=== PATIENT | male | born 1960 | race Two or more races ===

== ENCOUNTER 2024-11-15 11:48 | Inpatient (IN) | payer MEDICAID, SELFPAY ==
[2024-11-15] VITALS (69 sets, daily range): BP systolic 81–121; BP diastolic 51–81; PULSE 29–135; RESP 18–89; TEMP 36.7–40.1; O2SAT 90–97; BMI 24.4
--- NOTE | 2024-11-15 12:00 | XR_ITS ---
Examination: AP chest single view Technique one AP portable semiupright chest single view Date and time: November 15, 2024 1229 hours INDICATIONS: Coughing fever beginning 3 days ago. FINDINGS: Mild prominence left ventricle Reduced inspiratory effort Suspicious for mild pneumonia left base obscuring detail left hemidiaphragm IMPRESSION: Suspicious for mild pneumonia left base
--- NOTE | 2024-11-15 12:00 | XR_ITS ---
Examination: CT abdomen with intravenous contrast CT pelvis with intravenous contrast 2-D coronal reconstructions 2-D sagittal reconstructions Date and time of exam:November 15, 2024 1412 hours INDICATIONS: Abdominal pain and fever today. CTDI: vol (mGy) 8.73 DLP: (mGycm) 641 Technique: Multiple axial sections of the abdomen and pelvis have been obtained. 64 slice high-resolution scanner used. 3 mm axial sections have been obtained, post intravenous injection 60 cc [id number] 2-D sagittal, coronal reconstructions obtained. Low dose protocols were performed. One or more of the following dose reduction techniques were used; automated exposure control, adjustment of the mA and/or KV according to patient size, use of iterative reconstruction technique. Findings: Bibasilar pneumonia Mild to moderate right pleural fluid Moderate enlargement cardiac contour with vascular congestion Cirrhosis, liver nodular in contour Liver cysts, the largest 35 mm and 41 mm Splenomegaly Significant ascites Multiple gallstones No pancreatic mass No hydronephrosis No bowel obstruction Mild diffuse wall thickening of the colon and small bowel Contracted urinary bladder with urinary bladder wall thickening Mild prostatomegaly Advanced degenerative disc disease L4-L5 Fluid containing right inguinal hernia IMPRESSION: Bibasilar pneumonia Suspicious for heart failure Cirrhosis Splenomegaly Significant ascites Hepatic colopathy hepatic enteropathy
--- NOTE | 2024-11-15 12:05 | PD.EDABDPN ---
ED Abdominal Pain RME/HPI General Chief Complaint: Seizure Stated complaint: SEIZURE Time seen by provider: 11/15/24 11:59 Arrival date/time: 11/15/24 11:48 Source: patient Limitations: no limitations and other (Patient is ill-appearing but nontoxic appearing) RME / HPI RME / HPI narrative: 57-year-old male who is homeless and brought in by EMS for reported seizure activity. He denies any chronic medical illness. He is febrile and answering questions appropriately. He has abdominal distention. He denies any history of alcohol use. Denies any history of hypertension or liver disease. He denies any current nausea, vomiting, or diarrhea. He denies any drug allergies. He states he takes no medications. Related Data Allergies Allergy/AdvReac Type Severity Reaction Status Date / Time Unable to Assess Allergy Verified 11/15/24 11:56 Review of Systems Review of Systems Systems Reviewed: All systems reviewed, normal except as documented ED Exam General Limitations: Present no limitations and other (Patient is ill-appearing but nontoxic appearing) General appearance: Present alert and other (Patient is unkempt) Head Head exam: Present atraumatic Eye Eye exam: Present normal appearance, PERRL and EOMI ENT ENT exam: Present normal exam, normal oropharynx and mucous membranes moist Neck Neck exam: Present normal inspection, full ROM and trachea midline Chest Chest inspection: Present normal inspection and symmetric chest wall rise Respiratory Respiratory exam: Present normal lung sounds bilaterally Cardiovascular Cardiovascular exam: Present normal rhythm, tachycardia (He is tachycardic at 120 bpm) and normal heart sounds Abdominal Exam Abdominal exam: Present soft, distention and normal bowel sounds; Absent tenderness, guarding or rebound Extremities Exam Extremities exam: Present normal inspection and full ROM Back Exam Back exam: Present normal inspection and full ROM Neurological Exam Neurological exam: Present alert, oriented X3 and CN II-XII intact Psychiatric Psychiatric exam: Present normal affect and normal mood Skin Skin exam: Present warm, dry, intact and normal color Course Quality Measures none Orders Category Date Time Status Patient Condition Routine Admission 11/15/24 14:21 Ordered admission [Admit to Inpatient Status] Routine Admission 11/15/24 18:15 Active Aspiration precautions ONCE Care 11/15/24 18:09 Active Bedside COVID-19 Antigen Test NOW Care 11/15/24 12:00 Active Bedside Influenza A&B Antigen Test NOW Care 11/15/24 12:01 Completed COVID-19 Screening Questionnaire NOW Care 11/15/24 13:[address] Screening NOW Care 11/15/24 12:01 Active Decision to Admit X1 Care 11/15/24 13:24 Completed Head of Bed Elevation NOW Care 11/15/24 18:09 Active NPO NOW Care 11/15/24 14:22 Active Seizure precautions NOW Care 11/15/24 18:09 Active Diet NPO (NOW) Diet 11/15/24 14:22 Active CA echo doppler complete Stat Exams 11/15/24 17:[address] abdomen pelvis w con Stat Exams 11/15/24 12:00 Completed XR chest 1V Stat Exams 11/15/24 12:00 Completed Albumin, Peritoneal Fluid Routine Lab 11/15/24 16:20 Completed Alcohol, Blood Medical Stat Lab 11/15/24 12:16 Completed Ammonia Stat Lab 11/15/24 12:16 Completed Amylase,Peritoneal Fluid Routine Lab 11/15/24 16:20 Completed Blood Culture (Lab) Stat Lab 11/15/24 12:16 Received Body Fld Cult w Lida & Gram St Routine Lab 11/15/24 16:20 Received CBC AM DRAW Lab 11/16/24 05:00 Ordered CBC AM DRAW Lab 11/17/24 05:00 Ordered CBC AM DRAW Lab 11/18/24 05:00 Ordered CBC AM DRAW Lab 11/19/24 05:00 Ordered CBC AM DRAW Lab 11/20/24 05:00 Ordered CBC Stat Lab 11/15/24 12:16 Completed CMP [Comprehensive Metabolic Panel] Stat Lab 11/15/24 12:16 Completed Comprehensive Metabolic Panel AM DRAW Lab 11/16/24 05:00 Ordered Comprehensive Metabolic Panel AM DRAW Lab 11/17/24 05:00 Ordered Comprehensive Metabolic Panel AM DRAW Lab 11/18/24 05:00 Ordered Comprehensive Metabolic Panel AM DRAW Lab 11/19/24 05:00 Ordered Comprehensive Metabolic Panel AM DRAW Lab 11/20/24 05:00 Ordered Comprehensive Metabolic Panel AM DRAW Lab 11/21/24 05:00 Ordered Drug Screen,Urine Stat Lab 11/15/24 12:00 Ordered Glucose,Peritoneal Fluid Routine Lab 11/15/24 16:20 Completed LDH,Peritoneal Fluid Routine Lab 11/15/24 16:20 Completed Lactate (Lactic Acid) Q4H Lab 11/15/24 16:49 Completed Lactate (Lactic Acid) Q4H Lab 11/15/24 22:26 Ordered Lactic Acid [Lactate (Lactic Acid)] Stat Lab 11/15/24 12:16 Completed Peritoneal Cell Cnt/Diff Routine Lab 11/15/24 16:20 Completed Protein Total,Peritoneal Fluid Routine Lab 11/15/24 16:20 Completed UA [Urinalysis] Stat Lab 11/15/24 12:00 Ordered Urinalysis, C/S if Indicated Stat Lab 11/15/24 14:25 Ordered Acetaminophen Tab [Tylenol Tab] Med 11/15/24 14:20 Active 650 mg PO Q4HR PRN Albumin Human 25% Ivpb [Albuminar-25 Ivpb] Med 11/15/24 13:49 Discontinued 12.5 gm in 50 ml IV X1 Albumin Human 25% Ivpb [Albuminar-25 Ivpb] Med 11/15/24 15:24 Discontinued 25 gm in 100 ml IV X1 Enoxaparin [Lovenox] Med 11/16/24 09:00 Active 40 mg SC QDAY Furosemide [Lasix Inj] Med 11/15/24 12:37 Discontinued 40 mg IVP X1 ONE Ibuprofen Tab [Motrin Tab] Med 11/15/24 12:01 Discontinued 600 mg PO X1 ONE LORazepam [Ativan Inj] Med 11/15/24 18:12 Active 4 mg IVP PRN PRN Morphine Inj Med 11/15/24 14:20 Active 2 mg IVP Q4H PRN Norepinephrine/D5W 8mg/250ml [Levophed in D5W 8mg/250ml Med 11/15/24 13:18 Active ] 8 mg in 250 ml IV 0.05 mcg/kg/min Pantoprazole Inj [Protonix Inj] Med 11/15/24 14:30 Active 40 mg IVP QDAY Piper/Tazo 3.375 gm Premix [Zosyn] Med 11/15/24 22:00 Active 3.375 gm in 50 ml IV Q8HR Piper/Tazo 3.375 gm Premix [Zosyn] Med 11/15/24 12:02 Discontinued 3.375 gm in 50 ml IV X1 Piper/Tazo 3.375 gm Premix [Zosyn] Med 11/15/24 18:00 Discontinued 3.375 gm in 50 ml IV X1 Sodium Chloride 0.9% 500 ml [Ns] 500 ml Med 11/15/24 12:10 Discontinued IV 999 mls/hr Vancomycin Inj 1,500 mg Med 11/15/24 17:45 Discontinued Sodium Chloride 0.9% 500 ml [Ns] 500 ml IV X1 Vancomycin Pharmacy to Dose Med 11/15/24 17:45 Active 1 each IV QDAY Code Status Routine Oth 11/15/24 14:20 Ordered Oxygen Delivery PRN RT 11/15/24 14:21 Active Vital Signs Vital signs: Vital Signs Temperature 104.2 F H 11/15/24 11:59 Pulse Rate 121 H 11/15/24 11:59 Respiratory Rate 33 H 11/15/24 11:59 Blood Pressure 121/68 11/15/24 11:59 Pulse Oximetry (%) 91 L 11/15/24 11:59 Abdominal Pain MDM MDM Narrative MDM Narrative:: Patient is a 64-year-old male who was brought in by EMS from an abandoned building. His friend reported the patient was having seizures at that time. Patient was brought to the ER is found to be tachycardic and febrile. He is answering questions appropriately has no abnormal movements. He denies any chest pain or significant abdominal pain. He does have significant georgina distention that he states is actually improving. Patient reports a history of ascites. His daughter arrives at a later time as states the patient is currently housed and lives alone. He is not homeless. He does have a history of alcohol abuse. He does have a known history of ascites and congestive heart failure. He has no seizure history. Patient has been normotensive up until around 1315 p.m. today. Patient has received a 500 mL bolus of fluid. Will start him on a peripheral Levophed. His CT is pending. Case discussed with attending ER physician. Will admit to ICU. Case discussed with our bracelet former, Dr. Hercules who accepts the patient. Patient data External records reviewed:: EMS form Clinical information provided by:: patient, EMS and family Social determinants that could affect healthcare access:: alcohol use Patient has the following chronic illnesses:: Ascites, alcohol abuse, CHF How is presenting disease/condition affected by chronic disease/condition?: exacerbated by Evaluation data The following diagnostics were reviewed and interpreted by me:: EKG tracing(s) (EKG obtained today at 11:54 AM. EKG reveals sinus tachycardia 102 bpm. There are no ST changes or inverted T waves.) Lab and/or radiology exams considered but not ordered:: n/a Interpretation Summary: Patient has no significant leukocytosis. His lactic acid is elevated at 8.9. His glucose is 153. His bicarb is 16 he has hyponatremia at 130. Metabolic panel is essentially unremarkable otherwise. His ammonia is 79. Medications / Prescriptions Medications or Prescriptions considered but not ordered:: n/a Medication administrations:: Medication Administration History Acetaminophen (Acetaminophen 325 Mg Tablet) 650 mg PO Q4HR PRN PRN Reason: Pain(1-6) or temp > 100.3 Stop: 12/15/24 14:19 Enoxaparin Sodium (Enoxaparin Sod Inj 40 Mg/0.4 Ml Syringe) 40 mg SC QDAY SHANNAN Stop: 11/30/24 08:59 Norepinephrine/Dextrose (Levophed In D5w 8mg/250ml) 8 mg in 250 mls @ 7.654 mls/hr IV .Q24H PRN; Protocol PRN Reason: PER PROTOCOL Stop: 12/15/24 13:17 Last Titration: 11/15/24 19:00 Dose: 0.11 mcg/kg/min, 16.84 mls/hr Documented By: Titration: 11/15/24 18:00 Dose: 0.11 mcg/kg/min, 16.84 mls/hr Documented By: Titration: 11/15/24 17:53 Dose: 0.11 mcg/kg/min, 16.84 mls/hr Documented By: Titration: 11/15/24 17:36 Dose: 0.11 mcg/kg/min, 16.84 mls/hr Documented By: Titration: 11/15/24 17:30 Dose: 0.11 mcg/kg/min, 16.84 mls/hr Documented By: Titration: 11/15/24 17:15 Dose: 0.09 mcg/kg/min, 13.778 mls/hr Documented By: Titration: 11/15/24 17:00 Dose: 0.09 mcg/kg/min, 13.778 mls/hr Documented By: Titration: 11/15/24 16:53 Dose: 0.09 mcg/kg/min, 13.778 mls/hr Documented By: Titration: 11/15/24 16:20 Dose: 0.09 mcg/kg/min, 13.778 mls/hr Documented By: Titration: 11/15/24 14:25 Dose: 0.09 mcg/kg/min, 13.778 mls/hr Documented By: Titration: 11/15/24 13:45 Dose: 0.07 mcg/kg/min, 10.716 mls/hr Documented By: Admin: 11/15/24 13:32 Dose: 0.05 mcg/kg/min, 7.654 mls/hr Documented By: Piperacillin/Tazobactam/Dextrose (Zosyn) 3.375 gm in 50 mls @ 12.5 mls/hr IV Q8HR [facility] Stop: 11/22/24 21:59 Thiamine HCl 500 mg/ Sodium (Chloride) 105 mls @ 210 mls/hr IV Q8HR SHANNAN Stop: 11/16/24 21:59 Lorazepam (Lorazepam 2 Mg/Ml Vial) 4 mg IVP PRN PRN PRN Reason: Seizure > 5 min Stop: 11/20/24 18:11 Lorazepam (Lorazepam 0.5 Mg Tablet) 1 mg PO Q4HR PRN PRN Reason: CIWA SCORE 7-11 Stop: 11/20/24 18:18 Lorazepam (Lorazepam 0.5 Mg Tablet) 0.5 mg PO Q4HR PRN PRN Reason: CIWA Score 2-6 Stop: 11/20/24 18:18 Lorazepam (Lorazepam 0.5 Mg Tablet) 2 mg PO Q4HR PRN PRN Reason: CIWA SCORE 12-15 Stop: 11/20/24 18:18 Morphine Sulfate (Morphine Sulf Inj 10 Mg/Ml Vial) 2 mg IVP Q4H PRN PRN Reason: PAIN SCALE 7-10 (Severe Stop: 11/20/24 14:19 Pantoprazole Sodium (Pantoprazole Inj 40 Mg Vial) 40 mg IVP QDAY [facility] Stop: 12/15/24 14:29 Last Admin: 11/15/24 14:51 Dose: 40 mg Documented By: Pharmacy Consult (Vancomycin Pharmacy To Dose 1 Each Each) 1 each IV QDAY [facility] Stop: 12/15/24 17:44 Last Admin: 11/15/24 17:45 Dose: Not Given Documented By: [facility] Non-Admin Reason: Duplicate Medication on eMAR Discontinued Medications Furosemide (Furosemide Inj 10 Mg/Ml Vial 2 Ml) 40 mg IVP X1 ONE Stop: 11/15/24 12:38 Last Admin: 11/15/24 13:37 Dose: Not Given Documented By: Non-Admin Reason: Cancelled by Provider Piperacillin/Tazobactam/Dextrose (Zosyn) 3.375 gm in 50 mls @ 100 mls/hr IV X1 ONE Stop: 11/15/24 12:31 Last Infusion: 11/15/24 13:06 Dose: Infused Documented By: Admin: 11/15/24 12:14 Dose: 100 mls/hr Documented By: Sodium Chloride (Ns) 500 mls @ 999 mls/hr IV .Q31M ONE Stop: 11/15/24 12:40 Last Infusion: 11/15/24 13:06 Dose: Infused Documented By: Admin: 11/15/24 12:18 Dose: 999 mls/hr Documented By: Albumin Human (Albuminar-25 Ivpb) 12.5 gm in 50 mls @ 50 mls/hr IV X1 ONE Stop: 11/15/24 14:48 Last Infusion: 11/15/24 14:47 Dose: Infused Documented By: Admin: 11/15/24 13:30 Dose: 50 mls/hr Documented By: Piperacillin/Tazobactam/Dextrose (Zosyn) 3.375 gm in 50 mls @ 100 mls/hr IV X1 ONE Stop: 11/15/24 18:29 Last Admin: 11/15/24 20:18 Dose: Not Given Documented By: Non-Admin Reason: Verified with wrong time Albumin Human (Albuminar-25 Ivpb) 25 gm in 100 mls @ 100 mls/hr IV X1 ONE Stop: 11/15/24 16:23 Last Infusion: 11/15/24 17:45 Dose: Infused Documented By: [facility] Admin: 11/15/24 16:49 Dose: 100 mls/hr Documented By: [facility] Vancomycin HCl 1,500 mg/ (Sodium Chloride) 500 mls @ 200 mls/hr IV X1 ONE Stop: 11/15/24 20:14 Last Admin: 11/15/24 17:47 Dose: 200 mls/hr Documented By: [facility] Ibuprofen (Ibuprofen Tab 600 Mg Tablet) 600 mg PO X1 ONE Stop: 11/15/24 12:02 Last Admin: 11/15/24 12:13 Dose: 600 mg Documented By: EH See above Consultations Consultation(s) initiated? (list below): No Diagnosis Differential diagnosis abdominal pain: abdominal pain, acute appendicitis and diverticulitis Most likely diagnosis given after review of the tests above:: Sepsis, ascites Admission Indicated Admission indicated?: not indicated Admission Request Was there a request for admission?: Yes Admission Attestation Admission request attestation: Discussed case with [] from Hospitalist service regarding admission. Discussed patients ED course, exam findings, labs, and radiology results. The Hospitalist [agrees,declines] to accept the patient for admission. Disposition Plan Disposition Plan: Admit Critical Care Time Critical Care Time Critical Care Time: Yes Total Critical Care Time (min.): 45 Attestation: The high probability of sudden, clinically significant deterioration in the patient's condition required the highest level of my preparedness to intervene urgently. The services I provided to this patient were to treat and/or prevent clinically significant deterioration. Services included the following: chart data review, reviewing nursing notes and/or old charts, documentation time, peoplesoft hcm consultant collaboration regarding findings and treatment options, medication orders and management, direct patient care, vital sign assessments and ordering, interpreting and reviewing diagnostic studies and lab tests. Aggregate critical care time includes only time during which I was engaged in work directly related to the patient's care, as described above, whether at bedside or elsewhere in the Emergency Department. It did not include time spent performing other reported procedures or the services of residents, students, nurses or physician assistants. Discharge Plan Plan Patient Disposition: Admit Acute Care w/in Hospital Patient condition on transfer: Stable Problem List Clinical Impression: Sepsis, Abdominal ascites, CHF (congestive heart failure), Acidosis, lactic
[2024-11-15] MEDS: IBUPROFEN TAB 600 MG TABLET PO (12:13)
[2024-11-15] MEDS: PIPER/TAZO 3.375 GM PREMIX 3.375 GM/50 ML BAG IV ×2 (12:14→21:49)
[2024-11-15] MEDS: SODIUM CHLORIDE 0.9% 500 ML 500 ML 999 ML IV (12:18)
--- NOTE | 2024-11-15 12:29 | PC.NURSE ---
Patient confused and unable to go over medical history
[2024-11-15 12:35] LABS: Lactate (Lactic Acid) 8.9 mMol/L (0.4-2.0)
[2024-11-15 12:38] LABS: Basophils % (Auto) 0 % (0-2.5); Eosinophils % (Auto) 0 % (0-10); Hematocrit 29.6 % (41.0-53.0); Hemoglobin 10.5 g/dL (13.5-16.0); Immature Granulocytes % (Auto) 1 % (0-0); Immature Granulocytes Auto 0.14 Thou/mm3 (0.00-0.00); Lymphocytes # (Auto) 0.2 Thou/mm3 (1.0-4.8); Lymphocytes % (Auto) 2 % (10-50); Mean Corpuscular HGB Conc 35.5 g/dl (31.0-37.0); Mean Corpuscular Hemoglobin 36.3 pg (25.0-35.0); Mean Corpuscular Volume 102 fL (80-100); Monocytes # (Auto) 0.2 Thou/mm3 (0.0-0.8); Monocytes % (Auto) 2 % (0-12); Neutrophils # (Auto) 10.4 Thou/mm3 (1.8-7.7); Neutrophils % (Auto) 95 % (37-80); Nucleated Red Blood Cell # 0.03 Thou/mm3 (0.00-0.00); Nucleated Red Blood Cell % 0 /100 WBC (0); RDW Standard Deviation 62.4 fL (35.1-43.9); Red Blood Count 2.89 Miln/mm3 (4.50-5.90); White Blood Count 10.9 Thou/mm3 (3.8-10.6)
[2024-11-15 12:50] LABS: Ammonia 79 uMol/L (11-32)
[2024-11-15 12:53] LABS: Alanine Aminotransferase 33 U/L (10-49); Albumin/Globulin Ratio 0.5 (1.2-2.2); Alcohol, Blood Medical < 10.0 mg/dL (0-10.0); Alkaline Phosphatase 126 U/L (46-116); Anion Gap 15 (7-16); Aspartate Amino Transferase 67 U/L (0-34); BUN/Creatinine Ratio 15 Ratio (12-20); Bilirubin,Total 10.7 mg/dL (0.3-1.2); Blood Urea Nitrogen 20 mg/dL (9-23); Calcium (Corrected) 9.6 mg/dL (8.5-10.1); Chloride 99 mMol/L (98-107); Creatinine (Component) 1.3 mg/dL (0.6-1.3); Estimated Creatinine Clearance 69.6 mL/min (>60); Globulin 4.4 gm/dL (2.3-3.5); Glucose 153 mg/dL (74-106); Osmolality,Calculated 266 (275-295); Potassium 4.3 mMol/L (3.4-5.1); Sodium 130 mMol/L (136-145); Total Protein 6.4 gm/dL (5.7-8.2); eGFR > 60 See Note
[2024-11-15 13:05] LABS: Platelet Count 75 Thou/mm3 (140-440)
[2024-11-15] MEDS: ALBUMIN HUMAN 25% IVPB 12.5 GM/50 ML BTL IV (13:30)
[2024-11-15] MEDS: Norepinephrine/D5W 8mg/250ml 8 MG/250 ML BAG 7.654 MG IV (13:32)
[2024-11-15 14:23] LABS: Slide Review Platelets confirmed
[2024-11-15] MEDS: PANTOPRAZOLE INJ 40 MG VIAL IVP (14:51)
[2024-11-15 15:23] LABS: Reflex Lactate? Y
--- NOTE | 2024-11-15 16:00 | PC.NURSE ---
TITRATION DELAYED DUE TO MD IN ROOM INSERTING CENTRAL LINE
--- NOTE | 2024-11-15 16:23 | PC.NURSE ---
PER TRIAGE ASSESSMENT, PT WAS HANGING OUT OF WAREHOUSE WHEN HIS FRIEND STATES HE BEGAN TO HAVE CONVULSIONS FOR ABOUT 30 MINUTES. UPON EMS ARRIVAL PT WAS ALTERED.
[2024-11-15] MEDS: ALBUMIN HUMAN 25% IVPB 25 GM/100 ML BTL IV (16:49)
--- NOTE | 2024-11-15 16:50 | PC.NURSE ---
DR'S DONE WITH PUTTING IN RIGHT FEMORAL TLC. PER MANUFACTURING LEAD PLEASE TAKE PERITONEAL FLUID TO LAB. PER MANUFACTURING LEAD DID PERITONISIS ABOUT 1620
--- NOTE | 2024-11-15 16:54 | ESHP_ITS ---
<Statement entered by Brennan Quinn MD - 11/16/24 08:51> TOTAL CC TIME: 65 MIN I saw and evaluated the patient. I reviewed the resident?s note and agree with findings and plan as documented in the resident?s note. Upon my evaluation, this patient had a high probability of imminent or life- threatening deterioration due to septic shock which required my direct attention, intervention, and personal management. This time is exclusive of time spent on procedures, which are documented separately if performed. Patient was seen and examined in the emergency department. Case was discussed at bedside with his daughter and the patient via metal template maker given the history of a diarrheal illness 2 weeks prior, we are concerned regarding bacterial translocation and bacteremia. Physical exam failed to identify any particular source of infection. Although abdomen was distended, it was not tender and therefore spontaneous bacterial peritonitis was considered less likely. Nonetheless we performed a paracentesis and removed approximately 2 L of ascites which was sent for evaluation. Continue Zosyn and vancomycin obtain echocardiogram in case of endocarditis. Patient was noted to have very high fevers and rigors. Seizures unlikely. Track lactic acid, monitor stroke-volume index with Cheetah NICOM and continue IV fluids if necessary. Documentation for date of: 11/15/24 HPI History of Present Illness Chief complaint: Seizure like activity History of present illness: HPI: Patient is Ukrainian-speaking and history obtained via registered healthcare aerospace physiological technician and daughter at bedside. Patient is a 64-year-old male with past medical history significant for decompensated alcoholic liver cirrhosis with ascites and chronic venous insufficiency presents with a chief complaint of witnessed seizure. Apparently patient was found in a band on building by his friend with seizure- like activity. Subsequently EMS was called and patient was brought into the ED. Upon arrival patient was oriented x 3 and his daughter also arrived to provide additional history. About 2 weeks ago he started to have watery diarrhea which resolved after using loperamide. Also he had associated occasional subjective fevers which were relieved by Tylenol. During this time he also had worsening abdominal distention. Denied eating any street food, sick contacts, recent travel, antibiotic use and illicit drug use. ED course: BP 121/69, pulse 121, RR 33, temp 104.2 F, SpO2 91% on 2L via NC. Labs significant for Hb 10.5, WBC 10.9, PLT 75, bicarb 16, LA 8.9, T. bili 10.7, AST 61, ALP 126, ammonia 79. Abdomen/pelvis CT showed bibasilar pneumonia, moderate cardiac enlargement with vascular congestion. Cirrhosis. Mild diffuse wall thickening of colon and small bowel. Chest x-ray showed possible left base consolidation, vascular congestion. In the ED patient received ibuprofen 600 Mg p.o. x 1, Zosyn 3.375 g IV x 1, normal saline 500 cc bolus, albumin 12.5 g IV x 1, norepinephrine infusion. Patient will be admitted to the ICU for vasopressors in setting of septic shock Past medical history: Decompensated alcoholic liver cirrhosis with ascites Chronic venous insufficiency Medication list: Lasix KCL Rest of meds pending reconciliation Past surgical history: NIL Allergies: NKFDA Social history: Patient has history of heavy alcohol use, last drink June 2024. Unemployed and lives with his daughter Family History: No significant Review of Systems Review of Systems Narrative Review of Systems: GENERAL: Denies fever/chills or diaphoresis. HEENT: Denies headaches or visual changes. Denies discharge. Neuro: Denies unusual weakness or difficulty speaking. CARDIO: Denies chest pain or palpitations. PULM: Denies SOB, coughing or wheezing. GI: As above URO: Denies burning/itching/pain/urinary changes. MSK/EXT/SKIN: Denies joint/skeletal/muscle pain, issues/changes in upper or lower extremities, itchiness, or superficial pain. PSYCH: Cooperative, pleasant mood & affect. The rest of the review of systems is otherwise negative. Exam Vital Signs Temp Pulse Resp BP Pulse Ox O2 Del Method O2 Flow Rate 98.9 F 29 L 23 H 96/62 94 L Nasal Cannula 2 11/15/24 16:00 11/15/24 16:20 11/15/24 16:00 11/15/24 16:20 11/15/24 16:20 11/15/24 16:00 11/15/24 16:00 Narrative Exam Constitutional Alert, oriented x 3 and comfortable. Scleral icterus, MM dry HEENT Vision grossly intact. Patent nares. Trachea midline Respiratory Chest normal on inspection and crackles at bases bilaterally Cardiovascular S1 and S2 audible, RRR. No murmurs carotid bruit. No gross JVD. Abdominal Distended, fluid thrill present. Reduced BS Genitourinary No bladder tenderness, no flank pain. Normal to palpation. Scrotal edema Musculoskeletal Extremities tone within normal limits. 3+ pitting edema up to knees bilaterally. Chronic hyperpigmented changes on anterior shins Neurological CN II - XII grossly intact. Extremity motor and sensation grossly intact. Skin Warm, dry and intact. No apparent lesions. Psychiatric Patient has good affect, is cooperative Results: Labs 11/15/24 12:16 11/15/24 12:16 Labs: Short CBC 11/15/24 Range/Units 12:16 WBC 10.9 H (3.8-10.6) Thou/mm3 Hgb 10.5 L (13.5-16.0) g/dL Hct 29.6 L (41.0-53.0) % Plt Count 75 L (140-440) Thou/mm3 BMP 11/15/24 12:16 Sodium 130 L Potassium 4.3 Chloride 99 Carbon Dioxide 16.0 L BUN 20 Creatinine 1.3 Glucose 153 H Calcium 8.0 L Liver Function 11/15/24 Range/Units 12:16 Total Bilirubin 10.7 H (0.3-1.2) mg/dL AST 67 H (0-34) U/L ALT 33 (10-49) U/L Alkaline Phosphatase 126 H (46-116) U/L Albumin 2.0 L (3.5-5.0) gm/dL Quality Measures Quality Measures none Medications Home Medications and Allergies Allergies Allergy/AdvReac Type Severity Reaction Status Date / Time Unable to Assess Allergy Verified 11/15/24 11:56 Visit Medications Acetaminophen (Acetaminophen 325 Mg Tablet) 650 mg PO Q4HR PRN PRN Reason: Pain(1-6) or temp > 100.3 Stop: 12/15/24 14:19 Enoxaparin Sodium (Enoxaparin Sod Inj 40 Mg/0.4 Ml Syringe) 40 mg SC QDAY SHANNAN Stop: 11/30/24 08:59 Norepinephrine/Dextrose (Levophed In D5w 8mg/250ml) 8 mg in 250 mls @ 7.654 mls/hr IV .Q24H PRN; Protocol PRN Reason: PER PROTOCOL Stop: 12/15/24 13:17 Last Titration: 11/15/24 16:20 Dose: 0.09 mcg/kg/min, 13.778 mls/hr Piperacillin/Tazobactam/Dextrose (Zosyn) 3.375 gm in 50 mls @ 12.5 mls/hr IV Q8HR SHANNAN Stop: 11/22/24 21:59 Piperacillin/Tazobactam/Dextrose (Zosyn) 3.375 gm in 50 mls @ 100 mls/hr IV X1 ONE Stop: 11/15/24 18:29 Morphine Sulfate (Morphine Sulf Inj 10 Mg/Ml Vial) 2 mg IVP Q4H PRN PRN Reason: PAIN SCALE 7-10 (Severe Stop: 11/20/24 14:19 Pantoprazole Sodium (Pantoprazole Inj 40 Mg Vial) 40 mg IVP QDAY SHANNAN Stop: 12/15/24 14:29 Last Admin: 11/15/24 14:51 Dose: 40 mg Discontinued Medications Furosemide (Furosemide Inj 10 Mg/Ml Vial 2 Ml) 40 mg IVP X1 ONE Stop: 11/15/24 12:38 Last Admin: 11/15/24 13:37 Dose: Not Given Piperacillin/Tazobactam/Dextrose (Zosyn) 3.375 gm in 50 mls @ 100 mls/hr IV X1 ONE Stop: 11/15/24 12:31 Last Infusion: 11/15/24 13:06 Dose: Infused Sodium Chloride (Ns) 500 mls @ 999 mls/hr IV .Q31M ONE Stop: 11/15/24 12:40 Last Infusion: 11/15/24 13:06 Dose: Infused Albumin Human (Albuminar-25 Ivpb) 12.5 gm in 50 mls @ 50 mls/hr IV X1 ONE Stop: 11/15/24 14:48 Last Infusion: 11/15/24 14:47 Dose: Infused Albumin Human (Albuminar-25 Ivpb) 25 gm in 100 mls @ 100 mls/hr IV X1 ONE Stop: 11/15/24 16:23 Last Admin: 11/15/24 16:49 Dose: 100 mls/hr Ibuprofen (Ibuprofen Tab 600 Mg Tablet) 600 mg PO X1 ONE Stop: 11/15/24 12:02 Last Admin: 11/15/24 12:13 Dose: 600 mg Assessment & Plan Plan Patient is a 64-year-old male with past medical history significant for decompensated alcoholic liver cirrhosis with ascites and chronic venous insufficiency presents with a chief complaint of witnessed seizure. BP 121/69, pulse 121, RR 33, temp 104.2 F, SpO2 91% on 2L via NC. NEURO First time seizure Epispde DDx: likely febrile seizure , drug induced Rx: Lorazepam 4mg IV PRN for seizure > 5 minutes. Urine toxicology ordered RRX: Follow up on Utox. If no clear source for possible neurology consultation Hyperammonia DDx: Secondary to cirrhosis Dx: AMmonia 79 Rx: Once septic shock improves, to start on lactulose CVS Septic shock DDx: Colitis, IE, UTI, bacteremia Dx: Map< 65 source of infection unclear at this point. IE Rx: Zosyn 3.375 g IV every 6 hourly and vancomycin IV. TTE, urinalysis +/- culture, blood cultures, Nicom RRX: Follow-up on urine and blood cultures. Follow-up on TTE. For fluid boluses based on Nicom PULM Community acquired Pneumonia Dx: Chest x-ray showed left base consolidation patient on Zosyn Rx: On vancomycin and Zosyn for Septic shock GI/Hep Decompensated alcoholic cirrhosis with ascites and thrombocytopenia Hyperbilirubinemia Dx: T. bili 10.7. 2.2 L Fluid Removed via paracentesis today Rx: Fluid analysis, including cell count/Gram stain and cytology. Hepatitis panel RRX: Follow up on fluid analysis Diarrhea?resolving DDx: Viral colitis, diverticulitis Rx: CT A/P RENAL Lactic Acidosis DDx: secondary to septic shock Dx: Lactic acid 8.9 -> 5 Rx: Stop trending Lactate HEME/ONC Normocytic Anemia DDx: Anemia of chronic disease. ?esophaeal varices Dx: Hb 10.5 Rx: Monitor CBC and for signs of active bleeding Thrombocytopenia DDX: Secondary to cirrhosis Rx: Monitor for bleeding and CBC ENDO No Acute problems ID Septic Shock secondary to unknown source See Cardio MSK/DERM Chronic Venous Insufficiency For outpatient follow up ICU Health maintenance: Dispo: Admit to ICU for septic shock Diet: NPO DVT ppx: Contraindicated GI ppx: Protonix 40mg qD IV lines: 2 pIV Central line: Right femoral central line Arterial line: No Mayo: No Code status: FULL CODE Plan of care discussed with Attending Dr. Kai Kim MD PGY 1 Disclaimer: This note was dictated by speech recognition. Minor errors in blueprint duplicator may be present due to voice recognition software.
[2024-11-15 17:00] LABS: Peritoneal Fluid WBC 500 /cmm
--- NOTE | 2024-11-15 17:00 | PC.NURSE ---
RAILS PADDED DUE TO INITIAL C/O POSSIBLE SX LIKE ACTIVITY
[2024-11-15 17:05] LABS: Peritoneal Fluid Appearance Hazy; Peritoneal Fluid Color Yellow; Peritoneal Fluid Mononuclear 40 %; Peritoneal Fluid Polynuclear 60 %; RBC,Peritoneal Fluid 2000 /cmm
[2024-11-15 17:26] LABS: Albumin, Peritoneal Fluid < 1.0 gm/dL; Amylase,Peritoneal Fluid 26 IU/L; Glucose,Peritoneal Fluid 153 mg/dL; LDH,Peritoneal Fluid 54 IU/L; Protein Total,Peritoneal Fluid < 2 g/dL
--- NOTE | 2024-11-15 17:36 | PC.NURSE ---
PHARMACY CALLED FOR ANTIBIOTIC
[2024-11-15] MEDS: Vancomycin Inj 1,500 MG in SODIUM CHLORIDE 0.9% 500 ML 500 ML 200 MG IV (17:47)
--- NOTE | 2024-11-15 17:59 | ESOP_ITS ---
<Statement entered by Brennan Quinn MD - 11/16/24 09:15> I was present for the critical and charles portions of the procedure and was immediately available to provide assistance. Procedures Procedure Date / Time 11/15/241758 Procedure Narrative Procedure Narrative: INDICATION: Failed RIJ catheter, Septic shock requiring high dose Norepinephrine PROCEDURE CHRISTMAS TREE FARMER: Dr. Kim ATTENDING PHYSICIAN:Dr. Quinn Ultrasound Used: Y CONSENT: Surrogate decision maker ; Daughter During the informed consent discussion regarding the procedure, or treatment, I explained the following to the patient/designee: a. Nature of the procedure or treatment and who will perform the procedure or treatment. b. Necessity for procedure and the possible benefits. c. Risks and complications (most common and serious). d. Alternative treatments and the risks, benefits and side effects of each (including no treatment). e. Likelihood of the patient achieving his/her goals without this procedure and surgery treatment. f. Problems that might occur during the recuperation. g. Conflicts of interest, if any PROCEDURE SUMMARY: The [facility] Central Line Insertion Practices form was completed by an independent observer (RN) starting with the first handwash prior to starting sterile technique. A time out was performed. My hands were washed immediately prior to the procedure. I wore a surgical cap, mask with protective eyewear, sterile gown and sterile gloves throughout the procedure. The RIGHT inguinal region was prepped using chlorhexidine scrub and draped in sterile fashion using a full drape and sterile probe cover and sterile gel employed. The femoral pulse was identified. Anesthesia was achieved using 1% lidocaine. Using Ultrasound guidancethroughout the procedure, the introducer needle was inserted medial to the femoral artery, inferior to the inguinal crease and into the femoral vein. Venous blood was withdrawn. The syringe was removed and a guidewire was advanced into the introducer needle. A small incision was made at the skin surface with a scalpel and the introducer needle was exchanged for a dilator over the guidewire. After appropriate dilation was obtained, the dilator was exchanged over the wire for a 16cm central venous catheter. The wire was removed and the catheter was sutured in place. A sterile sorbaview shield was placed over the catheter at the insertion site. The patient tolerate d the procedure without any hemodynamic compromise. At time of procedure completion, all ports aspirated and flushed properly. Estimated blood loss is 5ml. Procedure supervised by Attending physician Dr. Kai Kim PGY1
--- NOTE | 2024-11-15 17:59 | ESOP_ITS ---
<Statement entered by Brennan Quinn MD - 11/16/24 09:14> I was present for the entire duration of the procedure and was immediately available to provide assistance. Real-time ultrasound was used to perform the procedure in the right lower quadrant. No complications. Peritoneal fluid appeared straw-colored clear yellow Procedures Procedure Date / Time 11/15/24 1642 Paracentesis Indication: possible spontaneous bacterial peritonitis Informed consent obtained: obtained from surrogate decision maker (Daughter) Time out done, and the following verified: correct patient, side and site, procedure and patient position Procedure: diagnostic paracentesis Location: RLQ Local anesthetic used: lidocaine 1% Amount of anesthesia used (mL): 10 Bedside ultrasound used: yes, real-time guidance Preparation: sterile prep and drape Amount of fluid obtained (mL): 2,200 Fluid: cloudy Size of needle used: 16 EBL(ml): 5 Post procedure exam: awake, alert Patient tolerated procedure: well Complications: none Procedure comment: Fluid sent for cell count, gram stain/ culture, albumin and cytology. Prcedure supervised by Attending Physician Dr. Quinn. Phan Kim PGY1
--- NOTE | 2024-11-15 18:00 | PD.RESPROC ---
Procedures Procedure Date / Time 11/15/24 3546
--- NOTE | 2024-11-15 18:23 | XR_ITS ---
Examination: AP chest single view TECHNIQUE: AP portable semiupright chest single view Date and time: November 15, 2024 12:29 PM INDICATIONS: Post right internal jugular catheter attempt FINDINGS: Moderate CHF Mild enlargement cardiac contour, prominent vascular congestion with perihilar edema No pneumothorax Impression: Moderate CHF No pneumothorax
--- NOTE | 2024-11-15 18:27 | PC.NURSE ---
PT AWARE PF NEED FPR URINE AND UNABLE TO VOID AT THIS TIME
--- NOTE | 2024-11-15 18:30 | ESOP_ITS ---
<Statement entered by Brennan Quinn MD - 11/16/24 18:17> I was present for the critical and charles portions of the procedure and was immediately available to provide assistance. will check echo if any evid of RA thrombus/vegetations will also check ct w/ iv contrast of neck for evid of LIJ thrombus if ECHO not helpful Procedures Procedure Date / Time 11/15/24 1730 Procedure Narrative Procedure Narrative: Central Line Procedure Note Indication: Septic Shock requiring High dose Norepinephrine Central Line Location: RIJ Procedure Student Advisor: Dr. Kim Attending Physician: Dr. Quinn Consent: Consent was obtained from surrogate decision maker, daughter, prior to the procedure. During the informed consent discussion regarding the procedure, or treatment, I explained the following to the designee: a. Nature of the procedure or treatment and who will perform the procedure or treatment. b. Necessity for procedure and the possible benefits. c. Risks and complications (most common and serious). d. Alternative treatments and the risks, benefits and side effects of each (including no treatment). e. Likelihood of the patient achieving his/her goals without this procedure and surgery treatment. f. Problems that might occur during the recuperation. g. Conflicts of interest, if any PROCEDURE SUMMARY: A time out was performed. My hands were washed immediately prior to the procedure. I wore a surgical cap, mask with protective eyewear, full gown and sterile gloves throughout the procedure. The patient was placed in Trendelenburg position. The right neck was prepped using chlorhexidine scrub and draped in sterile fashion using a three quarter sheet drape and sterile towels. Skin preparation was allowed to dry prior to skin puncture. Anatomic landmarks were identified . Anesthesia was achieved over the vein using 1% lidocaine. Using real-time ultrasound, with sterile probe cover and sterile gel, the introducer needle was inserted into the vein under direct ultrasound visualization. Venous blood was withdrawn. The syringe was removed and a guidewire was advanced into the introducer needle. The guidewire was visualized in the appropriate vein by ultrasound. Guidewire was advanced but met resistance midway and unable to go further, attending shift supervisor melting Dr. Quinn attempted but was unsuccessful. Repeat ultrasound showed possible thrombus/stenosis and further attempts were discontinued. Patient was then consented and prepped for right femoral central line. Post-procedure chest x-ray : showed no signs of Pneumothorax Procedure supervised by Attending Queen Producer Dr. Kai Kim MD PGY1
[2024-11-15 19:14] LABS: Creatine Kinase 230 U/L (34-171)
[2024-11-15 19:56] LABS: Reflex Lactate? Y
[2024-11-15 20:44] LABS: Lactic Acid, 3 HR 4.4 mMol/L (0.4-2.0)
[2024-11-15 21:21] LABS: Collection Type, Urine Clean Catch
[2024-11-15 21:38] LABS: Bacteria,Urine Rare; Bilirubin,Urine 1+ (Negative); Blood,Urine 3+ (Negative); Budding Yeast,Urine Present; Clarity,Urine Turbid (Clear/Hazy); Color,Urine Yellow (Lt Yel-Yel); Culture Indicated,Urine Yes; Glucose, Urine Negative (Negative); Granular Casts,Urine < 1 /hpf (0-1); Hyaline Casts,Urine 1 /hpf (0-1); Ketones,Urine Negative (Negative); Leukocyte Esterase,Urine Positive (Negative); Nitrite,Urine Negative (Negative); PH,Urine 5.5 (5.0-7.0); Protein,Urine 1+ (Neg - Trace); RBC,Urine 110 /hpf (0-3); Specific Gravity,Urine 1.026 (1.001-1.035); Squamous Epithelial Cell,Urine 1 /hpf (0-5); Urobilinogen,Urine Negative mg/dL (0.0-1.0); WBC,Urine 30 /hpf (0-5)
[2024-11-15] MEDS: THIAMINE INJ 500 MG in SODIUM CHLORIDE 0.9% 100 ML 210 MG IV (21:49)
[2024-11-15 21:51] LABS: Amphetamine/Methamp Scrn,U Negative (Negative); Barbiturate Screen,Urine Negative (Negative); Benzodiazepines Screen,Urine Negative (Negative); Benzoylecgonine Screen, Ur Negative (Negative); Fentanyl Screen,Urine Negative (Negative); Opiate Screen,Urine Negative (Negative); THC Screen,Urine Negative (Negative)
[2024-11-16] VITALS (122 sets, daily range): BP systolic 68–151; BP diastolic 41–105; PULSE 65–142; RESP 12–94; TEMP 36.6–39.1; O2SAT 90–97; BMI 27.9
[2024-11-16 00:27] LABS: Lactate (Lactic Acid) 3.4 mMol/L (0.4-2.0)
[2024-11-16 03:25] LABS: Reflex Lactate? Y
[2024-11-16 03:48] LABS: Lactic Acid, 3 HR 2.9 mMol/L (0.4-2.0)
[2024-11-16 03:57] LABS: Basophils # (Auto) 0.1 Thou/mm3 (0.0-0.2); Basophils % (Auto) 0 % (0-2.5); Eosinophils % (Auto) 6 % (0-10); Hematocrit 34.4 % (41.0-53.0); Hemoglobin 12.5 g/dL (13.5-16.0); Immature Granulocytes % (Auto) 2 % (0-0); Immature Granulocytes Auto 0.33 Thou/mm3 (0.00-0.00); Lymphocytes # (Auto) 0.5 Thou/mm3 (1.0-4.8); Lymphocytes % (Auto) 3 % (10-50); Mean Corpuscular HGB Conc 36.3 g/dl (31.0-37.0); Mean Corpuscular Hemoglobin 36.4 pg (25.0-35.0); Mean Corpuscular Volume 100 fL (80-100); Monocytes # (Auto) 0.8 Thou/mm3 (0.0-0.8); Monocytes % (Auto) 4 % (0-12); Neutrophils # (Auto) 14.9 Thou/mm3 (1.8-7.7); Neutrophils % (Auto) 85 % (37-80); Nucleated Red Blood Cell % 0 /100 WBC (0); RDW Standard Deviation 61.7 fL (35.1-43.9); Red Blood Count 3.43 Miln/mm3 (4.50-5.90); White Blood Count 17.5 Thou/mm3 (3.8-10.6)
[2024-11-16 04:07] LABS: Platelet Count 60 Thou/mm3 (140-440)
[2024-11-16 04:12] LABS: Alanine Aminotransferase 26 U/L (10-49); Albumin, Serum 1.9 gm/dL (3.4-4.8); Albumin/Globulin Ratio 0.5 (1.2-2.2); Alkaline Phosphatase 83 U/L (46-116); Anion Gap 8 (7-16); Aspartate Amino Transferase 56 U/L (0-34); BUN/Creatinine Ratio 18 Ratio (12-20); Bilirubin,Total 8.6 mg/dL (0.3-1.2); Blood Urea Nitrogen 20 mg/dL (9-23); Calcium 7.8 mg/dL (8.3-10.6); Calcium (Corrected) 9.5 mg/dL (8.5-10.1); Carbon Dioxide 21.7 mMol/L (20.0-31.0); Chloride 103 mMol/L (98-107); Creatinine (Component) 1.1 mg/dL (0.6-1.3); Estimated Creatinine Clearance 75.4 mL/min (>60); Globulin 3.8 gm/dL (2.3-3.5); Glucose 173 mg/dL (74-106); Osmolality,Calculated 272 (275-295); Potassium 4.4 mMol/L (3.4-5.1); Sodium 133 mMol/L (136-145); Total Protein 5.7 gm/dL (5.7-8.2); eGFR > 60 See Note
[2024-11-16 04:21] LABS: INR 2.8 (0.9-1.3); Partial Thromboplastin Time 50.4 Seconds (22.0-36.0); Prothrombin Time 28.4 Seconds (9.0-12.2)
[2024-11-16 04:22] LABS: Slide Review Platelets confirmed
[2024-11-16 04:25] LABS: Band Neutrophils (Manual) 4 % (0-6); Lymphocytes (Manual) 2 % (20-44); Monocytes (Manual) 3 % (2-9); Neutrophils (Manual) 91 % (50-70); Toxic Vacuolation 3+
[2024-11-16 04:49] LABS: Burr Cells Few; Smudge Cells Few
[2024-11-16 04:55] LABS: Hepatitis A Antibody IgM Non Reactive (Non React); Hepatitis B Core Antibody IgM Non Reactive (Non React); Hepatitis B Surface Antigen Non Reactive (Non React); Hepatitis C Antibody Non Reactive (Non React)
[2024-11-16] MEDS: THIAMINE INJ 500 MG in SODIUM CHLORIDE 0.9% 100 ML 210 MG IV ×2 (05:14→14:35)
[2024-11-16] MEDS: PIPER/TAZO 3.375 GM PREMIX 3.375 GM/50 ML BAG IV ×2 (05:15→14:34)
--- NOTE | 2024-11-16 08:00 | ESPR_ITS ---
<Statement entered by Brennan Quinn MD - 11/16/24 18:02> TOTAL CC TIME: 45 MIN I saw and evaluated the patient. I reviewed the resident?s note and agree with findings and plan as documented in the resident?s note. Upon my evaluation, this patient had a high probability of imminent or life- threatening deterioration due to septic shock, which required my direct attention, intervention, and personal management. This time is exclusive of time spent on procedures, which are documented separately if performed. gram negative stain in blood - await culture results - narrow to zosyn await echo results given pt had rigors today and wbc higher - still w/ poor po intake - i'm concerned we do not have source control - therefore merrem started zosyn stopped SVI without + change - therefore no further fluids given otherwise LA improved keep in ICU - cont pressors as needed f/u all clx final results peritoneal fluid not c/w SBP. Documentation for date of: 11/16/24 Subjective Subjective Interval history: Patient is [place]-speaking and history obtained via registered healthcare speech writer and daughter at bedside. Patient is a 64-year-old male with past medical history significant for decompensated alcoholic liver cirrhosis with ascites and chronic venous insufficiency presents with a chief complaint of witnessed seizure. Apparently patient was found in a band on building by his friend with seizure- like activity. Subsequently EMS was called and patient was brought into the ED. Upon arrival patient was oriented x 3 and his daughter also arrived to provide additional history. About 2 weeks ago he started to have watery diarrhea which resolved after using loperamide. Also he had associated occasional subjective fevers which were relieved by Tylenol. During this time he also had worsening abdominal distention. Denied eating any street food, sick contacts, recent travel, antibiotic use and illicit drug use. ED course: BP 121/69, pulse 121, RR 33, temp 104.2 F, SpO2 91% on 2L via NC. Labs significant for Hb 10.5, WBC 10.9, PLT 75, bicarb 16, LA 8.9, T. bili 10.7, AST 61, ALP 126, ammonia 79. Abdomen/pelvis CT showed bibasilar pneumonia, moderate cardiac enlargement with vascular congestion. Cirrhosis. Mild diffuse wall thickening of colon and small bowel. Chest x-ray showed possible left base consolidation, vascular congestion. In the ED patient received ibuprofen 600 Mg p.o. x 1, Zosyn 3.375 g IV x 1, normal saline 500 cc bolus, albumin 12.5 g IV x 1, norepinephrine infusion. Patient will be admitted to the ICU for vasopressors in setting of septic shock 11/16/2024: Overnight Levophed was discontinued. This morning patient says he feels well and no fevers overnight. WBC increased to 17.5 from 15.5, PLT decreased to 60 from 75, lactic acid down trended to 2.9 from 3.4. Blood culture grew GNR preliminary, pending urine and peritoneal fluid culture. Discontinued vancomycin and Zosyn, started on meropenem. Started on midodrine 10 Mg p.o. 3 times daily. Exam Vital Signs Temp Pulse Resp BP Pulse Ox O2 Del Method O2 Flow Rate 98.3 F 100 23 H 95/65 96 Nasal Cannula 2 11/15/24 18:00 11/16/24 07:01 11/16/24 07:01 11/16/24 06:00 11/16/24 06:00 11/15/24 18:00 11/16/24 07:01 Narrative Exam Constitutional Alert, oriented x 3 and comfortable. Scleral icterus, MM dry HEENT Vision grossly intact. Patent nares. Trachea midline Respiratory Gynecomastia and crackles at bases bilaterally Cardiovascular S1 and S2 audible, RRR. No murmurs carotid bruit. No gross JVD. Abdominal More distended , fluid thrill present. Reduced BS Genitourinary No bladder tenderness, no flank pain. Normal to palpation. Scrotal edema Musculoskeletal Extremities tone within normal limits. 3+ pitting edema up to knees bilaterally. Chronic hyperpigmented changes on anterior shins Neurological CN II - XII grossly intact. Extremity motor and sensation grossly intact. Skin Warm, dry and intact. No apparent lesions. Psychiatric Patient has good affect, is cooperative Objective Labs 11/17/24 05:30 11/17/24 05:30 Labs: Laboratory Results - last 24 hr 11/15/24 11/15/24 11/15/24 12:16 16:20 16:49 WBC 10.9 H RBC 2.89 L Hgb 10.5 L Hct 29.6 L MCV 102 H MCH 36.3 H MCHC 35.5 RDW Std Deviation 62.4 H Plt Count 75 L Neut % (Auto) 95 H Lymph % (Auto) 2 L [place] % (Auto) 2 Eos % (Auto) 0 Baso % (Auto) 0 Neut # (Auto) 10.4 H Lymph # (Auto) 0.2 L [place] # (Auto) 0.2 Eos # (Auto) 0.0 Baso # (Auto) 0.0 Immature Gran # (Auto) 0.14 H Absolute Nucleated RBC 0.03 H Immature Gran % 1 H Neutrophils % (Manual) Monocytes % (Manual) Nucleated RBC % 0 Band Neutrophils Lymphocytes (Manual) Smudge Cells Toxic Vacuolation Mirna Cells PT INR APTT Sodium 130 L Potassium 4.3 Chloride 99 Carbon Dioxide 16.0 L Anion Gap 15 BUN 20 Creatinine 1.3 Estim Creat Clear Calc 69.6 eGFR > 60 BUN/Creatinine Ratio 15 Glucose 153 H Calculated Osmolality 266 L Lactic Acid 8.9 H* 5.0 H* Calcium 8.0 L Corrected Calcium 9.6 Total Bilirubin 10.7 H AST 67 H ALT 33 Alkaline Phosphatase 126 H Ammonia 79 H Total Creatine Kinase 230 H Total Protein 6.4 Albumin 2.0 L Globulin 4.4 H Albumin/Globulin Ratio 0.5 L Ur Collection Type Urine Color Urine Clarity Urine pH Ur Specific [place] Urine Protein Urine Glucose (UA) Urine Ketones Urine Blood Urine Nitrite Urine Bilirubin Urine Urobilinogen (Auto) Ur Leukocyte Esterase Urine RBC Urine WBC Ur Squamous Epith Cells Ur Transition Epith Cell Ur Renal Epithelial Cell Calcium Carbonate Cryst Calcium Phosphate Cryst Calcium Oxalate Crystal Leucine Crystals Cystine Crystals Uric Acid Crystals Triple Phos Crystals Tyrosine Crystals Amorphous Crystals Urine Bacteria Cellular Casts Epithelial Casts Fatty Casts Hyaline Casts Granular Casts Waxy Casts Broad Casts RBC Casts Urine Mucus Urine Trichomonas Ur Yeast w Hyphae Urine Yeast (Budding) Urine Sperm Ur Oval Fat Bodies Ur Culture Indicated? Peritoneal Color Yellow Peritoneal Appearance Hazy Peritoneal WBC 500 Peritoneal RBC 2000 Periton Polynucl WBCs 60 Periton Mononucl WBCs 40 Peritoneal Tot Protein < 2 Peritoneal Albumin < 1.0 Peritoneal LDH 54 Peritoneal Glucose 153 Peritoneal Amylase 26 Urine Opiates Screen Urine Fentanyl Screen Ur Barbiturates Screen U Amphetamin/Meth Scrn U Benzodiazepines Scrn U Cocaine Metab Screen U Marijuana (THC) Screen Ethyl Alcohol < 10.0 Hepatitis A IgM Ab Hep Bs Antigen Hep B Core IgM Ab Hepatitis C Antibody Misc Test Result Platelets confirmed 11/15/24 11/15/24 11/15/24 20:30 20:30 20:30 WBC RBC Hgb Hct MCV MCH MCHC RDW Std Deviation Plt Count Neut % (Auto) Lymph % (Auto) [place] % (Auto) Eos % (Auto) Baso % (Auto) Neut # (Auto) Lymph # (Auto) [place] # (Auto) Eos # (Auto) Baso # (Auto) Immature Gran # (Auto) Absolute Nucleated RBC Immature Gran % Neutrophils % (Manual) Monocytes % (Manual) Nucleated RBC % Band Neutrophils Lymphocytes (Manual) Smudge Cells Toxic Vacuolation [place] Cells PT INR APTT Sodium Potassium Chloride Carbon Dioxide Anion Gap BUN Creatinine Estim Creat Clear Calc eGFR BUN/Creatinine Ratio Glucose Calculated Osmolality Lactic Acid 4.4 H* Calcium Corrected Calcium Total Bilirubin AST ALT Alkaline Phosphatase Ammonia Total Creatine Kinase Total Protein Albumin Globulin Albumin/Globulin Ratio Ur Collection Type Cancelled Clean Catch Urine Color Cancelled Yellow Urine Clarity Cancelled Urine pH Ur Specific [place] Urine Protein Urine Glucose (UA) Urine Ketones Urine Blood Urine Nitrite Urine Bilirubin Urine Urobilinogen (Auto) Ur Leukocyte Esterase Urine RBC Urine WBC Ur Squamous Epith Cells Ur Transition Epith Cell Ur Renal Epithelial Cell Calcium Carbonate Cryst Calcium Phosphate Cryst Calcium Oxalate Crystal Leucine Crystals Cystine Crystals Uric Acid Crystals Triple Phos Crystals Tyrosine Crystals Amorphous Crystals Urine Bacteria Cellular Casts Epithelial Casts Fatty Casts Hyaline Casts Granular Casts Waxy Casts Broad Casts RBC Casts Urine Mucus Urine Trichomonas Ur Yeast w Hyphae Urine Yeast (Budding) Urine Sperm Ur Oval Fat Bodies Ur Culture Indicated? Peritoneal Color Peritoneal Appearance Peritoneal WBC Peritoneal RBC Periton Polynucl WBCs Periton Mononucl WBCs Peritoneal Tot Protein Peritoneal Albumin Peritoneal LDH Peritoneal Glucose Peritoneal Amylase Urine Opiates Screen Urine Fentanyl Screen Ur Barbiturates Screen U Amphetamin/Meth Scrn U Benzodiazepines Scrn U Cocaine Metab Screen U Marijuana (THC) Screen Ethyl Alcohol Hepatitis A IgM Ab Hep Bs Antigen Hep B Core IgM Ab Hepatitis C Antibody [facility] [place] Test Result 11/15/24 11/15/24 11/15/24 20:30 20:30 20:30 WBC RBC Hgb Hct MCV MCH MCHC RDW Std Deviation Plt Count Neut % (Auto) Lymph % (Auto) [place] % (Auto) Eos % (Auto) Baso % (Auto) Neut # (Auto) Lymph # (Auto) [place] # (Auto) Eos # (Auto) Baso # (Auto) Immature Gran # (Auto) Absolute Nucleated RBC Immature Gran % Neutrophils % (Manual) Monocytes % (Manual) Nucleated RBC % Band Neutrophils Lymphocytes (Manual) Smudge Cells Toxic Vacuolation [place] Cells PT INR APTT Sodium Potassium Chloride Carbon Dioxide Anion Gap BUN Creatinine Estim Creat Clear Calc eGFR BUN/Creatinine Ratio Glucose Calculated Osmolality Lactic Acid Calcium Corrected Calcium Total Bilirubin AST ALT Alkaline Phosphatase Ammonia Total Creatine Kinase Total Protein Albumin Globulin Albumin/Globulin Ratio Ur Collection Type Urine Color Urine Clarity Turbid A Urine pH Cancelled 5.5 Ur Specific [place] Cancelled 1.026 Urine Protein Cancelled Urine Glucose (UA) Urine Ketones Urine Blood Urine Nitrite Urine Bilirubin Urine Urobilinogen (Auto) Ur Leukocyte Esterase Urine RBC Urine WBC Ur Squamous Epith Cells Ur Transition Epith Cell Ur Renal Epithelial Cell Calcium Carbonate Cryst Calcium Phosphate Cryst Calcium Oxalate Crystal Leucine Crystals Cystine Crystals Uric Acid Crystals Triple Phos Crystals Tyrosine Crystals Amorphous Crystals Urine Bacteria Cellular Casts Epithelial Casts Fatty Casts Hyaline Casts Granular Casts Waxy Casts Broad Casts RBC Casts Urine Mucus Urine Trichomonas Ur Yeast w Hyphae Urine Yeast (Budding) Urine Sperm Ur Oval Fat Bodies Ur Culture Indicated? Peritoneal Color Peritoneal Appearance Peritoneal WBC Peritoneal RBC Periton Polynucl WBCs Periton Mononucl WBCs Peritoneal Tot Protein Peritoneal Albumin Peritoneal LDH Peritoneal Glucose Peritoneal Amylase Urine Opiates Screen Urine Fentanyl Screen Ur Barbiturates Screen U Amphetamin/Meth Scrn U Benzodiazepines Scrn U Cocaine Metab Screen U Marijuana (THC) Screen Ethyl Alcohol Hepatitis A IgM Ab Hep Bs Antigen Hep B Core IgM Ab Hepatitis C Antibody [facility] [place] Test Result 11/15/24 11/15/24 11/15/24 20:30 20:30 20:30 WBC RBC Hgb Hct MCV MCH MCHC RDW Std Deviation Plt Count Neut % (Auto) Lymph % (Auto) [place] % (Auto) Eos % (Auto) Baso % (Auto) Neut # (Auto) Lymph # (Auto) [place] # (Auto) Eos # (Auto) Baso # (Auto) Immature Gran # (Auto) Absolute Nucleated RBC Immature Gran % Neutrophils % (Manual) Monocytes % (Manual) Nucleated RBC % Band Neutrophils Lymphocytes (Manual) Smudge Cells Toxic Vacuolation [place] Cells PT INR APTT Sodium Potassium Chloride Carbon Dioxide Anion Gap BUN Creatinine Estim Creat Clear Calc eGFR BUN/Creatinine Ratio Glucose Calculated Osmolality Lactic Acid Calcium Corrected Calcium Total Bilirubin AST ALT Alkaline Phosphatase Ammonia Total Creatine Kinase Total Protein Albumin Globulin Albumin/Globulin Ratio Ur Collection Type Urine Color Urine Clarity Urine pH Ur Specific [place] Urine Protein 1+ A Urine Glucose (UA) Cancelled Negative Urine Ketones Cancelled Negative Urine Blood Cancelled Urine Nitrite Urine Bilirubin Urine Urobilinogen (Auto) Ur Leukocyte Esterase Urine RBC Urine WBC Ur Squamous Epith Cells Ur Transition Epith Cell Ur Renal Epithelial Cell Calcium Carbonate Cryst Calcium Phosphate Cryst Calcium Oxalate Crystal Leucine Crystals Cystine Crystals Uric Acid Crystals Triple Phos Crystals Tyrosine Crystals Amorphous Crystals Urine Bacteria Cellular Casts Epithelial Casts Fatty Casts Hyaline Casts Granular Casts Waxy Casts Broad Casts RBC Casts Urine Mucus Urine Trichomonas Ur Yeast w Hyphae Urine Yeast (Budding) Urine Sperm Ur Oval Fat Bodies Ur Culture Indicated? Peritoneal Color Peritoneal Appearance Peritoneal WBC Peritoneal RBC Periton Polynucl WBCs Periton Mononucl WBCs Peritoneal Tot Protein Peritoneal Albumin Peritoneal LDH Peritoneal Glucose Peritoneal Amylase Urine Opiates Screen Urine Fentanyl Screen Ur Barbiturates Screen U Amphetamin/Meth Scrn U Benzodiazepines Scrn U Cocaine Metab Screen U Marijuana (THC) Screen Ethyl Alcohol Hepatitis A IgM Ab Hep Bs Antigen Hep B Core IgM Ab Hepatitis C Antibody Misc Test Result 11/15/24 11/15/24 11/15/24 20:30 20:30 20:30 WBC RBC Hgb Hct MCV MCH MCHC RDW Std Deviation Plt Count Neut % (Auto) Lymph % (Auto) [place] % (Auto) Eos % (Auto) Baso % (Auto) Neut # (Auto) Lymph # (Auto) [place] # (Auto) Eos # (Auto) Baso # (Auto) Immature Gran # (Auto) Absolute Nucleated RBC Immature Gran % Neutrophils % (Manual) Monocytes % (Manual) Nucleated RBC % Band Neutrophils Lymphocytes (Manual) Smudge Cells Toxic Vacuolation [place] Cells PT INR APTT Sodium Potassium Chloride Carbon Dioxide Anion Gap BUN Creatinine Estim Creat Clear Calc eGFR BUN/Creatinine Ratio Glucose Calculated Osmolality Lactic Acid Calcium Corrected Calcium Total Bilirubin AST ALT Alkaline Phosphatase Ammonia Total Creatine Kinase Total Protein Albumin Globulin Albumin/Globulin Ratio Ur Collection Type Urine Color Urine Clarity Urine pH Ur Specific [place] Urine Protein Urine Glucose (UA) Urine Ketones Urine Blood 3+ A Urine Nitrite Cancelled Negative Urine Bilirubin Cancelled 1+ A Urine Urobilinogen (Auto) Cancelled Ur Leukocyte Esterase Urine RBC Urine WBC Ur Squamous Epith Cells Ur Transition Epith Cell Ur Renal Epithelial Cell Calcium Carbonate Cryst Calcium Phosphate Cryst Calcium Oxalate Crystal Leucine Crystals Cystine Crystals Uric Acid Crystals Triple Phos Crystals Tyrosine Crystals Amorphous Crystals Urine Bacteria Cellular Casts Epithelial Casts Fatty Casts Hyaline Casts Granular Casts Waxy Casts Broad Casts RBC Casts Urine Mucus Urine Trichomonas Ur Yeast w Hyphae Urine Yeast (Budding) Urine Sperm Ur Oval Fat Bodies Ur Culture Indicated? Peritoneal Color Peritoneal Appearance Peritoneal WBC Peritoneal RBC Periton Polynucl WBCs Periton Mononucl WBCs Peritoneal Tot Protein Peritoneal Albumin Peritoneal LDH Peritoneal Glucose Peritoneal Amylase Urine Opiates Screen Urine Fentanyl Screen Ur Barbiturates Screen U Amphetamin/Meth Scrn U Benzodiazepines Scrn U Cocaine Metab Screen U Marijuana (THC) Screen Ethyl Alcohol Hepatitis A IgM Ab Hep Bs Antigen Hep B Core IgM Ab Hepatitis C Antibody Misc Test Result 11/15/24 11/15/24 11/15/24 20:30 20:30 20:30 WBC RBC Hgb Hct MCV MCH MCHC RDW Std Deviation Plt Count Neut % (Auto) Lymph % (Auto) [place] % (Auto) Eos % (Auto) Baso % (Auto) Neut # (Auto) Lymph # (Auto) [place] # (Auto) Eos # (Auto) Baso # (Auto) Immature Gran # (Auto) Absolute Nucleated RBC Immature Gran % Neutrophils % (Manual) Monocytes % (Manual) Nucleated RBC % Band Neutrophils Lymphocytes (Manual) Smudge Cells Toxic Vacuolation [place] Cells PT INR APTT Sodium Potassium Chloride Carbon Dioxide Anion Gap BUN Creatinine Estim Creat Clear Calc eGFR BUN/Creatinine Ratio Glucose Calculated Osmolality Lactic Acid Calcium Corrected Calcium Total Bilirubin AST ALT Alkaline Phosphatase Ammonia Total Creatine Kinase Total Protein Albumin Globulin Albumin/Globulin Ratio Ur Collection Type Urine Color Urine Clarity Urine pH Ur Specific [place] Urine Protein Urine Glucose (UA) Urine Ketones Urine Blood Urine Nitrite Urine Bilirubin Urine Urobilinogen (Auto) Negative Ur Leukocyte Esterase Cancelled Positive Urine RBC Cancelled 110 H Urine WBC Cancelled Ur Squamous Epith Cells Ur Transition Epith Cell Ur Renal Epithelial Cell Calcium Carbonate Cryst Calcium Phosphate Cryst Calcium Oxalate Crystal Leucine Crystals Cystine Crystals Uric Acid Crystals Triple Phos Crystals Tyrosine Crystals Amorphous Crystals Urine Bacteria Cellular Casts Epithelial Casts Fatty Casts Hyaline Casts Granular Casts Waxy Casts Broad Casts RBC Casts Urine Mucus Urine Trichomonas Ur Yeast w Hyphae Urine Yeast (Budding) Urine Sperm Ur Oval Fat Bodies Ur Culture Indicated? Peritoneal Color Peritoneal Appearance Peritoneal WBC Peritoneal RBC Periton Polynucl WBCs Periton Mononucl WBCs Peritoneal Tot Protein Peritoneal Albumin Peritoneal LDH Peritoneal Glucose Peritoneal Amylase Urine Opiates Screen Urine Fentanyl Screen Ur Barbiturates Screen U Amphetamin/Meth Scrn U Benzodiazepines Scrn U Cocaine Metab Screen U Marijuana (THC) Screen Ethyl Alcohol Hepatitis A IgM Ab Hep Bs Antigen Hep B Core IgM Ab Hepatitis C Antibody Misc Test Result 11/15/24 11/15/24 11/15/24 20:30 20:30 20:30 WBC RBC Hgb Hct MCV MCH MCHC RDW Std Deviation Plt Count Neut % (Auto) Lymph % (Auto) [place] % (Auto) Eos % (Auto) Baso % (Auto) Neut # (Auto) Lymph # (Auto) [place] # (Auto) Eos # (Auto) Baso # (Auto) Immature Gran # (Auto) Absolute Nucleated RBC Immature Gran % Neutrophils % (Manual) Monocytes % (Manual) Nucleated RBC % Band Neutrophils Lymphocytes (Manual) Smudge Cells Toxic Vacuolation [place] Cells PT INR APTT Sodium Potassium Chloride Carbon Dioxide Anion Gap BUN Creatinine Estim Creat Clear Calc eGFR BUN/Creatinine Ratio Glucose Calculated Osmolality Lactic Acid Calcium Corrected Calcium Total Bilirubin AST ALT Alkaline Phosphatase Ammonia Total Creatine Kinase Total Protein Albumin Globulin Albumin/Globulin Ratio Ur Collection Type Urine Color Urine Clarity Urine pH Ur Specific [place] Urine Protein Urine Glucose (UA) Urine Ketones Urine Blood Urine Nitrite Urine Bilirubin Urine Urobilinogen (Auto) Ur Leukocyte Esterase Urine RBC Urine WBC 30 H Ur Squamous Epith Cells Cancelled 1 Ur Transition Epith Cell Cancelled Ur Renal Epithelial Cell Cancelled Calcium Carbonate Cryst Cancelled Calcium Phosphate Cryst Cancelled Calcium Oxalate Crystal Cancelled Leucine Crystals Cancelled Cystine Crystals Cancelled Uric Acid Crystals Cancelled Triple Phos Crystals Cancelled Tyrosine Crystals Cancelled Amorphous Crystals Cancelled Urine Bacteria Cancelled Rare Cellular Casts Cancelled Epithelial Casts Cancelled Fatty Casts Cancelled Hyaline Casts Cancelled Granular Casts Waxy Casts Broad Casts RBC Casts Urine Mucus Urine Trichomonas Ur Yeast w Hyphae Urine Yeast (Budding) Urine Sperm Ur Oval Fat Bodies Ur Culture Indicated? Peritoneal Color Peritoneal Appearance Peritoneal WBC Peritoneal RBC Periton Polynucl WBCs Periton Mononucl WBCs Peritoneal Tot Protein Peritoneal Albumin Peritoneal LDH Peritoneal Glucose Peritoneal Amylase Urine Opiates Screen Urine Fentanyl Screen Ur Barbiturates Screen U Amphetamin/Meth Scrn U Benzodiazepines Scrn U Cocaine Metab Screen U Marijuana (THC) Screen Ethyl Alcohol Hepatitis A IgM Ab Hep Bs Antigen Hep B Core IgM Ab Hepatitis C Antibody Misc Test Result 11/15/24 11/15/24 11/15/24 20:30 20:30 20:30 WBC RBC Hgb Hct MCV MCH MCHC RDW Std Deviation Plt Count Neut % (Auto) Lymph % (Auto) [place] % (Auto) Eos % (Auto) Baso % (Auto) Neut # (Auto) Lymph # (Auto) [place] # (Auto) Eos # (Auto) Baso # (Auto) Immature Gran # (Auto) Absolute Nucleated RBC Immature Gran % Neutrophils % (Manual) Monocytes % (Manual) Nucleated RBC % Band Neutrophils Lymphocytes (Manual) Smudge Cells Toxic Vacuolation [place] Cells PT INR APTT Sodium Potassium Chloride Carbon Dioxide Anion Gap BUN Creatinine Estim Creat Clear Calc eGFR BUN/Creatinine Ratio Glucose Calculated Osmolality Lactic Acid Calcium Corrected Calcium Total Bilirubin AST ALT Alkaline Phosphatase Ammonia Total Creatine Kinase Total Protein Albumin Globulin Albumin/Globulin Ratio Ur Collection Type Urine Color Urine Clarity Urine pH Ur Specific [place] Urine Protein Urine Glucose (UA) Urine Ketones Urine Blood Urine Nitrite Urine Bilirubin Urine Urobilinogen (Auto) Ur Leukocyte Esterase Urine RBC Urine WBC Ur Squamous Epith Cells Ur Transition Epith Cell Ur Renal Epithelial Cell Calcium Carbonate Cryst Calcium Phosphate Cryst Calcium Oxalate Crystal Leucine Crystals Cystine Crystals Uric Acid Crystals Triple Phos Crystals Tyrosine Crystals Amorphous Crystals Urine Bacteria Cellular Casts Epithelial Casts Fatty Casts Hyaline Casts 1 Granular Casts Cancelled < 1 Waxy Casts Cancelled Broad Casts Cancelled RBC Casts Cancelled Urine Mucus Cancelled Urine Trichomonas Cancelled Ur Yeast w Hyphae Cancelled Urine Yeast (Budding) Cancelled Present A Urine Sperm Cancelled Ur Oval Fat Bodies Cancelled Ur Culture Indicated? Yes Peritoneal Color Peritoneal Appearance Peritoneal WBC Peritoneal RBC Periton Polynucl WBCs Periton Mononucl WBCs Peritoneal Tot Protein Peritoneal Albumin Peritoneal LDH Peritoneal Glucose Peritoneal Amylase Urine Opiates Screen Negative Urine Fentanyl Screen Negative Ur Barbiturates Screen Negative U Amphetamin/Meth Scrn Negative U Benzodiazepines Scrn Negative U Cocaine Metab Screen Negative U Marijuana (THC) Screen Negative Ethyl Alcohol Hepatitis A IgM Ab Hep Bs Antigen Hep B Core IgM Ab Hepatitis C Antibody Misc Test Result 11/16/24 11/16/24 00:08 03:35 WBC 17.5 H D RBC 3.43 L Hgb 12.5 L D Hct 34.4 L MCV 100 MCH 36.4 H MCHC 36.3 RDW Std Deviation 61.7 H Plt Count 60 L Neut % (Auto) 85 H Lymph % (Auto) 3 L [place] % (Auto) 4 Eos % (Auto) 6 Baso % (Auto) 0 Neut # (Auto) 14.9 H Lymph # (Auto) 0.5 L [place] # (Auto) 0.8 Eos # (Auto) 1.0 H Baso # (Auto) 0.1 Immature Gran # (Auto) 0.33 H Absolute Nucleated RBC 0.00 Immature Gran % 2 H Neutrophils % (Manual) 91 H Monocytes % (Manual) 3 Nucleated RBC % 0 Band Neutrophils 4 Lymphocytes (Manual) 2 L Smudge Cells Few Toxic Vacuolation 3+ Mirna Cells Few PT 28.4 H INR 2.8 H APTT 50.4 H Sodium 133 L Potassium 4.4 Chloride 103 Carbon Dioxide 21.7 Anion Gap 8 BUN 20 Creatinine 1.1 Estim Creat Clear Calc 75.4 eGFR > 60 BUN/Creatinine Ratio 18 Glucose 173 H Calculated Osmolality 272 L Lactic Acid 3.4 H 2.9 H Calcium 7.8 L Corrected Calcium 9.5 Total Bilirubin 8.6 H D AST 56 H ALT 26 Alkaline Phosphatase 83 D Ammonia Total Creatine Kinase Total Protein 5.7 Albumin 1.9 L Globulin 3.8 H Albumin/Globulin Ratio 0.5 L Ur Collection Type Urine Color Urine Clarity Urine pH Ur Specific [place] Urine Protein Urine Glucose (UA) Urine Ketones Urine Blood Urine Nitrite Urine Bilirubin Urine Urobilinogen (Auto) Ur Leukocyte Esterase Urine RBC Urine WBC Ur Squamous Epith Cells Ur Transition Epith Cell Ur Renal Epithelial Cell Calcium Carbonate Cryst Calcium Phosphate Cryst Calcium Oxalate Crystal Leucine Crystals Cystine Crystals Uric Acid Crystals Triple Phos Crystals Tyrosine Crystals Amorphous Crystals Urine Bacteria Cellular Casts Epithelial Casts Fatty Casts Hyaline Casts Granular Casts Waxy Casts Broad Casts RBC Casts Urine Mucus Urine Trichomonas Ur Yeast w Hyphae Urine Yeast (Budding) Urine Sperm Ur Oval Fat Bodies Ur Culture Indicated? Peritoneal Color Peritoneal Appearance Peritoneal WBC Peritoneal RBC Periton Polynucl WBCs Periton Mononucl WBCs Peritoneal Tot Protein Peritoneal Albumin Peritoneal LDH Peritoneal Glucose Peritoneal Amylase Urine Opiates Screen Urine Fentanyl Screen Ur Barbiturates Screen U Amphetamin/Meth Scrn U Benzodiazepines Scrn U Cocaine Metab Screen U Marijuana (THC) Screen Ethyl Alcohol Hepatitis A IgM Ab Non Reactive Hep Bs Antigen Non Reactive Hep B Core IgM Ab Non Reactive Hepatitis C Antibody Non Reactive Misc Test Result Platelets confirmed Quality Measures Quality Measures none Assessment & Plan Assessment Current Active Medications: Generic Name Dose Route Start Last Admin Trade Name Freq PRN Reason Stop Dose Admin Acetaminophen 650 mg 11/15/24 14:20 Acetaminophen 325 Mg Tablet PO 12/15/24 14:19 Q4HR PRN Pain(1-6) or temp > 100.3 Enoxaparin Sodium 40 mg 11/16/24 09:00 Enoxaparin Sod Inj 40 Mg/0.4 Ml Syringe SC 11/30/24 08:59 QDAY SHANNAN Norepinephrine/Dextrose 8 mg in 250 mls @ 7.654 mls/hr 11/15/24 13:18 11/16/24 07:29 Levophed In D5w 8mg/250ml IV 12/15/24 13:17 0.05 mcg/kg/min .Q24H PRN 7.654 mls/hr PER PROTOCOL Titration Protocol 0.05 MCG/KG/MIN Piperacillin/Tazobactam/Dextrose 3.375 gm in 50 mls @ 12.5 mls/hr 11/15/24 22:00 11/16/24 05:15 Zosyn IV 11/22/24 21:59 12.5 mls/hr Q8HR SHANNAN Administration Thiamine HCl 500 mg/ Sodium 105 mls @ 210 mls/hr 11/15/24 22:00 11/16/24 05:14 Chloride IV 11/16/24 21:59 210 mls/hr Q8HR SHANNAN Administration Albumin Human 25 gm in 100 mls @ 100 mls/hr 11/16/24 07:23 11/16/24 08:26 Albuminar-25 Ivpb IV 11/19/24 07:22 Not Given QDAY SHANNAN Lorazepam 4 mg 11/15/24 18:12 Lorazepam 2 Mg/Ml Vial IVP 11/20/24 18:11 PRN PRN Seizure > 5 min Lorazepam 1 mg 11/15/24 18:19 Lorazepam 0.5 Mg Tablet PO 11/20/24 18:18 Q4HR PRN CIWA SCORE 7-11 Lorazepam 0.5 mg 11/15/24 18:19 Lorazepam 0.5 Mg Tablet PO 11/20/24 18:18 Q4HR PRN CIWA Score 2-6 Lorazepam 2 mg 11/15/24 18:19 Lorazepam 0.5 Mg Tablet PO 11/20/24 18:18 Q4HR PRN CIWA SCORE 12-15 Morphine Sulfate 2 mg 11/15/24 14:20 Morphine Sulf Inj 10 Mg/Ml Vial IVP 11/20/24 14:19 Q4H PRN PAIN SCALE 7-10 (Severe Pantoprazole Sodium 40 mg 11/15/24 14:30 11/15/24 14:51 Pantoprazole Inj 40 Mg Vial IVP 12/15/24 14:29 40 mg QDAY SHANNAN Administration Plan Patient is a 64-year-old male with past medical history significant for decompensated alcoholic liver cirrhosis with ascites and chronic venous insufficiency presents with a chief complaint of witnessed seizure. BP 121/69, pulse 121, RR 33, temp 104.2 F, SpO2 91% on 2L via NC. ID GNR bacteremia Dx: secondary to bacter translocation after recent colitis Rx: Meropenem 1 g IV q8hrly RRx: Follow up on cultures Septic Shock secondary to unknown source See Cardio NEURO Rigors DDx: secondary to Bacteremia Rx: Acetaminophen 650 mg p.o. Q6 hourly as needed RRX: Not to exceed 2 g of acetaminophen daily due to liver disease. Cooling measures as necessary Hyperammonia DDx: Secondary to cirrhosis Dx: AMmonia 79 Rx: Once septic shock improves, to start on lactulose CVS Septic shock DDx: Colitis, IE, UTI, bacteremia Dx: Map< 65 source of infection unclear at this point. IE Rx: Discontinued Zosyn and vancomycin due to persistent rigors. Started on Meropenen 1G IV Q 8hrly. RRX: Follow-up on urine and blood cultures. Follow-up on TTE. For fluid boluses based on [place] PULM Community acquired Pneumonia Dx: Chest x-ray showed left base consolidation Rx: On Meropenem GI/Hep Decompensated alcoholic cirrhosis with ascites and thrombocytopenia Hyperbilirubinemia Dx: T. bili 10.7. 2.2 L Fluid Removed via paracentesis today Rx: SBP ruled out from fluid analysis, SAAG <1.1. RRX: Follow up on peritoneal culture Diarrhea?resolved DDx: Viral colitis, diverticulitis Rx: CT A/P showed mild thickening of colon RENAL Lactic Acidosis - resolving DDx: secondary to septic shock Dx: Lactic acid 8.9 -> 5 -> 2.9 HEME/ONC Normocytic Anemia DDx: Anemia of chronic disease. ?esophaeal varices Dx: Hb 10.5 ->12.5 Rx: Monitor CBC and for signs of active bleeding Thrombocytopenia DDX: Secondary to cirrhosis Rx: Monitor for bleeding and CBC ENDO No Acute problems MSK/DERM Chronic Venous Insufficiency For outpatient follow up ICU Health maintenance: Dispo: Admit to ICU for septic shock Diet: NPO DVT ppx: Contraindicated GI ppx: Protonix 40mg qD IV lines: 2 pIV Central line: Right femoral central line Arterial line: No Mayo: No Code status: FULL CODE Plan of care discussed with Attending Dr. Kai Kim MD PGY 1
[2024-11-16] MEDS: ALBUMIN HUMAN 25% IVPB 25 GM/100 ML BTL IV (08:18)
[2024-11-16] MEDS: Norepinephrine/D5W 8mg/250ml 8 MG/250 ML BAG 7.654 MG IV (08:52)
[2024-11-16] MEDS: MIDODRINE 5 MG TABLET 10 MG PO ×3 (09:21→21:29)
[2024-11-16] MEDS: PANTOPRAZOLE INJ 40 MG VIAL IVP (09:21)
[2024-11-16] MEDS: LORazepam 0.5 MG TABLET 1 MG PO (12:55)
--- NOTE | 2024-11-16 13:00 | PC.NURSE ---
MD SALCIDO MADE AWARE OF PATIENT CURRENTLY HAVING SEVERE TREMORS. PER MD SALCIDO TREMORS FROM GRAM NEGATIVE CHAN INFECTION. NO TEMP CURRENTLY PT VS STABLE
[2024-11-16] MEDS: ACETAMINOPHEN 325 MG TABLET 650 MG PO (14:34)
--- NOTE | 2024-11-16 14:48 | PC.NURSE ---
MD GONZALEZ MADE AWARE OF CONTINUED SEVERE TREMORS DESPITE ATIVAN ADMINISTRATION. GIVEN ORDERS TO HOLD CIWAL MEDS AND GIVE TYLENOL MONITOR FOR DECREASE IN TEMP. NO OTHER NEW ORDERS
--- NOTE | 2024-11-16 15:43 | PC.SS ---
MIX MAKER conducted bedside contact with the patient conduct initial assessment and to discuss discharge planning.? At bedside with patient was daughter, Scarlet Verdugo .? Patient is Slovenian speaking.? Daughter provided information for assessment and discharge planning.? Patient resides at home alone.? Patient does not utilize DME to assist with ambulation. Patient does not utilize home oxygen.? Patient possesses the ability to complete ADL?s independently.? Patient?s surrogate medical decision maker is daughter, Scarlet Verdugo.? Patient?s PCP is MARY GRACE Marshall.? Patient utilizes [facility] for medication services.? Plan is for the patient to return home at the time of discharge.? Family will provide transportation on behalf of the patient. ?No further discharge needs identified by the patient.? No further intervention required at this time, nephrology social worker will be available to address any further concerns.? Next of Kin: Scarlet Kartik D/C Plan: Home Address: [address] [place] [address]
[2024-11-16] MEDS: MEROPENEM INJ 1,000 MG in SODIUM CHLORIDE 0.9% (Popper) 50 ML 100 MG IV ×2 (16:06→21:28)
[2024-11-16] MEDS: ACETAMINOPHEN IVPB 1,000 MG/100 ML VIAL 250 MG IV (16:31)
--- NOTE | 2024-11-16 17:32 | ECHO_ITS ---
Transthoracic Echo Report Ht (in): 72 Wt (lb): 206 Exam Location: Echo Lab Status: Inpatient Information Technology Program Manager: Helena Ortiz Indications: Procedure Performed: BP: 96 / 55 HR: 100 Technical Quality: Adequate MEASUREMENTS (Male / Female) Normal Values 2D ECHO LV Diastolic Diameter PLAX 5.1 cm 4.2 - 5.9 / 3.9 - 5.3 cm LV Systolic Diameter PLAX 3.0 cm IVS Diastolic Thickness 0.5 cm 0.6 - 1.0 / 0.6 - 0.9 cm LVPW Diastolic Thickness 0.5 cm 0.6 - 1.0 / 0.6 - 0.9 cm LV Relative Wall Thickness 0.2 LVOT Diameter 2.4 cm LA Volume Index 25.4 cm?/m? 16 - 28 cm?/m? Ascending Aorta Diameter 3.4 cm DOPPLER AV Peak Velocity 167.0 cm/s AV Peak Gradient 11.2 mmHg AI Peak Velocity 328.0 cm/s AI Peak Gradient 43.0 mmHg AI Pressure Half Time 391.0 ms LVOT Peak Velocity 116.0 cm/s LVOT Peak Gradient 5.4 mmHg AV Area Cont Eq pk 3.1 cm? MV Area PHT 2.7 cm? Mitral E Point Velocity 82.0 cm/s Mitral A Point Velocity 80.5 cm/s Mitral E to A Ratio 1.0 LV E' Lateral Velocity 11.4 cm/s Mitral E to LV E' Lateral Ratio 7.2 LV E' Septal Velocity 7.3 cm/s Mitral E to LV E' Septal Ratio 11.2 TR Peak Velocity 198.0 cm/s TR Peak Gradient 15.7 mmHg PV Peak Velocity 88.2 cm/s PV Peak Gradient 3.1 mmHg FINDINGS Left Ventricle Normal left ventricular size, wall thickness, systolic function with no obvious regional wall motion abnormalities. Normal left ventricular diastolic filling pattern for age. The ejection fraction is visually estimated at 60 %. Right Ventricle The right ventricle is normal in size and systolic function. The estimated right ventricular systolic pressure, 15 mmHg. RAP 5mmHg. Left Atrium The left atrium is normal by two-dimensional, color flow and Doppler imaging with no structural abnormalities, no thrombus formation present. Right Atrium The right atrium is normal by two-dimensional imaging, color flow and Doppler imaging with no structural abnormalities, no thrombus formation present. Atrial Septum The interatrial septum appears normal with no evidence of a shunt. Aorta The aorta is normal by two-dimensional, color flow and Doppler interrogation. Mitral Valve The mitral valve is normal by two-dimensional, color flow and Doppler interrogation. There is trace mitral regurgitation. Aortic Valve The aortic valve is trileaflet and normal by two-dimensional, color flow and Doppler interrogation. There is trace aortic regurgitation. Tricuspid Valve The tricuspid valve is normal by two-dimensional, color flow and Doppler interrogation. There is trace tricuspid regurgitation. Pulmonic Valve The pulmonic valve is not well visualized. There is no significant pulmonic valve regurgitation. Vessels The pulmonary artery appears normal. The inferior vena cava pulmonary and hepatic veins appear normal. Pericardium The pericardium is normal by two-dimensional imaging. There is no significant pericardial effusion. CONCLUSIONS Indications: Rule out IE. Valvular Defects No clear valvular vegetations or valvular pathology noted. TTE suboptimal and consider ADRY for index of clinical suspicion. Normal LV size and function with an estimated EF of 60 to 65%. Normal diastolic function. Normal RV size and function. RVSP normal. Trace AI, TR, MR. Mild MAC. No Pericardial Effusion. Jerrod Ortiz (Electronically Signed) Final Date: 16 November 2024 18:54
[2024-11-17] VITALS (74 sets, daily range): BP systolic 86–150; BP diastolic 55–99; PULSE 57–120; RESP 15–97; TEMP 36.1–38.1; O2SAT 87–98; BMI 27.7
[2024-11-17] MEDS: MIDODRINE 5 MG TABLET 10 MG PO ×3 (05:25→21:18)
[2024-11-17] MEDS: MEROPENEM INJ 1,000 MG in SODIUM CHLORIDE 0.9% (Popper) 50 ML 100 MG IV (05:26)
[2024-11-17 06:49] LABS: Basophils # (Auto) 0.1 Thou/mm3 (0.0-0.2); Basophils % (Auto) 1 % (0-2.5); Eosinophils % (Auto) 0 % (0-10); Hematocrit 34.6 % (41.0-53.0); Hemoglobin 12.2 g/dL (13.5-16.0); Immature Granulocytes % (Auto) 1 % (0-0); Lymphocytes # (Auto) 0.5 Thou/mm3 (1.0-4.8); Lymphocytes % (Auto) 4 % (10-50); Mean Corpuscular HGB Conc 35.3 g/dl (31.0-37.0); Mean Corpuscular Hemoglobin 36.6 pg (25.0-35.0); Mean Corpuscular Volume 104 fL (80-100); Monocytes # (Auto) 0.8 Thou/mm3 (0.0-0.8); Monocytes % (Auto) 6 % (0-12); Neutrophils # (Auto) 11.2 Thou/mm3 (1.8-7.7); Neutrophils % (Auto) 89 % (37-80); Nucleated Red Blood Cell % 0 /100 WBC (0); RDW Standard Deviation 62.7 fL (35.1-43.9); Red Blood Count 3.33 Miln/mm3 (4.50-5.90); White Blood Count 12.6 Thou/mm3 (3.8-10.6)
[2024-11-17 07:00] LABS: Platelet Count 50 Thou/mm3 (140-440)
[2024-11-17 07:13] LABS: Alanine Aminotransferase 27 U/L (10-49); Albumin, Serum 1.9 gm/dL (3.4-4.8); Albumin/Globulin Ratio 0.5 (1.2-2.2); Alkaline Phosphatase 96 U/L (46-116); Anion Gap 7 (7-16); Aspartate Amino Transferase 54 U/L (0-34); BUN/Creatinine Ratio 21 Ratio (12-20); Bilirubin,Total 6.8 mg/dL (0.3-1.2); Blood Urea Nitrogen 23 mg/dL (9-23); Calcium (Corrected) 9.7 mg/dL (8.5-10.1); Carbon Dioxide 25.3 mMol/L (20.0-31.0); Chloride 102 mMol/L (98-107); Creatinine (Component) 1.1 mg/dL (0.6-1.3); Estimated Creatinine Clearance 75.4 mL/min (>60); Globulin 3.6 gm/dL (2.3-3.5); Glucose 218 mg/dL (74-106); Osmolality,Calculated 278 (275-295); Potassium 4.1 mMol/L (3.4-5.1); Sodium 134 mMol/L (136-145); Total Protein 5.5 gm/dL (5.7-8.2); eGFR > 60 See Note
--- NOTE | 2024-11-17 07:31 | CHAP ---
Patient was visited by a Spiritual Care Volunteer on 11/16/2024 between [id number] and [id number] and received comfort, encouragement, and/or prayer.
[2024-11-17 07:40] LABS: INR 2.7 (0.9-1.3); Partial Thromboplastin Time 52.7 Seconds (22.0-36.0); Prothrombin Time 27.8 Seconds (9.0-12.2)
[2024-11-17] MEDS: ALBUMIN HUMAN 25% IVPB 25 GM/100 ML BTL IV (08:11)
[2024-11-17] MEDS: PANTOPRAZOLE INJ 40 MG VIAL IVP (08:13)
[2024-11-17] MEDS: THIAMINE INJ 250 MG in SODIUM CHLORIDE 0.9% 100 ML 205 MG IV (09:17)
--- NOTE | 2024-11-17 10:10 | ESPR_ITS ---
<Statement entered by Brennan Quinn MD - 11/17/24 20:04> TOTAL CC TIME: 45 min I saw and evaluated the patient. I reviewed the resident?s note and agree with findings and plan as documented in the resident?s note. Upon my evaluation, this patient had a high probability of imminent or life- threatening deterioration due to septic shock, which required my direct attention, intervention, and personal management. This time is exclusive of time spent on procedures, which are documented separately if performed. intermittently on levophed - but improving LA improved now able to tolerate PO intake appears better more stable micro data returned w/ DORANTES S E.coli (i suspect translocation from prior colitis) abx narrowed to ctx 2g/24 keep in ICU anticipate trx to floor tomorrow Documentation for date of: 11/17/24 Subjective Subjective Interval history: Patient is Tuvaluan-speaking and history obtained via registered healthcare seismic interpreter and daughter at bedside. Patient is a 64-year-old male with past medical history significant for decompensated alcoholic liver cirrhosis with ascites and chronic venous insufficiency presents with a chief complaint of witnessed seizure. Apparently patient was found in a band on building by his friend with seizure- like activity. Subsequently EMS was called and patient was brought into the ED. Upon arrival patient was oriented x 3 and his daughter also arrived to provide additional history. About 2 weeks ago he started to have watery diarrhea which resolved after using loperamide. Also he had associated occasional subjective fevers which were relieved by Tylenol. During this time he also had worsening abdominal distention. Denied eating any street food, sick contacts, recent travel, antibiotic use and illicit drug use. ED course: BP 121/69, pulse 121, RR 33, temp 104.2 F, SpO2 91% on 2L via NC. Labs significant for Hb 10.5, WBC 10.9, PLT 75, bicarb 16, LA 8.9, T. bili 10.7, AST 61, ALP 126, ammonia 79. Abdomen/pelvis CT showed bibasilar pneumonia, moderate cardiac enlargement with vascular congestion. Cirrhosis. Mild diffuse wall thickening of colon and small bowel. Chest x-ray showed possible left base consolidation, vascular congestion. In the ED patient received ibuprofen 600 Mg p.o. x 1, Zosyn 3.375 g IV x 1, normal saline 500 cc bolus, albumin 12.5 g IV x 1, norepinephrine infusion. Patient will be admitted to the ICU for vasopressors in setting of septic shock 11/16/2024: Overnight Levophed was discontinued. This morning patient says he feels well and no fevers overnight. WBC increased to 17.5 from 15.5, PLT decreased to 60 from 75, lactic acid down trended to 2.9 from 3.4. Blood culture grew GNR preliminary, pending urine and peritoneal fluid culture. Discontinued vancomycin and Zosyn, started on meropenem. Started on midodrine 10 Mg p.o. 3 times daily. 11/17/2024: Overnight no events. Levophed was discontinued at 7 AM. Patient seen and examined in ICU this a.m. This morning patient denied any abdominal pain, headaches, fevers. Tolerating diet. WBC decreased to 12.6 from 17.5, T. bili decreased to 6.8 from 8.6.Blood culture grew E. coli pansensitive to all tested antibiotics. Will de-escalate antibiotics from meropenem to ceftriaxone 2 g IV daily. Will order US arterial duplex upper extremity right to rule out RIJ thrombus. Exam Vital Signs Temp Pulse Resp BP Pulse Ox O2 Del Method O2 Flow Rate 98.1 F 64 18 87/60 L 96 Room Air 2 11/17/24 08:00 11/17/24 09:00 11/17/24 09:00 11/17/24 09:00 11/17/24 09:00 11/17/24 08:00 11/17/24 06:59 Narrative Exam Constitutional Alert, oriented x 3 and comfortable. Scleral icterus, MM dry HEENT Vision grossly intact. Patent nares. Trachea midline Respiratory Gynecomastia and crackles at bases bilaterally Cardiovascular S1 and S2 audible, RRR. No murmurs carotid bruit. No gross JVD. Abdominal More distended , fluid thrill present. Reduced BS Genitourinary No bladder tenderness, no flank pain. Normal to palpation. Scrotal edema Musculoskeletal Extremities tone within normal limits. 3+ pitting edema up to knees bilaterally. Chronic hyperpigmented changes on anterior shins Neurological CN II - XII grossly intact. Extremity motor and sensation grossly intact. Skin Warm, dry and intact. No apparent lesions. Psychiatric Patient has good affect, is cooperative Objective Labs 11/17/24 05:30 11/17/24 05:30 Labs: Laboratory Results - last 24 hr 11/17/24 05:30 WBC 12.6 H RBC 3.33 L Hgb 12.2 L Hct 34.6 L MCV 104 H MCH 36.6 H MCHC 35.3 RDW Std Deviation 62.7 H Plt Count 50 L Neut % (Auto) 89 H Lymph % (Auto) 4 L Taliaferro % (Auto) 6 Eos % (Auto) 0 Baso % (Auto) 1 Neut # (Auto) 11.2 H Lymph # (Auto) 0.5 L Taliaferro # (Auto) 0.8 Eos # (Auto) 0.0 Baso # (Auto) 0.1 Immature Gran # (Auto) 0.10 H Absolute Nucleated RBC 0.00 Immature Gran % 1 H Nucleated RBC % 0 PT 27.8 H INR 2.7 H APTT 52.7 H Sodium 134 L Potassium 4.1 Chloride 102 Carbon Dioxide 25.3 Anion Gap 7 BUN 23 Creatinine 1.1 Estim Creat Clear Calc 75.4 eGFR > 60 BUN/Creatinine Ratio 21 H Glucose 218 H Calculated Osmolality 278 Calcium 8.0 L Corrected Calcium 9.7 Total Bilirubin 6.8 H D AST 54 H ALT 27 Alkaline Phosphatase 96 Total Protein 5.5 L Albumin 1.9 L Globulin 3.6 H Albumin/Globulin Ratio 0.5 L Quality Measures Quality Measures none Assessment & Plan Assessment Current Active Medications: Generic Name Dose Route Start Last Admin Trade Name Freq PRN Reason Stop Dose Admin Acetaminophen 500 mg 11/17/24 09:41 Acetaminophen 500 Mg Tablet PO 12/15/24 14:19 Q6HR PRN Pain(1-6) or temp > 100.3 Norepinephrine/Dextrose 8 mg in 250 mls @ 7.654 mls/hr 11/15/24 13:18 11/17/24 07:45 Levophed In D5w 8mg/250ml IV 12/15/24 13:17 0 mcg/kg/min .Q24H PRN 0 mls/hr PER PROTOCOL Titration Protocol 0.05 MCG/KG/MIN Albumin Human 25 gm in 100 mls @ 100 mls/hr 11/16/24 07:23 11/17/24 08:11 Albuminar-25 Ivpb IV 11/19/24 07:22 100 mls/hr QDAY SHANNAN Administration Thiamine HCl 250 mg/ Sodium 102.5 mls @ 205 mls/hr 11/17/24 09:00 11/17/24 09:17 Chloride IV 12/17/24 08:59 205 mls/hr QDAY SHANNAN Administration Ceftriaxone Sodium/Dextrose 2 gm in 50 mls @ 100 mls/hr 11/17/24 09:39 Rocephin/D5w 2gm IV 11/24/24 09:38 QDAY SHANNAN Lorazepam 4 mg 11/15/24 18:12 Lorazepam 2 Mg/Ml Vial IVP 11/20/24 18:11 PRN PRN Seizure > 5 min Lorazepam 1 mg 11/15/24 18:19 11/16/24 12:55 Lorazepam 0.5 Mg Tablet PO 11/20/24 18:18 1 mg Q4HR PRN Administration CIWA SCORE 7-11 Lorazepam 0.5 mg 11/15/24 18:19 Lorazepam 0.5 Mg Tablet PO 11/20/24 18:18 Q4HR PRN CIWA Score 2-6 Lorazepam 2 mg 11/15/24 18:19 Lorazepam 0.5 Mg Tablet PO 11/20/24 18:18 Q4HR PRN CIWA SCORE 12-15 Midodrine 10 mg 11/16/24 08:30 11/17/24 05:25 Midodrine 5 Mg Tablet PO 12/16/24 08:29 10 mg TID SHANNAN Administration Pantoprazole Sodium 40 mg 11/15/24 14:30 11/17/24 08:13 Pantoprazole Inj 40 Mg Vial IVP 12/15/24 14:29 40 mg QDAY SHANNAN Administration Plan Patient is a 64-year-old male with past medical history significant for decompensated alcoholic liver cirrhosis with ascites and chronic venous insufficiency presents with a chief complaint of witnessed seizure. BP 121/69, pulse 121, RR 33, temp 104.2 F, SpO2 91% on 2L via NC. ID E.coli bacteremia Dx: secondary to bacterial translocation after recent colitis Rx: De-escalated Meropenem 1 g IV q8hrly to Ceftriaxone 2g IV daily on [11/17- Septic Shock secondary Bacteremia - resolved See Cardio NEURO Rigors - resolved DDx: secondary to Bacteremia Rx: Acetaminophen 500 mg p.o. Q6 hourly as needed RRX: Not to exceed 2 g of acetaminophen daily due to liver disease. Cooling measures as necessary Hyperammonia DDx: Secondary to cirrhosis Dx: Ammonia 79 Rx: Once septic shock improves, to start on lactulose CVS Septic shock secondary to E.Coli Bacteremia - redolved Dx: Map 83 currently and Levophed infusion was stopped at 7am. TTE showed no signs of valvular vegetations, EF 60-65% Rx: Continue Midodrine 10mg po TID RRX: Continue to monitor MAPs. PULM Community acquired Pneumonia Dx: Chest x-ray showed left base consolidation Rx: On Ceftriaxone GI/Hep Decompensated alcoholic cirrhosis with ascites and thrombocytopenia Hyperbilirubinemia Dx: - 2.2 L Fluid Removed via paracentesis 11/15. - SBP ruled out from fluid analysis, SAAG <1.1. - T. bili 10.7 -> 6.8. - MELD-Na; 28 points [27-32% 90 day mortality]. - Child-Daigle ; 13 points Class C [Life expectancy 1-3 years, 82% megha-operative mortality] Rx: -For outpatient evaluation for liver transplantation. Patient counselled extensively on alcohol cessation. - For out patient GI follow-up for EGD +/- prophylactic banding of esophageal varices RENAL Lactic Acidosis - resolved DDx: secondary to septic shock Dx: Lactic acid 8.9 -> 5 -> 2.9 HEME/ONC Normocytic Anemia DDx: Anemia of chronic disease. ?esophaeal varices Dx: Hb 10.5 ->12.5 -> 12.2 Rx: Monitor CBC and for signs of active bleeding Thrombocytopenia DDX: Secondary to cirrhosis, sepsis Dx: Plt 60 ->50 Rx: Monitor for bleeding and CBC ENDO No Acute problems MSK/DERM Chronic Venous Insufficiency For outpatient follow up RIJ Thrombus ruled out Dx: Right IJ appeared noncompressible on bedside ultrasound. Formal ultrasound right upper extremity duplex ruled out thrombus ICU Health maintenance: Dispo: Admit to ICU for septic shock Diet: Cardiac, 1500cc fluid restriction DVT ppx: Contraindicated GI ppx: Protonix 40mg qD IV lines: 2 pIV Central line: Right femoral central line started on [11/15- Arterial line: No Mayo: No Code status: FULL CODE Plan of care discussed with Attending Dr. Kai Kim MD PGY 1
[2024-11-17] MEDS: cefTRIAXone/D5w 2gm 2 GM/50 ML BAG IV (10:13)
[2024-11-17 11:37] LABS: Slide Review Platelets confirmed
--- NOTE | 2024-11-17 12:36 | XR_ITS ---
Examination: Duplex scan of the upper extremity, unilateral right Date and time of exam: November 17, 2024 1311 hours INDICATIONS: Right arm pain this week Technique: Duplex scan of the extremity veins using B-mode/grayscale imaging and Doppler spectral analysis and color flow Attention is directed to internal echogenicity, compression and augmentation involving these veins, color flow assessment, spectral analysis Findings: Major deep venous structures in the extremity demonstrate normal course and caliber. There is no evidence of deep vein thrombosis. Normal color flow and spectral analysis Impression: Negative for DVT..
--- NOTE | 2024-11-17 14:23 | PC.SS ---
Addendum entered and electronically signed by SONIA Sanchez 11/17/24 14:28: Cardiology is not consulting. Original Note: Update: Patient on room air. Pressor support has been discontinued. P.O. feeding. Cardiac diet. Vitals are stable. No moore catheter in place. Cardiology is consulting. Possible d/g from ICU today.
[2024-11-17] MEDS: ACETAMINOPHEN 500 MG TABLET PO (18:15)
[2024-11-17 22:01] LABS: Vancomycin,Trough < 3.0 mcg/mL (5.0-10.0)
[2024-11-18] VITALS (22 sets, daily range): BP systolic 65–118; BP diastolic 34–78; PULSE 64–102; RESP 15–99; TEMP 36.1–37.7; O2SAT 92–100; BMI 28.0
[2024-11-18] MEDS: MIDODRINE 5 MG TABLET 10 MG PO (05:23)
[2024-11-18 05:35] LABS: Basophils # (Auto) 0.1 Thou/mm3 (0.0-0.2); Basophils % (Auto) 1 % (0-2.5); Eosinophils # (Auto) 0.1 Thou/mm3 (0.0-0.5); Eosinophils % (Auto) 1 % (0-10); Hemoglobin 10.8 g/dL (13.5-16.0); Immature Granulocytes % (Auto) 2 % (0-0); Immature Granulocytes Auto 0.14 Thou/mm3 (0.00-0.00); Lymphocytes # (Auto) 0.7 Thou/mm3 (1.0-4.8); Lymphocytes % (Auto) 8 % (10-50); Mean Corpuscular Hemoglobin 36.9 pg (25.0-35.0); Mean Corpuscular Volume 102 fL (80-100); Monocytes # (Auto) 0.8 Thou/mm3 (0.0-0.8); Monocytes % (Auto) 10 % (0-12); Neutrophils # (Auto) 6.5 Thou/mm3 (1.8-7.7); Neutrophils % (Auto) 79 % (37-80); Nucleated Red Blood Cell % 0 /100 WBC (0); RDW Standard Deviation 61.4 fL (35.1-43.9); Red Blood Count 2.93 Miln/mm3 (4.50-5.90); White Blood Count 8.3 Thou/mm3 (3.8-10.6)
[2024-11-18 05:52] LABS: INR 2.4 (0.9-1.3); Partial Thromboplastin Time 54.7 Seconds (22.0-36.0)
[2024-11-18 06:02] LABS: Platelet Count 39 Thou/mm3 (140-440)
[2024-11-18 06:06] LABS: Alanine Aminotransferase 27 U/L (10-49); Albumin, Serum 1.8 gm/dL (3.4-4.8); Albumin/Globulin Ratio 0.6 (1.2-2.2); Alkaline Phosphatase 84 U/L (46-116); Anion Gap 4 (7-16); Aspartate Amino Transferase 67 U/L (0-34); BUN/Creatinine Ratio 25 Ratio (12-20); Bilirubin,Total 5.4 mg/dL (0.3-1.2); Blood Urea Nitrogen 28 mg/dL (9-23); Calcium 7.8 mg/dL (8.3-10.6); Calcium (Corrected) 9.6 mg/dL (8.5-10.1); Chloride 104 mMol/L (98-107); Creatinine (Component) 1.1 mg/dL (0.6-1.3); Estimated Creatinine Clearance 81.9 mL/min (>60); Globulin 3.1 gm/dL (2.3-3.5); Glucose 129 mg/dL (74-106); Osmolality,Calculated 272 (275-295); Sodium 132 mMol/L (136-145); Total Protein 4.9 gm/dL (5.7-8.2); eGFR > 60 See Note
--- NOTE | 2024-11-18 08:01 | ESPR_ITS ---
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 Patient is a 64-year-old male with past medical history significant for decompensated alcoholic liver cirrhosis with ascites and chronic venous insufficiency presents with a chief complaint of witnessed seizure. Apparently patient was found in a band on building by his friend with seizure- like activity. Subsequently EMS was called and patient was brought into the ED. Upon arrival patient was oriented x 3 and his daughter also arrived to provide additional history. About 2 weeks ago he started to have watery diarrhea which resolved after using loperamide. Also he had associated occasional subjective fevers which were relieved by Tylenol. During this time he also had worsening abdominal distention. Denied eating any street food, sick contacts, recent travel, antibiotic use and illicit drug use. ED course: BP 121/69, pulse 121, RR 33, temp 104.2 F, SpO2 91% on 2L via NC. Labs significant for Hb 10.5, WBC 10.9, PLT 75, bicarb 16, LA 8.9, T. bili 10.7, AST 61, ALP 126, ammonia 79. Abdomen/pelvis CT showed bibasilar pneumonia, moderate cardiac enlargement with vascular congestion. Cirrhosis. Mild diffuse wall thickening of colon and small bowel. Chest x-ray showed possible left base consolidation, vascular congestion. In the ED patient received ibuprofen 600 Mg p.o. x 1, Zosyn 3.375 g IV x 1, normal saline 500 cc bolus, albumin 12.5 g IV x 1, norepinephrine infusion. Patient will be admitted to the ICU for vasopressors in setting of septic shock 11/16/2024: Overnight Levophed was discontinued. This morning patient says he feels well and no fevers overnight. WBC increased to 17.5 from 15.5, PLT decreased to 60 from 75, lactic acid down trended to 2.9 from 3.4. Blood culture grew GNR preliminary, pending urine and peritoneal fluid culture. Discontinued vancomycin and Zosyn, started on meropenem. Started on midodrine 10 Mg p.o. 3 times daily. 11/17/2024: Overnight no events. Levophed was discontinued at 7 AM. Patient seen and examined in ICU this a.m. This morning patient denied any abdominal pain, headaches, fevers. Tolerating diet. WBC decreased to 12.6 from 17.5, T. bili decreased to 6.8 from 8.6.Blood culture grew E. coli pansensitive to all tested antibiotics. Will de-escalate antibiotics from meropenem to ceftriaxone 2 g IV daily. Will order US arterial duplex upper extremity right to rule out RIJ thrombus. 11/18/2024: Overnight no events. I's/O's 752/700. This morning patient complained of constipation.WBC decreased to 8.3 from 12.6, Hb decreased to 10.8 from 12.2, PLT decreased to 39 from 50, INR decreased to 2.4 from 2.7, NA decreased to 132 from 135, BUN increased to 28 from 23, CR stable at 1.1, T. bili decreased to 5.4 from 6.8 AST increased to 67 from 54. Started on lactulose 20G p.o. 3 times daily, Lasix 20 Mg p.o. daily and discontinued midodrine. Patient clinically stable and fit for downgrade to the floor. Exam Vital Signs Temp Pulse Resp BP Pulse Ox O2 Del Method O2 Flow Rate 99.9 F 66 25 H 90/53 L 99 Room Air 2 11/18/24 00:00 11/18/24 06:00 11/18/24 06:00 11/18/24 06:00 11/18/24 06:00 11/17/24 16:00 11/17/24 19:55 Narrative Exam Constitutional Alert, oriented x 3 and comfortable. Scleral icterus, MM dry HEENT Vision grossly intact. Patent nares. Trachea midline Respiratory Gynecomastia and crackles at bases bilaterally Cardiovascular S1 and S2 audible, RRR. No murmurs carotid bruit. No gross JVD. Abdominal More distended , fluid thrill present. Reduced BS Genitourinary No bladder tenderness, no flank pain. Normal to palpation. Scrotal edema Musculoskeletal Extremities tone within normal limits. 3+ pitting edema up to knees bilaterally. Chronic hyperpigmented changes on anterior shins Neurological CN II - XII grossly intact. Extremity motor and sensation grossly intact. Skin Warm, dry and intact. No apparent lesions. Psychiatric Patient has good affect, is cooperative Objective Labs 11/20/24 05:55 11/20/24 05:55 Labs: Laboratory Results - last 24 hr 11/17/24 11/17/24 11/18/24 05:30 21:35 04:22 WBC 8.3 RBC 2.93 L Hgb 10.8 L Hct 30.0 L MCV 102 H MCH 36.9 H MCHC 36.0 RDW Std Deviation 61.4 H Plt Count 39 L D Neut % (Auto) 79 Lymph % (Auto) 8 L [place] % (Auto) 10 Eos % (Auto) 1 Baso % (Auto) 1 Neut # (Auto) 6.5 Lymph # (Auto) 0.7 L [place] # (Auto) 0.8 Eos # (Auto) 0.1 Baso # (Auto) 0.1 Immature Gran # (Auto) 0.14 H Absolute Nucleated RBC 0.00 Immature Gran % 2 H Nucleated RBC % 0 PT 25.0 H INR 2.4 H APTT 54.7 H Sodium 132 L Potassium 4.0 Chloride 104 Carbon Dioxide 24.0 Anion Gap 4 L BUN 28 H Creatinine 1.1 Estim Creat Clear Calc 81.9 eGFR > 60 BUN/Creatinine Ratio 25 H Glucose 129 H D Calculated Osmolality 272 L Calcium 7.8 L Corrected Calcium 9.6 Total Bilirubin 5.4 H D AST 67 H ALT 27 Alkaline Phosphatase 84 Total Protein 4.9 L Albumin 1.8 L Globulin 3.1 Albumin/Globulin Ratio 0.6 L Vancomycin Trough < 3.0 L Misc Test Result Platelets confirmed Quality Measures Quality Measures none Assessment & Plan Assessment Current Active Medications: Generic Name Dose Route Start Last Admin Trade Name Freq PRN Reason Stop Dose Admin Acetaminophen 500 mg 11/17/24 09:41 11/17/24 18:15 Acetaminophen 500 Mg Tablet PO 12/15/24 14:19 500 mg Q6HR PRN Administration Pain(1-6) or temp > 100.3 Norepinephrine/Dextrose 8 mg in 250 mls @ 7.654 mls/hr 11/15/24 13:18 11/17/24 07:45 Levophed In D5w 8mg/250ml IV 12/15/24 13:17 0 mcg/kg/min .Q24H PRN 0 mls/hr PER PROTOCOL Titration Protocol 0.05 MCG/KG/MIN Albumin Human 25 gm in 100 mls @ 100 mls/hr 11/16/24 07:23 11/17/24 11:26 Albuminar-25 Ivpb IV 11/19/24 07:22 Infused QDAY SHANNAN Infusion Thiamine HCl 250 mg/ Sodium 102.5 mls @ 205 mls/hr 11/17/24 09:00 11/17/24 11:26 Chloride IV 12/17/24 08:59 Infused QDAY SHANNAN Infusion Ceftriaxone Sodium/Dextrose 2 gm in 50 mls @ 100 mls/hr 11/17/24 09:39 11/17/24 11:26 Rocephin/D5w 2gm IV 11/24/24 09:38 Infused QDAY SHANNAN Infusion Lactulose 20 gm 11/18/24 08:15 Lactulose Syrup 20 Gm/30 Ml Udc PO 12/18/24 08:14 TID SHANNAN Protocol Lorazepam 4 mg 11/15/24 18:12 Lorazepam 2 Mg/Ml Vial IVP 11/20/24 18:11 PRN PRN Seizure > 5 min Lorazepam 1 mg 11/15/24 18:19 11/16/24 12:55 Lorazepam 0.5 Mg Tablet PO 11/20/24 18:18 1 mg Q4HR PRN Administration CIWA SCORE 7-11 Lorazepam 0.5 mg 11/15/24 18:19 Lorazepam 0.5 Mg Tablet PO 11/20/24 18:18 Q4HR PRN CIWA Score 2-6 Lorazepam 2 mg 11/15/24 18:19 Lorazepam 0.5 Mg Tablet PO 11/20/24 18:18 Q4HR PRN CIWA SCORE 12-15 Midodrine 10 mg 11/17/24 19:02 11/18/24 05:23 Midodrine 5 Mg Tablet PO 12/16/24 08:29 10 mg TID SHANNAN Administration Pantoprazole Sodium 40 mg 11/15/24 14:30 11/17/24 08:13 Pantoprazole Inj 40 Mg Vial IVP 12/15/24 14:29 40 mg QDAY SHANNAN Administration Plan Patient is a 64-year-old male with past medical history significant for decompensated alcoholic liver cirrhosis with ascites and chronic venous insufficiency presents with a chief complaint of witnessed seizure. BP 121/69, pulse 121, RR 33, temp 104.2 F, SpO2 91% on 2L via NC. ID E.coli bacteremia Dx: secondary to bacterial translocation after recent colitis Rx: De-escalated Meropenem 1 g IV q8hrly to Ceftriaxone 2g IV daily on [11/17- Septic Shock secondary Bacteremia - resolved See Cardio NEURO Hyperammonia DDx: Secondary to cirrhosis Dx: Ammonia 79 Rx: To start on lactulose 20 G po TID [facility] Septic shock secondary to E.Coli Bacteremia - resolved Dx: Map 83 currently and Levophed infusion was stopped at 7am on 11/17/24. TTE showed no signs of valvular vegetations, EF 60-65% Rx: Discontinued Midodrine 10mg po TID RRX: Continue to monitor MAPs. PULM Community acquired Pneumonia Dx: Chest x-ray showed left base consolidation Rx: On Ceftriaxone GI/Hep Decompensated alcoholic cirrhosis with ascites and thrombocytopenia Hyperbilirubinemia Constipation Dx: - 2.2 L Fluid Removed via paracentesis 11/15. - SBP ruled out from fluid analysis, SAAG <1.1. - T. bili 10.7 -> 6.8. - MELD-Na; 28 points [27-32% 90 day mortality]. - Child-Daigle ; 13 points Class C [Life expectancy 1-3 years, 82% megha-operative mortality] Rx: -For outpatient evaluation for liver transplantation. Patient counselled extensively on alcohol cessation. - For out patient GI follow-up for EGD +/- prophylactic banding of esophageal varices -To start on lactulose 20 G po TID for constipation and hepatic encephalopathy prophylaxis RENAL No acute problems HEME/ONC Normocytic Anemia DDx: Anemia of chronic disease. ?esophaeal varices Dx: Hb 10.5 ->12.5 -> 12.2 ->10.8 Rx: Monitor CBC and for signs of active bleeding Thrombocytopenia DDX: Secondary to cirrhosis, sepsis Dx: Plt 60 ->50 ->39 Rx: Monitor for bleeding and CBC ENDO No Acute problems MSK/DERM Chronic Venous Insufficiency For outpatient follow up RIJ Thrombus ruled out Dx: Right IJ appeared noncompressible on bedside ultrasound. Formal ultrasound right upper extremity duplex ruled out thrombus ICU Health maintenance: Dispo: Downgraded to the floor today Diet: Cardiac, 1500cc fluid restriction DVT ppx: Contraindicated GI ppx: Protonix 40mg qD IV lines: 2 pIV Central line: Right femoral central line removed on [11/15-11/18] Arterial line: No Mayo: No Code status: FULL CODE Plan of care discussed with Attending Dr. Hugo Kim MD PGY 1 Attending Provider Attestation/Addendum Patient seen and examined with the above resident, Abel Kim MD. I agree with the findings, assessment, and plan of care of care as documented except for any differences below. Patient with E. coli bacteremia, though no definite source identified, suspected bacterial translocation in setting of cirrhosis. Also possible bacterial peritonitis. Remains on appropriate antibiotics. Septic shock has now resolved. Adequate volume resuscitation. Will need to complete two weeks of antibiotic therapy. No need to repeat cultures. No additional culture data from other sources. Given hemodynamic stability, remove use of midodrine at this time. Renal function stable. Adequate UOP but to manage ascites, start on lasix and if BP tolerates then we can start on concomitant aldactone. Holding DVT ppx due to thrombocytopenia. Patient stable for transfer to medicine [facility] for ongoing management, better served on telemetry given borderline BP. Total critical care time: I personally spent 35 minutes for review of physiologic parameters, directing plan of care, coordination of care with other specialists, and counseling patient and daughter at the bedside. This is exclusive of time spent teaching housestaff or performing any separate billable procedures. Patient required critical care services for septic shock, E. Coli bacteremia, and decompensated cirrhosis. Patient remained at significant risk of further morbidity and mortality warranting close monitoring and care only available in the ICU.
[2024-11-18 08:35] LABS: Slide Review Platelets confirmed
[2024-11-18] MEDS: PANTOPRAZOLE INJ 40 MG VIAL IVP (08:53)
[2024-11-18] MEDS: ALBUMIN HUMAN 25% IVPB 25 GM/100 ML BTL IV (08:53)
[2024-11-18] MEDS: LACTULOSE SYRUP 20 GM/30 ML UDC PO ×3 (08:53→21:47)
[2024-11-18] MEDS: cefTRIAXone/D5w 2gm 2 GM/50 ML BAG IV (08:54)
[2024-11-18] MEDS: THIAMINE INJ 250 MG in SODIUM CHLORIDE 0.9% 100 ML 205 MG IV (08:55)
[2024-11-18] MEDS: Furosemide 20 MG TABLET PO (10:58)
--- NOTE | 2024-11-18 11:46 | ESPR_ITS ---
<Statement entered by Jeffrey Vance MD - 11/18/24 16:15> I discussed with and supervised the finance intern physician involved in the care of this patient. Patient assessment and plan was discussed with entire medicine team, including my attending. I agree with the assessment and plan as documented by finance intern doctor. Patient care was discussed with my attending physician Dr. Justin Vance, PGY-2 Documentation for date of: 11/18/24 Subjective Subjective Interval history: A 64-year-old male with a history of decompensated alcoholic liver cirrhosis with ascites and chronic venous insufficiency presented after a witnessed seizure. Upon arrival, he was febrile (104.2?F), tachycardic (pulse 121), and had low oxygen saturation (91%) on 2L via nasal cannula. Initial diagnostic workup showed signs of severe sepsis and possible bacteremia, with blood cultures eventually growing E. coli, likely secondary to bacterial translocation following recent colitis. He was diagnosed with septic shock, which was managed with IV fluids, antibiotics, and vasopressors. His septic shock resolved, and Levophed was discontinued after 24 hours. His ammonia level was elevated (79), likely related to his cirrhosis, but this improved after septic shock resolution. He was started on lactulose once stable. He also had community-acquired pneumonia, as indicated by a chest X-ray showing left base consolidation, for which he was treated with Ceftriaxone. His chronic liver disease remained a concern; he had hyperbilirubinemia (T. bili 10.7, down to 6.8), and his MELD-Na score was 28, indicating a 90-day mortality risk of 27- 32%. Paracentesis removed 2.2L of fluid, with spontaneous bacterial peritonitis (SBP) ruled out. His thrombocytopenia (Plt 60) was noted as being related to cirrhosis and sepsis, and his anemia (Hb 10.5) was likely due to chronic disease, with monitoring planned for signs of bleeding. Exam Vital Signs Temp Pulse Resp BP Pulse Ox O2 Del Method O2 Flow Rate 97.0 F 73 23 H 108/65 98 Nasal Cannula 2 11/18/24 08:00 11/18/24 11:00 11/18/24 11:00 11/18/24 11:00 11/18/24 11:00 11/18/24 08:00 11/18/24 08:55 Narrative Exam GENERAL * Normal appearing adult male, on room, NAD HEENT * NCAT.?JACI. Oral mucosa is moist. Patent Nares NECK * Supple, nontender, no thyromegaly, no meningismus, no JVD, no step offs CHEST * RRR, no m/g/r * CTAB, no w/r/r. Symmetrical chest rise. No intercostal subcostal retraction * Atraumatic, nontender, no crepitus, symmetrical expansion. ABDOMEN * Soft, distended, nontender. No guarding/rebound tenderness/masses. * Bowel sounds presents EXTREMITIES * Chronic venous stasis dermititis bilaterally, trace non-pitting edema bilaterally. * Small non-bleeding skin lesion of RLE. SKIN * Warm and dry, no jaundice/rashes. NEUROMUSCULAR * No lumbar or midline, no CVA, no paraspinal muscle spasm or tenderness. * Moves all 4 extremities well, with full ROM and good CSM. * BRIONES x4, CN II-XII grossly intact. * No focal neurologic deficits. PSYCHIATRY * Normal mood and affect, cooperative, no SI or HI or hallucinations. Objective Labs 11/18/24 04:22 11/18/24 04:22 Labs: Laboratory Results - last 24 hr 11/17/24 11/18/24 21:35 04:22 WBC 8.3 RBC 2.93 L Hgb 10.8 L Hct 30.0 L MCV 102 H MCH 36.9 H MCHC 36.0 RDW Std Deviation 61.4 H Plt Count 39 L D Neut % (Auto) 79 Lymph % (Auto) 8 L [place] % (Auto) 10 Eos % (Auto) 1 Baso % (Auto) 1 Neut # (Auto) 6.5 Lymph # (Auto) 0.7 L [place] # (Auto) 0.8 Eos # (Auto) 0.1 Baso # (Auto) 0.1 Immature Gran # (Auto) 0.14 H Absolute Nucleated RBC 0.00 Immature Gran % 2 H Nucleated RBC % 0 PT 25.0 H INR 2.4 H APTT 54.7 H Sodium 132 L Potassium 4.0 Chloride 104 Carbon Dioxide 24.0 Anion Gap 4 L BUN 28 H Creatinine 1.1 Estim Creat Clear Calc 81.9 eGFR > 60 BUN/Creatinine Ratio 25 H Glucose 129 H D Calculated Osmolality 272 L Calcium 7.8 L Corrected Calcium 9.6 Total Bilirubin 5.4 H D AST 67 H ALT 27 Alkaline Phosphatase 84 Total Protein 4.9 L Albumin 1.8 L Globulin 3.1 Albumin/Globulin Ratio 0.6 L Vancomycin Trough < 3.0 L Misc Test Result Platelets confirmed Quality Measures Quality Measures none Assessment & Plan Assessment Current Active Medications: Generic Name Dose Route Start Last Admin Trade Name Freq PRN Reason Stop Dose Admin Acetaminophen 500 mg 11/17/24 09:41 11/17/24 18:15 Acetaminophen 500 Mg Tablet PO 12/15/24 14:19 500 mg Q6HR PRN Administration Pain(1-6) or temp > 100.3 Furosemide 20 mg 11/18/24 10:45 11/18/24 10:58 Furosemide 20 Mg Tablet PO 12/18/24 10:44 20 mg QAM SHANNAN Administration Thiamine HCl 250 mg/ Sodium 102.5 mls @ 205 mls/hr 11/17/24 09:00 11/18/24 08:55 Chloride IV 12/17/24 08:59 205 mls/hr QDAY SHANNAN Administration Ceftriaxone Sodium/Dextrose 2 gm in 50 mls @ 100 mls/hr 11/17/24 09:39 11/18/24 08:54 Rocephin/D5w 2gm IV 11/24/24 09:38 100 mls/hr QDAY SHANNAN Administration Lactulose 20 gm 11/18/24 08:15 11/18/24 08:53 Lactulose Syrup 20 Gm/30 Ml Udc PO 12/18/24 08:14 20 gm TID SHANNAN Administration Protocol Pantoprazole Sodium 40 mg 11/15/24 14:30 11/18/24 08:53 Pantoprazole Inj 40 Mg Vial IVP 12/15/24 14:29 40 mg QDAY SHANNAN Administration Plan 64-year-old male with PMHx of alcoholic end-stage liver disease, history of decompensation with ascites, chronic venous insufficiency, presented on 11/15/24 with new onset witnessed seizure, admitted to ICU for septic shock secondary to bacteremia, requiring pressors support. Continued on broad ANTIBIOTICS, pressors are off, maintaining adequate MAP, downgraded to floors on 11/18/2024. New onset seizure in settings of Septic shock (resolved) E. coli bacteremia UTI Possible pneumonia New onset witnessed seizure, likely in settings of septic shock, requiring pressor support in ICU. Abdominal CT showed bilateral pneumonia, cirrhosis, significant ascites. CXR read as mild left base pneumonia but unclear, he is asymptomatic. UA showed WBC 30, positive LE, 3+ blood, 1+ protein. Blood Cx grew E. coli, source possibly UTI (although urine cx negative thus far), no open wound, SBP r/o (see below). EKG showed no clear valvular vegetation or pathology. Initially was on MEROPENEM (11/16 to 11/17) which was de-escalated to CEFTRIAXONE for E. coli bacteremia. Currently afebrile, no leukocytosis, vitals stable. ? Continue CEFTRIAXONE (11/17 to present) ? Consider ADRY if symptoms persist or worsen ? Pending repeat blood culture Decompensated liver cirrhosis Ascites, thrombocytopenia Hyperammonemia Cirrhosis with significant ascites seen on CT. Labs showed elevated bilirubin of 10.7 which is downtrending. MELD-Na score of 27-32% mortality rate in the next 3 months. Continued on CEFTRIAXONE for SBP prophylaxis. Paracentesis removed 2.2 L fluid, SAAG suggests portal hypertension. SBP r/o, peritoneal PMNs 60, afebrile, no leukocytosis. Ammonia 70 on admission, no signs of hepatic encephalopathy. Hep panel negative. ? Continue LACTULOSE 20 mg TID, goal 3?4 bowel movements daily ? Continue FUROSEMIDE 20 mg daily ? Continue THIAMINE 250 mg daily Thrombocytopenia Anemia Likely cirrhosis versus sepsis. PLT 75 on admission, now 39. Hgb 10.8, likely baseline. No signs of active bleed. ? Daily labs ? Transfuse if Hgb less than 7 Lactic acidosis, type A (resolving) In settings of sepsis, poor perfusion. LA 8.9 > 2.9 with fluids and underlying cause management. ? Treating underlying cause as above BPH ? Continue home TAMSULOSIN 0.4 mg HS Chronic stasis dermititis of gilberto LE Small, non-bleeding, non-ulcerative lesion of RLE LE Venous doppler negative for DVT bilaterall. ? Wound care Health maintenance Diet: Cardiac, fluid restriction 1500 cc GI prophylaxis: PROTONIX DVT prophylaxis: SCD, medical prophylaxis contraindicated due to severe thrombocytopenia Antibiotics: CEFTRIAXONE CODE STATUS: Full code Disposition: Treating bacteremia Case was discussed with attending physician and senior resident. Milind Benedict DO PGYI Attending Provider Attestation/Addendum And pneumonia. I have discussed and was present for the essential components of the history, physical examination, diagnosis, and treatment plan with the resident. I agree with the patient's care as documented by the resident and amended herein by me. Anil Anderson DO. Patient seen and evaluated this AM. Patient was in ICU downgrade today. Significant past medical history for alcoholic liver cirrhosis with ascites, venous insufficiency, recent diarrheal illness 2 weeks prior to admission, and witnessed seizure just prior to admission. Patient is now off pressors since yesterday, was tolerating diet in the ICU, patient presently on nasal cannula, 2 L SpO2 98%. Tmax overnight was 100.6, blood pressure soft but stable. I/O40/a 50, weight 94 kg. Significant labs include a normal WBC of 8.3 which is a downtrend from previous days, hemoglobin 10.8 with an MCV of 102, macrocytosis likely secondary to alcohol, platelet count 39 which is a decrease from previous days, INR 2.4 which is slightly improved from yesterday, sodium 132 which is stable, potassium 4, chloride 104, BUN 28, creatinine 1.1, T. bili 5.4 which is a downtrend from previous days, albumin 1.8. Urine cultures 11/15 negative, blood cultures on 11/15 demonstrating pansensitive E. coli which which may be secondary to translocation of his diarrheal illness prior to admission. Peritoneal fluid cultures from 11/15 pending however cytology was negative for any malignancy, MRSA nares negative. Significant imaging includes a CT abdomen and pelvis on 11/15 demonstrating bibasilar pneumonia, cirrhosis, splenomegaly, significant ascites however a paracentesis was performed since that time removing approximately 2 L and hepatic colopathy, chest x-ray on 616 demonstrating left base pneumonia, echocardiogram was ordered in setting of bacteremia however was negative for any valvular vegetations, normal LV size and function, EF 60 to 65% with normal diastolic function. A duplex ultrasound of the right upper extremity was also ordered out of concern for DVT however was negative. Patient was previously on meropenem however antibiotics were de-escalated to ceftriaxone 2 g daily, he will likely need IV ABX for 7 to 10 days., SBP was considered unlikely considering there was a lack of significant abdominal pain on admission. Patient also on Lasix 20 mg every morning in the ICU and lactulose 20 g p.o. 3 times daily as well as Protonix and Flomax. Considering soft BP, will hold off on increasing Lasix dose or adding spironolactone for now. Will continue to monitor closely and replete electrolytes as necessary Although this document has been carefully reviewed, there may still be some phonetic and other typographical errors. These errors are purely grammatical due to imperfections in the software program and should not be construed in any way to compromise the substance of the patient's medical care during this visit.
--- NOTE | 2024-11-18 18:35 | PC.NURSE ---
Patient transfered to telemetry on bed with monitor and assistance of Harshil Ramirez Charge nurse will give report to night nurse.
[2024-11-18] MEDS: TAMSULOSIN HCL 0.4 MG CAPSULE PO (20:38)
[2024-11-19] VITALS (12 sets, daily range): BP systolic 100–125; BP diastolic 62–80; PULSE 73–94; RESP 19–97; TEMP 36.3–36.5; O2SAT 91–93; BMI 28.4
[2024-11-19] MEDS: LACTULOSE SYRUP 20 GM/30 ML UDC PO ×3 (05:15→21:17)
[2024-11-19 05:41] LABS: Basophils % (Auto) 1 % (0-2.5); Eosinophils # (Auto) 0.2 Thou/mm3 (0.0-0.5); Eosinophils % (Auto) 3 % (0-10); Hematocrit 32.9 % (41.0-53.0); Hemoglobin 11.6 g/dL (13.5-16.0); Immature Granulocytes % (Auto) 1 % (0-0); Immature Granulocytes Auto 0.07 Thou/mm3 (0.00-0.00); Lymphocytes # (Auto) 0.6 Thou/mm3 (1.0-4.8); Lymphocytes % (Auto) 12 % (10-50); Mean Corpuscular HGB Conc 35.3 g/dl (31.0-37.0); Mean Corpuscular Hemoglobin 35.9 pg (25.0-35.0); Mean Corpuscular Volume 102 fL (80-100); Monocytes # (Auto) 0.7 Thou/mm3 (0.0-0.8); Monocytes % (Auto) 14 % (0-12); Neutrophils # (Auto) 3.4 Thou/mm3 (1.8-7.7); Neutrophils % (Auto) 69 % (37-80); Nucleated Red Blood Cell % 0 /100 WBC (0); RDW Standard Deviation 60.5 fL (35.1-43.9); Red Blood Count 3.23 Miln/mm3 (4.50-5.90)
[2024-11-19 05:53] LABS: Platelet Count 34 Thou/mm3 (140-440)
[2024-11-19 06:08] LABS: Alanine Aminotransferase 34 U/L (10-49); Albumin, Serum 2.1 gm/dL (3.4-4.8); Albumin/Globulin Ratio 0.6 (1.2-2.2); Alkaline Phosphatase 99 U/L (46-116); Anion Gap 6 (7-16); Aspartate Amino Transferase 93 U/L (0-34); BUN/Creatinine Ratio 29 Ratio (12-20); Bilirubin,Total 5.8 mg/dL (0.3-1.2); Blood Urea Nitrogen 26 mg/dL (9-23); Calcium (Corrected) 9.5 mg/dL (8.5-10.1); Carbon Dioxide 24.2 mMol/L (20.0-31.0); Chloride 104 mMol/L (98-107); Creatinine (Component) 0.9 mg/dL (0.6-1.3); Estimated Creatinine Clearance 100.1 mL/min (>60); Globulin 3.4 gm/dL (2.3-3.5); Glucose 140 mg/dL (74-106); Magnesium 2.2 mg/dL (1.6-2.6); Osmolality,Calculated 274 (275-295); Phosphorous 2.1 mg/dL (2.4-5.1); Potassium 3.9 mMol/L (3.4-5.1); Sodium 134 mMol/L (136-145); Total Protein 5.5 gm/dL (5.7-8.2); eGFR > 60 See Note
[2024-11-19 06:15] LABS: Slide Review Platelets confirmed
[2024-11-19 06:22] LABS: Path Review Blood Smear Sent to Pathologist
[2024-11-19] MEDS: Furosemide 20 MG TABLET PO (08:40)
[2024-11-19] MEDS: cefTRIAXone/D5w 2gm 2 GM/50 ML BAG IV (08:40)
[2024-11-19] MEDS: NAPH,KPH MBDB 1 PACKET (1.5 GM) PO (08:40)
[2024-11-19] MEDS: PANTOPRAZOLE 40 MG TABLET PO (08:41)
--- NOTE | 2024-11-19 09:04 | ESPR_ITS ---
<Statement entered by Jeffrey Vance MD - 11/19/24 17:46> I discussed with and supervised the internet marketing director physician involved in the care of this patient. Patient assessment and plan was discussed with entire medicine team, including my attending. I agree with the assessment and plan as documented by internet marketing director doctor. Patient care was discussed with my attending physician Dr. Faustino Vance, PGY-2 Documentation for date of: 11/19/24 Subjective Subjective Interval history: No acute overnight events. Reports feeling well today, denies new or worsening symptoms. Denies fever, chills, headaches, chest pain, sob, cough, GI or urinary symptoms. Vitals and labs are generally stable, no leukocytosis, PLT 34, LFTs slightly up with AST 93 and ALT 34. T. bili also slightly up at 5.8. Remains asymptomatic without abdominal pain. Exam Vital Signs Temp Pulse Resp BP Pulse Ox O2 Del Method O2 Flow Rate 97.6 F 94 20 112/67 91 L Room Air 0 11/19/24 08:20 11/19/24 08:40 11/19/24 08:20 11/19/24 08:40 11/19/24 08:20 11/19/24 08:20 11/19/24 07:49 Narrative Exam GENERAL * Normal appearing adult male, on room, NAD HEENT * NCAT.?JACI. Oral mucosa is moist. Patent Nares NECK * Supple, nontender, no thyromegaly, no meningismus, no JVD, no step offs CHEST * RRR, no m/g/r * CTAB, no w/r/r. Symmetrical chest rise. No intercostal subcostal retraction * Atraumatic, nontender, no crepitus, symmetrical expansion. ABDOMEN * Soft, distended, nontender. No guarding/rebound tenderness/masses. * Bowel sounds presents EXTREMITIES * Chronic venous stasis dermititis bilaterally. * Small non-bleeding skin lesion of RLE. SKIN * Warm and dry. * 2+ bilateral lower extremity pitting edema NEUROMUSCULAR * No lumbar or midline, no CVA, no paraspinal muscle spasm or tenderness. * Moves all 4 extremities well, with full ROM and good CSM. * BRIONES x4, CN II-XII grossly intact. * No focal neurologic deficits. PSYCHIATRY * Normal mood and affect, cooperative, no SI or HI or hallucinations. Objective Labs 11/20/24 05:55 11/20/24 05:55 Labs: Laboratory Results - last 24 hr 11/19/24 05:00 WBC 5.0 RBC 3.23 L Hgb 11.6 L Hct 32.9 L MCV 102 H MCH 35.9 H MCHC 35.3 RDW Std Deviation 60.5 H Plt Count 34 L Neut % (Auto) 69 Lymph % (Auto) 12 [place] % (Auto) 14 H Eos % (Auto) 3 Baso % (Auto) 1 Neut # (Auto) 3.4 Lymph # (Auto) 0.6 L [place] # (Auto) 0.7 Eos # (Auto) 0.2 Baso # (Auto) 0.0 Immature Gran # (Auto) 0.07 H Absolute Nucleated RBC 0.00 Immature Gran % 1 H Nucleated RBC % 0 Smear Path Review Sent to Pathologist Sodium 134 L Potassium 3.9 Chloride 104 Carbon Dioxide 24.2 Anion Gap 6 L BUN 26 H Creatinine 0.9 Estim Creat Clear Calc 100.1 eGFR > 60 BUN/Creatinine Ratio 29 H Glucose 140 H Calculated Osmolality 274 L Calcium 8.0 L Corrected Calcium 9.5 Phosphorus 2.1 L Magnesium 2.2 Total Bilirubin 5.8 H AST 93 H ALT 34 Alkaline Phosphatase 99 Total Protein 5.5 L Albumin 2.1 L Globulin 3.4 Albumin/Globulin Ratio 0.6 L Misc Test Result Platelets confirmed Quality Measures Quality Measures none Assessment & Plan Assessment Current Active Medications: Generic Name Dose Route Start Last Admin Trade Name Freq PRN Reason Stop Dose Admin Acetaminophen 500 mg 11/17/24 09:41 11/17/24 18:15 Acetaminophen 500 Mg Tablet PO 12/15/24 14:19 500 mg Q6HR PRN Administration Pain(1-6) or temp > 100.3 Furosemide 20 mg 11/18/24 10:45 11/19/24 08:40 Furosemide 20 Mg Tablet PO 12/18/24 10:44 20 mg QAM SHANNAN Administration Thiamine HCl 250 mg/ Sodium 102.5 mls @ 205 mls/hr 11/17/24 09:00 11/18/24 08:55 Chloride IV 12/17/24 08:59 205 mls/hr QDAY SHANNAN Administration Ceftriaxone Sodium/Dextrose 2 gm in 50 mls @ 100 mls/hr 11/17/24 09:39 11/19/24 08:40 Rocephin/D5w 2gm IV 11/24/24 09:38 100 mls/hr QDAY SHANNAN Administration Lactulose 20 gm 11/18/24 08:15 11/19/24 05:15 Lactulose Syrup 20 Gm/30 Ml Udc PO 12/18/24 08:14 20 gm TID SHANNAN Administration Protocol Pantoprazole Sodium 40 mg 11/19/24 09:00 11/19/24 08:41 Pantoprazole 40 Mg Tablet PO 12/19/24 08:59 40 mg QDAY SHANNAN Administration Simethicone 80 mg 11/18/24 15:18 Simethicone 80 Mg Chew PO 12/18/24 15:17 QID PRN GAS Tamsulosin HCl 0.4 mg 11/18/24 21:00 11/18/24 20:38 Tamsulosin Hcl 0.4 Mg Capsule PO 12/18/24 20:59 0.4 mg HS SHANNAN Administration Plan 64-year-old male with PMHx of alcoholic end-stage liver disease, history of decompensation with ascites, chronic venous insufficiency, presented on 11/15/24 with new onset witnessed seizure, admitted to ICU for septic shock secondary to bacteremia, requiring pressors support. Continued on broad ANTIBIOTICS, pressors are off, maintaining adequate MAP, downgraded to floors on 11/18/2024. Septic shock (resolved) E. coli bacteremia UTI Possible pneumonia Suspected SBP New onset witnessed seizure, likely in settings of septic shock, requiring pressor support in ICU. Abdominal CT showed bilateral pneumonia, cirrhosis, significant ascites. CXR read as mild left base pneumonia but unclear, he is asymptomatic. UA showed WBC 30, positive LE, 3+ blood, 1+ protein. Blood Cx grew E. coli, source suspected SBP (peritoneal PMN>250),possibly UTI (although urine cx negative thus far), no open wound, SBP r/o (see below). EKG showed no clear valvular vegetation or pathology. Initially was on MEROPENEM (11/16 to 11/17) which was de-escalated to CEFTRIAXONE for E. coli bacteremia. Currently afebrile, no leukocytosis, vitals stable. ? Continue CEFTRIAXONE (11/17 to present) ? Consider ADRY if symptoms persist or worsen ? Pending repeat blood culture Decompensated liver cirrhosis Ascites, thrombocytopenia Hyperammonemia Acute transaminitis Cirrhosis with significant ascites seen on CT. Labs showed elevated bilirubin of 10.7 which is downtrending. MELD-Na score of 27-32% mortality rate in the next 3 months. Continued on CEFTRIAXONE for SBP prophylaxis. Paracentesis removed 2.2 L fluid, SAAG suggests portal hypertension. SBP r/o, peritoneal PMNs 60, afebrile, no leukocytosis. Ammonia 79 on admission, no signs of hepatic encephalopathy. Hep panel negative. Appears volume overloaded on exam, initiate LASIX/SPIRONOLACTONE, added MIDODRINE for low blood pressure. ? Continue LACTULOSE 20 mg TID, goal 3?4 bowel movements daily ? Continue FUROSEMIDE 40 mg daily ? Continue SPIRONOLACTONE 100 mg daily ? Continue MIDODRINE 10 mg TID ? Continue THIAMINE 250 mg daily Thrombocytopenia Anemia Likely cirrhosis versus sepsis. PLT 75 on admission, now 39. Hgb 10.8, likely baseline. No signs of active bleed. ? Daily labs ? Transfuse if Hgb less than 7 Lactic acidosis, type A (resolving) In settings of sepsis, poor perfusion. LA 8.9 > 2.9 with fluids and underlying cause management. ? Treating underlying cause as above BPH ? Continue home TAMSULOSIN 0.4 mg HS Chronic stasis dermititis of gilberto LE Small, non-bleeding, non-ulcerative lesion of RLE LE Venous doppler negative for DVT bilaterall. ? Wound care New onset seizure, ruled out Discussion with patient regarding reported seizure prior to admission. He denied having seizure, loss consciousness, bowel incontinence, or other seizure or seizure-like symptoms. He said he was feeling cold and shivering at the time when ambulance was called, which was likely mistaken for seizure. Symptoms are likely related to bacteremia. Health maintenance Diet: Cardiac, fluid restriction 1500 cc GI prophylaxis: PROTONIX DVT prophylaxis: SCD, medical prophylaxis contraindicated due to severe thrombocytopenia Antibiotics: CEFTRIAXONE CODE STATUS: Full code Disposition: Treating bacteremia Case was discussed with attending physician and senior resident. Milind Benedict DO PGYI Attending Provider Attestation/Addendum Beverly Villafana DO, attest that I was physically present for the charles portions of the service and evaluated the patient with the resident and I reviewed and discussed the case with the resident and agree with the resident's findings and plans of care as documented above Patient seen and evaluated this AM. Patient states he is feeling well and states he has been having some loose stools after receiving lactulose. On admission, patient had some suspected seizures reported by friend. However, patient states he was feeling very cold and was shivering, which prompted his friend to call EMS. He denies any loss of consciousness, head trauma, bowel or bladder incontinence. Pt was downgraded from the ICU yesterday after he was admitted from septic shock 2/2 E.Coli Bacteremia. He had been on vancomycin and zosyn, de-escalated to rocephin 2g IV daily. Peritoneal fluid shows 300 PMNs, suspicious for SBP. Per documentation, patient did not have any abdominal tenderness on presentation otherwise. Abdomen on exam today is soft, , tymapnic, mildly distended and nontender to palpation. Patient states he has history of alcohol use, but quit drinking over a year ago. Will continue [facility] current management and f/u with final cultures and sensitivities. He has otherwise been afebrile
[2024-11-19] MEDS: THIAMINE INJ 250 MG in SODIUM CHLORIDE 0.9% 100 ML 205 MG IV (09:18)
--- NOTE | 2024-11-19 09:23 | CHAP ---
Patient expressed gratitude for visit and prayer.
[2024-11-19] MEDS: SPIRONOLACTONE 25 MG TABLET 100 MG PO (12:58)
[2024-11-19] MEDS: MIDODRINE 5 MG TABLET 10 MG PO ×2 (13:04→21:17)
--- NOTE | 2024-11-19 14:29 | PC.SS ---
Rounding: Pending Colonoscopy, pt will return home upon DC
--- NOTE | 2024-11-19 14:31 | PC.SS ---
Rounding: Pt is bacterimic, pending final cultures, will DC home upon DC
[2024-11-19] MEDS: TAMSULOSIN HCL 0.4 MG CAPSULE PO (21:18)
[2024-11-20] VITALS (12 sets, daily range): BP systolic 109–126; BP diastolic 69–87; PULSE 69–97; RESP 16–96; TEMP 36–36.9; O2SAT 94–98; BMI 28.4
[2024-11-20] MEDS: LACTULOSE SYRUP 20 GM/30 ML UDC PO ×2 (05:19→13:52)
[2024-11-20] MEDS: MIDODRINE 5 MG TABLET 10 MG PO ×3 (05:19→21:08)
[2024-11-20 06:24] LABS: Basophils % (Auto) 1 % (0-2.5); Eosinophils # (Auto) 0.2 Thou/mm3 (0.0-0.5); Eosinophils % (Auto) 4 % (0-10); Hematocrit 35.2 % (41.0-53.0); Hemoglobin 12.9 g/dL (13.5-16.0); Immature Granulocytes % (Auto) 2 % (0-0); Lymphocytes # (Auto) 0.8 Thou/mm3 (1.0-4.8); Lymphocytes % (Auto) 15 % (10-50); Mean Corpuscular HGB Conc 36.6 g/dl (31.0-37.0); Mean Corpuscular Hemoglobin 35.9 pg (25.0-35.0); Mean Corpuscular Volume 98 fL (80-100); Monocytes # (Auto) 0.5 Thou/mm3 (0.0-0.8); Monocytes % (Auto) 10 % (0-12); Neutrophils # (Auto) 3.5 Thou/mm3 (1.8-7.7); Neutrophils % (Auto) 68 % (37-80); Nucleated Red Blood Cell % 0 /100 WBC (0); RDW Standard Deviation 58.3 fL (35.1-43.9); Red Blood Count 3.59 Miln/mm3 (4.50-5.90); White Blood Count 5.2 Thou/mm3 (3.8-10.6)
[2024-11-20 06:28] LABS: Platelet Count 35 Thou/mm3 (140-440)
[2024-11-20 06:52] LABS: Alanine Aminotransferase 44 U/L (10-49); Albumin, Serum 2.2 gm/dL (3.4-4.8); Albumin/Globulin Ratio 0.6 (1.2-2.2); Alkaline Phosphatase 111 U/L (46-116); Anion Gap 10 (7-16); Aspartate Amino Transferase 112 U/L (0-34); BUN/Creatinine Ratio 24 Ratio (12-20); Bilirubin,Total 6.3 mg/dL (0.3-1.2); Blood Urea Nitrogen 22 mg/dL (9-23); Calcium 8.2 mg/dL (8.3-10.6); Calcium (Corrected) 9.6 mg/dL (8.5-10.1); Carbon Dioxide 23.4 mMol/L (20.0-31.0); Chloride 102 mMol/L (98-107); Creatinine (Component) 0.9 mg/dL (0.6-1.3); Estimated Creatinine Clearance 100.6 mL/min (>60); Globulin 3.8 gm/dL (2.3-3.5); Glucose 155 mg/dL (74-106); Magnesium 2.1 mg/dL (1.6-2.6); Osmolality,Calculated 276 (275-295); Phosphorous 3.3 mg/dL (2.4-5.1); Potassium 3.9 mMol/L (3.4-5.1); Sodium 135 mMol/L (136-145); eGFR > 60 See Note
[2024-11-20 07:04] LABS: Slide Review Platelets confirmed
[2024-11-20] MEDS: PANTOPRAZOLE 40 MG TABLET PO (08:26)
[2024-11-20] MEDS: ALBUMIN HUMAN 25% IVPB 12.5 GM/50 ML BTL IV ×2 (08:26→18:13)
[2024-11-20] MEDS: SPIRONOLACTONE 25 MG TABLET 100 MG PO (08:27)
[2024-11-20] MEDS: cefTRIAXone/D5w 2gm 2 GM/50 ML BAG IV (08:28)
[2024-11-20] MEDS: THIAMINE INJ 100 MG/ML VIAL 2 ML 250 MG IVP (08:28)
[2024-11-20] MEDS: Furosemide 20 MG TABLET 40 MG PO (08:28)
--- NOTE | 2024-11-20 09:00 | XR_ITS ---
Examination: Abdomen sonogram, complete Date and time of exam: November 20, 2024 0947 hrs. Indications: Abdominal pain beginning 2 days ago. Technique: Multiple real-time grayscale transabdominal sonographic images of the abdomen have been obtained. Findings: Gallstones Gallbladder wall 0.5 cm however the patient has ascites Common bile duct 0.9 cm no stones Pancreatic head 3.3 cm Liver 13.4 cm probable cyst 4 cm liver irregular in contour Normal hepatopedal portal venous flow Patent IVC Right kidney 12.8 cm cortex 1.6 cm Left kidney 14.1 cm cortex 1.7 cm Splenomegaly 18.8 cm Impression: Cirrhosis Splenomegaly Cholelithiasis Gallbladder wall is thickened however the patient has ascites Consider HIDA scan follow-up as clinically warranted
--- NOTE | 2024-11-20 09:02 | ESPR_ITS ---
Documentation for date of: 11/20/24 Subjective Subjective Interval history: No acute overnight events. Reports feeling well this morning. Denies fever, chills, headaches, chest pain, sob, cough, GI or urinary symptoms. Vitals are stable, afebrile, on room air. CBC at baseline, no leukocytosis. T. bili continues rising, currently 6.3, AST also rising, currently 112. Electrolytes relatively normal. Has worsening bilateral extremity edema, extending up to the hip, currently 3+, also appears slightly jaundiced with mild scleral icterus bilaterally. Started IV diuresis, will follow-up with abdominal ultrasound. Exam Vital Signs Temp Pulse Resp BP Pulse Ox O2 Del Method O2 Flow Rate 97.6 F 94 17 111/79 94 L Room Air 0 11/20/24 08:00 11/20/24 08:28 11/20/24 08:00 11/20/24 08:28 11/20/24 08:00 11/20/24 08:00 11/19/24 21:00 Narrative Exam GENERAL * Normal appearing adult male, on room, NAD HEENT * NCAT.?JACI. Oral mucosa is moist. Patent Nares NECK * Supple, nontender, no thyromegaly, no meningismus, no JVD, no step offs CHEST * RRR, no m/g/r * CTAB, no w/r/r. Symmetrical chest rise. No intercostal subcostal retraction * Atraumatic, nontender, no crepitus, symmetrical expansion. ABDOMEN * Soft, distended, mildly tender to palpation. No guarding/rebound tenderness/masses. * Bowel sounds presents EXTREMITIES * Chronic venous stasis dermititis bilaterally. * Small non-bleeding skin lesion of RLE. SKIN * Slightly jaundice, bilateral mild scleral icterus present. * 2+ bilateral lower extremity pitting edema NEUROMUSCULAR * No lumbar or midline, no CVA, no paraspinal muscle spasm or tenderness. * Moves all 4 extremities well, with full ROM and good CSM. * BRIONES x4, CN II-XII grossly intact. * No focal neurologic deficits. PSYCHIATRY * Normal mood and affect, cooperative, no SI or HI or hallucinations. Objective Labs 11/20/24 05:55 11/20/24 05:55 Labs: Laboratory Results - last 24 hr 11/20/24 05:55 WBC 5.2 RBC 3.59 L Hgb 12.9 L Hct 35.2 L MCV 98 MCH 35.9 H MCHC 36.6 RDW Std Deviation 58.3 H Plt Count 35 L Neut % (Auto) 68 Lymph % (Auto) 15 [place] % (Auto) 10 Eos % (Auto) 4 Baso % (Auto) 1 Neut # (Auto) 3.5 Lymph # (Auto) 0.8 L [place] # (Auto) 0.5 Eos # (Auto) 0.2 Baso # (Auto) 0.0 Immature Gran # (Auto) 0.10 H Absolute Nucleated RBC 0.00 Immature Gran % 2 H Nucleated RBC % 0 Sodium 135 L Potassium 3.9 Chloride 102 Carbon Dioxide 23.4 Anion Gap 10 BUN 22 Creatinine 0.9 Estim Creat Clear Calc 100.6 eGFR > 60 BUN/Creatinine Ratio 24 H Glucose 155 H Calculated Osmolality 276 Calcium 8.2 L Corrected Calcium 9.6 Phosphorus 3.3 Magnesium 2.1 Total Bilirubin 6.3 H D AST 112 H ALT 44 Alkaline Phosphatase 111 Total Protein 6.0 Albumin 2.2 L Globulin 3.8 H Albumin/Globulin Ratio 0.6 L Misc Test Result Platelets confirmed Quality Measures Quality Measures none Assessment & Plan Assessment Current Active Medications: Generic Name Dose Route Start Last Admin Trade Name Freq PRN Reason Stop Dose Admin Acetaminophen 500 mg 11/17/24 09:41 11/17/24 18:15 Acetaminophen 500 Mg Tablet PO 12/15/24 14:19 500 mg Q6HR PRN Administration Pain(1-6) or temp > 100.3 Furosemide 40 mg 11/20/24 09:00 11/20/24 08:28 Furosemide 20 Mg Tablet PO 12/20/24 08:59 40 mg QAM SHANNAN Administration Furosemide 40 mg 11/20/24 09:00 Furosemide Inj 10 Mg/Ml 4ml Vial IVP 12/20/24 08:59 BIDD SHANNAN Ceftriaxone Sodium/Dextrose 2 gm in 50 mls @ 100 mls/hr 11/17/24 09:39 11/20/24 08:28 Rocephin/D5w 2gm IV 11/24/24 09:38 100 mls/hr QDAY SHANNAN Administration Lactulose 20 gm 11/18/24 08:15 11/20/24 05:19 Lactulose Syrup 20 Gm/30 Ml Udc PO 12/18/24 08:14 20 gm TID SHANNAN Administration Protocol Midodrine 10 mg 11/19/24 14:00 11/20/24 05:19 Midodrine 5 Mg Tablet PO 12/19/24 13:59 10 mg TID SHANNAN Administration Pantoprazole Sodium 40 mg 11/19/24 09:00 11/20/24 08:26 Pantoprazole 40 Mg Tablet PO 12/19/24 08:59 40 mg QDAY SHANNAN Administration Simethicone 80 mg 11/18/24 15:18 Simethicone 80 Mg Chew PO 12/18/24 15:17 QID PRN GAS Spironolactone 100 mg 11/19/24 11:15 11/20/24 08:27 Spironolactone 25 Mg Tablet PO 12/19/24 11:14 100 mg QDAY SHANNAN Administration Tamsulosin HCl 0.4 mg 11/18/24 21:00 11/19/24 21:18 Tamsulosin Hcl 0.4 Mg Capsule PO 12/18/24 20:59 0.4 mg HS SHANNAN Administration Thiamine HCl 250 mg 11/20/24 09:00 11/20/24 08:28 Thiamine Inj 100 Mg/Ml Vial 2 Ml IVP 12/17/24 08:59 250 mg QDAY SHANNAN Administration Plan 64-year-old male with PMHx of alcoholic end-stage liver disease, history of decompensation with ascites, chronic venous insufficiency, presented on 11/15/24 with new onset witnessed seizure, admitted to ICU for septic shock secondary to bacteremia, requiring pressors support. Continued on broad ANTIBIOTICS, pressors are off, maintaining adequate MAP, downgraded to floors on 11/18/2024. Septic shock (resolved) E. coli bacteremia SBP, likely E. coli UTI, unlikely Possible pneumonia Suspected SBP New onset witnessed seizure, likely in settings of septic shock, requiring pressor support in ICU. Abdominal CT showed bilateral pneumonia, cirrhosis, significant ascites. CXR read as mild left base pneumonia but unclear, he is asymptomatic. UA showed WBC 30, positive LE, 3+ blood, 1+ protein. Blood Cx grew E. coli, source suspected SBP (peritoneal PMN>250),possibly UTI (although urine cx negative thus far), no open wound, SBP r/o (see below). EKG showed no clear valvular vegetation or pathology. Initially was on MEROPENEM (11/16 to 11/17) which was de-escalated to CEFTRIAXONE for E. coli bacteremia. Currently afebrile, no leukocytosis, vitals stable. ? Continue CEFTRIAXONE (11/17 to present) ? Consider ADRY if symptoms persist or worsen ? Pending repeat blood culture Decompensated liver cirrhosis Ascites, thrombocytopenia Hyperammonemia Acute transaminitis Cirrhosis with significant ascites seen on CT. Labs showed elevated bilirubin of 10.7 which is overall downtrending. MELD-Na score of 27-32% mortality rate in the next 3 months. Continued on CEFTRIAXONE for SBP prophylaxis. Paracentesis removed 2.2 L fluid, SAAG suggests portal hypertension. SBP r/o, peritoneal PMNs 60, afebrile, no leukocytosis. Ammonia 79 on admission, no signs of hepatic encephalopathy. Hep panel negative. AST and TB are worsening and he reported mild jaundice and scleral icteric. Ultrasound showed cirrhosis, splenomegaly, cholelithiasis, gallbladder and thickening. However, he has ascites, which likely resulting gallbladder wall thickening. Will switch to IV diuresis given worsening lower extremity edema. ? Continue LACTULOSE 20 mg TID, goal 3?4 bowel movements daily ? Continue FUROSEMIDE 40 mg IV BID ? Continue SPIRONOLACTONE 100 mg daily ? Continue MIDODRINE 10 mg TID ? Continue THIAMINE 250 mg daily ? Will monitor closely, consider HIDA scan if symptom worsen or do not improve. Thrombocytopenia Anemia Likely cirrhosis versus sepsis. PLT 75 on admission, now 39. Hgb 10.8, likely baseline. No signs of active bleed. ? Daily labs ? Transfuse if Hgb less than 7 Lactic acidosis, type A (resolved) In settings of sepsis, poor perfusion. LA 8.9 > 2.9 with fluids and underlying cause management. ? Treating underlying cause as above BPH ? Continue home TAMSULOSIN 0.4 mg HS Chronic stasis dermititis of gilberto LE Small, non-bleeding, non-ulcerative lesion of RLE LE Venous doppler negative for DVT bilaterall. ? Wound care New onset seizure, ruled out Discussion with patient regarding reported seizure prior to admission. He denied having seizure, loss consciousness, bowel incontinence, or other seizure or seizure-like symptoms. He said he was feeling cold and shivering at the time when ambulance was called, which was likely mistaken for seizure. Symptoms are likely related to bacteremia. Health maintenance Diet: Cardiac, fluid restriction 1500 cc GI prophylaxis: PROTONIX DVT prophylaxis: SCD, medical prophylaxis contraindicated due to severe thrombocytopenia Antibiotics: CEFTRIAXONE CODE STATUS: Full code Disposition: Treating bacteremia Case was discussed with attending physician and senior resident. Milind Benedict DO PGYI Attending Provider Attestation/Addendum Beverly Villafana DO, attest that I was physically present for the charles portions of the service and evaluated the patient with the resident and I reviewed and discussed the case with the resident and agree with the resident's findings and plans of care as documented above Patient seen and evaluated this AM. Patient has 3+ pitting edema in b/l LE. Will continue with IV diuresis. Patient denies any worsening of abdominal distension or any pain. Bilirubin uptrending, will obtain US abdomen. Minimal ascites per ICU team for paracentesis. Will have PT work with patient.
[2024-11-20] MEDS: FUROSEMIDE INJ 10 MG/ML 4ML VIAL 40 MG IVP (17:40)
[2024-11-20] MEDS: TAMSULOSIN HCL 0.4 MG CAPSULE PO (21:08)
[2024-11-20] MEDS: LACTULOSE SYRUP 20 GM/30 ML UDC 30 GM PO (21:08)
[2024-11-21] VITALS (17 sets, daily range): BP systolic 96–114; BP diastolic 54–73; PULSE 74–98; RESP 16–95; TEMP 36.1–36.7; O2SAT 92–97
[2024-11-21] MEDS: MIDODRINE 5 MG TABLET 10 MG PO ×3 (05:35→21:08)
[2024-11-21] MEDS: LACTULOSE SYRUP 20 GM/30 ML UDC 30 GM PO ×3 (05:35→21:08)
[2024-11-21] MEDS: FUROSEMIDE INJ 10 MG/ML 4ML VIAL 40 MG IVP ×2 (05:36→17:34)
[2024-11-21 05:55] LABS: Alanine Aminotransferase 50 U/L (10-49); Albumin, Serum 2.1 gm/dL (3.4-4.8); Albumin/Globulin Ratio 0.6 (1.2-2.2); Alkaline Phosphatase 119 U/L (46-116); Anion Gap 7 (7-16); Aspartate Amino Transferase 127 U/L (0-34); BUN/Creatinine Ratio 23 Ratio (12-20); Bilirubin,Total 5.8 mg/dL (0.3-1.2); Blood Urea Nitrogen 21 mg/dL (9-23); Calcium 8.1 mg/dL (8.3-10.6); Calcium (Corrected) 9.6 mg/dL (8.5-10.1); Carbon Dioxide 25.4 mMol/L (20.0-31.0); Chloride 104 mMol/L (98-107); Creatinine (Component) 0.9 mg/dL (0.6-1.3); Estimated Creatinine Clearance 100.6 mL/min (>60); Globulin 3.4 gm/dL (2.3-3.5); Glucose 128 mg/dL (74-106); Magnesium 1.8 mg/dL (1.6-2.6); Osmolality,Calculated 276 (275-295); Potassium 3.8 mMol/L (3.4-5.1); Sodium 136 mMol/L (136-145); Total Protein 5.5 gm/dL (5.7-8.2); eGFR > 60 See Note
[2024-11-21] MEDS: cefTRIAXone/D5w 2gm 2 GM/50 ML BAG IV (08:51)
[2024-11-21] MEDS: THIAMINE INJ 100 MG/ML VIAL 2 ML 250 MG IVP (08:52)
[2024-11-21] MEDS: PANTOPRAZOLE 40 MG TABLET PO (08:52)
[2024-11-21] MEDS: SPIRONOLACTONE 25 MG TABLET 100 MG PO (08:52)
--- NOTE | 2024-11-21 10:35 | CHAP ---
Patient was visited by the Spiritual Care Volunteer from whom they received communion. (Volunteer was in the hospital from 09:13-10:45)
--- NOTE | 2024-11-21 13:30 | ESPR_ITS ---
Documentation for date of: 11/21/24 Subjective Subjective Interval history: Patient had 1.25 L urine output with overall 210 cc fluid balance, patient also had 3 bowl movements. Total bilirubin downtrended from 6.3-5.8 while LFT's uptrended. Lower extremity edema improving, now below the knees. We will continue diuresis, will order physical therapy. Anticipating d/c within 24-48 hours if he continues to be stable. Exam Vital Signs Temp Pulse Resp BP Pulse Ox O2 Del Method O2 Flow Rate 97.7 F 85 18 114/73 95 Room Air 0 11/21/24 12:00 11/21/24 13:12 11/21/24 13:12 11/21/24 12:00 11/21/24 12:00 11/21/24 12:00 11/19/24 21:00 Narrative Exam GENERAL * Normal appearing adult male, on room, NAD HEENT * NCAT.?JACI. Oral mucosa is moist. Patent Nares NECK * Supple, nontender, no thyromegaly, no meningismus, no JVD, no step offs CHEST * RRR, no m/g/r * CTAB, no w/r/r. Symmetrical chest rise. No intercostal subcostal retraction * Atraumatic, nontender, no crepitus, symmetrical expansion. ABDOMEN * Soft, distended, mildly tender to palpation. No guarding/rebound tenderness/masses. * Bowel sounds presents EXTREMITIES * Chronic venous stasis dermititis bilaterally. * Small non-bleeding skin lesion of RLE. SKIN * Slightly jaundice, bilateral mild scleral icterus present. * 2+ bilateral lower extremity pitting edema NEUROMUSCULAR * No lumbar or midline, no CVA, no paraspinal muscle spasm or tenderness. * Moves all 4 extremities well, with full ROM and good CSM. * BRIONES x4, CN II-XII grossly intact. * No focal neurologic deficits. PSYCHIATRY * Normal mood and affect, cooperative, no SI or HI or hallucinations. Objective Labs 11/22/24 07:49 11/22/24 07:49 Labs: Laboratory Results - last 24 hr 11/21/24 05:15 Sodium 136 Potassium 3.8 Chloride 104 Carbon Dioxide 25.4 Anion Gap 7 BUN 21 Creatinine 0.9 Estim Creat Clear Calc 100.6 eGFR > 60 BUN/Creatinine Ratio 23 H Glucose 128 H Calculated Osmolality 276 Calcium 8.1 L Corrected Calcium 9.6 Phosphorus 3.0 Magnesium 1.8 Total Bilirubin 5.8 H D AST 127 H ALT 50 H Alkaline Phosphatase 119 H Total Protein 5.5 L Albumin 2.1 L Globulin 3.4 Albumin/Globulin Ratio 0.6 L Quality Measures Quality Measures none Assessment & Plan Assessment Current Active Medications: Generic Name Dose Route Start Last Admin Trade Name Freq PRN Reason Stop Dose Admin Acetaminophen 500 mg 11/17/24 09:41 11/17/24 18:15 Acetaminophen 500 Mg Tablet PO 12/15/24 14:19 500 mg Q6HR PRN Administration Pain(1-6) or temp > 100.3 Furosemide 40 mg 11/20/24 18:00 11/21/24 05:36 Furosemide Inj 10 Mg/Ml 4ml Vial IVP 12/20/24 17:59 40 mg BIDD SHANNAN Administration Ceftriaxone Sodium/Dextrose 2 gm in 50 mls @ 100 mls/hr 11/17/24 09:39 11/21/24 08:51 Rocephin/D5w 2gm IV 11/24/24 09:38 100 mls/hr QDAY SHANNAN Administration Lactulose 30 gm 11/20/24 22:00 11/21/24 05:35 Lactulose Syrup 20 Gm/30 Ml Udc PO 12/20/24 21:59 30 gm TID SHANNAN Administration Protocol Midodrine 10 mg 11/19/24 14:00 11/21/24 05:35 Midodrine 5 Mg Tablet PO 12/19/24 13:59 10 mg TID SHANNAN Administration Pantoprazole Sodium 40 mg 11/19/24 09:00 11/21/24 08:52 Pantoprazole 40 Mg Tablet PO 12/19/24 08:59 40 mg QDAY SHANNAN Administration Simethicone 80 mg 11/18/24 15:18 Simethicone 80 Mg Chew PO 12/18/24 15:17 QID PRN GAS Spironolactone 100 mg 11/19/24 11:15 11/21/24 08:52 Spironolactone 25 Mg Tablet PO 12/19/24 11:14 100 mg QDAY SHANNAN Administration Tamsulosin HCl 0.4 mg 11/18/24 21:00 11/20/24 21:08 Tamsulosin Hcl 0.4 Mg Capsule PO 07/19/25 20:59 0.4 mg HS SHANNAN Administration Thiamine HCl 250 mg 11/20/24 09:00 11/21/24 08:52 Thiamine Inj 100 Mg/Ml Vial 2 Ml IVP 12/17/24 08:59 250 mg QDAY SHANNAN Administration Plan 64-year-old male with PMHx of alcoholic end-stage liver disease, history of decompensation with ascites, chronic venous insufficiency, presented on 11/15/24 with new onset witnessed seizure, admitted to ICU for septic shock secondary to bacteremia, requiring pressors support. Continued on broad ANTIBIOTICS, pressors are off, maintaining adequate MAP, downgraded to floors on 11/18/2024. Septic shock (resolved) E. coli bacteremia SBP, likely E. coli UTI, unlikely Possible pneumonia Suspected SBP New onset witnessed seizure, likely in settings of septic shock, requiring pressor support in ICU. Abdominal CT showed bilateral pneumonia, cirrhosis, significant ascites. CXR read as mild left base pneumonia but unclear, he is asymptomatic. UA showed WBC 30, positive LE, 3+ blood, 1+ protein. Blood Cx grew E. coli, source suspected SBP (peritoneal PMN>250),possibly UTI (although urine cx negative thus far), no open wound, SBP r/o (see below). EKG showed no clear valvular vegetation or pathology. Initially was on MEROPENEM (11/16 to 11/17) which was de-escalated to CEFTRIAXONE for E. coli bacteremia. Currently afebrile, no leukocytosis, vitals stable. ? Continue CEFTRIAXONE (11/17 to present) Decompensated liver cirrhosis Ascites, thrombocytopenia Hyperammonemia Acute transaminitis Cirrhosis with significant ascites seen on CT. Labs showed elevated bilirubin of 10.7 which is overall downtrending. MELD-Na score of 27-32% mortality rate in the next 3 months. Continued on CEFTRIAXONE for SBP prophylaxis. Paracentesis removed 2.2 L fluid, SAAG suggests portal hypertension. SBP r/o, peritoneal PMNs 60, afebrile, no leukocytosis. Ammonia 79 on admission, no signs of hepatic encephalopathy. Hep panel negative. AST and TB are worsening and he reported mild jaundice and scleral icteric. Ultrasound showed cirrhosis, splenomegaly, cholelithiasis, gallbladder and thickening. However, he has ascites, which likely resulting gallbladder wall thickening. Will switch to IV diuresis given worsening lower extremity edema. ? Continue LACTULOSE 20 mg TID, goal 3?4 bowel movements daily ? Continue FUROSEMIDE 40 mg IV BID ? Continue SPIRONOLACTONE 100 mg daily ? Continue MIDODRINE 10 mg TID ? Continue THIAMINE 250 mg daily ? Will monitor closely, consider HIDA scan if symptom worsen or do not improve Thrombocytopenia Anemia Likely cirrhosis versus sepsis. PLT 75 on admission, now 39. Hgb 10.8, likely baseline. No signs of active bleed. ? Daily labs ? Transfuse if Hgb less than 7 Lactic acidosis, type A (resolved) In settings of sepsis, poor perfusion. LA 8.9 > 2.9 with fluids and underlying cause management. ? Treating underlying cause as above BPH ? Continue home TAMSULOSIN 0.4 mg HS Chronic stasis dermititis of gilberto LE Small, non-bleeding, non-ulcerative lesion of RLE LE Venous doppler negative for DVT bilaterall. ? Wound care New onset seizure, ruled out Discussion with patient regarding reported seizure prior to admission. He denied having seizure, loss consciousness, bowel incontinence, or other seizure or seizure-like symptoms. He said he was feeling cold and shivering at the time when ambulance was called, which was likely mistaken for seizure. Symptoms are likely related to bacteremia. Health maintenance Diet: Cardiac, fluid restriction 1500 cc GI prophylaxis: PROTONIX DVT prophylaxis: SCD, medical prophylaxis contraindicated due to severe thrombocytopenia Antibiotics: CEFTRIAXONE CODE STATUS: Full code Disposition: Treating bacteremia This patient care was discussed with my attending Dr. Faustino Vance MD PGY-2 Disclaimer: Minor errors in melter supervisor open hearth furnace may be present since this note was dictated by speech recognition software. Attending Provider Attestation/Addendum I, Beverly Harmon DO, attest that I was physically present for the charles portions of the service and evaluated the patient with the resident and I reviewed and discussed the case with the resident and agree with the resident's findings and plans of care as documented above Patient seen and evaluated this AM. he continues to ahve 2-3+ pitting edema in b/l UE. He denies any shortness of breath. Will continue wtih diuresis. Pending physical therapy. Continue with current managment.
[2024-11-21] MEDS: TAMSULOSIN HCL 0.4 MG CAPSULE PO (20:03)
[2024-11-22] VITALS (16 sets, daily range): BP systolic 99–120; BP diastolic 64–79; PULSE 75–110; RESP 17–98; TEMP 36.1–37.1; O2SAT 92–98; BMI 13.0
[2024-11-22] MEDS: MIDODRINE 5 MG TABLET 10 MG PO ×2 (05:57→21:28)
[2024-11-22] MEDS: LACTULOSE SYRUP 20 GM/30 ML UDC 30 GM PO ×3 (05:57→21:29)
[2024-11-22] MEDS: FUROSEMIDE INJ 10 MG/ML 4ML VIAL 40 MG IVP (05:58)
[2024-11-22 06:35] LABS: Magnesium 1.7 mg/dL (1.6-2.6); Phosphorous 2.8 mg/dL (2.4-5.1)
--- NOTE | 2024-11-22 07:14 | ESPR_ITS ---
Documentation for date of: 11/22/24 Subjective Subjective Interval history: No overnight events. Reports no new or worsening symptoms. Denies fever, chills, headaches, chest pain, sob, cough, GI or urinary symptoms. Continued on diuresis, urine output 900 cc, still has significant pedal edema bilaterally. Will switch to BUMEX 2 mg BID. Vitals otherwise stable. LFTs slightly increased again. CBC stable. This afternoon he was found tachycardic while sitting upright at rest. HR initially improved to 110, but again sustained at 140s, EKG shows sinus tachycardia with nonspecific T wave abnormalities. He does complain of palpitation but no shortness of breath or chest pain. Will follow-up with CTA chest to rule out PE (no DVT prophylaxis has been initiated given platelets relatively low and elevated INR, although was on SCD, LE US was negative for DVT bilaterally on 11/17) Exam Vital Signs Temp Pulse Resp BP Pulse Ox O2 Del Method O2 Flow Rate 98.7 F 79 20 109/79 92 L Room Air 0 11/22/24 04:00 11/22/24 06:07 11/22/24 04:00 11/22/24 05:58 11/22/24 04:00 11/22/24 04:00 11/19/24 21:00 Narrative Exam GENERAL * Normal appearing adult male, on room, NAD HEENT * NCAT.?JACI. Oral mucosa is moist. Patent Nares NECK * Supple, nontender, no thyromegaly, no meningismus, no JVD, no step offs CHEST * Tachycardic, regular rhythm, mild systolic murmur, no rubs or gallops. * CTAB, no w/r/r. Symmetrical chest rise. No intercostal subcostal retraction ABDOMEN * Soft, distended, mildly tender to palpation. No guarding/rebound tenderness/masses. * Bowel sounds presents EXTREMITIES * Chronic venous stasis dermititis bilaterally. * Small non-bleeding skin lesion of RLE. SKIN * Slightly jaundice, bilateral mild scleral icterus present. * 3+ bilateral lower extremity pitting edema NEUROMUSCULAR * Moves all 4 extremities well, with full ROM and good CSM. * No focal neurologic deficits. PSYCHIATRY * Normal mood and affect, cooperative, no SI or HI or hallucinations. Objective Labs 11/24/24 05:25 11/24/24 05:25 Labs: Laboratory Results - last 24 hr 11/22/24 05:00 Phosphorus 2.8 Magnesium 1.7 Quality Measures Quality Measures none Assessment & Plan Assessment Current Active Medications: Generic Name Dose Route Start Last Admin Trade Name Nadine PRN Reason Stop Dose Admin Acetaminophen 500 mg 11/17/24 09:41 11/17/24 18:15 Acetaminophen 500 Mg Tablet PO 12/15/24 14:19 500 mg Q6HR PRN Administration Pain(1-6) or temp > 100.3 Furosemide 40 mg 11/20/24 18:00 11/22/24 05:58 Furosemide Inj 10 Mg/Ml 4ml Vial IVP 12/20/24 17:59 40 mg BIDD SHANNAN Administration Ceftriaxone Sodium/Dextrose 2 gm in 50 mls @ 100 mls/hr 11/17/24 09:39 11/21/24 08:51 Rocephin/D5w 2gm IV 11/24/24 09:38 100 mls/hr QDAY SHANNAN Administration Lactulose 30 gm 11/20/24 22:00 11/22/24 05:57 Lactulose Syrup 20 Gm/30 Ml Udc PO 12/20/24 21:59 30 gm TID SHANNAN Administration Protocol Midodrine 10 mg 11/19/24 14:00 11/22/24 05:57 Midodrine 5 Mg Tablet PO 12/19/24 13:59 10 mg TID SHANNAN Administration Pantoprazole Sodium 40 mg 11/19/24 09:00 11/21/24 08:52 Pantoprazole 40 Mg Tablet PO 12/19/24 08:59 40 mg QDAY SHANNAN Administration Simethicone 80 mg 11/18/24 15:18 Simethicone 80 Mg Chew PO 12/18/24 15:17 QID PRN GAS Spironolactone 100 mg 11/19/24 11:15 11/21/24 08:52 Spironolactone 25 Mg Tablet PO 12/19/24 11:14 100 mg QDAY SHANNAN Administration Tamsulosin HCl 0.4 mg 11/18/24 21:00 11/21/24 20:03 Tamsulosin Hcl 0.4 Mg Capsule PO 12/18/24 20:59 0.4 mg HS SHANNAN Administration Thiamine HCl 250 mg 11/20/24 09:00 11/21/24 08:52 Thiamine Inj 100 Mg/Ml Vial 2 Ml IVP 12/17/24 08:59 250 mg QDAY SHANNAN Administration Plan 64-year-old male with PMHx of alcoholic end-stage liver disease, history of decompensation with ascites, chronic venous insufficiency, presented on 11/15/24 with new onset witnessed seizure, admitted to ICU for septic shock secondary to bacteremia, requiring pressors support. Continued on broad ANTIBIOTICS, pressors are off, maintaining adequate MAP, downgraded to floors on 11/18/2024. Septic shock (resolved) E. coli bacteremia SBP, likely E. coli UTI, unlikely Possible pneumonia Suspected SBP New onset witnessed seizure, likely in settings of septic shock, requiring pressor support in ICU. Abdominal CT showed bilateral pneumonia, cirrhosis, significant ascites. CXR read as mild left base pneumonia but unclear, he is asymptomatic. UA showed WBC 30, positive LE, 3+ blood, 1+ protein. Blood Cx grew E. coli, source suspected SBP (peritoneal PMN>250),possibly UTI (although urine cx negative thus far), no open wound, SBP r/o (see below). EKG showed no clear valvular vegetation or pathology. Initially was on MEROPENEM (11/16 to 11/17) which was de-escalated to CEFTRIAXONE for E. coli bacteremia. Currently afebrile, no leukocytosis, vitals stable. Repeat 48H blood culture negative. ? Continue CEFTRIAXONE (11/17 to present) Sinus tachycardia Acute episode of tachycardia, HR sustaining around 110 ? 140, EKG showed sinus tachycardia, HR 115, nonspecific T wave abnormalities. Complains of palpitation but no chest pain or shortness of breath. Will follow-up with CTA to rule out PE given that he has not been on DVT prophylaxis 2/2 low platelets and elevated INR. Lower extremity ultrasound was negative for DVT bilaterally on 11/17. ? Follow-up CTA chest ? Will skip p.m. BUMEX dose today Decompensated liver cirrhosis Ascites, thrombocytopenia Hyperammonemia Acute transaminitis Cirrhosis with significant ascites seen on CT. Labs showed elevated bilirubin of 10.7 which is overall downtrending. MELD-Na score of 27-32% mortality rate in the next 3 months. Continued on CEFTRIAXONE for SBP prophylaxis. Paracentesis removed 2.2 L fluid, SAAG suggests portal hypertension. SBP r/o, peritoneal PMNs 60, afebrile, no leukocytosis. Ammonia 79 on admission, no signs of hepatic encephalopathy. Hep panel negative. EGD was performed on 11/30/2020 showing grade 2 esophageal varices at the distal end of the esophagus, which was banded x3. AST and TB are worsening and he reported mild jaundice and scleral icteric. Ultrasound showed cirrhosis, splenomegaly, cholelithiasis, gallbladder and thickening. However, he has ascites, which likely resulting gallbladder wall thickening. Poor response to diuresis despite IV fluids, had substantial 3+ bilateral extremity edema. Will switch to BUMEX 2 mg BID. Unable to start PROPRANOLOL for variceal bleed prophylaxis given soft blood, and need for MIDODRINE. ? Continue LACTULOSE 20 mg TID, goal 3?4 bowel movements daily ? Continue BUMEX 2 mg BID ? Continue SPIRONOLACTONE 100 mg daily ? Continue MIDODRINE 10 mg TID ? Continue THIAMINE 250 mg daily ? Will monitor closely, consider HIDA scan if symptom worsen or do not improve Thrombocytopenia Anemia Likely cirrhosis versus sepsis. PLT 75 on admission, now 39. Hgb 10.8, likely baseline. No signs of active bleed. ? Daily labs ? Transfuse if Hgb less than 7 Lactic acidosis, type A (resolved) In settings of sepsis, poor perfusion. LA 8.9 > 2.9 with fluids and underlying cause management. ? Treating underlying cause as above BPH ? Continue home TAMSULOSIN 0.4 mg HS Chronic stasis dermititis of gilberto LE Small, non-bleeding, non-ulcerative lesion of RLE LE Venous doppler negative for DVT bilaterall. ? Wound care New onset seizure, ruled out Discussion with patient regarding reported seizure prior to admission. He denied having seizure, loss consciousness, bowel incontinence, or other seizure or seizure-like symptoms. He said he was feeling cold and shivering at the time when ambulance was called, which was likely mistaken for seizure. Symptoms are likely related to bacteremia. Health maintenance Diet: Cardiac, fluid restriction 1500 cc GI prophylaxis: PROTONIX DVT prophylaxis: SCD, medical prophylaxis contraindicated due to severe thrombocytopenia Antibiotics: CEFTRIAXONE CODE STATUS: Full code Disposition: Treating bacteremia Case was discussed with attending physician and senior resident. Milind Benedict DO PGYI This document was transcribed using voice recognition technology. Minor inaccuracies may be present. Attending Provider Attestation/Addendum Beverly Villafana DO, attest that I was physically present for the charles portions of the service and evaluated the patient with the resident and I reviewed and discussed the case with the resident and agree with the resident's findings and plans of care as documented above Patient seen and evaluated this AM. CTA was done due to concern for PE and CTA was negative for PE, but showed significant bibasilar pneumonia, cirrhosis, significant ascites, esophageal varices, cholelithiasis and an opacity in the stomach that was concerning for gastric bleeding. Will consult GI due to concern for bleed. This may also be the cause for the elevated bilirubin. Placed patient on clear liquid diet at this time. Continue with IV diuresis as he continues to have bilateral lower extremity edema.
[2024-11-22 07:59] LABS: Basophils % (Auto) 1 % (0-2.5); Eosinophils # (Auto) 0.1 Thou/mm3 (0.0-0.5); Eosinophils % (Auto) 3 % (0-10); Hematocrit 31.7 % (41.0-53.0); Hemoglobin 11.7 g/dL (13.5-16.0); Immature Granulocytes % (Auto) 1 % (0-0); Immature Granulocytes Auto 0.05 Thou/mm3 (0.00-0.00); Lymphocytes # (Auto) 0.7 Thou/mm3 (1.0-4.8); Lymphocytes % (Auto) 12 % (10-50); Mean Corpuscular HGB Conc 36.9 g/dl (31.0-37.0); Mean Corpuscular Hemoglobin 36.6 pg (25.0-35.0); Mean Corpuscular Volume 99 fL (80-100); Monocytes # (Auto) 0.5 Thou/mm3 (0.0-0.8); Monocytes % (Auto) 9 % (0-12); Neutrophils % (Auto) 75 % (37-80); Nucleated Red Blood Cell % 0 /100 WBC (0); RDW Standard Deviation 58.4 fL (35.1-43.9); White Blood Count 5.4 Thou/mm3 (3.8-10.6)
[2024-11-22 08:00] LABS: Platelet Count 44 Thou/mm3 (140-440)
[2024-11-22 08:20] LABS: Alanine Aminotransferase 62 U/L (10-49); Albumin, Serum 2.4 gm/dL (3.4-4.8); Albumin/Globulin Ratio 0.6 (1.2-2.2); Alkaline Phosphatase 146 U/L (46-116); Anion Gap 8 (7-16); Aspartate Amino Transferase 152 U/L (0-34); BUN/Creatinine Ratio 20 Ratio (12-20); Bilirubin,Total 7.5 mg/dL (0.3-1.2); Blood Urea Nitrogen 20 mg/dL (9-23); Calcium 8.5 mg/dL (8.3-10.6); Calcium (Corrected) 9.8 mg/dL (8.5-10.1); Carbon Dioxide 26.5 mMol/L (20.0-31.0); Chloride 103 mMol/L (98-107); Estimated Creatinine Clearance 90.2 mL/min (>60); Globulin 3.9 gm/dL (2.3-3.5); Glucose 132 mg/dL (74-106); Osmolality,Calculated 278 (275-295); Potassium 3.8 mMol/L (3.4-5.1); Sodium 137 mMol/L (136-145); Total Protein 6.3 gm/dL (5.7-8.2); eGFR > 60 See Note
[2024-11-22] MEDS: SPIRONOLACTONE 25 MG TABLET 100 MG PO (08:28)
[2024-11-22] MEDS: THIAMINE INJ 100 MG/ML VIAL 2 ML 250 MG IVP (08:28)
[2024-11-22] MEDS: PANTOPRAZOLE 40 MG TABLET PO (08:29)
[2024-11-22] MEDS: cefTRIAXone/D5w 2gm 2 GM/50 ML BAG IV (08:29)
[2024-11-22 08:40] LABS: Slide Review Platelets confirmed
[2024-11-22] MEDS: ALBUMIN HUMAN 25% IVPB 25 GM/100 ML BTL IV (09:46)
[2024-11-22] MEDS: ONDANSETRON ODT 4 MG TABRAP PO (13:06)
--- NOTE | 2024-11-22 14:58 | PC.NURSE ---
notified Dr Angeles of pts HR in 140's. pts HR is now 110, no complaints of any chest pain, dizziness, headache. will continue to monitor pt. no new orders received at this time.
--- NOTE | 2024-11-22 15:42 | EKG_ITS ---
[facility] Test Date: 2024-11-22 Pat Name: REGIS VALLES Department: Room: [facility] Gender: Male [employer] Wireman: RT STUDENT : 1960 Requested By: Milind Benedict Order Number: [id number] Reading MD: Milind Benedict Measurements Intervals Harts Rate: 115 P: 21 TN: 142 QRS: -13 QRSD: 109 T: 30 QT: 270 QTc: 374 Interpretive Statements SINUS TACHYCARDIA NONSPECIFIC T-WAVE ABNORMALITY ABNORMAL RHYTHM ECG No previous ECG available for comparison /store/S0/[id number]/[id number].pdf
--- NOTE | 2024-11-22 15:45 | PC.NURSE ---
notified Dr. Gusman of pts HR in 140's. EKG was ordered.
--- NOTE | 2024-11-22 15:57 | XR_ITS ---
Examination: CTA chest with intravenous contrast 2-D reconstructions 3-D reconstructions, vascular Date and time of exam: November 22, 2024 1824 hours INDICATIONS: Chest pain and shortness of breath tachycardia beginning 3 days ago CTDI: vol (mGy) 15.9 DLP: (mGycm) 319 Technique: Multiple axial sections of the thorax have been obtained. 3 mm slice thickness, from below the hemidiaphragms to above the apices of the lungs. Mediastinal and lung density settings have been obtained. 2-D sagittal and coronal reconstructions. 3-D angiographic renderings, 3-D volume renderings, 3D post processing, vascular maximum intensity projections obtained. Contrast administered is 100 cc Isovue-370. Low dose protocols were performed. One or more of the following dose reduction techniques were used; automated exposure control, adjustment of the mA and/or KV according to patient size, use of iterative reconstruction technique. Findings: No thoracic aortic aneurysmal dilatation or dissection No pulmonary artery filling defects No mediastinal lymphadenopathy Significant pneumonia at the lung bases Hyperdensity in the stomach, consider mucosal bleeding Cirrhosis, liver cysts, the largest 37 mm and 47 mm Abundant ascites Cholelithiasis Significant splenomegaly Esophageal varices No hydronephrosis IMPRESSION: Negative for pulmonary artery emboli Significant bibasilar pneumonia Cirrhosis Significant ascites Esophageal varices Cholelithiasis Opacity in the stomach, consider gastric bleeding
[2024-11-22] MEDS: TAMSULOSIN HCL 0.4 MG CAPSULE PO (20:22)
[2024-11-22] MEDS: PROPRANOLOL 10 MG TABLET PO (20:23)
[2024-11-23] VITALS (18 sets, daily range): BP systolic 93–108; BP diastolic 60–69; PULSE 62–89; RESP 16–95; TEMP 36.1–36.2; O2SAT 92–95
[2024-11-23] MEDS: MIDODRINE 5 MG TABLET 10 MG PO ×3 (05:07→21:25)
[2024-11-23] MEDS: LACTULOSE SYRUP 20 GM/30 ML UDC 30 GM PO ×3 (05:08→21:26)
[2024-11-23 05:20] LABS: Basophils % (Auto) 1 % (0-2.5); Eosinophils # (Auto) 0.1 Thou/mm3 (0.0-0.5); Eosinophils % (Auto) 2 % (0-10); Hematocrit 30.8 % (41.0-53.0); Hemoglobin 10.8 g/dL (13.5-16.0); Immature Granulocytes % (Auto) 1 % (0-0); Immature Granulocytes Auto 0.05 Thou/mm3 (0.00-0.00); Lymphocytes # (Auto) 0.6 Thou/mm3 (1.0-4.8); Lymphocytes % (Auto) 11 % (10-50); Mean Corpuscular HGB Conc 35.1 g/dl (31.0-37.0); Mean Corpuscular Hemoglobin 36.7 pg (25.0-35.0); Mean Corpuscular Volume 105 fL (80-100); Monocytes # (Auto) 0.5 Thou/mm3 (0.0-0.8); Monocytes % (Auto) 9 % (0-12); Neutrophils # (Auto) 4.4 Thou/mm3 (1.8-7.7); Neutrophils % (Auto) 76 % (37-80); Nucleated Red Blood Cell % 0 /100 WBC (0); RDW Standard Deviation 63.8 fL (35.1-43.9); Red Blood Count 2.94 Miln/mm3 (4.50-5.90); White Blood Count 5.8 Thou/mm3 (3.8-10.6)
[2024-11-23 05:23] LABS: Platelet Count 48 Thou/mm3 (140-440)
[2024-11-23 05:34] LABS: Alanine Aminotransferase 53 U/L (10-49); Albumin, Serum 2.1 gm/dL (3.4-4.8); Albumin/Globulin Ratio 0.6 (1.2-2.2); Alkaline Phosphatase 128 U/L (46-116); Anion Gap 6 (7-16); Aspartate Amino Transferase 117 U/L (0-34); BUN/Creatinine Ratio 20 Ratio (12-20); Bilirubin,Total 7.4 mg/dL (0.3-1.2); Blood Urea Nitrogen 20 mg/dL (9-23); Calcium 8.2 mg/dL (8.3-10.6); Calcium (Corrected) 9.7 mg/dL (8.5-10.1); Carbon Dioxide 27.5 mMol/L (20.0-31.0); Chloride 103 mMol/L (98-107); Estimated Creatinine Clearance 90.2 mL/min (>60); Globulin 3.7 gm/dL (2.3-3.5); Glucose 140 mg/dL (74-106); Magnesium 1.7 mg/dL (1.6-2.6); Osmolality,Calculated 276 (275-295); Phosphorous 2.6 mg/dL (2.4-5.1); Potassium 4.3 mMol/L (3.4-5.1); Sodium 136 mMol/L (136-145); Total Protein 5.8 gm/dL (5.7-8.2); eGFR > 60 See Note
[2024-11-23 05:58] LABS: Slide Review Platelets confirmed
[2024-11-23] MEDS: cefTRIAXone/D5w 2gm 2 GM/50 ML BAG IV (08:31)
[2024-11-23] MEDS: PANTOPRAZOLE 40 MG TABLET PO (08:31)
[2024-11-23] MEDS: ALBUMIN HUMAN 25% IVPB 25 GM/100 ML BTL IV (08:31)
[2024-11-23] MEDS: PROPRANOLOL 10 MG TABLET PO ×2 (08:34→21:26)
[2024-11-23] MEDS: THIAMINE INJ 100 MG/ML VIAL 2 ML 250 MG IVP (08:35)
--- NOTE | 2024-11-23 13:44 | ESPR_ITS ---
<Statement entered by Jeffrey Vance MD - 11/24/24 00:30> I discussed with and supervised the architect intern physician involved in the care of this patient. Patient assessment and plan was discussed with entire medicine team, including my attending. I agree with the assessment and plan as documented by architect intern doctor. Patient care was discussed with my attending physician Dr. Faustino Vance, PGY-2 Documentation for date of: 11/23/24 Subjective Subjective Interval history: No overnight events. Denies new or worsening symptoms. Has mildly worsening abdominal ascites, although does not complain of abdominal discomfort. Denies fever, chills, headaches, chest pain, sob, cough, GI or urinary symptoms. Exam Vital Signs Temp Pulse Resp BP Pulse Ox O2 Del Method O2 Flow Rate 97.0 F 63 18 99/61 93 L Room Air 0 11/23/24 12:00 11/23/24 12:00 11/23/24 12:00 11/23/24 12:00 11/23/24 12:00 11/23/24 12:11/19/24 21:00 Narrative Exam GENERAL * Normal appearing adult male, on room, NAD HEENT * NCAT.?JACI. Oral mucosa is moist. Patent Nares NECK * Supple, nontender, no thyromegaly, no meningismus, no JVD, no step offs CHEST * RRR, mild systolic murmur, no rubs or gallops. * CTAB, no w/r/r. Symmetrical chest rise. No intercostal subcostal retraction ABDOMEN * Soft, distended, mildly tender to palpation. No guarding/rebound tenderness/masses. * Bowel sounds presents EXTREMITIES * Chronic venous stasis dermititis bilaterally. SKIN * Slightly jaundice, bilateral mild scleral icterus present. * 3+ bilateral lower extremity pitting edema NEUROMUSCULAR * Moves all 4 extremities well, with full ROM and good CSM. * No focal neurologic deficits. PSYCHIATRY * Normal mood and affect, cooperative, no SI or HI or hallucinations. Objective Labs 11/24/24 05:25 11/24/24 05:25 Labs: Laboratory Results - last 24 hr 11/23/24 04:49 WBC 5.8 RBC 2.94 L Hgb 10.8 L Hct 30.8 L MCV 105 H MCH 36.7 H MCHC 35.1 RDW Std Deviation 63.8 H Plt Count 48 L Neut % (Auto) 76 Lymph % (Auto) 11 [place] % (Auto) 9 Eos % (Auto) 2 Baso % (Auto) 1 Neut # (Auto) 4.4 Lymph # (Auto) 0.6 L [place] # (Auto) 0.5 Eos # (Auto) 0.1 Baso # (Auto) 0.0 Immature Gran # (Auto) 0.05 H Absolute Nucleated RBC 0.00 Immature Gran % 1 H Nucleated RBC % 0 Sodium 136 Potassium 4.3 D Chloride 103 Carbon Dioxide 27.5 Anion Gap 6 L BUN 20 Creatinine 1.0 Estim Creat Clear Calc 90.2 eGFR > 60 BUN/Creatinine Ratio 20 Glucose 140 H Calculated Osmolality 276 Calcium 8.2 L Corrected Calcium 9.7 Phosphorus 2.6 Magnesium 1.7 Total Bilirubin 7.4 H AST 117 H ALT 53 H Alkaline Phosphatase 128 H Total Protein 5.8 Albumin 2.1 L Globulin 3.7 H Albumin/Globulin Ratio 0.6 L Misc Test Result Platelets confirmed Quality Measures Quality Measures none Assessment & Plan Assessment Current Active Medications: Generic Name Dose Route Start Last Admin Trade Name Freq PRN Reason Stop Dose Admin Acetaminophen 500 mg 11/17/24 09:41 11/17/24 18:15 Acetaminophen 500 Mg Tablet PO 12/15/24 14:19 500 mg Q6HR PRN Administration Pain(1-6) or temp > 100.3 Bumetanide 2 mg 11/23/24 06:00 11/23/24 06:04 Bumetanide Inj 0.25 Mg/Ml Vial 4 Ml IVP 12/23/24 05:59 Not Given BIDD SHANNAN Ceftriaxone Sodium/Dextrose 2 gm in 50 mls @ 100 mls/hr 11/17/24 09:39 11/23/24 08:31 Rocephin/D5w 2gm IV 11/24/24 09:38 100 mls/hr QDAY SHANNAN Administration Albumin Human 25 gm in 100 mls @ 100 mls/hr 11/22/24 09:13 11/23/24 08:31 Albuminar-25 Ivpb IV 11/25/24 09:12 100 mls/hr QDAY SHANNAN Administration Lactulose 30 gm 11/20/24 22:00 11/23/24 05:08 Lactulose Syrup 20 Gm/30 Ml Udc PO 12/20/24 21:59 30 gm TID SHANNAN Administration Protocol Midodrine 10 mg 06/20/25 14:00 11/23/24 05:07 Midodrine 5 Mg Tablet PO 12/19/24 13:59 10 mg TID SHANNAN Administration Ondansetron HCl 4 mg 11/22/24 13:00 11/22/24 13:06 Ondansetron Odt 4 Mg Tabrap PO 12/22/24 12:59 4 mg Q6HR PRN Administration NAUSEA OR VOMITING Protocol Pantoprazole Sodium 40 mg 11/19/24 09:00 11/23/24 08:31 Pantoprazole 40 Mg Tablet PO 12/19/24 08:59 40 mg QDAY SHANNAN Administration Propranolol HCl 10 mg 11/22/24 21:00 11/23/24 08:34 Propranolol 10 Mg Tablet PO 12/22/24 20:59 10 mg BID SHANNAN Administration Simethicone 80 mg 11/18/24 15:18 Simethicone 80 Mg Chew PO 12/18/24 15:17 QID PRN GAS Spironolactone 100 mg 11/19/24 11:15 11/23/24 08:34 Spironolactone 25 Mg Tablet PO 12/19/24 11:14 Not Given QDAY SHANNAN Tamsulosin HCl 0.4 mg 11/18/24 21:00 11/22/24 20:22 Tamsulosin Hcl 0.4 Mg Capsule PO 12/18/24 20:59 0.4 mg HS SHANNAN Administration Thiamine HCl 250 mg 11/20/24 09:00 11/23/24 08:35 Thiamine Inj 100 Mg/Ml Vial 2 Ml IVP 12/17/24 08:59 250 mg QDAY SHANNAN Administration Plan 64-year-old male with PMHx of alcoholic end-stage liver disease, history of decompensation with ascites, chronic venous insufficiency, presented on 11/15/24 with new onset witnessed seizure, admitted to ICU for septic shock secondary to bacteremia, requiring pressors support. Continued on broad ANTIBIOTICS, pressors are off, maintaining adequate MAP, downgraded to floors on 11/18/2024. Appreciate recommendations from GI team Septic shock (resolved) E. coli bacteremia SBP, likely E. coli UTI, unlikely Possible pneumonia Suspected SBP New onset witnessed seizure, likely in settings of septic shock, requiring pressor support in ICU. Abdominal CT showed bilateral pneumonia, cirrhosis, significant ascites. CXR read as mild left base pneumonia but unclear, he is asymptomatic. UA showed WBC 30, positive LE, 3+ blood, 1+ protein. Blood Cx grew E. coli, source suspected SBP (peritoneal PMN>250),possibly UTI (although urine cx negative thus far), no open wound, SBP r/o (see below). EKG showed no clear valvular vegetation or pathology. Initially was on MEROPENEM (11/16 to 11/17) which was de-escalated to CEFTRIAXONE for E. coli bacteremia. Currently afebrile, no leukocytosis, vitals stable. Repeat 48H blood culture negative. ? Continue CEFTRIAXONE (11/17 to present) Concern for intra-abdominal bleed CT showed opacity in stomach concerning for gastric bleed. He was asymptomatic, Hgb at baseline and stable, denies dark stool. Stomach mildly tender on exam as noted previously. ? Pending GI recommendations ? Monitoring hemoglobin Decompensated liver cirrhosis Ascites, thrombocytopenia Hyperammonemia Acute transaminitis Cirrhosis with significant ascites seen on CT. Labs showed elevated bilirubin of 10.7 which is overall downtrending. MELD-Na score of 27-32% mortality rate in the next 3 months. Continued on CEFTRIAXONE for SBP prophylaxis. Paracentesis removed 2.2 L fluid, SAAG suggests portal hypertension. SBP r/o, peritoneal PMNs 60, afebrile, no leukocytosis. Ammonia 79 on admission, no signs of hepatic encephalopathy. Hep panel negative. EGD was performed on 11/30/2020 showing grade 2 esophageal varices at the distal end of the esophagus, which was banded x3. AST and TB are worsening and he reported mild jaundice and scleral icteric. Ultrasound showed cirrhosis, splenomegaly, cholelithiasis, gallbladder and thickening. However, he has ascites, which likely resulting gallbladder wall thickening. Poor response to diuresis despite IV fluids, had substantial 3+ bilateral extremity edema. Will switch to BUMEX 2 mg BID. Unable to start PROPRANOLOL for variceal bleed prophylaxis given soft blood, and need for MIDODRINE. ? Continue LACTULOSE 20 mg TID, goal 3?4 bowel movements daily ? Continue BUMEX 2 mg BID ? Continue SPIRONOLACTONE 100 mg daily ? Continue MIDODRINE 10 mg TID ? Continue THIAMINE 250 mg daily ? Will monitor closely, consider HIDA scan if symptom worsen or do not improve Thrombocytopenia Anemia Likely cirrhosis versus sepsis. PLT 75 on admission, now 39. Hgb 10.8, likely baseline. No signs of active bleed. ? Daily labs ? Transfuse if Hgb less than 7 Lactic acidosis, type A (resolved) In settings of sepsis, poor perfusion. LA 8.9 > 2.9 with fluids and underlying cause management. ? Treating underlying cause as above BPH ? Continue home TAMSULOSIN 0.4 mg HS Chronic stasis dermititis of gilberto LE Small, non-bleeding, non-ulcerative lesion of RLE LE Venous doppler negative for DVT bilaterall. ? Wound care New onset seizure, ruled out Discussion with patient regarding reported seizure prior to admission. He denied having seizure, loss consciousness, bowel incontinence, or other seizure or seizure-like symptoms. He said he was feeling cold and shivering at the time when ambulance was called, which was likely mistaken for seizure. Symptoms are likely related to bacteremia. Sinus tachycardia (resolved) Acute episode of tachycardia, HR sustaining around 110 ? 140, EKG showed sinus tachycardia, HR 115, nonspecific T wave abnormalities. Complains of palpitation but no chest pain or shortness of breath. CTA was negative for PE. Still unable to proceed with medical DVT prophylaxis 2/2 low platelets, elevated INR. Will continue with SCDs for now. Health maintenance Diet: Cardiac, fluid restriction 1500 cc GI prophylaxis: PROTONIX DVT prophylaxis: SCD, medical prophylaxis contraindicated due to severe thrombocytopenia Antibiotics: CEFTRIAXONE CODE STATUS: Full code Disposition: Treating bacteremia Case was discussed with attending physician and senior resident. Milind Benedict DO PGYI This document was transcribed using voice recognition technology. Minor inaccuracies may be present. Attending Provider Attestation/Addendum Beverly Villafana DO, attest that I was physically present for the charles portions of the service and evaluated the patient with the resident and I reviewed and discussed the case with the resident and agree with the resident's findings and plans of care as documented above Patient seen and evaluated this AM. No acute events overnight. Pending GI recommendations. Will continue wtih IV diuresis due to persistent b /l LE edema.
[2024-11-23] MEDS: TAMSULOSIN HCL 0.4 MG CAPSULE PO (21:25)
--- NOTE | 2024-11-23 21:32 | PD.IMCONS ---
HPI Data of Consult Requesting Physician: Beverly Hramon DO Primary Care Provider: Vlad Lubin MD Consult Narrative Reason for consult: possible upper GI bleed History of present illness: 64 years old male I been asked to evaluate for the possible upper GI bleed in a patient with history of cirrhotic liver disease due to alcohol with advanced portal hypertension and ascites and previous history of band ligation of the esophageal varices Hemoglobin hematocrit relatively stable and no signs of any active bleeding Patient was admitted with septic shock E. coli bacteremia possibly SBP thrombocytopenia and anemia CT angio chest showed negative for PE ascites esophageal varices cholelithiasis and opacity in the stomach suggestive of a GI bleed cc:: cc: Beverly Harmon DO Review of Systems Review of Systems Systems Reviewed: All systems reviewed, normal except as documented Past Medical History Surgical History OTHER SURGICAL HX: As in the history of present illness Meds Home Medications and Allergies Home Medications ?Medication ?Instructions ?Recorded ?Confirmed ?Type furosemide 40 mg tablet (Lasix) 40 mg PO QDAY 11/16/24 11/16/24 History potassium chloride 20 mEq 20 meq PO QDAY 11/16/24 11/16/24 History tablet,extended release(part/cryst) (Klor-Con M) spironolactone 50 mg tablet 50 mg PO QDAY 11/16/24 11/16/24 History (Aldactone) Allergies Allergy/AdvReac Type Severity Reaction Status Date / Time No Known Allergies Allergy Verified 11/17/24 07:39 Exam Vital Signs Temp Pulse Resp BP Pulse Ox O2 Del Method O2 Flow Rate 97 F 63 18 102/65 92 L Room Air 0 11/23/24 20:00 11/23/24 21:26 11/23/24 20:32 11/23/24 21:26 11/23/24 20:00 11/23/24 20:00 11/19/24 21:00 Routine Respiratory Exam Comments: Normal to auscultation Routine Abdominal Exam Comments: Positive for ascites Results Labs 11/23/24 04:49 11/23/24 04:49 Labs: Short CBC 11/23/24 Range/Units 04:49 WBC 5.8 (3.8-10.6) Thou/mm3 Hgb 10.8 L (13.5-16.0) g/dL Hct 30.8 L (41.0-53.0) % Plt Count 48 L (140-440) Thou/mm3 BMP 11/23/24 04:49 Sodium 136 Potassium 4.3 D Chloride 103 Carbon Dioxide 27.5 BUN 20 Creatinine 1.0 Glucose 140 H Calcium 8.2 L Liver Function 11/23/24 Range/Units 04:49 Total Bilirubin 7.4 H (0.3-1.2) mg/dL AST 117 H (0-34) U/L ALT 53 H (10-49) U/L Alkaline Phosphatase 128 H (46-116) U/L Albumin 2.1 L (3.4-4.8) gm/dL Assessment and Plan Additional Assessment & Plan Additional Plan: # Possible upper GI bleed in the setting of cirrhotic liver disease due to alcohol portal hypertension ascites and a history of esophageal variceal band ligation in the past Plan N.p.o. 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 coli bacteremia Thrombocytopenia secondary to chronic liver disease Cholelithiasis Thank you very much for the opportunity to participate in the care of this patient
[2024-11-24] VITALS (25 sets, daily range): BP systolic 103–142; BP diastolic 63–92; PULSE 55–67; RESP 12–96; TEMP 36.1–37.2; O2SAT 91–98
[2024-11-24] MEDS: MIDODRINE 5 MG TABLET 10 MG PO (05:54)
[2024-11-24] MEDS: BUMETANIDE INJ 0.25 MG/ML VIAL 4 ML 2 MG IVP ×2 (05:55→18:10)
[2024-11-24 06:03] LABS: Basophils # (Auto) 0.1 Thou/mm3 (0.0-0.2); Basophils % (Auto) 1 % (0-2.5); Eosinophils # (Auto) 0.2 Thou/mm3 (0.0-0.5); Eosinophils % (Auto) 3 % (0-10); Hematocrit 33.8 % (41.0-53.0); Immature Granulocytes % (Auto) 1 % (0-0); Immature Granulocytes Auto 0.09 Thou/mm3 (0.00-0.00); Lymphocytes # (Auto) 0.8 Thou/mm3 (1.0-4.8); Lymphocytes % (Auto) 13 % (10-50); Mean Corpuscular HGB Conc 35.5 g/dl (31.0-37.0); Mean Corpuscular Hemoglobin 36.3 pg (25.0-35.0); Mean Corpuscular Volume 102 fL (80-100); Monocytes # (Auto) 0.6 Thou/mm3 (0.0-0.8); Monocytes % (Auto) 9 % (0-12); Neutrophils # (Auto) 4.8 Thou/mm3 (1.8-7.7); Neutrophils % (Auto) 73 % (37-80); Nucleated Red Blood Cell % 0 /100 WBC (0); RDW Standard Deviation 61.6 fL (35.1-43.9); Red Blood Count 3.31 Miln/mm3 (4.50-5.90); White Blood Count 6.5 Thou/mm3 (3.8-10.6)
[2024-11-24 06:06] LABS: Platelet Count 50 Thou/mm3 (140-440)
[2024-11-24 06:22] LABS: AFP Non-Pregnant < 1.30 ng/mL (<8.10)
[2024-11-24 06:43] LABS: Alanine Aminotransferase 45 U/L (10-49); Albumin, Serum 2.3 gm/dL (3.4-4.8); Albumin/Globulin Ratio 0.6 (1.2-2.2); Alkaline Phosphatase 117 U/L (46-116); Anion Gap 7 (7-16); Aspartate Amino Transferase 95 U/L (0-34); BUN/Creatinine Ratio 21 Ratio (12-20); Bilirubin,Total 8.9 mg/dL (0.3-1.2); Blood Urea Nitrogen 17 mg/dL (9-23); Calcium 8.5 mg/dL (8.3-10.6); Calcium (Corrected) 9.9 mg/dL (8.5-10.1); Chloride 104 mMol/L (98-107); Creatinine (Component) 0.8 mg/dL (0.6-1.3); Estimated Creatinine Clearance 103.7 mL/min (>60); Globulin 3.8 gm/dL (2.3-3.5); Glucose 153 mg/dL (74-106); Magnesium 1.7 mg/dL (1.6-2.6); Osmolality,Calculated 276 (275-295); Phosphorous 2.5 mg/dL (2.4-5.1); Potassium 4.2 mMol/L (3.4-5.1); Sodium 136 mMol/L (136-145); Total Protein 6.1 gm/dL (5.7-8.2); eGFR > 60 See Note
[2024-11-24] MEDS: THIAMINE INJ 100 MG/ML VIAL 2 ML 250 MG IVP (09:06)
[2024-11-24] MEDS: ALBUMIN HUMAN 25% IVPB 25 GM/100 ML BTL IV (09:07)
[2024-11-24] MEDS: SPIRONOLACTONE 25 MG TABLET 100 MG PO (09:07)
[2024-11-24] MEDS: PANTOPRAZOLE 40 MG TABLET PO (09:08)
[2024-11-24 10:09] LABS: Slide Review Platelets confirmed
[2024-11-24] MEDS: cefTRIAXone/D5w 2gm 2 GM/50 ML BAG IV (10:31)
--- NOTE | 2024-11-24 14:22 | ESPR_ITS ---
Documentation for date of: 11/24/24 Subjective Subjective Interval history: No acute overnight events. Denies new or worsening symptoms. Denies fever, chills, headaches, chest pain, sob, cough, GI or urinary symptoms. Continued n.p.o. for EGD later today. Exam Vital Signs Temp Pulse Resp BP Pulse Ox O2 Del Method O2 Flow Rate 97.0 F 63 16 104/63 91 L Nasal Cannula 0 11/24/24 11:50 11/24/24 11:50 11/24/24 11:50 11/24/24 11:50 11/24/24 11:50 11/24/24 11:50 11/19/24 21:00 Narrative Exam GENERAL * Normal appearing adult male, on room, NAD HEENT * NCAT.?JACI. Oral mucosa is moist. Patent Nares NECK * Supple, nontender, no thyromegaly, no meningismus, no JVD, no step offs CHEST * RRR, mild systolic murmur, no rubs or gallops. * CTAB, no w/r/r. Symmetrical chest rise. No intercostal subcostal retraction ABDOMEN * Soft, distended, mildly tender to palpation. No guarding/rebound tenderness/masses. * Bowel sounds presents EXTREMITIES * Chronic venous stasis dermititis bilaterally. SKIN * Slightly jaundice, bilateral mild scleral icterus present. * 3+ bilateral lower extremity pitting edema NEUROMUSCULAR * Moves all 4 extremities well, with full ROM and good CSM. * No focal neurologic deficits. PSYCHIATRY * Normal mood and affect, cooperative, no SI or HI or hallucinations. Objective Labs 11/25/24 05:02 11/25/24 05:02 Labs: Laboratory Results - last 24 hr 11/24/24 05:25 WBC 6.5 RBC 3.31 L Hgb 12.0 L Hct 33.8 L MCV 102 H MCH 36.3 H MCHC 35.5 RDW Std Deviation 61.6 H Plt Count 50 L Neut % (Auto) 73 Lymph % (Auto) 13 [place] % (Auto) 9 Eos % (Auto) 3 Baso % (Auto) 1 Neut # (Auto) 4.8 Lymph # (Auto) 0.[address] [place] # (Auto) 0.6 Eos # (Auto) 0.2 Baso # (Auto) 0.1 Immature Gran # (Auto) 0.09 H Absolute Nucleated RBC 0.00 Immature Gran % 1 H Nucleated RBC % 0 Sodium 136 Potassium 4.2 Chloride 104 Carbon Dioxide 25.0 Anion Gap 7 BUN 17 Creatinine 0.8 Estim Creat Clear Calc 103.7 eGFR > 60 BUN/Creatinine Ratio 21 H Glucose 153 H Calculated Osmolality 276 Calcium 8.5 Corrected Calcium 9.9 Phosphorus 2.5 Magnesium 1.7 Total Bilirubin 8.9 H D AST 95 H ALT 45 Alkaline Phosphatase 117 H Total Protein 6.1 Albumin 2.3 L Globulin 3.8 H Albumin/Globulin Ratio 0.6 L Tumor Marker AFP < 1.30 Misc Test Result Platelets confirmed Quality Measures Quality Measures none Assessment & Plan Assessment Current Active Medications: Generic Name Dose Route Start Last Admin Trade Name Freq PRN Reason Stop Dose Admin Acetaminophen 500 mg 11/17/24 09:41 11/17/24 18:15 Acetaminophen 500 Mg Tablet PO 12/15/24 14:19 500 mg Q6HR PRN Administration Pain(1-6) or temp > 100.3 Bumetanide 2 mg 11/23/24 06:00 11/24/24 05:55 Bumetanide Inj 0.25 Mg/Ml Vial 4 Ml IVP 12/23/24 05:59 2 mg BIDD SHANNAN Administration Albumin Human 25 gm in 100 mls @ 100 mls/hr 11/22/24 09:13 11/24/24 09:07 Albuminar-25 Ivpb IV 11/25/24 09:12 100 mls/hr QDAY SHANNAN Administration Lactulose 30 gm 11/20/24 22:00 11/24/24 05:59 Lactulose Syrup 20 Gm/30 Ml Udc PO 12/20/24 21:59 Not Given TID SHANNAN Protocol Midodrine 10 mg 11/19/24 14:00 11/24/24 05:54 Midodrine 5 Mg Tablet PO 12/19/24 13:59 10 mg TID SHANNAN Administration Ondansetron HCl 4 mg 11/22/24 13:00 11/22/24 13:06 Ondansetron Odt 4 Mg Tabrap PO 12/22/24 12:59 4 mg Q6HR PRN Administration NAUSEA OR VOMITING Protocol Pantoprazole Sodium 40 mg 11/19/24 09:00 11/24/24 09:08 Pantoprazole 40 Mg Tablet PO 12/19/24 08:59 40 mg QDAY SHANNAN Administration Propranolol HCl 10 mg 11/22/24 21:00 11/24/24 09:11 Propranolol 10 Mg Tablet PO 12/22/24 20:59 Not Given BID SHANNAN Simethicone 80 mg 11/18/24 15:18 Simethicone 80 Mg Chew PO 12/18/24 15:17 QID PRN GAS Spironolactone 100 mg 11/19/24 11:15 11/24/24 09:07 Spironolactone 25 Mg Tablet PO 12/19/24 11:14 100 mg QDAY SHANNAN Administration Tamsulosin HCl 0.4 mg 11/18/24 21:00 11/23/24 21:25 Tamsulosin Hcl 0.4 Mg Capsule PO 12/18/24 20:59 0.4 mg HS SHANNAN Administration Thiamine HCl 250 mg 11/20/24 09:00 11/24/24 09:06 Thiamine Inj 100 Mg/Ml Vial 2 Ml IVP 12/17/24 08:59 250 mg QDAY SHANNAN Administration Plan 64-year-old male with PMHx of alcoholic end-stage liver disease, history of decompensation with ascites, chronic venous insufficiency, presented on 11/15/24 with new onset witnessed seizure, admitted to ICU for septic shock secondary to bacteremia, requiring pressors support. Continued on broad ANTIBIOTICS, pressors are off, maintaining adequate MAP, downgraded to floors on 11/18/2024. Appreciate recommendations from GI team Septic shock (resolved) E. coli bacteremia SBP, likely E. coli UTI, unlikely Possible pneumonia Suspected SBP New onset witnessed seizure, likely in settings of septic shock, requiring pressor support in ICU. Abdominal CT showed bilateral pneumonia, cirrhosis, significant ascites. CXR read as mild left base pneumonia but unclear, he is asymptomatic. UA showed WBC 30, positive LE, 3+ blood, 1+ protein. Blood Cx grew E. coli, source suspected SBP (peritoneal PMN>250),possibly UTI (although urine cx negative thus far), no open wound, SBP r/o (see below). EKG showed no clear valvular vegetation or pathology. Initially was on MEROPENEM (11/16 to 11/17) which was de-escalated to CEFTRIAXONE for E. coli bacteremia. Currently afebrile, no leukocytosis, vitals stable. Repeat 48H blood culture negative. ? Completed CEFTRIAXONE treatment for SBP, however will continue with CEFTRIAXONE 1 mg daily for SBP prophylaxis given suspected GI bleed. Concern for intra-abdominal bleed CT showed opacity in stomach concerning for gastric bleed. He was asymptomatic, Hgb at baseline and stable, denies dark stool. Stomach mildly tender on exam as noted previously. ? Pending EGD ? Monitoring hemoglobin Decompensated liver cirrhosis Ascites, thrombocytopenia Hyperammonemia Acute transaminitis Cirrhosis with significant ascites seen on CT. Labs showed elevated bilirubin of 10.7 which is overall downtrending. MELD-Na score of 27-32% mortality rate in the next 3 months. Continued on CEFTRIAXONE for SBP prophylaxis. Paracentesis removed 2.2 L fluid, SAAG suggests portal hypertension. SBP r/o, peritoneal PMNs 60, afebrile, no leukocytosis. Ammonia 79 on admission, no signs of hepatic encephalopathy. Hep panel negative. EGD was performed on 11/30/2020 showing grade 2 esophageal varices at the distal end of the esophagus, which was banded x3. AST and TB are worsening and he reported mild jaundice and scleral icteric. Ultrasound showed cirrhosis, splenomegaly, cholelithiasis, gallbladder and thickening. However, he has ascites, which likely resulting gallbladder wall thickening. Poor response to diuresis despite IV fluids, had substantial 3+ bilateral extremity edema. Will switch to BUMEX 2 mg BID. Unable to start PROPRANOLOL for variceal bleed prophylaxis given soft blood, and need for MIDODRINE. ? Continue LACTULOSE 20 mg TID, goal 3?4 bowel movements daily ? Continue BUMEX 2 mg BID ? Continue SPIRONOLACTONE 100 mg daily ? Continue MIDODRINE 10 mg TID ? Continue THIAMINE 250 mg daily ? Will monitor closely, consider HIDA scan if symptom worsen or do not improve Thrombocytopenia Anemia Likely cirrhosis versus sepsis. PLT 75 on admission, now 39. Hgb 10.8, likely baseline. No signs of active bleed. ? Daily labs ? Transfuse if Hgb less than 7 Lactic acidosis, type A (resolved) In settings of sepsis, poor perfusion. LA 8.9 > 2.9 with fluids and underlying cause management. ? Treating underlying cause as above BPH ? Continue home TAMSULOSIN 0.4 mg HS Chronic stasis dermititis of gilberto LE Small, non-bleeding, non-ulcerative lesion of RLE LE Venous doppler negative for DVT bilaterall. ? Wound care New onset seizure, ruled out Discussion with patient regarding reported seizure prior to admission. He denied having seizure, loss consciousness, bowel incontinence, or other seizure or seizure-like symptoms. He said he was feeling cold and shivering at the time when ambulance was called, which was likely mistaken for seizure. Symptoms are likely related to bacteremia. Sinus tachycardia (resolved) Acute episode of tachycardia, HR sustaining around 110 ? 140, EKG showed sinus tachycardia, HR 115, nonspecific T wave abnormalities. Complains of palpitation but no chest pain or shortness of breath. CTA was negative for PE. Still unable to proceed with medical DVT prophylaxis 2/2 low platelets, elevated INR. Will continue with SCDs for now. Health maintenance Diet: Cardiac, fluid restriction 1500 cc GI prophylaxis: PROTONIX DVT prophylaxis: SCD, medical prophylaxis contraindicated due to severe thrombocytopenia Antibiotics: CEFTRIAXONE CODE STATUS: Full code Disposition: Treating bacteremia Case was discussed with attending physician and senior resident. Milind Benedict DO PGYI This document was transcribed using voice recognition technology. Minor inaccuracies may be present. Attending Provider Attestation/Addendum Beverly Villafana DO, attest that I was physically present for the chalres portions of the service and evaluated the patient with the resident and I reviewed and discussed the case with the resident and agree with the resident's findings and plans of care as documented above Patient seen and evaluated this patient states he is feeling well. No acute events overnight. He is pending endoscopy today due to concern for GI bleed. Bilateral lower extremity appears unchanged. He continues to have some peripheral edema. Will continue with current diuresis patient. Patient completed treatment for SBP and bacteremia. Will continue Rocephin 1 g for SBP prophylaxis. Will follow-up with endoscopy results. Anticipate discharge within the next 24 to 48 hours.
--- NOTE | 2024-11-24 14:51 | PC.SS ---
rounding note: gi consult. Endoscopy today
--- NOTE | 2024-11-24 15:18 | CHAP ---
Patient was visited by a Spiritual Care Volunteer on 11/22/2024 between 0930 and 1200 and received comfort, encouragement and/or prayer.
--- NOTE | 2024-11-24 19:28 | SUR.PHASEI ---
1927 patient arrived to recovery, report received from Zuleyma LEO/Mely LEO
--- NOTE | 2024-11-24 20:00 | SUR.PHASEI ---
1999 patient voided all over himself without requesting a urinal or communicate with this proposal writer that he had to void, patient linen cleaned and pericare provided
--- NOTE | 2024-11-24 20:23 | SUR.PHASEI ---
2019 Report given to Inocencia LEO, patient meets discharge criteria from recovery, awake and responding to questions appropriately, on oxygen 2L via nasal cannula, breathing unlabored, vital signs stable, denies pain and nausea 2022 Patient transported via gurney to room 362 without incident, Inocencia LEO and LAMINATING MACHINE OFFBEARER promptly in patient room, patient ambulated from gurney to bedside commode with stand by assist, Inocencia LEO and LAMINATING MACHINE OFFBEARER remained at bedside with patient when this continuity writer left patients room.
--- NOTE | 2024-11-24 21:01 | PC.NURSE ---
called Dr. Padron regarding patient's medication, propranolol and midodrine. Both medications are timed around the same time but no parameters for either medication. Patient's current BP 128/77 HR 66. Per MD to hold both medications.
[2024-11-24] MEDS: TAMSULOSIN HCL 0.4 MG CAPSULE PO (21:19)
[2024-11-24] MEDS: LACTULOSE SYRUP 20 GM/30 ML UDC 30 GM PO (21:20)
[2024-11-25] VITALS (19 sets, daily range): BP systolic 97–118; BP diastolic 60–79; PULSE 62–78; RESP 16–18; TEMP 35.8–36.6; O2SAT 91–95
[2024-11-25] MEDS: LACTULOSE SYRUP 20 GM/30 ML UDC 30 GM PO ×2 (05:28→16:11)
[2024-11-25] MEDS: MIDODRINE 5 MG TABLET 10 MG PO ×3 (05:28→22:22)
[2024-11-25 06:01] LABS: Basophils # (Auto) 0.1 Thou/mm3 (0.0-0.2); Basophils % (Auto) 1 % (0-2.5); Eosinophils # (Auto) 0.2 Thou/mm3 (0.0-0.5); Eosinophils % (Auto) 2 % (0-10); Hematocrit 31.2 % (41.0-53.0); Hemoglobin 11.3 g/dL (13.5-16.0); Immature Granulocytes % (Auto) 0 % (0-0); Immature Granulocytes Auto 0.03 Thou/mm3 (0.00-0.00); Lymphocytes # (Auto) 0.8 Thou/mm3 (1.0-4.8); Lymphocytes % (Auto) 11 % (10-50); Mean Corpuscular HGB Conc 36.2 g/dl (31.0-37.0); Mean Corpuscular Hemoglobin 36.6 pg (25.0-35.0); Mean Corpuscular Volume 101 fL (80-100); Monocytes # (Auto) 0.7 Thou/mm3 (0.0-0.8); Monocytes % (Auto) 9 % (0-12); Neutrophils # (Auto) 5.7 Thou/mm3 (1.8-7.7); Neutrophils % (Auto) 77 % (37-80); Nucleated Red Blood Cell % 0 /100 WBC (0); RDW Standard Deviation 60.5 fL (35.1-43.9); Red Blood Count 3.09 Miln/mm3 (4.50-5.90); White Blood Count 7.5 Thou/mm3 (3.8-10.6)
[2024-11-25 06:03] LABS: Platelet Count 53 Thou/mm3 (140-440); Slide Review Platelets confirmed
[2024-11-25] MEDS: BUMETANIDE INJ 0.25 MG/ML VIAL 4 ML 2 MG IVP ×2 (06:22→17:31)
--- NOTE | 2024-11-25 06:29 | PC.NURSE ---
notified Dr. Bell regarding patient's BP of 106/69, HR 68. Per MD sanches to give bumex 2mg IVP.
[2024-11-25 06:40] LABS: Alanine Aminotransferase 39 U/L (10-49); Albumin, Serum 2.3 gm/dL (3.4-4.8); Albumin/Globulin Ratio 0.6 (1.2-2.2); Alkaline Phosphatase 104 U/L (46-116); Anion Gap 6 (7-16); Aspartate Amino Transferase 82 U/L (0-34); BUN/Creatinine Ratio 21 Ratio (12-20); Bilirubin,Total 8.3 mg/dL (0.3-1.2); Blood Urea Nitrogen 21 mg/dL (9-23); Calcium 8.6 mg/dL (8.3-10.6); Carbon Dioxide 27.4 mMol/L (20.0-31.0); Chloride 103 mMol/L (98-107); Globulin 3.6 gm/dL (2.3-3.5); Glucose 152 mg/dL (74-106); Magnesium 1.3 mg/dL (1.6-2.6); Osmolality,Calculated 277 (275-295); Phosphorous 3.5 mg/dL (2.4-5.1); Sodium 136 mMol/L (136-145); Total Protein 5.9 gm/dL (5.7-8.2); eGFR > 60 See Note
[2024-11-25] MEDS: ALBUMIN HUMAN 25% IVPB 25 GM/100 ML BTL IV (08:19)
[2024-11-25] MEDS: cefTRIAXone/D5w 1gm IV premix 1 GM/50 ML BAG IV (08:20)
[2024-11-25] MEDS: Magnesium Sulfate 4 GM Ivpb 4 GM/50 ML BAG IV (08:20)
[2024-11-25] MEDS: PANTOPRAZOLE 40 MG TABLET PO (08:21)
[2024-11-25] MEDS: SPIRONOLACTONE 25 MG TABLET 100 MG PO (08:21)
[2024-11-25] MEDS: THIAMINE INJ 100 MG/ML VIAL 2 ML 250 MG IVP (08:22)
--- NOTE | 2024-11-25 13:24 | ESPR_ITS ---
<Statement entered by Jeffrey Vance MD - 11/26/24 07:17> I discussed with and supervised the internet and e business project manager physician involved in the care of this patient. Patient assessment and plan was discussed with entire medicine team, including my attending. I agree with the assessment and plan as documented by internet and e business project manager doctor. Patient care was discussed with my attending physician Dr. Faustino Vance, PGY-2 Documentation for date of: 11/25/24 Subjective Subjective Interval history: No acute overnight events. Reports feeling a tired this morning but Denies fever, chills, headaches, chest pain, sob, cough, GI or urinary symptoms. Daughter at bedside stated she is unable to care for patient because of her work schedule and would like to have him discharged to SNF. community sports coordinator made aware and will arrange for SNF. Exam Vital Signs Temp Pulse Resp BP Pulse Ox O2 Del Method O2 Flow Rate 97.9 F 64 16 109/68 95 Room Air 2 11/25/24 12:05 11/25/24 12:05 11/25/24 12:11/25/24 12:11/25/24 12:05 11/25/24 12:05 11/24/24 20:30 Narrative Exam GENERAL * Normal appearing adult male, on room, NAD HEENT * NCAT.?JACI. Oral mucosa is moist. Patent Nares NECK * Supple, nontender, no thyromegaly, no meningismus, no JVD, no step offs CHEST * RRR, mild systolic murmur, no rubs or gallops. * CTAB, no w/r/r. Symmetrical chest rise. No intercostal subcostal retraction ABDOMEN * Soft, distended, mildly tender to palpation. No guarding/rebound tenderness/masses. * Bowel sounds presents EXTREMITIES * Chronic venous stasis dermititis bilaterally. SKIN * Slightly jaundice, bilateral mild scleral icterus present. * 2+ bilateral lower extremity pitting edema NEUROMUSCULAR * Moves all 4 extremities well, with full ROM and good CSM. * No focal neurologic deficits. PSYCHIATRY * Normal mood and affect, cooperative, no SI or HI or hallucinations. Objective Labs 11/26/24 04:41 11/26/24 04:41 Labs: Laboratory Results - last 24 hr 11/25/24 05:02 WBC 7.5 RBC 3.09 L Hgb 11.3 L Hct 31.2 L MCV 101 H MCH 36.6 H MCHC 36.2 RDW Std Deviation 60.5 H Plt Count 53 L Neut % (Auto) 77 Lymph % (Auto) 11 [place] % (Auto) 9 Eos % (Auto) 2 Baso % (Auto) 1 Neut # (Auto) 5.7 Lymph # (Auto) 0.8 L [place] # (Auto) 0.7 Eos # (Auto) 0.2 Baso # (Auto) 0.1 Immature Gran # (Auto) 0.03 H Absolute Nucleated RBC 0.00 Immature Gran % 0 Nucleated RBC % 0 Sodium 136 Potassium 4.0 Chloride 103 Carbon Dioxide 27.4 Anion Gap 6 L BUN 21 Creatinine 1.0 Estim Creat Clear Calc 83.0 eGFR > 60 BUN/Creatinine Ratio 21 H Glucose 152 H Calculated Osmolality 277 Calcium 8.6 Corrected Calcium 10.0 Phosphorus 3.5 Magnesium 1.3 L Total Bilirubin 8.3 H D AST 82 H ALT 39 Alkaline Phosphatase 104 Total Protein 5.9 Albumin 2.3 L Globulin 3.6 H Albumin/Globulin Ratio 0.6 L Misc Test Result Platelets confirmed Quality Measures Quality Measures none Assessment & Plan Assessment Current Active Medications: Generic Name Dose Route Start Last Admin Trade Name Freq PRN Reason Stop Dose Admin Acetaminophen 500 mg 11/17/24 09:41 11/17/24 18:15 Acetaminophen 500 Mg Tablet PO 12/15/24 14:19 500 mg Q6HR PRN Administration Pain(1-6) or temp > 100.3 Bumetanide 2 mg 11/23/24 06:00 11/25/24 06:22 Bumetanide Inj 0.25 Mg/Ml Vial 4 Ml IVP 12/23/24 05:59 2 mg BIDD SHANNAN Administration Ceftriaxone Sodium/Dextrose 1 gm in 50 mls @ 100 mls/hr 11/25/24 09:00 11/25/24 08:20 Rocephin/D5w 1gm Iv Premix IV 12/02/24 08:59 100 mls/hr QDAY SHANNAN Administration Lactulose 30 gm 11/20/24 22:00 11/25/24 05:28 Lactulose Syrup 20 Gm/30 Ml Udc PO 12/20/24 21:59 30 gm TID SHANNAN Administration Protocol Midodrine 10 mg 11/19/24 14:00 11/25/24 05:28 Midodrine 5 Mg Tablet PO 12/19/24 13:59 10 mg TID SHANNAN Administration Ondansetron HCl 4 mg 11/22/24 13:00 11/22/24 13:06 Ondansetron Odt 4 Mg Tabrap PO 12/22/24 12:59 4 mg Q6HR PRN Administration NAUSEA OR VOMITING Protocol Pantoprazole Sodium 40 mg 11/19/24 09:00 11/25/24 08:21 Pantoprazole 40 Mg Tablet PO 12/19/24 08:59 40 mg QDAY SHANNAN Administration Propranolol HCl 10 mg 11/22/24 21:00 11/25/24 08:22 Propranolol 10 Mg Tablet PO 12/22/24 20:59 Not Given BID SHANNAN Simethicone 80 mg 11/18/24 15:18 Simethicone 80 Mg Chew PO 12/18/24 15:17 QID PRN GAS Spironolactone 100 mg 11/19/24 11:15 11/25/24 08:21 Spironolactone 25 Mg Tablet PO 12/19/24 11:14 100 mg QDAY SHANNAN Administration Tamsulosin HCl 0.4 mg 11/18/24 21:00 11/24/24 21:19 Tamsulosin Hcl 0.4 Mg Capsule PO 12/18/24 20:59 0.4 mg HS SHANNAN Administration Thiamine HCl 250 mg 11/20/24 09:00 11/25/24 08:22 Thiamine Inj 100 Mg/Ml Vial 2 Ml IVP 12/17/24 08:59 250 mg QDAY SHANNAN Administration Plan 64-year-old male with PMHx of alcoholic end-stage liver disease, history of decompensation with ascites, chronic venous insufficiency, presented on 11/15/24 with new onset witnessed seizure, admitted to ICU for septic shock secondary to bacteremia, requiring pressors support. Continued on broad ANTIBIOTICS, pressors are off, maintaining adequate MAP, downgraded to floors on 11/18/2024. Appreciate recommendations from GI team Septic shock (resolved) E. coli bacteremia SBP, likely E. coli UTI, unlikely Possible pneumonia Suspected SBP New onset witnessed seizure, likely in settings of septic shock, requiring pressor support in ICU. Abdominal CT showed bilateral pneumonia, cirrhosis, significant ascites. CXR read as mild left base pneumonia but unclear, he is asymptomatic. UA showed WBC 30, positive LE, 3+ blood, 1+ protein. Blood Cx grew E. coli, source suspected SBP (peritoneal PMN>250),possibly UTI (although urine cx negative thus far), no open wound, SBP r/o (see below). EKG showed no clear valvular vegetation or pathology. Initially was on MEROPENEM (11/16 to 11/17) which was de-escalated to CEFTRIAXONE for E. coli bacteremia. Currently afebrile, no leukocytosis, vitals stable. Repeat 48H blood culture negative. ? Completed CEFTRIAXONE treatment for SBP, however will continue with CEFTRIAXONE 1 mg daily for SBP prophylaxis given suspected GI bleed. Decompensated liver cirrhosis Ascites, thrombocytopenia Hyperammonemia Acute transaminitis Cirrhosis with significant ascites seen on CT. Labs showed elevated bilirubin of 10.7 which is overall downtrending. MELD-Na score of 27-32% mortality rate in the next 3 months. Continued on CEFTRIAXONE for SBP prophylaxis. Paracentesis removed 2.2 L fluid, SAAG suggests portal hypertension. SBP r/o, peritoneal PMNs 60, afebrile, no leukocytosis. Ammonia 79 on admission, no signs of hepatic encephalopathy. Hep panel negative. EGD was performed on 11/30/2020 showing grade 2 esophageal varices at the distal end of the esophagus, which was banded x3. AST and TB are worsening and he reported mild jaundice and scleral icteric. Ultrasound showed cirrhosis, splenomegaly, cholelithiasis, gallbladder and thickening. However, he has ascites, which likely resulting gallbladder wall thickening. Poor response to diuresis despite IV fluids, had substantial 3+ bilateral extremity edema. Will switch to BUMEX 2 mg BID. Unable to start PROPRANOLOL for variceal bleed prophylaxis given soft blood, and need for MIDODRINE. EGD showed grade 1 esophageal varices without active bleed. ? Continue LACTULOSE 20 mg TID, goal 3?4 bowel movements daily ? Continue BUMEX 2 mg BID ? Continue SPIRONOLACTONE 100 mg daily ? Continue MIDODRINE 10 mg TID ? Continue THIAMINE 250 mg daily ? Will monitor closely, consider HIDA scan if symptom worsen or do not improve Concern for intra-abdominal bleed (unlikely) CT showed opacity in stomach concerning for gastric bleed. He was asymptomatic, Hgb at baseline and stable, denies dark stool. Stomach mildly tender on exam as noted previously. EGD showed grade 1 esophageal varices without active bleed. Hgb stable. ? daily labs ? Transfuse if Hgb < 7 Thrombocytopenia Anemia Likely cirrhosis versus sepsis. PLT 75 on admission, now 39. Hgb 10.8, likely baseline. No signs of active bleed. ? Daily labs ? Transfuse if Hgb less than 7 Lactic acidosis, type A (resolved) In settings of sepsis, poor perfusion. LA 8.9 > 2.9 with fluids and underlying cause management. ? Treating underlying cause as above BPH ? Continue home TAMSULOSIN 0.4 mg HS Chronic stasis dermititis of gilberto LE Small, non-bleeding, non-ulcerative lesion of RLE LE Venous doppler negative for DVT bilaterall. ? Wound care New onset seizure, ruled out Discussion with patient regarding reported seizure prior to admission. He denied having seizure, loss consciousness, bowel incontinence, or other seizure or seizure-like symptoms. He said he was feeling cold and shivering at the time when ambulance was called, which was likely mistaken for seizure. Symptoms are likely related to bacteremia. Sinus tachycardia (resolved) Acute episode of tachycardia, HR sustaining around 110 ? 140, EKG showed sinus tachycardia, HR 115, nonspecific T wave abnormalities. Complains of palpitation but no chest pain or shortness of breath. CTA was negative for PE. Still unable to proceed with medical DVT prophylaxis 2/2 low platelets, elevated INR. Will continue with SCDs for now. Health maintenance Diet: Cardiac, fluid restriction 1500 cc GI prophylaxis: PROTONIX DVT prophylaxis: SCD, medical prophylaxis contraindicated due to severe thrombocytopenia Antibiotics: CEFTRIAXONE CODE STATUS: Full code Disposition: Treating bacteremia Case was discussed with attending physician and senior resident. Milind Benedict DO PGYI This document was transcribed using voice recognition technology. Minor inaccuracies may be present. Attending Provider Attestation/Addendum Beverly Villafana DO, attest that I was physically present for the charles portions of the service and evaluated the patient with the resident and I reviewed and discussed the case with the resident and agree with the resident's findings and plans of care as documented above Patient seen and evaluated this Am. Endoscopy was done yesterday showing grade 1 esophageal varices and erythematous stomach mucosa. Patient is stable for discharge at this time. Will need SNF on discharge. Anticipate DC within next 24h once authorization for SNF is obtained. Patient is otherwise afebrile, feeling well and denies chest pain, shortness of breath, abdominal pain, nausea or vomiting.
--- NOTE | 2024-11-25 13:50 | PC.SS ---
Addendum entered by SONIA Roy 11/25/24 15:44: SS update: patient's daughter Scarlet called and informed preferred SNF is [facility]. Contacted Dora at [facility] and she confirms they can accept the patient and initiate working on insurance authorization today. PASRR was sent to facility via boo-box. Addendum entered by SONIA Roy 11/25/24 14:45: SS follow up: contacted patient's daughter, Scarlet to provide SNF choices, she informs she will call back with preferred facility. Addendum entered by SONIA Roy 11/25/24 13:57: SS update: PASRR was completed. Original Note: SS follow up: met at bedside with patient and his daughter Scarlet to discuss the d/c plan. Patient and daughter are requesting short term SNF. Explained to the patient and daughter the process as patient will require insurance authorization for SNF. They are aware and agreeable. No preferred SNF at this time. SNF inquiry was sent via boo-box and is pending responses. Attending Dr. Harmon and bed RN Juli are aware of the d/c plan.
--- NOTE | 2024-11-25 20:13 | PD.IMPROG ---
Documentation for date of: 11/25/24 Subjective Subjective Interval history: Patient evaluated Hemoglobin hematocrit 11.3 and 31.2 Upper endoscopy showed 1+ esophageal varices not large for band ligation Diffuse erythematous gastritis Exam Vital Signs Temp Pulse Resp BP Pulse Ox O2 Del Method O2 Flow Rate 97.4 F 74 18 97/79 94 L Room Air 2 11/25/24 16:02 11/25/24 17:31 11/25/24 16:02 11/25/24 17:31 11/25/24 16:02 11/25/24 16:02 11/24/24 20:30 Objective Labs 11/25/24 05:02 11/25/24 05:02 Labs: Laboratory Results - last 24 hr 11/25/24 05:02 WBC 7.5 RBC 3.09 L Hgb 11.3 L Hct 31.2 L MCV 101 H MCH 36.6 H MCHC 36.2 RDW Std Deviation 60.5 H Plt Count 53 L Neut % (Auto) 77 Lymph % (Auto) 11 [place] % (Auto) 9 Eos % (Auto) 2 Baso % (Auto) 1 Neut # (Auto) 5.7 Lymph # (Auto) 0.8 L [place] # (Auto) 0.7 Eos # (Auto) 0.2 Baso # (Auto) 0.1 Immature Gran # (Auto) 0.03 H Absolute Nucleated RBC 0.00 Immature Gran % 0 Nucleated RBC % 0 Sodium 136 Potassium 4.0 Chloride 103 Carbon Dioxide 27.4 Anion Gap 6 L BUN 21 Creatinine 1.0 Estim Creat Clear Calc 83.0 eGFR > 60 BUN/Creatinine Ratio 21 H Glucose 152 H Calculated Osmolality 277 Calcium 8.6 Corrected Calcium 10.0 Phosphorus 3.5 Magnesium 1.3 L Total Bilirubin 8.3 H D AST 82 H ALT 39 Alkaline Phosphatase 104 Total Protein 5.9 Albumin 2.3 L Globulin 3.6 H Albumin/Globulin Ratio 0.6 L Misc Test Result Platelets confirmed Impressions Impression: 1+ esophageal varices Diffuse gastritis Continue current management Follow CBC Assessment & Plan A&P Narrative # Possible upper GI bleed in the setting of cirrhotic liver disease due to alcohol portal hypertension ascites and a history of esophageal variceal band ligation in the past Plan N.p.o. 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 coli bacteremia Thrombocytopenia secondary to chronic liver disease Cholelithiasis Thank you very much for the opportunity to participate in the care of this patient Time Spent With Patient Time: Total time spent is greater than 50% in coordination of care (as documented) at patient's floor/unit and/or counseling patient:
[2024-11-25] MEDS: TAMSULOSIN HCL 0.4 MG CAPSULE PO (22:21)
[2024-11-26] VITALS (13 sets, daily range): BP systolic 97–116; BP diastolic 53–69; PULSE 66–86; RESP 16–20; TEMP 36.2–36.4; O2SAT 93–97
[2024-11-26 05:25] LABS: Basophils % (Auto) 1 % (0-2.5); Eosinophils # (Auto) 0.1 Thou/mm3 (0.0-0.5); Eosinophils % (Auto) 3 % (0-10); Hemoglobin 10.6 g/dL (13.5-16.0); Immature Granulocytes % (Auto) 1 % (0-0); Immature Granulocytes Auto 0.03 Thou/mm3 (0.00-0.00); Lymphocytes % (Auto) 19 % (10-50); Mean Corpuscular HGB Conc 36.6 g/dl (31.0-37.0); Mean Corpuscular Hemoglobin 36.9 pg (25.0-35.0); Mean Corpuscular Volume 101 fL (80-100); Monocytes # (Auto) 0.6 Thou/mm3 (0.0-0.8); Monocytes % (Auto) 11 % (0-12); Neutrophils # (Auto) 3.4 Thou/mm3 (1.8-7.7); Neutrophils % (Auto) 66 % (37-80); Nucleated Red Blood Cell % 0 /100 WBC (0); RDW Standard Deviation 60.1 fL (35.1-43.9); Red Blood Count 2.87 Miln/mm3 (4.50-5.90); White Blood Count 5.2 Thou/mm3 (3.8-10.6)
[2024-11-26 05:35] LABS: Platelet Count 54 Thou/mm3 (140-440)
[2024-11-26 05:43] LABS: Alanine Aminotransferase 37 U/L (10-49); Albumin, Serum 2.3 gm/dL (3.4-4.8); Albumin/Globulin Ratio 0.7 (1.2-2.2); Alkaline Phosphatase 110 U/L (46-116); Anion Gap 8 (7-16); Aspartate Amino Transferase 79 U/L (0-34); BUN/Creatinine Ratio 20 Ratio (12-20); Bilirubin,Total 6.4 mg/dL (0.3-1.2); Blood Urea Nitrogen 18 mg/dL (9-23); Calcium 8.6 mg/dL (8.3-10.6); Carbon Dioxide 29.3 mMol/L (20.0-31.0); Chloride 98 mMol/L (98-107); Creatinine (Component) 0.9 mg/dL (0.6-1.3); Estimated Creatinine Clearance 92.2 mL/min (>60); Globulin 3.3 gm/dL (2.3-3.5); Glucose 127 mg/dL (74-106); Magnesium 1.4 mg/dL (1.6-2.6); Osmolality,Calculated 274 (275-295); Phosphorous 3.1 mg/dL (2.4-5.1); Potassium 3.4 mMol/L (3.4-5.1); Sodium 135 mMol/L (136-145); Total Protein 5.6 gm/dL (5.7-8.2); eGFR > 60 See Note
[2024-11-26 06:07] LABS: Slide Review Platelets confirmed
[2024-11-26] MEDS: LACTULOSE SYRUP 20 GM/30 ML UDC 30 GM PO ×2 (06:22→13:19)
[2024-11-26] MEDS: MIDODRINE 5 MG TABLET 10 MG PO ×3 (06:24→22:23)
[2024-11-26] MEDS: BUMETANIDE INJ 0.25 MG/ML VIAL 4 ML 2 MG IVP (06:24)
--- NOTE | 2024-11-26 07:56 | ESPR_ITS ---
<Statement entered by Fuad Pulliam MD - 11/29/24 14:33> I Fuad Pulliam MD reviewed the note and agree with the resident's assessment & plan with exceptions as below. I have personally reviewed labs, imaging, home meds/prior records, examined the patient, formulated and discussed management plan with the IM team. 64-year-old male with history of cirrhosis and EtOH use disorder admitted for SBP and bacteremia patient has significant anemia elevated INR, cytopenia however there is no evidence of bleeding. CKD is also significantly elevated in the setting of end-stage liver disease. Will continue on Lasix spironolactone, continue lactulose therapy and SBP prophylaxis on discharge. Echocardiogram had been unremarkable. GI follow-up in outpatient settings for optimization of chronic liver disease management <Statement entered by Jeffrey Vance MD - 11/26/24 18:39> I discussed with and supervised the international trade analyst physician involved in the care of this patient. Patient assessment and plan was discussed with entire medicine team, including my attending. I agree with the assessment and plan as documented by international trade analyst doctor. Patient care was discussed with my attending physician Dr. Heraclio Vance, PGY-2 Documentation for date of: 11/26/24 Subjective Subjective Interval history: No acute overnight events. Reports feeling better this morning. Tolerating oral intake without nausea or vomiting. Denies fever, chills, headaches, chest pain, sob, cough, GI or urinary symptoms. Currently pending authorization for SNF placement Exam Vital Signs Temp Pulse Resp BP Pulse Ox O2 Del Method O2 Flow Rate 97.5 F 72 20 104/59 L 93 L Room Air 2 11/26/24 04:00 11/26/24 06:24 11/26/24 04:00 11/26/24 06:11/26/24 04:00 11/26/24 04:00 11/26/24 00:00 Narrative Exam GENERAL * Normal appearing adult male, on room, NAD HEENT * NCAT.?JACI. Oral mucosa is moist. Patent Nares NECK * Supple, nontender, no thyromegaly, no meningismus, no JVD, no step offs CHEST * RRR, mild systolic murmur, no rubs or gallops. * CTAB, no w/r/r. Symmetrical chest rise. No intercostal subcostal retraction ABDOMEN * Soft, distended, mildly tender to palpation. No guarding/rebound tenderness/masses. * Bowel sounds presents EXTREMITIES * Chronic venous stasis dermititis bilaterally. SKIN * Slightly jaundice, bilateral mild scleral icterus present. * 1+ bilateral lower extremity pitting edema NEUROMUSCULAR * Moves all 4 extremities well, with full ROM and good CSM. * No focal neurologic deficits. PSYCHIATRY * Normal mood and affect, cooperative, no SI or HI or hallucinations. Objective Labs 11/26/24 04:41 11/26/24 04:41 Labs: Laboratory Results - last 24 hr 11/26/24 04:41 WBC 5.2 RBC 2.87 L Hgb 10.6 L Hct 29.0 L MCV 101 H MCH 36.9 H MCHC 36.6 RDW Std Deviation 60.1 H Plt Count 54 L Neut % (Auto) 66 Lymph % (Auto) 19 [place] % (Auto) 11 Eos % (Auto) 3 Baso % (Auto) 1 Neut # (Auto) 3.4 Lymph # (Auto) 1.0 [place] # (Auto) 0.6 Eos # (Auto) 0.1 Baso # (Auto) 0.0 Immature Gran # (Auto) 0.03 H Absolute Nucleated RBC 0.00 Immature Gran % 1 H Nucleated RBC % 0 Sodium 135 L Potassium 3.4 D Chloride 98 Carbon Dioxide 29.3 Anion Gap 8 BUN 18 Creatinine 0.9 Estim Creat Clear Calc 92.2 eGFR > 60 BUN/Creatinine Ratio 20 Glucose 127 H Calculated Osmolality 274 L Calcium 8.6 Corrected Calcium 10.0 Phosphorus 3.1 Magnesium 1.4 L Total Bilirubin 6.4 H D AST 79 H ALT 37 Alkaline Phosphatase 110 Total Protein 5.6 L Albumin 2.3 L Globulin 3.3 Albumin/Globulin Ratio 0.7 L Misc Test Result Platelets confirmed Quality Measures Quality Measures none Assessment & Plan Assessment Current Active Medications: Generic Name Dose Route Start Last Admin Trade Name Freq PRN Reason Stop Dose Admin Acetaminophen 500 mg 11/17/24 09:41 11/17/24 18:15 Acetaminophen 500 Mg Tablet PO 12/15/24 14:19 500 mg Q6HR PRN Administration Pain(1-6) or temp > 100.3 Bumetanide 2 mg 11/23/24 06:00 11/26/24 06:24 Bumetanide Inj 0.25 Mg/Ml Vial 4 Ml IVP 12/23/24 05:59 2 mg BIDD SHANNAN Administration Ceftriaxone Sodium/Dextrose 1 gm in 50 mls @ 100 mls/hr 11/25/24 09:00 11/25/24 08:20 Rocephin/D5w 1gm Iv Premix IV 12/02/24 08:59 100 mls/hr QDAY SHANNAN Administration Lactulose 30 gm 11/20/24 22:00 11/26/24 06:22 Lactulose Syrup 20 Gm/30 Ml Udc PO 12/20/24 21:59 30 gm TID SHANNAN Administration Protocol Midodrine 10 mg 11/19/24 14:00 11/26/24 06:24 Midodrine 5 Mg Tablet PO 12/19/24 13:59 10 mg TID SHANNAN Administration Ondansetron HCl 4 mg 11/22/24 13:00 11/22/24 13:06 Ondansetron Odt 4 Mg Tabrap PO 12/22/24 12:59 4 mg Q6HR PRN Administration NAUSEA OR VOMITING Protocol Pantoprazole Sodium 40 mg 11/19/24 09:00 11/25/24 08:21 Pantoprazole 40 Mg Tablet PO 12/19/24 08:59 40 mg QDAY SHANNAN Administration Propranolol HCl 10 mg 11/22/24 21:00 11/25/24 08:22 Propranolol 10 Mg Tablet PO 12/22/24 20:59 Not Given BID SHANNAN Simethicone 80 mg 11/18/24 15:18 Simethicone 80 Mg Chew PO 12/18/24 15:17 QID PRN GAS Spironolactone 100 mg 11/19/24 11:15 11/25/24 08:21 Spironolactone 25 Mg Tablet PO 12/19/24 11:14 100 mg QDAY SHANNAN Administration Tamsulosin HCl 0.4 mg 11/18/24 21:00 11/25/24 22:21 Tamsulosin Hcl 0.4 Mg Capsule PO 12/18/24 20:59 0.4 mg HS SHANNAN Administration Thiamine HCl 250 mg 11/26/24 09:00 Thiamine 100 Mg Tablet PO 12/26/24 08:59 QDAY SHANNAN Plan 64-year-old male with PMHx of alcoholic end-stage liver disease, history of decompensation with ascites, chronic venous insufficiency, presented on 11/15/24 with new onset witnessed seizure, admitted to ICU for septic shock secondary to bacteremia 2/2 SBP, requiring pressors support. Continued on broad ANTIBIOTICS, pressors are off, maintaining adequate MAP, downgraded to floors on 11/18/2024. Appreciate recommendations from GI team Septic shock (resolved) E. coli bacteremia SBP, likely E. coli UTI, unlikely Possible pneumonia Suspected SBP New onset witnessed seizure, likely in settings of septic shock, requiring pressor support in ICU. Abdominal CT showed bilateral pneumonia, cirrhosis, significant ascites. CXR read as mild left base pneumonia but unclear, he is asymptomatic. UA showed WBC 30, positive LE, 3+ blood, 1+ protein. Blood Cx grew E. coli, source suspected SBP (peritoneal PMN>250), possibly UTI (although urine cx negative thus far), no open wound, SBP r/o (see below). EKG showed no clear valvular vegetation or pathology. Initially was on MEROPENEM (11/16 to 11/17) which was de-escalated to CEFTRIAXONE for E. coli bacteremia. Currently afebrile, no leukocytosis, vitals stable. Repeat blood culture negative after 5 days ? Completed CEFTRIAXONE treatment for SBP, however will continue with CEFTRIAXONE 1 mg daily for SBP prophylaxis given suspected GI bleed. ? Will discharge on daily CIPROFLOXACIN for SBP prophylaxis indefinitely Decompensated liver cirrhosis Ascites, thrombocytopenia Hyperammonemia Acute transaminitis Cirrhosis with significant ascites seen on CT. Labs showed elevated bilirubin of 10.7 which is overall downtrending. MELD-Na score of 27-32% mortality rate in the next 3 months. Continued on CEFTRIAXONE for SBP prophylaxis. Paracentesis removed 2.2 L fluid, SAAG suggests portal hypertension. SBP r/o, peritoneal PMNs 60, afebrile, no leukocytosis. Ammonia 79 on admission, no signs of hepatic encephalopathy. Hep panel negative. EGD was performed on 11/30/2020 showing grade 2 esophageal varices at the distal end of the esophagus, which was banded x3. Ultrasound showed cirrhosis, splenomegaly, cholelithiasis, gallbladder and thickening. However, he has ascites, which likely resulting gallbladder wall thickening. Poor response to diuresis despite IV fluids, had substantial 3+ bilateral extremity edema. Will switch to BUMEX 2 mg BID. Unable to start PROPRANOLOL for variceal bleed prophylaxis given soft blood, and need for MIDODRINE. EGD showed grade 1 esophageal varices without active bleed. ? Continue LACTULOSE 20 mg TID, goal 3?4 bowel movements daily ? Continue LASIX 40 mg BID ? Continue SPIRONOLACTONE 50 mg BID ? Continue MIDODRINE 10 mg TID ? Continue THIAMINE 250 mg daily ? Will monitor closely, consider HIDA scan if symptom worsen or do not improve Concern for intra-abdominal bleed (unlikely) CT showed opacity in stomach concerning for gastric bleed. He was asymptomatic, Hgb at baseline and stable, denies dark stool. Stomach mildly tender on exam as noted previously. EGD showed grade 1 esophageal varices without active bleed. Hgb stable. ? daily labs ? Transfuse if Hgb < 7 Thrombocytopenia Anemia Likely cirrhosis versus sepsis. PLT 75 on admission, now 39. Hgb 10.8, likely baseline. No signs of active bleed. ? Daily labs ? Transfuse if Hgb less than 7 Lactic acidosis, type A (resolved) In settings of sepsis, poor perfusion. LA 8.9 > 2.9 with fluids and underlying cause management. ? Treating underlying cause as above BPH ? Continue home TAMSULOSIN 0.4 mg HS Chronic stasis dermititis of gilbetro LE Small, non-bleeding, non-ulcerative lesion of RLE LE Venous doppler negative for DVT bilaterall. ? Wound care New onset seizure, ruled out Discussion with patient regarding reported seizure prior to admission. He denied having seizure, loss consciousness, bowel incontinence, or other seizure or seizure-like symptoms. He said he was feeling cold and shivering at the time when ambulance was called, which was likely mistaken for seizure. Symptoms are likely related to bacteremia. Sinus tachycardia (resolved) Acute episode of tachycardia, HR sustaining around 110 ? 140, EKG showed sinus tachycardia, HR 115, nonspecific T wave abnormalities. Complains of palpitation but no chest pain or shortness of breath. CTA was negative for PE. Still unable to proceed with medical DVT prophylaxis 2/2 low platelets, elevated INR. Will continue with SCDs for now. Health maintenance Diet: Cardiac, fluid restriction 1500 cc GI prophylaxis: PROTONIX DVT prophylaxis: SCD, medical prophylaxis contraindicated due to severe thrombocytopenia Antibiotics: CEFTRIAXONE CODE STATUS: Full code Disposition: Treating bacteremia Case was discussed with attending physician and senior resident. DO TREMAINE Salinas This document was transcribed using voice recognition technology. Minor inaccuracies may be present.
[2024-11-26] MEDS: SPIRONOLACTONE 25 MG TABLET 100 MG PO (08:15)
[2024-11-26] MEDS: THIAMINE 100 MG TABLET 250 MG PO (08:16)
[2024-11-26] MEDS: PANTOPRAZOLE 40 MG TABLET PO (08:16)
[2024-11-26] MEDS: cefTRIAXone/D5w 1gm IV premix 1 GM/50 ML BAG IV (08:16)
[2024-11-26] MEDS: Magnesium Sulfate 4 GM Ivpb 4 GM/50 ML BAG IV (09:04)
--- NOTE | 2024-11-26 11:23 | PC.SS ---
SS spoke with Estrella @ [employer] who states we are still pending auth. She has spoken to insurance co and waiting for something in writing. Dc today if we have authorization.
--- NOTE | 2024-11-26 16:00 | CHAP ---
Patient was visited by the Spiritual Care Volunteer who prayed for them. (Volunteer was in the hospital from 14:00-17:00).
[2024-11-26] MEDS: Furosemide 40 MG TABLET PO (17:06)
--- NOTE | 2024-11-26 18:40 | PD.IMPROG ---
Documentation for date of: 11/26/24 Subjective Subjective Interval history: Patient evaluated Hemoglobin hematocrit 10.6 and 29.1 Exam Vital Signs Temp Pulse Resp BP Pulse Ox O2 Del Method O2 Flow Rate 97.1 F 68 17 107/61 97 Room Air 2 11/26/24 16:00 11/26/24 17:06 11/26/24 16:00 11/26/24 17:06 11/26/24 16:00 11/26/24 04:00 11/26/24 00:00 Objective Labs 11/26/24 04:41 11/26/24 04:41 Labs: Laboratory Results - last 24 hr 11/26/24 04:41 WBC 5.2 RBC 2.87 L Hgb 10.6 L Hct 29.0 L MCV 101 H MCH 36.9 H MCHC 36.6 RDW Std Deviation 60.1 H Plt Count 54 L Neut % (Auto) 66 Lymph % (Auto) 19 [place] % (Auto) 11 Eos % (Auto) 3 Baso % (Auto) 1 Neut # (Auto) 3.4 Lymph # (Auto) 1.0 [place] # (Auto) 0.6 Eos # (Auto) 0.1 Baso # (Auto) 0.0 Immature Gran # (Auto) 0.03 H Absolute Nucleated RBC 0.00 Immature Gran % 1 H Nucleated RBC % 0 Sodium 135 L Potassium 3.4 D Chloride 98 Carbon Dioxide 29.3 Anion Gap 8 BUN 18 Creatinine 0.9 Estim Creat Clear Calc 92.2 eGFR > 60 BUN/Creatinine Ratio 20 Glucose 127 H Calculated Osmolality 274 L Calcium 8.6 Corrected Calcium 10.0 Phosphorus 3.1 Magnesium 1.4 L Total Bilirubin 6.4 H D AST 79 H ALT 37 Alkaline Phosphatase 110 Total Protein 5.6 L Albumin 2.3 L Globulin 3.3 Albumin/Globulin Ratio 0.7 L Misc Test Result Platelets confirmed Impressions Impression: 1+ esophageal varices Gastritis Downtrending hemoglobin Repeat CBC a.m. Assessment & Plan A&P Narrative # Possible upper GI bleed in the setting of cirrhotic liver disease due to alcohol portal hypertension ascites and a history of esophageal variceal band ligation in the past Plan N.p.o. 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 coli bacteremia Thrombocytopenia secondary to chronic liver disease Cholelithiasis Thank you very much for the opportunity to participate in the care of this patient Time Spent With Patient Time: Total time spent is greater than 50% in coordination of care (as documented) at patient's floor/unit and/or counseling patient:
[2024-11-26] MEDS: TAMSULOSIN HCL 0.4 MG CAPSULE PO (20:31)
[2024-11-26] MEDS: SPIRONOLACTONE 25 MG TABLET 50 MG PO (20:32)
[2024-11-27] VITALS (11 sets, daily range): BP systolic 93–116; BP diastolic 54–82; PULSE 67–86; RESP 16–18; TEMP 36.4–36.6; O2SAT 93–96; BMI 26.2
[2024-11-27] MEDS: MIDODRINE 5 MG TABLET 10 MG PO ×2 (05:54→14:38)
[2024-11-27] MEDS: LACTULOSE SYRUP 20 GM/30 ML UDC 30 GM PO ×2 (05:55→14:38)
[2024-11-27] MEDS: Furosemide 40 MG TABLET PO (05:59)
[2024-11-27 06:39] LABS: Basophils # (Auto) 0.1 Thou/mm3 (0.0-0.2); Basophils % (Auto) 1 % (0-2.5); Eosinophils # (Auto) 0.2 Thou/mm3 (0.0-0.5); Eosinophils % (Auto) 3 % (0-10); Hematocrit 28.8 % (41.0-53.0); Hemoglobin 10.4 g/dL (13.5-16.0); Immature Granulocytes % (Auto) 1 % (0-0); Immature Granulocytes Auto 0.04 Thou/mm3 (0.00-0.00); Lymphocytes # (Auto) 1.1 Thou/mm3 (1.0-4.8); Lymphocytes % (Auto) 19 % (10-50); Mean Corpuscular HGB Conc 36.1 g/dl (31.0-37.0); Mean Corpuscular Hemoglobin 36.4 pg (25.0-35.0); Mean Corpuscular Volume 101 fL (80-100); Monocytes # (Auto) 0.5 Thou/mm3 (0.0-0.8); Monocytes % (Auto) 10 % (0-12); Neutrophils # (Auto) 3.7 Thou/mm3 (1.8-7.7); Neutrophils % (Auto) 67 % (37-80); Nucleated Red Blood Cell % 0 /100 WBC (0); Red Blood Count 2.86 Miln/mm3 (4.50-5.90); White Blood Count 5.5 Thou/mm3 (3.8-10.6)
[2024-11-27 06:46] LABS: Platelet Count 56 Thou/mm3 (140-440)
[2024-11-27 07:09] LABS: Slide Review Platelets confirmed
[2024-11-27 07:10] LABS: Alanine Aminotransferase 45 U/L (10-49); Albumin, Serum 2.2 gm/dL (3.4-4.8); Albumin/Globulin Ratio 0.6 (1.2-2.2); Alkaline Phosphatase 117 U/L (46-116); Anion Gap 8 (7-16); Aspartate Amino Transferase 107 U/L (0-34); BUN/Creatinine Ratio 16 Ratio (12-20); Bilirubin,Total 6.5 mg/dL (0.3-1.2); Blood Urea Nitrogen 14 mg/dL (9-23); Calcium 8.1 mg/dL (8.3-10.6); Calcium (Corrected) 9.5 mg/dL (8.5-10.1); Carbon Dioxide 29.3 mMol/L (20.0-31.0); Chloride 97 mMol/L (98-107); Creatinine (Component) 0.9 mg/dL (0.6-1.3); Estimated Creatinine Clearance 92.2 mL/min (>60); Globulin 3.8 gm/dL (2.3-3.5); Glucose 103 mg/dL (74-106); Magnesium 1.6 mg/dL (1.6-2.6); Osmolality,Calculated 268 (275-295); Phosphorous 2.9 mg/dL (2.4-5.1); Potassium 3.5 mMol/L (3.4-5.1); Sodium 134 mMol/L (136-145); eGFR > 60 See Note
[2024-11-27] MEDS: THIAMINE 100 MG TABLET 250 MG PO (08:29)
[2024-11-27] MEDS: cefTRIAXone/D5w 1gm IV premix 1 GM/50 ML BAG IV (08:30)
[2024-11-27] MEDS: PANTOPRAZOLE 40 MG TABLET PO (08:30)
[2024-11-27] MEDS: SPIRONOLACTONE 25 MG TABLET 50 MG PO (08:30)
--- NOTE | 2024-11-27 12:27 | PC.SS ---
SS spoke with Marcial Antunez, insurance declined authorization for SNF placement
--- NOTE | 2024-11-27 15:43 | ESDS_ITS ---
<Statement entered by Fuad Pulliam MD - 11/29/24 14:34> I Fuad Pulliam MD reviewed the note and agree with the resident's assessment & plan with exceptions as below. I have personally reviewed labs, imaging, home meds/prior records, examined the patient, formulated and discussed management plan with the IM team. 64-year-old male with history of cirrhosis and EtOH use disorder admitted for SBP and bacteremia patient has significant anemia elevated INR, cytopenia however there is no evidence of bleeding. CKD is also significantly elevated in the setting of end-stage liver disease. Will continue on Lasix spironolactone, continue lactulose therapy and SBP prophylaxis on discharge. Echocardiogram had been unremarkable. GI follow-up in outpatient settings for optimization of chronic liver disease management. Planned Discharge Date 11/27/24 DS: Providers Provider Date of admission: 11/15/24 18:15 Primary care physician: Vlad Lubin MD Admitting Provider: Brennan Quinn MD Attending Provider on Admission: Fuad Pulliam MD Consults: 11/18/24 15:15 Referral OP Wound Healing Dept Routine Comment: 11/20/24 08:17 Referral Physical Therapy Routine Comment: Physician Instructions: 11/23/24 10:38 Consult to Gastroenterology Routine Comment: Consulting Provider: Ghassan Leyva Attending Provider on DC: Fuad Pulliam MD Discharging Provider: Fuad Pulliam MD DS: Diagnosis Problem List Completed Was Problem List Reviewed/Reconciled?: Yes Hospital Course Hospital Course Hospital course: A 64-year-old male with a history of decompensated alcoholic liver cirrhosis with ascites and chronic venous insufficiency presented after a witnessed seizure. Upon arrival, he was febrile (104.2?F), tachycardic (pulse 121), and had low oxygen saturation (91%) on 2L via nasal cannula. Initial diagnostic workup showed signs of severe sepsis secondary to E. coli , with the source being SBP likely secondary to bacterial translocation following recent colitis. He was diagnosed with septic shock, which was managed with IV fluids, antibiotics, and vasopressors. His septic shock resolved, and Levophed was discontinued after 24 hours. His ammonia level was elevated (79), likely related to his cirrhosis, but this improved after septic shock resolution. He was started on lactulose once stable. He also had community-acquired pneumonia, as indicated by a chest X-ray showing left base consolidation, for which he was treated with Ceftriaxone. His chronic liver disease remained a concern; he had hyperbilirubinemia (T. bili 10.7, down to 6.8), and his MELD-Na score was 28, indicating a 90-day mortality risk of 27- 32%. Paracentesis removed 2.2L of fluid,) for SBP for which he completed a course of CEFTRIAXONE, and continued on prophylactic dose. His thrombocytopenia (Plt 60) was noted as being related to cirrhosis and sepsis, and his anemia (Hb 10.5) was likely due to chronic disease, with monitoring planned for signs of bleeding. While in the hospital, he persistently retaining water, with significant lower extremity edema. He was continued on aggressive diuresis and daily ALBUMIN with improvement in her lower extremity edema. He also had opacity in the stomach on CT, concerning for gastric bleed. EGD was done showing grade 1 esophageal varices but no active bleeding. Currently he is with [facility], however family is interested in establishing care with the [facility], contact information provided. Will follow-up, and proceed with liver transplant process. IMAGE FINDINGS: * CT abdominal pelvis showed bibasilar pneumonia, suspected heart failure, cirrhosis, splenomegaly, significant ascites, hepatic colopathy with hepatic enteropathy. * CXR suspicious for mild pneumonia on the left base. * Echocardiogram showed EF 60-65%, normal LV size/function, no valvular vegetation or pathology, normal diastolic function, normal RV size and function, trace AI/TR/MR, mild MAC, no pericardial effusion. * Venous Doppler was negative for LE DVT bilaterally. * Abdominal CT showed cirrhosis, splenomegaly, cholelithiasis, gallbladder wall thickening likely from ascites. * Chest CTA negative for PE, but showed significant bilateral pneumonia, esophageal varices, cholelithiasis, opacity in the stomach. PATIENT INSTRUCTIONS: * Follow-up with PCP within 1-2 weeks of discharge. * Continue to follow-up with PCP and hepatology for liver transplant. * Please have labs done 2 days prior to see your PCP. * Limit salt intake to no more than 2 grams per day. * Limit fluid intake to no more than 1.2 liters per day. * Return to Emergency Room if symptoms persist, worsen, or new symptoms develop. * Continues taking MIDODRINE 10 mg 3 times daily. * Continue taking PANTOPRAZOLE 40 mg daily for 30 more days. * Unable to start PROPRANOLOL for variceal bleed prophylaxis since BP has been on the softer side with MIDODRINE. Please discuss starting PROPRANOLOL with PCP when blood pressure can tolerates. * Continue taking CIPROFLOXACIN daily until you see your PCP. * Continue taking LASIX 40 mg twice daily. * Continue taking SPIRONLACTONE 50 mg twice daily. * STOP taking POTASSIUM CHLORIDE until you see your PCP. * Continue taking all other medications as prescribed below. ADMISSION DIAGNOSES: Septic shock (resolved) E. coli bacteremia SBP, likely E. coli UTI, unlikely Possible pneumonia Suspected SBP Decompensated liver cirrhosis Ascites, thrombocytopenia Hyperammonemia Acute transaminitis Concern for intra-abdominal bleed (unlikely) Thrombocytopenia Anemia Lactic acidosis, type A (resolved) BPH Chronic stasis dermititis of gilberto LE Small, non-bleeding, non-ulcerative lesion of RLE New onset seizure, ruled out Sinus tachycardia (resolved) Case was discussed with attending physician and senior resident. Milind Benedict DO PGYI Time Spent with Patient Time attestation: Total time spent providing and/or coordinating discharge services: Time spent: Greater than 30 minutes Exam Vital Signs Temp Pulse Resp BP Pulse Ox O2 Del Method O2 Flow Rate 97.7 F 74 18 93/65 95 Room Air 2 11/27/24 12:00 11/27/24 15:09 11/27/24 12:00 11/27/24 14:38 11/27/24 12:00 11/27/24 12:00 11/26/24 00:00 Narrative Exam GENERAL * Normal appearing adult male, on room, NAD HEENT * NCAT.?JACI. Oral mucosa is moist. Patent Nares NECK * Supple, nontender, no thyromegaly, no meningismus, no JVD, no step offs CHEST * RRR, mild systolic murmur, no rubs or gallops. * CTAB, no w/r/r. Symmetrical chest rise. No intercostal subcostal retraction ABDOMEN * Soft, distended, mildly tender to palpation. No guarding/rebound tenderness/masses. * Bowel sounds presents EXTREMITIES * Chronic venous stasis dermititis bilaterally. SKIN * Slightly jaundice, bilateral mild scleral icterus present. * 1+ bilateral lower extremity pitting edema NEUROMUSCULAR * Moves all 4 extremities well, with full ROM and good CSM. * No focal neurologic deficits. PSYCHIATRY * Normal mood and affect, cooperative, no SI or HI or hallucinations. Discharge Plan Plan Patient Disposition: HOME (Self Care) Disposition Comment: Patient and family denied Home Health. Patient condition on transfer: Stable Care Plan Goals: * Follow-up with PCP within 1-2 weeks of discharge. * Continue to follow-up with PCP and hepatology for liver transplant. * Please have labs done 2 days prior to see your PCP. * Limit salt intake to no more than 2 grams per day. * Limit fluid intake to no more than 1.2 liters per day. * Return to Emergency Room if symptoms persist, worsen, or new symptoms develop. * Continues taking MIDODRINE 10 mg 3 times daily. * Continue taking PANTOPRAZOLE 40 mg daily for 30 more days. * Unable to start PROPRANOLOL for variceal bleed prophylaxis since BP has been on the softer side with MIDODRINE. Please discuss starting PROPRANOLOL with PCP when blood pressure can tolerates. * Continue taking CIPROFLOXACIN daily until you see your PCP. * Continue taking LASIX 40 mg twice daily. * Continue taking SPIRONLACTONE 50 mg twice daily. * STOP taking POTASSIUM CHLORIDE until you see your PCP. * Continue taking all other medications as prescribed below. [facility] [address] [place] [address] Prescriptions/Referrals Prescriptions/Med Rec: New pantoprazole 40 mg Tablet,Delayed Release (Dr/Ec) 40 mg PO QDAY Qty: 30 0RF midodrine 10 mg tablet 10 mg PO TID Qty: 90 0RF Rx Instructions: do not give last dose of day after 6PM or within 4 hrs of bedtime ciprofloxacin HCl 500 mg tablet 500 mg PO QDAY Qty: 30 0RF Rx Instructions: take 1 tablet daily spironolactone 50 mg tablet 50 mg PO BID Qty: 60 0RF furosemide [Lasix] 40 mg tablet 40 mg PO BID Qty: 60 0RF Discontinued spironolactone [Aldactone] 50 mg tablet 50 mg PO QDAY potassium chloride [Klor-Con M20] 20 mEq tablet,ER particles/crystals 20 meq PO QDAY furosemide [Lasix] 40 mg tablet 40 mg PO QDAY Referrals: Vlad Lubin MD [Primary Care Provider] - Outpatient Orders (i.e. Home Health, Labs, Imaging): CBC (Routine) Location: None Selected Ordered By: Milind Benedict Comprehensive Metabolic Panel (Routine) Location: None Selected Ordered By: Milind Benedict Magnesium (Routine) Location: None Selected Ordered By: Milind Benedict Patient/Caregiver Discharge Instructions Discharge Activity: activity as tolerated Education Materials: Understanding Post Sepsis Syndrome, Understanding Cirrhosis, Sepsis, ED Ascites Print Language: Wallisian Stand Alone Forms: Rae Award Info., Patient Portal Info Letter Discharge Order Discharge Orders: Discharge (Routine); Ordered 11/27/24 Ordered By: Milind Benedict Quality Discharge Quality Measures VTE prophylaxis
--- NOTE | 2024-11-27 16:22 | ESPR_ITS ---
Documentation for date of: 11/27/24 Subjective Subjective Interval history: Hemoglobin hematocrit 10.4 and 28.8 Upper endoscopy showed 1+ esophageal varices and hypertensive portal gastropathy Exam Vital Signs Temp Pulse Resp BP Pulse Ox O2 Del Method O2 Flow Rate 97.7 F 74 18 93/65 95 Room Air 2 11/27/24 12:00 11/27/24 15:09 11/27/24 12:00 11/27/24 14:38 11/27/24 12:00 11/27/24 12:00 11/26/24 00:00 Objective Labs 11/27/24 05:45 11/27/24 05:45 Labs: Laboratory Results - last 24 hr 11/27/24 05:45 WBC 5.5 RBC 2.86 L Hgb 10.4 L Hct 28.8 L MCV 101 H MCH 36.4 H MCHC 36.1 RDW Std Deviation 60.0 H Plt Count 56 L Neut % (Auto) 67 Lymph % (Auto) 19 Esmeralda % (Auto) 10 Eos % (Auto) 3 Baso % (Auto) 1 Neut # (Auto) 3.7 Lymph # (Auto) 1.1 Esmeralda # (Auto) 0.5 Eos # (Auto) 0.2 Baso # (Auto) 0.1 Immature Gran # (Auto) 0.04 H Absolute Nucleated RBC 0.00 Immature Gran % 1 H Nucleated RBC % 0 Sodium 134 L Potassium 3.5 Chloride 97 L Carbon Dioxide 29.3 Anion Gap 8 BUN 14 Creatinine 0.9 Estim Creat Clear Calc 92.2 eGFR > 60 BUN/Creatinine Ratio 16 Glucose 103 Calculated Osmolality 268 L Calcium 8.1 L Corrected Calcium 9.5 Phosphorus 2.9 Magnesium 1.6 Total Bilirubin 6.5 H AST 107 H ALT 45 Alkaline Phosphatase 117 H Total Protein 6.0 Albumin 2.2 L Globulin 3.8 H Albumin/Globulin Ratio 0.6 L Misc Test Result Platelets confirmed Impressions Impression: 1+ esophageal varices Hypertensive portal gastropathy Stable hemoglobin hematocrit Continue current management Assessment & Plan A&P Narrative # Possible upper GI bleed in the setting of cirrhotic liver disease due to alcohol portal hypertension ascites and a history of esophageal variceal band ligation in the past Plan N.p.o. 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 coli bacteremia Thrombocytopenia secondary to chronic liver disease Cholelithiasis Thank you very much for the opportunity to participate in the care of this patient Time Spent With Patient Time: Total time spent is greater than 50% in coordination of care (as documented) at patient's floor/unit and/or counseling patient:
--- NOTE | 2024-11-27 16:44 | PC.NURSE ---
call to Dr. Benedict, pt's pharmacy was put in as [facility] and daughter says they won't dispense meds from the hospital, I changed pt's pharmacy to [facility], meds may need to be resent
== END 2024-11-27 16:10 | disposition home or self-care (01) | DRG 720 ==
LOC: SERX 16:18 → SERHOLD 18:24 → S2SX 19:40 → S2NX 11-18 18:10 → S3NX 11-20 23:41
PROVIDERS: Physician Assistant Medical; Specialist; Student in an Organized Health Care Education/Training Program; Admitting Provider Internal Medicine; Emergency Provider Family Medicine; PCP Internal Medicine; Visit Provider Student in an Organized Health Care Education/Training Program
PROC: (CPT 43239; principal; 2024-11-24 16:00)
DX: A41.51 Sepsis due to Escherichia coli [E. coli] (principal); R65.21 Severe sepsis with septic shock; R56.9 Unspecified convulsions; I87.2 Venous insufficiency (chronic) (peripheral); K70.31 Alcoholic cirrhosis of liver with ascites; J18.9 Pneumonia, unspecified organism; R19.7 Diarrhea, unspecified; D64.89 Other specified anemias; D69.59 Other secondary thrombocytopenia; D63.8 Anemia in other chronic diseases classified elsewhere; E87.20 Acidosis, unspecified; K31.89 Other diseases of stomach and duodenum; K72.10 Chronic hepatic failure without coma; K76.6 Portal hypertension; N39.0 Urinary tract infection, site not specified; N40.0 Benign prostatic hyperplasia without lower urinary tract symptoms; Z59.00 Homelessness unspecified; Z79.899 Other long term (current) drug therapy; N18.9 Chronic kidney disease, unspecified; I85.10 Secondary esophageal varices without bleeding; K80.20 Calculus of gallbladder without cholecystitis without obstruction; K65.9 Peritonitis, unspecified; K29.70 Gastritis, unspecified, without bleeding; K59.00 Constipation, unspecified
CPT/HCPCS: 36415; 71045; 71275; 74177; 76700; 80053; 80074; 80202; 80307; 80320; 81001; 82042; 82105; 82140; 82150; 82550; 82945; 83605; 83615; 83735; 84100; 84157; 85025; 85610; 85730; 87040; 87070; 87075; 87077; 87081; 87086; 87186; 87205; 87400; 87811; 89051; 93005; 93225; 93306; 93971; 96365; 96367; 96375; 97162; 99291; A4649; J0131; J0696; J1200; J1938; J2185; J2250; J2470; J2543; J3010; J3370; J3411; J3475; J3490; J7050; J7999; P9047; Q0162; Q9967; A9270; G0480

== ENCOUNTER 2024-12-01 09:14 | Outpatient (AMB) | payer MEDICAID, SELFPAY ==
--- NOTE | 2024-12-01 09:42 | ACNOTE_ITS ---
Vital Signs 12/01/24 09:43 Weight 87.317 kg Weight Measurement Method Standing Scale BP 110/70 Blood Pressure Source Automatic Cuff Blood Pressure Location Right Upper Arm Position Sitting Respiration 17 Pulse 76 Pulse Source Monitor Temp 98.3 F Temp Source Temporal Artery Scan Pulse Oximetry (%) 93 L Oxygen Delivery Method Room Air Allergies/Meds Allergies & Medications Allergies No Known Allergies Allergy (Verified 12/01/24 09:43) MA Intake Visit Data Collection New Patient or Established: Established Patient (seen at [facility] within 3 years) Seen by Clinical Staff ONLY (RN/MA): No Reason for Visit:: FOLLOW UP BLOOD RESULTS Pain Present Currently: No Pain Scale Used: [employer]-[place]itt/Numerical Assistant Professor Of 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 Required: No PCP or OBGYN visit in last 3 months: Yes Date of Last PCP or OBGYN visit: 11/27/24 Hx Now: No Do You Feel Safe at Home: Yes Authorities Contacted: N/A Smoking Status Smoking Status: Never smoker Immunization / Flu Flu Vaccine in the Last 12 Months: No Flu Vaccine Exclusion Criteria: Already Received Past Medical History Past Medical History NEUROLOGIC: Positive Seizures (poss witnessed seizure before admission 11/15/24) CARDIAC: Negative Cardiac Disorders or Congestive Heart Failure RESPIRATORY: Negative Chronic Obstructive Pulmonary Disease (COPD) or Asthma GASTROINTESTINAL: Positive Cirrhosis and Ulcer (esophageal) GENITOURINARY: Negative Renal Disease ENDOCRINE: Negative Diabetes Mellitus Type 1 or Diabetes Mellitus Type 2 HEMATOLOGIC: Negative Sickle Cell Disease OTHER HISTORY: Negative Blood Transfusions, Blood Transfusion Reaction or Anes thesia Reactions Social History SMOKING STATUS: Smoking status: Never smoker ALCOHOL: Alcohol Intake: Former HOUSING: Housing: House LIVES WITH: Lives With: Alone Patient Portal Questionaires PHQ-9 PHQ-2 Over the last 2 weeks, how often have you been bothered by any of the following problems? 1. Little interest or pleasure in doing things: not at all 2. Feeling down, depressed, or hopeless: not at all Total score: 0 PHQ-9 3. Trouble falling or staying asleep, or sleeping too much: Not at all 4. Feeling tired or having little energy: Not at all 5. Poor appetite or overeating: Not at all 6. Feeling bad about yourself - or that you are a failure or have let yourself or your family down: Not at all 7. Trouble concentrating on things, such as reading the newspaper or watching television: Not at all 8. Moving or speaking so slowly that other people could have noticed? - Or the opposite - being so fidgety or restless that you have been moving around a lot more than usual: not at all 9. Thoughts that you would be better off or of hurting yourself in some way: Not at all Total score: 0 If you checked off any problems, how difficult have these problems made it for you to do your work, take care of things at home, or get along with other people?: not difficult at all Source: Developed by Drs. Edgar Griffin, Carmen Rodriguez, Steve Martines and colleagues, with an educational eduardo from [employer]. Depression screen completed yes Social History Living Situation History Lives With: Family Housing: House Tobacco History Smoking Status: Never smoker Alcohol History Alcohol Intake: Former Domestic Abuse History Do You Feel Safe at Home: Yes Review of Systems Report any current symptoms Only answer those that you have currently: Past Medical History Past Medical History Have you ever been diagnosed with any of the following: Neurological Problems Seizures: Yes (poss witnessed seizure before admission 11/15/24) Cardiology Problems Congestive Heart Failure: No Respiratory Problems Chronic Obstructive Pulmonary Disease (COPD): No Asthma: No Stomache/Intestinal Problems Cirrhosis: Yes Ulcer: Yes (esophageal) Genital/Urinary Problems Renal Disease: No Endocrine Problems Diabetes Mellitus Type 1: No Diabetes Mellitus Type 2: No Blood Problems Sickle Cell Disease: No Other Problems Blood Transfusions: No Blood Transfusion Reaction: No Anesthesia Reactions: No History of Present Illness HPI Narrative 64 year-old male with PMHX of alcohol-related, decompensated liver cirrhosis, recently admitted/treated for sepsis secondary to SBP. His last alcohol drink >6 months ago. Currently on CIPROFLOXICIN daily for SBP prophylaxis. Has substantial anasarca which has not improved much despite aggressive diuresis and daily albumen. Currently on LASIX 40 TID, and FUROSEMIDE 50 BID without much improvement in LE edema. He has been started on MIDODRINE 10 mg TID for low blood pressure. EGD while in the hospital showed grade 1 varices without blood. Unable to start PRORANALOL 2/2 low blood pressure. 11/30/2024 Kidney function WNL, no CKD. Heart function WNL, EEF 60-65%. 12/01/2024 Follow-up hospital visit As noted above, he was recently admitted for Sepsis with E. coli bactermeia and SBP, found to have anasarca in setting of decomp liver cirrhosis. His last drink was >6 months ago. He was difficult to diuresis while inpatient despite aggressive diuresis and daily albumen infusions. He has been on LASIX, SPIRONOLACTONE, and MIDODRINE as well as CIPROFLOX for SBP prophylaxis. Reports poor appetite and generallized weakness that is gradually improving with daily exercise. On exam he had 3+ gilberto LE edema. Abdomen did was not overly distended and non-tender. EGD was done 10/2024 showing grade 1 varices without active bleed. Hgb baseline 10-11 and he denies dark stool or upper/lower GI bleed. Renal function WNL. ECHO done 10/2024 showed normal EEF 60-65%. Orders: refer [facility] liver transplant, wound care for chronic LE venous stasis dermitits Medications: Increasd LASIX 40 mg to TID (80 mg AM and 40 mg PM), cont SPIRONOLACTONE 50 mg BID, cont CIPROFLOX 500 mg daily, cont PROTONIX 40 mg daily. Stated MEGSTROL 800 mg susspension daily for appetite stimulantion. Follow-up: 1 month with CMP/CBC, access diuresis response. F/u A1c given elevated glucose (178). Assessment & Plan Diagnosis / Problem List (1) Varices, esophageal: Status: Acute Qualifiers: Esophageal varices type: secondary Esophageal varices bleeding: without bleeding Qualified Code(s): I85.10 - Secondary esophageal varices without bleeding (2) Elevated glucose: Status: Acute (3) Decompensated cirrhosis: Status: Acute (4) Chronic venous stasis: Status: Acute (5) End-stage liver disease: Status: Acute (6) Protein calorie malnutrition: Status: Acute Plan 64-year-old male with history of alcohol-related decompensated liver cirrhosis, last alcohol use >6 months ago, complicated by recent E. coli sepsis and spontaneous bacterial peritonitis (SBP). Currently dealing with refractory anasarca and lower extremity edema despite aggressive diuresis and daily albumin. Also has hypotension, grade 1 esophageal varices, and signs of malnutrition and functional decline. 1. Decompensated Cirrhosis / Ascites / Edema Continue aggressive diuresis with: Furosemide: increased to 80 mg AM / 40 mg PM Spironolactone 50 mg BID Follow-up CMP/CBC in 1 month to assess diuretic response. Consider paracentesis if ascites worsens. Refer to [facility] ? appropriate given decompensated status and abstinence >6 months. 2. SBP Prophylaxis Continue Ciprofloxacin 500 mg daily. Monitor for signs of infection, especially in the setting of low immune reserve. 3. Hypotension Continue Midodrine 10 mg TID to support MAP >65 to permit ongoing diuresis. Unable to start non-selective beta blockers (e.g., propranolol) at this time due to low BP. 4. Esophageal Varices (Grade 1) EGD showed no active bleeding; currently no need for endoscopic or pharmacologic intervention. Avoid propranolol for now ? revisit if BP stabilizes in future. 5. Malnutrition / Poor Appetite Start Megestrol (Megace) 800 mg suspension daily. Encourage daily physical activity, as tolerated. Monitor weight, strength, and functional status monthly. 6. Hyperglycemia / Possible Diabetes Glucose noted to be elevated (178). Order A1c to assess for undiagnosed diabetes or steroid-related hyperglycemia. Consider endocrine consult if A1c elevated. 7. Chronic Venous Stasis Dermatitis Refer to Wound Care clinic for management. Continue compression therapy if not contraindicated. Monitor for secondary infection. 8. Follow-Up & Monitoring 1-month follow-up with: CMP/CBC Weight check Review of edema/diuretic response A1c Case was discussed with attending physician and senior resident. Milind Benedict DO PGY II This document was transcribed using voice recognition technology. Minor inaccuracies may be present. Orders: Orders CBC Today I85.00 - Esophageal varices without bleeding Comprehensive Metabolic Panel Today K72.90 - Hepatic failure, unspecified without coma, K74.60 - Unspecified cirrhosis of liver Ambulatory Hemoglobin A1C Today R73.09 - Other abnormal glucose Referrals Wound Healing I87.8 - Other specified disorders of veins Gastroenterology K72.90 - Hepatic failure, unspecified without coma, K74.60 - Unspecified cirrhosis of liver Office Procedures [facility] Level of Care Nursing/Assessment Patient Status: Established Patient Nursing Assessment/Reassessment: Medication Reconciliation, Update PMH in EMR and Vital Signs Coordination of Care: Complex Care and Chronic Disease 1-5, Consent,records obtained, informed consent, 4+ Authorizations needed and Staff clarify orders Established Patient Charge Established Patient Point Assignment: 95 Established Patient Point Charge: EP Level 3 (80-115) TB Screening LTBI Screening: Has patient traveled, was born, or resided for at least 1 month, or frequent border crossing into a country with an elevated TB rate: No Immunosuppression, current or planned (HIV, organ transplant, treated with biologic agents, steroids, or other immunosuppression medication): No Close contact to someone with infectious TB disease during lifetime: No Homelessness or incarceration, current or past: No TB testing indicated at this time (at least 1 yes above): No
[2024-12-01 09:43] VITALS: BP 110/70; PULSE 76; RESP 17; TEMP 36.8; O2SAT 93
== END 2024-12-01 10:41 | disposition home or self-care (01) ==
LOC: HODAHC 09:14
PROVIDERS: Supervising Provider Internal Medicine
DX: K70.30 Alcoholic cirrhosis of liver without ascites (principal); I85.10 Secondary esophageal varices without bleeding; K72.10 Chronic hepatic failure without coma; I87.8 Other specified disorders of veins; E46 Unspecified protein-calorie malnutrition; R60.1 Generalized edema; R73.9 Hyperglycemia, unspecified
CPT/HCPCS: 99213; G0463

== ENCOUNTER 2024-12-17 09:19 | Emergency (ER) | payer MEDICAID, SELFPAY ==
--- NOTE | 2024-12-17 | XR_ITS ---
MRI abdomen, without contrast. MRCP Date and time of exam: December 17, 2024 1633 hours INDICATIONS: Abdominal pain today, diagnosis cirrhosis November 15, 2024, CT abdomen and pelvis this morning cirrhosis, significant splenomegaly, ascites, cholelithiasis, elevated bilirubin on laboratory examination today Technique: Multiple axial and coronal images of the abdomen have been obtained with the Siemens 1.5T MRI scanner. Images obtained included T1 weighted transverse images, T2-weighted transverse images, T2-weighted transverse images fat-suppressed, T2 weighted haste fat suppressed transverse images, T1 weighted images, in and out of phase images, T2-weighted coronal images, breath hold, T2 weighted haze coronal images as well as T2 weighted coronal thick slab images, MRCP. Findings: Cirrhosis, liver nodular in contour Benign liver cysts, the largest in the right lobe of the liver 3.6 cm No intrahepatic biliary tract dilatation Multiple gallstones The common hepatic common bile duct not enlarged, no common bile duct stones Splenomegaly [id number] ascites No pancreatic mass No hydronephrosis IMPRESSION: Cirrhosis [id number] ascites Cholelithiasis, negative for cholecystitis Negative for common hepatic, common bile duct stones
[2024-12-17 09:43] VITALS: BP 118/73; PULSE 82; RESP 17; TEMP 36.8; O2SAT 100; BMI 25.4
--- NOTE | 2024-12-17 09:58 | XR_ITS ---
Examination: CT abdomen and pelvis without contrast. Coronal 3-D reconstructions. Sagittal 2-D reconstructions. Date and time of exam:December 17, 2024 1036 hours INDICATIONS: Lower abdominal pain today, cirrhosis diagnosis on examination November 15, 2024 CTDI: vol (mGy): 6.74 DLP: (mGycm): 454 Technique: Axial images of the abdomen have been obtained, 3 mm slice thickness Intravenous contrast material has not been administered. Low dose protocols were performed. One or more of the following dose reduction techniques were used; automated exposure control, adjustment of the mA and/or KV according to patient size, use of iterative reconstruction technique. Findings: Mild enlargement cardiac contour Cirrhosis, liver lobular in contour Liver cysts, the largest 4 cm Splenomegaly 17 cm Moderate ascites Cholelithiasis No pancreatic mass No hydronephrosis Aorta normal size No bowel obstruction Normal appendix Urinary bladder wall thickening up to 7 mm Transverse prostate dimension 4 cm Large fluid containing right inguinal hernia Moderate to advanced disc narrowing L4-L5, L5-S1 IMPRESSION: Cirrhosis Significant splenomegaly Moderate ascites Cholelithiasis Urinary bladder wall thickening up to 7 mm, differential would include cystitis Large fluid containing right inguinal hernia
--- NOTE | 2024-12-17 09:58 | PD.EDRME ---
Rapid Medical Screening Exam E Arrival date/time: 12/17/24 09:19 64-year-old male with a history of liver cirrhosis, CHF, presents to the emergency room with a chief complaint of lower bilateral abdominal pain x 1 day. Daughter also states his mentation has not at his baseline. I have greeted and performed a focused initial assessment of this patient. A comprehensive ED assessment and evaluation of the patient, analysis of all test results, and completion of the medical decision making process will be conducted by additional ED providers. Chief Complaint: Altered Mental Status Vital signs: Vital Signs Temperature 98.2 F 12/17/24 09:43 Pulse Rate 82 12/17/24 09:43 Respiratory Rate 17 12/17/24 09:43 Blood Pressure 118/73 12/17/24 09:43 Pulse Oximetry (%) 100 12/17/24 09:43 Oxygen Delivery Method Room Air 12/17/24 09:43 Vital signs reviewed by provider: Yes
[2024-12-17 10:26] LABS: Basophils # (Auto) 0.1 Thou/mm3 (0.0-0.2); Basophils % (Auto) 1 % (0-2.5); Eosinophils # (Auto) 0.1 Thou/mm3 (0.0-0.5); Eosinophils % (Auto) 2 % (0-10); Hematocrit 30.9 % (41.0-53.0); Hemoglobin 11.2 g/dL (13.5-16.0); Immature Granulocytes Auto 0.05 Thou/mm3 (0.00-0.00); Lymphocytes # (Auto) 0.8 Thou/mm3 (1.0-4.8); Lymphocytes % (Auto) 14 % (10-50); Mean Corpuscular HGB Conc 36.2 g/dl (31.0-37.0); Mean Corpuscular Hemoglobin 37.7 pg (25.0-35.0); Mean Corpuscular Volume 104 fL (80-100); Monocytes # (Auto) 0.5 Thou/mm3 (0.0-0.8); Monocytes % (Auto) 9 % (0-12); Neutrophils # (Auto) 4.1 Thou/mm3 (1.8-7.7); Neutrophils % (Auto) 73 % (37-80); Nucleated Red Blood Cell # 0.00 Thou/mm3 (0.00-0.00); Nucleated Red Blood Cell % 0 /100 WBC (0); RDW Standard Deviation 57.2 fL (35.1-43.9); Red Blood Count 2.97 Miln/mm3 (4.50-5.90); White Blood Count 5.5 Thou/mm3 (3.8-10.6)
[2024-12-17 10:42] LABS: Platelet Count 73 Thou/mm3 (140-440)
[2024-12-17 10:43] LABS: INR 1.8 (0.9-1.3); Partial Thromboplastin Time 35.9 Seconds (22.0-36.0); Prothrombin Time 18.8 Seconds (9.0-12.2)
[2024-12-17 10:45] LABS: Ammonia 60 uMol/L (11-32)
[2024-12-17 10:54] LABS: Collection Type, Urine Clean Catch
--- NOTE | 2024-12-17 10:57 | PD.EDADULT ---
ED General RME/HPI General Chief complaint: Altered Mental Status Stated complaint: ALMS X 3 days, cirrhosis, chest pain Time Seen by Provider: 12/17/24 10:13 Arrival date/time: 12/17/24 09:19 RME / HPI RME / HPI narrative: 12/17/24 09:19 64-year-old male with a history of liver cirrhosis, CHF, presents to the emergency room with a chief complaint of lower bilateral abdominal pain x 1 day. Daughter also states his mentation has not at his baseline. I have greeted and performed a focused initial assessment of this patient. A comprehensive ED assessment and evaluation of the patient, analysis of all test results, and completion of the medical decision making process will be conducted by additional ED providers. Related Data Previous Rx's ?Medication ?Instructions ?Recorded ciprofloxacin HCl 500 mg tablet 500 mg PO QDAY #30 tabs 12/01/24 furosemide 40 mg tablet (Lasix) 40 mg PO TID 1 month #90 tabs 12/01/24 megestrol 800 mg/20 mL (20 mL) 800 mg (20 mL) PO QDAY #600 mL 12/01/24 oral suspension midodrine 10 mg tablet 10 mg PO TID #90 tabs 12/01/24 pantoprazole 40 mg tablet,delayed 40 mg PO QDAY #30 tabs 12/01/24 release spironolactone 50 mg tablet 50 mg PO BID #60 tabs 12/01/24 ondansetron 4 mg disintegrating 4 mg PO BID PRN nausea and 12/13/24 tablet vomiting 30 days #60 tabs lactulose 20 gram oral packet 20 g PO TID #30 ea 12/17/24 Allergies Allergy/AdvReac Type Severity Reaction Status Date / Time No Known Allergies Allergy Verified 12/17/24 09:26 Review of Systems Review of Systems Systems Reviewed: All systems reviewed, normal except as documented ED Exam Narrative Physical exam: GENERAL: NAD, AAOx3, lethargic and confused, jaundiced HEENT: Moist mucosa. Eyes open, symmetrical, & icterus CARDIO: Heart RRR, no obvious murmurs PULM: No noted coughing/dyspnea CTA B/L, no R/W/R GI: Abdomen soft, distended, no pain on palpation. BSx4 SKIN/MSK/EXT: Venous stasis dermatitis on bilateral lower extremities more pronounced on the right, No pain on palpation. Pedal pulses present B/L NEURO: AAOx3, no focal neuro deficits, able to move all 4 extremities Course Course Course Narrative: See MDM Quality Measures none Orders Category Date Time Status Insert IV NOW Care 12/17/24 12:18 Active Insert IV NOW Care 12/17/24 12:19 Completed MRI Screening NOW Care 12/17/24 15:[address] abdomen pelvis wo con Stat Exams 12/17/24 09:58 Completed CXRP [XR chest 1V portable] Stat Exams 12/17/24 12:45 Completed MR MRCP Stat Exams 12/17/24 Ordered US gall bladder Stat Exams 12/17/24 12:06 Completed Ammonia Stat Lab 12/17/24 10:14 Completed CBC Stat Lab 12/17/24 10:14 Completed CMP [Comprehensive Metabolic Panel] Stat Lab 12/17/24 10:14 Completed Lipase Stat Lab 12/17/24 10:14 Completed PT [Prothrombin Time with INR] Stat Lab 12/17/24 10:14 Completed PTT [Partial Thromboplastin Time] Stat Lab 12/17/24 10:14 Completed UA [Urinalysis] Stat Lab 12/17/24 10:27 Completed Urine Culture Stat Lab 12/17/24 10:27 Received Furosemide Inj [Lasix Inj] Med 12/17/24 12:15 Discontinued 40 mg IVP X1 ONE Lactulose Syrup [Enulose Syrup] Med 12/17/24 11:33 Discontinued 20 gm PO X1 ONE Pantoprazole Inj [Protonix Inj] Med 12/17/24 15:33 Discontinued 40 mg IVP X1 ONE Vital Signs Vital signs: Vital Signs Temperature 98.2 F 12/17/24 09:43 Pulse Rate 82 12/17/24 09:43 Respiratory Rate 17 12/17/24 09:43 Blood Pressure 118/73 12/17/24 09:43 Pulse Oximetry (%) 100 12/17/24 09:43 Oxygen Delivery Method Room Air 12/17/24 09:43 Discharge Plan Plan Patient Disposition: HOME (Self Care) Prescriptions/Referrals Prescriptions/Med Rec: New lactulose 20 gram packet 20 g PO TID Qty: 30 0RF No Action furosemide [Lasix] 40 mg tablet 40 mg PO TID 30 Days Qty: 90 3RF megestrol 800 mg/20 mL (20 mL) suspension 800 mg PO QDAY Qty: 600 3RF ciprofloxacin HCl 500 mg tablet 500 mg PO QDAY Qty: 30 3RF midodrine 10 mg tablet 10 mg PO TID Qty: 90 3RF Rx Instructions: do not give last dose of day after 6PM or within 4 hrs of bedtime pantoprazole 40 mg tablet,delayed release (DR/EC) 40 mg PO QDAY Qty: 30 3RF spironolactone 50 mg tablet 50 mg PO BID Qty: 60 3RF ondansetron 4 mg tablet,disintegrating 4 mg PO BID PRN (Reason: nausea and vomiting) 30 Days Qty: 60 0RF Referrals: Milind Benedict MD [Primary Care Provider] - In 1 week Problem List Clinical Impression: Decompensated cirrhosis Patient/Caregiver Discharge Instructions Additional Instructions: Follow up with your primary care physician within 1 week of discharge. You have been prescribed lactulose for your elevated ammonia, please take this medication three times a day with a goal of 3 bowel movements per day. Consider starting propanolol for esophageal varices prophylaxis as BP and heart rate has been stable while here in the ER. Should your symptoms recur or worsen patient is instructed to return to the ED. Print Language: Peruvian Stand Alone Forms: [employer] Award Info., Patient Portal Info Letter MDM Narrative MDM hospital course: 64-year-old male with a history of liver cirrhosis on lifelong antibiotics for SBP prophylaxis, HFpEF [60-65%], presents to the ED due to generalized weakness. Patient daughter who is here at bedside provided history states the patient has been getting more confused lately for the past few days. She noticed that the patient has been putting his shoes on the wrong way or forgets to put him entirely and walks confused and speech may is not making much sense. She endorses that the patient is now unable to walk or walk with difficulty which is not his baseline. Patient had an appointment with his primary doctor today however was unable to do so due to confusion. Labs reviewed macrocytic anemia noted, thrombocytopenia, coagulopathic, CMP shows T. bili 15.7, hyperammonemia elevated lipase, UA shows 2+ blood, CT pending at this time 1223: CT abdomen pelvis shows moderate ascites, cirrhosis, splenomegaly, Moderate ascites, Cholelithiasis, Urinary bladder wall thickening up to 7 mm, differential would include cystitis, Large fluid containing right inguinal hernia. Lactulose 20 g x 1 ordered, Lasix 40 mg IV x 1 ordered, gallbladder ultrasound ordered 1519: Gallbladder ultrasound shows an enlarged common bile duct, spoke to his PCP requested MRCP and he can follow up as outpatient. If positive then patient will require ERCP and transfer. Spoke to IM team who agree with current plan. Will sign out to Dr. Caal at 6pm. Clinical Information Provided by patient and family Medical Records Reviewed [facility] Medication Administration(s) Medication Administration History Discontinued Medications Furosemide (Furosemide Inj 10 Mg/Ml 4ml Vial) 40 mg IVP X1 ONE Stop: 12/17/24 12:16 Last Admin: 12/17/24 12:41 Dose: 40 mg Documented By: DB Lactulose (Lactulose Syrup 20 Gm/30 Ml Udc) 20 gm PO X1 ONE; Protocol Stop: 12/17/24 11:34 Last Admin: 12/17/24 11:53 Dose: 20 gm Documented By: SHAYY Pantoprazole Sodium (Pantoprazole Inj 40 Mg Vial) 40 mg IVP X1 ONE Stop: 12/17/24 15:34
[2024-12-17 11:07] LABS: Bilirubin,Urine 1+ (Negative); Blood,Urine 3+ (Negative); Color,Urine Drk-Yellow (Lt Yel-Yel); Glucose, Urine Negative (Negative); Hyaline Casts,Urine 1 /hpf (0-1); Ketones,Urine Negative (Negative); Leukocyte Esterase,Urine Negative (Negative); Nitrite,Urine Negative (Negative); PH,Urine 6.0 (5.0-7.0); Protein,Urine 1+ (Neg - Trace); RBC,Urine 78 /hpf (0-3); Specific Gravity,Urine 1.019 (1.001-1.035); Squamous Epithelial Cell,Urine 1 /hpf (0-5); Urobilinogen,Urine 3.0 mg/dL (0.0-1.0); WBC,Urine 9 /hpf (0-5)
[2024-12-17 11:15] LABS: Alanine Aminotransferase 35 U/L (10-49); Albumin, Serum 2.9 gm/dL (3.4-4.8); Albumin/Globulin Ratio 0.5 (1.2-2.2); Alkaline Phosphatase 133 U/L (46-116); Anion Gap 11 (7-16); Aspartate Amino Transferase 82 U/L (0-34); BUN/Creatinine Ratio 14 Ratio (12-20); Bilirubin,Total 15.7 mg/dL (0.3-1.2); Blood Urea Nitrogen 17 mg/dL (9-23); Calcium 9.4 mg/dL (8.3-10.6); Calcium (Corrected) 10.3 mg/dL (8.5-10.1); Carbon Dioxide 21.7 mMol/L (20.0-31.0); Chloride 100 mMol/L (98-107); Creatinine (Component) 1.2 mg/dL (0.6-1.3); Estimated Creatinine Clearance 63.0 mL/min (>60); Globulin 5.3 gm/dL (2.3-3.5); Glucose 185 mg/dL (74-106); Lipase 69 U/L (12-53); Osmolality,Calculated 272 (275-295); Potassium 4.0 mMol/L (3.4-5.1); Sodium 133 mMol/L (136-145); Total Protein 8.2 gm/dL (5.7-8.2); eGFR > 60 See Note
[2024-12-17 11:17] LABS: Clarity,Urine Hazy (Clear/Hazy)
[2024-12-17 11:34] VITALS: BP 122/79; PULSE 75; RESP 23; TEMP 36.5; O2SAT 98
[2024-12-17 11:47] LABS: Slide Review Platelets confirmed
[2024-12-17] MEDS: LACTULOSE SYRUP 20 GM/30 ML UDC PO (11:53)
--- NOTE | 2024-12-17 12:06 | XR_ITS ---
Examination: Abdomen sonogram, Limited Date and time of exam: December 17, 2024 1423 hours INDICATIONS: Onset epigastric pain beginning today Technique: Real-time anand scale transabdominal sonographic images of the upper abdomen obtained. Findings: Multiple gallstones Gallbladder wall 1.0 cm but the patient has ascites Common bile duct 0.8 cm incompletely visualized Pancreatic head 4.2 cm Liver 14.9 cm benign liver cyst fatty infiltration lobular contour Normal hepatopedal portal venous flow Patent IVC IMPRESSION: Cholelithiasis Cirrhosis Ascites Thickened gallbladder wall but again the patient has ascites Enlarged common bile duct 0.8 cm Consider MRCP follow-up to exclude common bile duct stones as clinically warranted
[2024-12-17 12:41] VITALS: BP 128/74; PULSE 79
[2024-12-17] MEDS: FUROSEMIDE INJ 10 MG/ML 4ML VIAL 40 MG IVP (12:41)
--- NOTE | 2024-12-17 12:45 | XR_ITS ---
Examination: AP chest single view Technique one AP portable upright chest single view Date and time: December 17, 2024 1310 hours INDICATIONS: Difficulty breathing today. FINDINGS: Normal heart size. Lungs are clear. The osseous structures are intact IMPRESSION: No active disease
[2024-12-17 14:06] VITALS: BP 127/86; PULSE 90; RESP 16; TEMP 36.4; O2SAT 96
[2024-12-17 16:06] VITALS: BP 115/72; PULSE 81; RESP 19; TEMP 36.6; O2SAT 94
== END 2024-12-17 18:20 | disposition home or self-care (01) ==
PROVIDERS: Nurse Practitioner Family; Emergency Provider Student in an Organized Health Care Education/Training Program
DX: K74.60 Unspecified cirrhosis of liver (principal); R18.8 Other ascites; K80.20 Calculus of gallbladder without cholecystitis without obstruction; K40.90 Unilateral inguinal hernia, without obstruction or gangrene, not specified as recurrent; R16.1 Splenomegaly, not elsewhere classified
CPT/HCPCS: 36415; 71045; 74176; 76705; 80053; 81001; 82140; 83690; 85025; 85610; 85730; 87086; 96374; 96375; 99284; J1938; J2470; S8037; 74181; A9270

== ENCOUNTER 2024-12-31 13:22 | Outpatient (AMB) | payer MEDICAID, SELFPAY ==
[2024-12-31 13:37] VITALS: BP 114/73; PULSE 81; RESP 16; TEMP 37; O2SAT 98; BMI 24.5
--- NOTE | 2024-12-31 13:37 | ACNOTE_ITS ---
Vital Signs 12/31/24 13:37 Height 1.75 m Height Method Stated Weight 75.41 kg Weight Measurement Method Standing Scale BMI 24.5 BP 114/73 Blood Pressure Source Automatic Cuff Blood Pressure Location Left Upper Arm Position Sitting Respiration 16 Pulse 81 Pulse Source Monitor Temp 98.6 F Temp Source Oral Pulse Oximetry (%) 98 Oxygen Delivery Method Room Air Allergies/Meds Allergies & Medications Allergies No Known Allergies Allergy (Verified 12/31/24 13:39) Medication Reconciliation megestrol 800 mg/20 mL (20 mL) oral suspension 800 mg (20 mL) PO QDAY #600 mL 12/01/24 [Rx Confirmed 12/31/24] ondansetron 4 mg disintegrating tablet 4 mg PO BID PRN nausea and vomiting 30 days #60 tabs 12/13/24 [Rx Confirmed 12/31/24] furosemide 40 mg tablet (Lasix) 40 mg PO TID 1 month #90 tabs 12/21/24 [Rx Confirmed 12/31/24] blood-glucose meter (FreeStyle Lite Meter kit) #1 ea 12/31/24 [Rx] ciprofloxacin HCl 500 mg tablet 500 mg PO QDAY #30 tabs 12/31/24 [Rx] famotidine 20 mg tablet 20 mg PO QDAY #30 tabs 12/31/24 [Rx] lactulose 20 gram oral packet 20 g PO TID #30 ea 12/31/24 [Rx] polyethylene glycol 3350 17 gram/dose oral powder (Miralax) 4 g PO QDAY #476 grams 12/31/24 [Rx] blood sugar diagnostic (Accu-Chek Guide test strips) #100 ea 01/03/25 [Rx] lancets (Accu-Chek Softclix Lancets) #100 ea 01/03/25 [Rx] midodrine 10 mg tablet 10 mg PO TID #90 tabs 01/03/25 [Rx] spironolactone 50 mg tablet 50 mg PO BID #60 tabs 01/03/25 [Rx] MA Intake Visit Data Collection New Patient or Established: Established Patient (seen at [facility] within 3 years) Seen by Clinical Staff ONLY (RN/MA): No Reason for Visit:: FOLLOW UP Pain Present Currently: No Pain scale:: 0 Pain Scale Used: [employer]arrod/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 Required: No PCP or OBGYN visit in last 3 months: Yes Hx Now: No Smoking Status Smoking Status: Never smoker Immunization / Flu Flu Vaccine in the Last 12 Months: Yes Flu Vaccine Exclusion Criteria: No Exclusion Criteria Past Medical History Past Medical History NEUROLOGIC: Positive Seizures (poss witnessed seizure before admission 11/15/24) CARDIAC: Negative Cardiac Disorders or Congestive Heart Failure RESPIRATORY: Negative Chronic Obstructive Pulmonary Disease (COPD) or Asthma GASTROINTESTINAL: Positive Cirrhosis and Ulcer (esophageal) GENITOURINARY: Negative Renal Disease ENDOCRINE: Negative Diabetes Mellitus Type 1 or Diabetes Mellitus Type 2 HEMATOLOGIC: Negative Sickle Cell Disease OTHER HISTORY: Negative Blood Transfusions, Blood Transfusion Reaction or Anesthesia Reactions Social History SMOKING STATUS: Smoking status: Never smoker ALCOHOL: Alcohol Intake: Former HOUSING: Housing: House LIVES WITH: Lives With: Alone Patient Portal Questionaires PHQ-9 PHQ-2 Over the last 2 weeks, how often have you been bothered by any of the following problems? 1. Little interest or pleasure in doing things: not at all 2. Feeling down, depressed, or hopeless: not at all Total score: 0 PHQ-9 3. Trouble falling or staying asleep, or sleeping too much: Not at all 4. Feeling tired or having little energy: Not at all 5. Poor appetite or overeating: Not at all 6. Feeling bad about yourself - or that you are a failure or have let yourself or your family down: Not at all 7. Trouble concentrating on things, such as reading the newspaper or watching television: Not at all 8. Moving or speaking so slowly that other people could have noticed? - Or the opposite - being so fidgety or restless that you have been moving around a lot more than usual: not at all 9. Thoughts that you would be better off or of hurting yourself in some way: Not at all Total score: 0 Source: Developed by Drs. Edgar Griffin, Carmen Rodriguez, Steve Martines and colleagues, with an educational eduardo from [email or web address]. Depression screen completed yes Social History Living Situation History Lives With: Family Housing: House Tobacco History Smoking Status: Never smoker Alcohol History Alcohol Intake: Former Review of Systems Report any current symptoms Only answer those that you have currently: Past Medical History Past Medical History Have you ever been diagnosed with any of the following: Neurological Problems Seizures: Yes (poss witnessed seizure before admission 11/15/24) Cardiology Problems Congestive Heart Failure: No Respiratory Problems Chronic Obstructive Pulmonary Disease (COPD): No Asthma: No Stomache/Intestinal Problems Cirrhosis: Yes Ulcer: Yes (esophageal) Genital/Urinary Problems Renal Disease: No Endocrine Problems Diabetes Mellitus Type 1: No Diabetes Mellitus Type 2: No Blood Problems Sickle Cell Disease: No Other Problems Blood Transfusions: No Blood Transfusion Reaction: No Anesthesia Reactions: No History of Present Illness HPI Narrative 64 year-old male with PMHX of alcohol-related, decompensated liver cirrhosis, recently admitted/treated for sepsis secondary to SBP. His last alcohol drink >6 months ago. Currently on CIPROFLOXICIN daily for SBP prophylaxis. Has substantial anasarca which has not improved much despite aggressive diuresis and daily albumen. Currently on LASIX 40 TID, and FUROSEMIDE 50 BID without much improvement in LE edema. He has been started on MIDODRINE 10 mg TID for low blood pressure. EGD while in the hospital showed grade 1 varices without blood. Unable to start PRORANALOL 2/2 low blood pressure. 11/30/2024 Kidney function WNL, no CKD. Heart function WNL, EEF 60-65%. 12/01/2024 Follow-up hospital visit As noted above, he was recently admitted for Sepsis with E. coli bactermeia and SBP, found to have anasarca in setting of decomp liver cirrhosis. His last drink was >6 months ago. He was difficult to diuresis while inpatient despite aggressive diuresis and daily albumen infusions. He has been on LASIX, SPIRONOLACTONE, and MIDODRINE as well as CIPROFLOX for SBP prophylaxis. Reports poor appetite and generallized weakness that is gradually improving with daily exercise. On exam he had 3+ gilberto LE edema. Abdomen did was not overly distended and non-tender. EGD was done 10/2024 showing grade 1 varices without active bleed. Hgb baseline 10-11 and he denies dark stool or upper/lower GI bleed. Renal function WNL. ECHO done 10/2024 showed normal EEF 60-65%. Orders: refer [facility] liver transplant, wound care for chronic LE venous stasis dermitits Medications: Increasd LASIX 40 mg to TID (80 mg AM and 40 mg PM), cont SPIRONOLACTONE 50 mg BID, cont CIPROFLOXACIN 500 mg daily, cont PROTONIX 40 mg daily. Stated MEGSTROL 800 mg susspension daily for appetite stimulantion. Follow-up: 1 month with CMP/CBC, access diuresis response. F/u A1c given elevated glucose (178). 12/31/2024: Here for follow-up. Denies new or worsening symptoms. Extremity edema managed with DIURETICS. Appetite still poor but improving, daughter is trying different kinds of foods and encouraging high-protein foods. Denies fever, chills, headaches, chest pain, sob, cough, GI or urinary symptoms. Referral to [facility] for transplant was approved. Currently pending appointment. Denies dark stool or GI bleed. Meds: Refill CIPROFLOXACIN, MIDODRINE, FUROSEMIDE, SPIRONOLACTONE, LACTULOSE, MIRALAX, FAMOTIDINE, freestyle meter and supplies. Orders: No new orders. Referrals: Refill CIPROFLOXACIN, MIDODRINE, FUROSEMIDE, SPIRONOLACTONE, LACTULOSE, MIRALAX, FAMOTIDINE, freestyle meter and supplies. Follow-up: 1 month. Objective/Exam Narrative Physical exam: GENERAL * Improved jaundice diffusely, no apparent discharge. HEENT * NCAT.?JACI. Oral mucosa is moist. Patent Nares NECK * Supple, nontender, no JVD. CHEST * RRR, no m/g/r * CTAB, no w/r/r, symmetrical expansion. ABDOMEN * Soft, flat, nontender. No guarding/rebound tenderness/masses. * Bowel sounds presents EXTREMITIES * 1+ bilateral lower extremity edema. SKIN * Warm and dry, no jaundice/rashes. NEUROMUSCULAR * No focal neurologic deficits. PSYCHIATRY * Normal mood and affect, cooperative, no SI or HI or hallucinations. Assessment & Plan Diagnosis / Problem List (1) End-stage liver disease: Status: Acute Assessment & Plan: Overall stable with current regiment. Good response to diuresis, with improved anasarca. Jaundice also appear to have improved compared to previous phases. Appetite improving with MEGACE. Authorization for [facility] was approved. Currently pending appointment. Encouraged patient to reach out to [facility] to expedite the process. ? Repeat labs monthly to check potassium ? Continue current medications (2) Varices, esophageal: Status: Acute Qualifiers: Esophageal varices type: secondary Esophageal varices bleeding: without bleeding Qualified Code(s): I85.10 - Secondary esophageal varices without bleeding Assessment & Plan: No signs or symptoms of GI bleed including dark stool, rectal bleed, hemoptysis or hematemesis. Pressure remains low requiring MIDODRINE. Likely won't tolerate CARVEDILOL at this time. Plan: ? Continue FAMOTIDINE (3) Elevated glucose: Status: Acute Assessment & Plan: Ordered freestyle GLUCOSE meter and GLUCOSE and supplies. Will repeat A1c with next labs. (4) Chronic venous stasis: Status: Acute Assessment & Plan: Lower extremities improving, currently 1+. ? Continue to follow-up with wound care Plan 64-year-old male with history of alcohol-related decompensated liver cirrhosis, last alcohol use >6 months ago, complicated by recent E. coli sepsis and spontaneous bacterial peritonitis (SBP). Currently dealing with refractory anasarca and lower extremity edema despite aggressive diuresis and daily albumin. Also has hypotension, grade 1 esophageal varices, and signs of malnutrition and functional decline. 1. Decompensated Cirrhosis / Ascites / Edema Continue aggressive diuresis with: Furosemide: increased to 80 mg AM / 40 mg PM Spironolactone 50 mg BID Follow-up CMP/CBC in 1 month to assess diuretic response. Consider paracentesis if ascites worsens. Refer to [facility] ? appropriate given decompensated status and abstinence >6 months. 2. SBP Prophylaxis Continue Ciprofloxacin 500 mg daily. Monitor for signs of infection, especially in the setting of low immune reserve. 3. Hypotension Continue Midodrine 10 mg TID to support MAP >65 to permit ongoing diuresis. Unable to start non-selective beta blockers (e.g., propranolol) at this time due to low BP. 4. Esophageal Varices (Grade 1) EGD showed no active bleeding; currently no need for endoscopic or pharmacologic intervention. Avoid propranolol for now ? revisit if BP stabilizes in future. 5. Malnutrition / Poor Appetite Start Megestrol (Megace) 800 mg suspension daily. Encourage daily physical activity, as tolerated. Monitor weight, strength, and functional status monthly. 6. Hyperglycemia / Possible Diabetes Glucose noted to be elevated (178). Order A1c to assess for undiagnosed diabetes or steroid-related hyperglycemia. Consider endocrine consult if A1c elevated. 7. Chronic Venous Stasis Dermatitis Refer to Wound Care clinic for management. Continue compression therapy if not contraindicated. Monitor for secondary infection. 8. Follow-Up & Monitoring 1-month follow-up with: CMP/CBC Weight check Review of edema/diuretic response A1c Case was discussed with attending physician and senior resident. Milind Benedict DO PGY II This document was transcribed using voice recognition technology. Minor in accuracies may be present. Office Procedures [facility] Level of Care Nursing/Assessment Patient Status: Established Patient Nursing Assessment/Reassessment: Medication Reconciliation, Update PMH in EMR and Vital Signs Coordination of Care: Complex Care and Chronic Disease 1-5, Consent,records obtained, informed consent, Education Simp Pt/Fam, Lab and Imaging orders, Results/Orders obtained and Staff clarify orders Established Patient Charge Established Patient Point Assignment: 105 Established Patient Point Charge: EP Level 3 (80-115)
== END 2024-12-31 14:49 | disposition home or self-care (01) ==
LOC: HODAHC 13:22
PROVIDERS: Supervising Provider Internal Medicine
DX: K72.10 Chronic hepatic failure without coma (principal); I85.00 Esophageal varices without bleeding; R73.9 Hyperglycemia, unspecified; I87.8 Other specified disorders of veins; I95.9 Hypotension, unspecified; E46 Unspecified protein-calorie malnutrition; R18.8 Other ascites; K74.60 Unspecified cirrhosis of liver
CPT/HCPCS: 99213; G0463

== ENCOUNTER 2025-01-13 17:35 | Emergency (ER) | payer MEDICAID, SELFPAY ==
[2025-01-13 18:09] VITALS: BP 128/79; PULSE 81; RESP 18; TEMP 36.7; O2SAT 98; BMI 25.5
--- NOTE | 2025-01-13 18:20 | XR_ITS ---
Examination: PA chest single view TECHNIQUE: Upright PA chest single view Date and time: January 13, 2025 1909 hours Comparison December 17, 2024 INDICATIONS: Chest pain shortness of breath coughing beginning 3 days ago FINDINGS: Normal heart size The lungs are clear. The osseous structures are intact. IMPRESSION: No active disease
--- NOTE | 2025-01-13 18:21 | EKG_ITS ---
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
--- NOTE | 2025-01-13 18:22 | PD.EDNV ---
Nausea/Vomit./Diarrhea-RME/HPI General Chief complaint: Nausea/Vomiting/Diarrhea Stated complaint: Vomiting X 4 days, weak, chest pain Time Seen by Provider: 01/13/25 18:15 Arrival date/time: 01/13/25 17:35 RME / HPI RME / HPI Narrative: 64-year-old male patient with significant history of end-stage liver disease, came in for evaluation regarding vomiting. Patient's been having vomiting for the last 4 days, according to the family cannot take anything down, associated with generalized weakness, chest pain, severity moderate. Denies any fever. Denies any other complaints. Patient been taking his lactulose midodrine spironolactone with good compliance. Related Data Previous Rx's ?Medication ?Instructions ?Recorded megestrol 800 mg/20 mL (20 mL) 800 mg (20 mL) PO QDAY #600 mL 12/01/24 oral suspension furosemide 40 mg tablet (Lasix) 40 mg PO TID 1 month #90 tabs 12/21/24 blood-glucose meter (FreeStyle #1 ea 12/31/24 Lite Meter kit) ciprofloxacin HCl 500 mg tablet 500 mg PO QDAY #30 tabs 12/31/24 famotidine 20 mg tablet 20 mg PO QDAY #30 tabs 12/31/24 lactulose 20 gram oral packet 20 g PO TID #30 ea 12/31/24 polyethylene glycol 3350 17 4 g PO QDAY #476 grams 12/31/24 gram/dose oral powder (Miralax) blood sugar diagnostic (Accu-Chek #100 ea 01/03/25 Guide test strips) lancets (Accu-Chek Softclix #100 ea 01/03/25 Lancets) midodrine 10 mg tablet 10 mg PO TID #90 tabs 01/03/25 spironolactone 50 mg tablet 50 mg PO BID #60 tabs 01/03/25 famotidine 20 mg tablet (Pepcid) 20 mg PO BID #20 tabs 01/13/25 metoclopramide HCl 10 mg tablet 10 mg PO Q6H PRN nausea and 01/13/25 (Reglan) vomiting #20 tabs Allergies Allergy/AdvReac Type Severity Reaction Status Date / Time No Known Allergies Allergy Verified 01/13/25 17:41 Review of Systems Review of Systems Narrative Review of Systems: Review of system reviewed and within normal limits except mentioned in HPI ED Exam Narrative Physical exam: VITAL SIGNS: Reviewed. GENERAL APPEARANCE: Alert and interactive, follows commands, no acute distress, HEAD AND FACE: Non-traumatic. ENT: PERRL, icteric sclera, eyelid no trauma, Mucous membrane moist. NECK: Supple, nontender, no nuchal rigidity. CHEST: No tenderness, no crepitus, no paradoxical movement, no retractions. LUNGS: Clear, well ventilated, symmetric, no rales, no wheezing, no ronchi, no stridor, good breath sounds bilaterally. HEART: Regular rate, regular rhythm, no murmur, no gallops. ABDOMEN: Soft, positive bowel sounds, nondistended, no guarding, nontender, no rebound, no masses, RECTAL: Deferred. GENITAL: Deferred. NEUROLOGICAL: Gross motor function intact sensory function intact, Appropriate for age. MUSCULOSKELETAL: low back nontender, full range of motion. EXTREMITIES: Nontender, full range of motion. SKIN: Color jaundiced, dry, no rash, no lacerations, no abrasions, no contusions. LYMPHATICS: Deferred. Course Quality Measures none Orders Category Date Time Status EKG (ED ONLY) *Do not use* NOW Care 01/13/25 18:21 Completed EKG (ED Only) Stat Exams 01/13/25 18:21 Draft XR chest 1V Stat Exams 01/13/25 18:20 Completed Ammonia Stat Lab 01/13/25 18:44 Completed Bilirubin,Direct Stat Lab 01/13/25 18:44 Completed CBC Stat Lab 01/13/25 18:44 Completed Comprehensive Metabolic Panel Stat Lab 01/13/25 18:44 Completed Partial Thromboplastin Time Stat Lab 01/13/25 18:44 Completed Prothrombin Time with INR Stat Lab 01/13/25 18:44 Completed Troponin I Stat Lab 01/13/25 18:44 Completed Urinalysis, C/S if Indicated Stat Lab 01/13/25 19:44 Completed Metoclopramide Inj [Reglan Inj] Med 01/13/25 18:21 Discontinued 10 mg IVP X1 ONE Sodium Chloride 0.9% 1000 ml [Ns] 1,000 ml Med 01/13/25 18:21 Discontinued IV 999 mls/hr Vital Signs Vital signs: Vital Signs Temperature 98.1 F 01/13/25 18:09 Pulse Rate 81 08/14/25 18:09 Respiratory Rate 18 01/13/25 18:09 Blood Pressure 128/79 01/13/25 18:09 Pulse Oximetry (%) 98 01/13/25 18:09 Oxygen Delivery Method Room Air 01/13/25 18:09 Nausea/Vomiting/Diarrhea MDM Narrative MDM Narrative:: 64-year-old male patient with significant history of end-stage liver disease, came in for evaluation regarding vomiting. Patient's been having vomiting for the last 4 days, according to the family cannot take anything down, associated with generalized weakness, chest pain, severity moderate. Denies any fever. Denies any other complaints. Patient been taking his lactulose midodrine spironolactone with good compliance. EKG showed normal sinus rhythm, ventricular rate of 63 bpm, no ST segment elevation depression noted. I personally reviewed and interpreted the x-ray of this patient. There is no acute abnormalities found, no infiltrates no pneumothorax no hemothorax normal chest x-ray. Review of other structures was without significant abnormal findings also. I additionally reviewed the radiologist report and agree with the interpretation. Patient received IV fluids, refused Reglan and no recurrence of vomiting noted in the ED. Patient tolerated p.o. fluids. Patient's laboratory workup is better than last visit. Patient is pending liver transplant. Patient will be sent home on Reglan and Pepcid. Patient data External records reviewed:: None Clinical information provided by:: patient Social determinants that could affect healthcare access:: none Patient has the following chronic illnesses:: End-stage liver disease How is presenting disease/condition affected by chronic disease/condition?: exacerbated by Evaluation data The following diagnostics were reviewed and interpreted by me:: lab results, radiology exam(s) and EKG tracing(s) Lab and/or radiology exams considered but not ordered:: None Interpretation Summary: See results [facility] Medications / Prescriptions Medications / Prescriptions considered but not ordered:: None Medication administrations:: Medication Administration History Discontinued Medications Sodium Chloride (Ns) 1,000 mls @ 999 mls/hr IV .Q1H1M ONE Stop: 01/13/25 19:21 Last Admin: 01/13/25 20:18 Dose: 999 mls/hr Documented By: OA Metoclopramide HCl (Metoclopramide Inj 5 Mg/Ml Vial 2 Ml) 10 mg IVP X1 ONE; Protocol Stop: 01/13/25 18:22 Last Admin: 01/13/25 20:44 Dose: 10 mg Documented By: SF IV fluids and Reglan Consultations Consultation(s) initiated? (list below): No Diagnosis Nausea Differential Diagnosis: traveler's diarrhea, gastroenteritis, drug-induced nausea and vomiting and dehydration Most likely diagnosis given after review of the tests above:: Patient vomiting, end-stage liver disease Admission Indicated Admission indicated?: not indicated Admission Request Was there a request for admission?: No Disposition Plan Disposition Plan: Discharge Discharge Attestation Discharge Attestation: The patient and all family members were given an opportunity to ask questions and understood the discharge instructions. Discharge instructions specifically effects, indications for sooner follow up or return to the emergency department, and the expected course of current diagnosis. Patient condition: Stable Discharge Plan Plan Patient Disposition: HOME (Self Care) Discharge Disposition comment: Stable Prescriptions/Referrals Prescriptions/Med Rec: New metoclopramide HCl [Reglan] 10 mg tablet 10 mg PO Q6H PRN (Reason: nausea and vomiting) Qty: 20 0RF famotidine [Pepcid] 20 mg tablet 20 mg PO BID Qty: 20 0RF No Action megestrol 800 mg/20 mL (20 mL) suspension 800 mg PO QDAY Qty: 600 3RF polyethylene glycol 3350 [Miralax] 17 gram/dose powder 4 g PO QDAY Qty: 476 2RF ciprofloxacin HCl 500 mg tablet 500 mg PO QDAY Qty: 30 3RF lactulose 20 gram packet 20 g PO TID Qty: 30 0RF famotidine 20 mg tablet 20 mg PO QDAY Qty: 30 3RF (DME) blood-glucose meter [FreeStyle Lite Meter] Kit See Rx Instructions .Route Qty: 1 0RF Rx Instructions: As directed spironolactone 50 mg tablet 50 mg PO BID Qty: 60 3RF midodrine 10 mg tablet 10 mg PO TID Qty: 90 3RF Rx Instructions: do not give last dose of day after 6PM or within 4 hrs of bedtime (DME) Accu-Chek Guide test strips Strip See Rx Instructions .Route Qty: 100 2RF Rx Instructions: As directed (DME) lancets [Accu-Chek Softclix Lancets] Misc See Rx Instructions .Route Qty: 100 2RF Rx Instructions: As directed furosemide [Lasix] 40 mg tablet 40 mg PO TID 30 Days Qty: 90 3RF Referrals: No Primary/Family,Physician [Primary Care Provider] - In 1 week Problem List Clinical Impression: Nausea & vomiting, End stage liver disease Patient/Caregiver Discharge Instructions Discharge Activity: activity as tolerated Education Materials: ED Vomiting (Adult) Additional Instructions: Thank you for the opportunity for serving you today. You are stable for discharged . You are advised to: Follow-up with your PCP in 1 to 2 days Return to ED for worsening of symptoms Increase oral fluids Take medication as prescribed Print Language: Lebanese Stand Alone Forms: Rae Award Info., Patient Portal Info Letter PA/WRITING TUTOR Supervising Physician PA/ELSIE Supervising Physician: MD Albert
[2025-01-13 18:54] LABS: Basophils # (Auto) 0.1 Thou/mm3 (0.0-0.2); Basophils % (Auto) 1 % (0-2.5); Eosinophils # (Auto) 0.1 Thou/mm3 (0.0-0.5); Eosinophils % (Auto) 2 % (0-10); Hematocrit 33.2 % (41.0-53.0); Hemoglobin 11.8 g/dL (13.5-16.0); Immature Granulocytes Auto 0.03 Thou/mm3 (0.00-0.00); Lymphocytes # (Auto) 0.8 Thou/mm3 (1.0-4.8); Lymphocytes % (Auto) 18 % (10-50); Mean Corpuscular HGB Conc 35.5 g/dl (31.0-37.0); Mean Corpuscular Hemoglobin 37.2 pg (25.0-35.0); Mean Corpuscular Volume 105 fL (80-100); Monocytes # (Auto) 0.4 Thou/mm3 (0.0-0.8); Monocytes % (Auto) 9 % (0-12); Neutrophils # (Auto) 3.2 Thou/mm3 (1.8-7.7); Neutrophils % (Auto) 69 % (37-80); Nucleated Red Blood Cell # 0.00 Thou/mm3 (0.00-0.00); Nucleated Red Blood Cell % 0 /100 WBC (0); Platelet Count 92 Thou/mm3 (140-440); RDW Standard Deviation 54.2 fL (35.1-43.9); Red Blood Count 3.17 Miln/mm3 (4.50-5.90); White Blood Count 4.6 Thou/mm3 (3.8-10.6)
[2025-01-13 19:09] LABS: INR 1.8 (0.9-1.3); Partial Thromboplastin Time 34.5 Seconds (22.0-36.0); Prothrombin Time 18.8 Seconds (9.0-12.2)
[2025-01-13 19:54] LABS: Ammonia 71 uMol/L (11-32)
[2025-01-13 19:56] LABS: Collection Type, Urine Clean Catch
[2025-01-13 20:12] LABS: Amorphous Crystals,Urine Present (Absent); Bacteria,Urine Rare; Bilirubin,Urine Negative (Negative); Blood,Urine 3+ (Negative); Clarity,Urine Turbid (Clear/Hazy); Color,Urine Drk-Yellow (Lt Yel-Yel); Culture Indicated,Urine Not Indicated; Glucose, Urine Negative (Negative); Hyaline Casts,Urine 4 /hpf (0-1); Ketones,Urine Negative (Negative); Leukocyte Esterase,Urine Negative (Negative); Nitrite,Urine Negative (Negative); PH,Urine 5.5 (5.0-7.0); Protein,Urine Trace (Neg - Trace); RBC,Urine 7 /hpf (0-3); Specific Gravity,Urine 1.019 (1.001-1.035); Squamous Epithelial Cell,Urine 2 /hpf (0-5); Urobilinogen,Urine 3.0 mg/dL (0.0-1.0); WBC,Urine 4 /hpf (0-5)
[2025-01-13] MEDS: SODIUM CHLORIDE 0.9% 1000 ML 1,000 ML 999 ML IV (20:18)
[2025-01-13 20:39] LABS: Alanine Aminotransferase 65 U/L (10-49); Albumin, Serum 2.6 gm/dL (3.4-4.8); Albumin/Globulin Ratio 0.5 (1.2-2.2); Alkaline Phosphatase 134 U/L (46-116); Anion Gap 11 (7-16); Aspartate Amino Transferase 114 U/L (0-34); BUN/Creatinine Ratio 9 Ratio (12-20); Bilirubin,Direct 4.0 mg/dL (0.0-0.3); Bilirubin,Total 10.8 mg/dL (0.3-1.2); Blood Urea Nitrogen 14 mg/dL (9-23); Calcium 9.6 mg/dL (8.3-10.6); Calcium (Corrected) 10.7 mg/dL (8.5-10.1); Carbon Dioxide 22.8 mMol/L (20.0-31.0); Chloride 97 mMol/L (98-107); Creatinine (Component) 1.6 mg/dL (0.6-1.3); Estimated Creatinine Clearance 42.6 mL/min (>60); Globulin 5.5 gm/dL (2.3-3.5); Glucose 131 mg/dL (74-106); Osmolality,Calculated 265 (275-295); Potassium 4.3 mMol/L (3.4-5.1); Sodium 131 mMol/L (136-145); Total Protein 8.1 gm/dL (5.7-8.2); Troponin I < 0.020 ng/mL (0.0-0.045); eGFR 48 See Note
[2025-01-13] MEDS: METOCLOPRAMIDE INJ 5 MG/ML VIAL 2 ML 10 MG IVP (20:44)
== END 2025-01-13 22:26 | disposition home or self-care (01) ==
PROVIDERS: Nurse Practitioner Family; Emergency Provider Emergency Medicine
DX: K72.10 Chronic hepatic failure without coma (principal); R11.2 Nausea with vomiting, unspecified; R07.9 Chest pain, unspecified; R94.31 Abnormal electrocardiogram [ECG] [EKG]
CPT/HCPCS: 36415; 71045; 80053; 81001; 82140; 82248; 84484; 85025; 85610; 85730; 93005; 96374; 99283; J2765; J7030

== ENCOUNTER 2025-01-21 15:17 | Outpatient (AMB) | payer MEDICAID, SELFPAY ==
--- NOTE | 2025-01-21 13:55 | ACNOTE_ITS ---
Allergies/Meds Allergies & Medications Allergies No Known Allergies Allergy (Verified 01/13/25 17:41) MA Intake Visit Data Collection New Patient or Established: Established Patient (seen at [facility] within 3 years) Seen by Clinical Staff ONLY (RN/MA): No Reason for Visit:: PTS DAUGHTER CALLED FOR A TELEMED PT HAS BEEN WEAK PCP or OBGYN visit in last 3 months: Yes Date of Last PCP or OBGYN visit: 01/13/25 Do You Feel Safe at Home: Yes Authorities Contacted: N/A Smoking Status Smoking Status: Never smoker For Televisit only Telemed Video/Phone Visit: Yes Verbal consent obtained for Telemed visit?: Yes Verbal Consent witness name: JOSE ALFREDO SHARIF/KIMBERLY KELLY MARVIN Telemed Video/Phone visit w/Clinical Staff: 11-20 min Immunization / Flu Flu Vaccine in the Last 12 Months: No Flu Vaccine Exclusion Criteria: Already Received Past Medical History Past Medical History NEUROLOGIC: Positive Seizures (poss witnessed seizure before admission 11/15/24) CARDIAC: Negative Cardiac Disorders or Congestive Heart Failure RESPIRATORY: Negative Chronic Obstructive Pulmonary Disease (COPD) or Asthma GASTROINTESTINAL: Positive Cirrhosis and Ulcer (esophageal) GENITOURINARY: Negative Renal Disease ENDOCRINE: Negative Diabetes Mellitus Type 1 or Diabetes Mellitus Type 2 HEMATOLOGIC: Negative Sickle Cell Disease OTHER HISTORY: Negative Blood Transfusions, Blood Transfusion Reaction or Anesthesia Reactions Social History SMOKING STATUS: Smoking status: Never smoker ALCOHOL: Alcohol Intake: Former HOUSING: Housing: House LIVES WITH: Lives With: Alone Patient Portal Questionaires PHQ-9 PHQ-2 Over the last 2 weeks, how often have you been bothered by any of the following problems? 1. Little interest or pleasure in doing things: not at all PHQ-9 8. Moving or speaking so slowly that other people could have noticed? - Or the opposite - being so fidgety or restless that you have been moving around a lot more than usual: not at all Source: Developed by Drs. Edgar Griffin, Carmen Rodriguez, Steve Martines and colleagues, with an educational eduardo from [employer]. Social History Living Situation History Lives With: Family Housing: House Tobacco History Smoking Status: Never smoker Alcohol History Alcohol Intake: Former Domestic Abuse History Do You Feel Safe at Home: Yes Review of Systems Report any current symptoms Only answer those that you have currently: Past Medical History Past Medical History Have you ever been diagnosed with any of the following: Neurological Problems Seizures: Yes (poss witnessed seizure before admission 11/15/24) Cardiology Problems Congestive Heart Failure: No Respiratory Problems Chronic Obstructive Pulmonary Disease (COPD): No Asthma: No Stomache/Intestinal Problems Cirrhosis: Yes Ulcer: Yes (esophageal) Genital/Urinary Problems Renal Disease: No Endocrine Problems Diabetes Mellitus Type 1: No Diabetes Mellitus Type 2: No Blood Problems Sickle Cell Disease: No Other Problems Blood Transfusions: No Blood Transfusion Reaction: No Anesthesia Reactions: No History of Present Illness HPI Narrative 64 year-old male with PMHX of alcohol-related, decompensated liver cirrhosis, recently admitted/treated for sepsis secondary to SBP. His last alcohol drink >6 months ago. Currently on CIPROFLOXICIN daily for SBP prophylaxis. Has substantial anasarca which has not improved much despite aggressive diuresis and daily albumen. Currently on LASIX 40 TID, and FUROSEMIDE 50 BID without much improvement in LE edema. He has been started on MIDODRINE 10 mg TID for low blood pressure. EGD while in the hospital showed grade 1 varices without blood. Unable to start PRORANALOL /2 low blood pressure. 11/30/2024 Kidney function WNL, no CKD. Heart function WNL, EEF 60-65%. 12/01/2024 Follow-up hospital visit As noted above, he was recently admitted for Sepsis with E. coli bactermeia and SBP, found to have anasarca in setting of decomp liver cirrhosis. His last drink was >6 months ago. He was difficult to diuresis while inpatient despite aggressive diuresis and daily albumen infusions. He has been on LASIX, SPIRONOLACTONE, and MIDODRINE as well as CIPROFLOX for SBP prophylaxis. Reports poor appetite and generallized weakness that is gradually improving with daily exercise. On exam he had 3+ gilberto LE edema. Abdomen did was not overly distended and non-tender. EGD was done 10/2024 showing grade 1 varices without active bleed. Hgb baseline 10-11 and he denies dark stool or upper/lower GI bleed. Renal function WNL. ECHO done 10/2024 showed normal EEF 60-65%. Orders: refer [facility] liver [place], wound care for chronic LE venous stasis dermitits Medications: Increasd LASIX 40 mg to TID (80 mg AM and 40 mg PM), cont SPIRONOLACTONE 50 mg BID, cont CIPROFLOXACIN 500 mg daily, cont PROTONIX 40 mg daily. Stated MEGSTROL 800 mg susspension daily for appetite stimulantion. Follow-up: 1 month with CMP/CBC, access diuresis response. F/u A1c given elevated glucose (178). 12/31/2024: Here for follow-up. Denies new or worsening symptoms. Extremity edema managed with DIURETICS. Appetite still poor but improving, daughter is trying different kinds of foods and encouraging high-protein foods. Denies fever, chills, headaches, chest pain, sob, cough, GI or urinary symptoms. Referral to [facility] for transplant was approved. Currently pending appointment. Denies dark stool or GI bleed. Meds: Refill CIPROFLOXACIN, MIDODRINE, FUROSEMIDE, SPIRONOLACTONE, LACTULOSE, MIRALAX, FAMOTIDINE, freestyle meter and supplies. Orders: No new orders. Referrals: Refill CIPROFLOXACIN, MIDODRINE, FUROSEMIDE, SPIRONOLACTONE, LACTULOSE, MIRALAX, FAMOTIDINE, freestyle meter and supplies. Follow-up: 1 month. 01/21/25: Televisit follow-up. He had an episode of vomiting 2 days ago which had since resolved. Blood pressure has been on the lower side, SBP around 96 and he stopped taking SPIRONOLACTONE last week for this reason. Reports slightly increased edema of lower extremities. Additionally, he is having on average 1 bowel movement a day but currently taking MIDODRINE once a day only. She has been in touch with [facility], apparently they're currently waitin for an appointment for evaluation. Recommendations: Increase MIDODRINE to 15 mg TID, advised to take LACTULOSE up to 3 times if needed to maintain 3-4 BM daily. Continue with SPIRONOLACTONE and all other medications as prescribed. Denies confusion, chest pain, shortness of breath, abdominal pain, fever or chills, or GI bleed. Labs from 11/30/24 showed sodium 129 (baseline 130), potassium 4.4, LFTs around baseline with AST 170 and ALT 50. Bilirubin 10.2 and around baseline. A1C 4.5. Hgb improved to 12.2, PLT 74, no leukocytosis. Meds: Refill LACTULOSE, MIDODRINE, FUROSEMIDE, SPIRONOLACTONE, LACTULOSE, MIRALAX, FAMOTIDINE, freestyle meter and supplies. Orders: repeat CMP and ammonia in 3 weeks. Reordered glucose meter (received faulty device) Referrals: no new referals. Follow-up: 1 month. Objective/Exam Narrative Physical exam: GENERAL * Frail appearing male, NAD HEENT * NCAT.?JACI. Oral mucosa is moist. Patent Nares NECK * Supple, nontender, no JVD. CHEST * RRR, no m/g/r * CTAB, no w/r/r, symmetrical expansion. ABDOMEN * Soft, flat, nontender. No guarding/rebound tenderness/masses. * Bowel sounds presents EXTREMITIES * 1+ gilberto LE edema present. SKIN * Warm and dry, jaundice and scleral icterus noted. NEUROMUSCULAR * No lumbar or midline, no CVA, no paraspinal muscle spasm or tenderness. * Moves all 4 extremities well, with full ROM and good CSM. * BRIONES x4, CN II-XII grossly intact. * No focal neurologic deficits. PSYCHIATRY * Normal mood and affect, cooperative, no SI or HI or hallucinations. Assessment & Plan Diagnosis / Problem List (1) Decompensated cirrhosis: Status: Acute (2) End-stage liver disease: Status: Acute Assessment & Plan: Overall stable with current regiment. Good response to diuresis, with improved anasarca. Jaundice also appear to have improved compared to previous phases. Appetite improving with MEGACE. Authorization for [facility] transplant was approved. Currently pending appointment. Encouraged patient to reach out to [facility] to expedite the process. ? Repeat labs monthly to check potassium ? Continue current medications (3) Varices, esophageal: Status: Acute Qualifiers: Esophageal varices type: secondary Esophageal varices bleeding: without bleeding Qualified Code(s): I85.10 - Secondary esophageal varices without bleeding Assessment & Plan: No signs or symptoms of GI bleed including dark stool, rectal bleed, hemoptysis or hematemesis. Pressure remains low requiring MIDODRINE. Likely won't tolerate CARVEDILOL at this time. Plan: ? Continue FAMOTIDINE (4) Elevated glucose: Status: Acute (5) Chronic venous stasis: Status: Acute Assessment & Plan: Lower extremities improving, currently 1+. ? Continue to follow-up with wound care Plan 64-year-old male with history of alcohol-related decompensated liver cirrhosis, last alcohol use >6 months ago, complicated by recent E. coli sepsis and spontaneous bacterial peritonitis (SBP). Currently dealing with refractory anasarca and lower extremity edema despite aggressive diuresis and daily albumin. Also has hypotension, grade 1 esophageal varices, and signs of malnutri tion and functional decline. Labs from 11/30/24 showed sodium 129 (baseline 130), potassium 4.4, LFTs around baseline with AST 170 and ALT 50. Bilirubin 10.2 and around baseline. A1C 4.5. Hgb improved to 12.2, PLT 74, no leukocytosis. 1. Decompensated Cirrhosis / Ascites / Edema / hx SBP /Esophageal varices Continue with diuresis however blood pressure has been running low despite MIDODRINE. On exam he still has bilateral lower extremity edema 1+. Average bowel movement less than goal, however no signs of hepatic encephalopathy. No signs of upper or lower GI bleed, no dark stool. ? Continue diuresis with SPIRONOLACTONE and LASIX as tolerated ? Continue LACTULOSE 10 mg TID, increase as needed to maintain bowel movements 3-4 daily ? Continue MEGACE 800 mg for appetite ? Continue CIPROFLOXACIN daily for SBP prophylaxis ? Continue FAMOTIDINE 20 mg BID 2. Hypotension Increase MIDODRINE to 15 mg TID Unable to start non-selective beta blockers (e.g., propranolol) at this time due to low BP. 3. Malnutrition / Poor Appetite Continue Megestrol (Megace) 800 mg suspension daily. Encourage daily physical activity, as tolerated. Monitor weight, strength, and functional status monthly. 6. Hyperglycemia / Possible Diabetes Glucose noted to be elevated (178). Order A1c to assess for undiagnosed diabetes or steroid-related hyperglycemia. Consider endocrine consult if A1c elevated. 7. Chronic Venous Stasis Dermatitis Refer to Wound Care clinic for management. Continue compression therapy if not contraindicated. Monitor for secondary infection. 8. Follow-Up & Monitoring Repeat labs in 3 weeks Weight check Review of edema/diuretic response Case was discussed with attending physician and senior resident. Milind Benedict DO PGY II This document was transcribed using voice recognition technology. Minor inaccuracies may be present. Orders: Orders Ammonia 3 Weeks K72.90 - Hepatic failure, unspecified without coma, K74.60 - Unspecified cirrhosis of liver Comprehensive Metabolic Panel 3 Weeks K72.90 - Hepatic failure, unspecified without coma, K74.60 - Unspecified cirrhosis of liver Additional Assessment Attending note: I, Jeffrey Cavazos MD, attest that I was physically present for the charles portions of the service and evaluated the patient with the resident and I reviewed and discussed the case with the resident and agree with the resident's findings and plans of care as documented above. Jeffrey Cavazos MD Office Procedures [facility] Level of Care Telehealth Telemed Phone/Video with patient at home & Dr,PA,SERVICE OBSERVER: Yes
== END 2025-01-21 16:00 | disposition home or self-care (01) ==
LOC: HODAHC 15:17
DX: K72.90 Hepatic failure, unspecified without coma (principal); K74.60 Unspecified cirrhosis of liver; I85.10 Secondary esophageal varices without bleeding; R73.9 Hyperglycemia, unspecified; I87.8 Other specified disorders of veins; I95.9 Hypotension, unspecified
CPT/HCPCS: 99212; G0463

== ENCOUNTER 2025-02-01 17:51 | Inpatient (IN) | payer MEDICAID, SELFPAY ==
--- NOTE | 2025-02-01 17:57 | EKG_ITS ---
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
[2025-02-01 18:06] VITALS: BP 122/75; PULSE 75; RESP 20; TEMP 36.6; O2SAT 98
--- NOTE | 2025-02-01 18:32 | XR_ITS ---
Examination: CT brain head without contrast. 2-D sagittal coronal reconstructions Date and time of exam:February 01, 2025 1849 hrs. Indications: Altered mental status generalized weakness beginning 3 days ago CTDI: vol (mGy):49.3 DLP: (mGycm):1030 Technique: Multiple CT axial sections of the brain have been obtained, 5 mm slice thickness. Contrast has not been administered. 2-D sagittal, coronal reconstructions have been obtained Low dose protocols were performed. One or more of the following dose reduction techniques were used; automated exposure control, adjustment of the mA and/or KV according to patient size, use of iterative reconstruction technique. Findings: No significant ventricular enlargement. Intra-axial or extra-axial hemorrhage density is not seen. No mass effect or midline shift Basal cisterns are not remarkable. Fourth ventricle is midline. Cranial vault intact. Impression: Negative for acute hemorrhage, mass effect or midline shift Advise clinical correlation follow-up accordingly
--- NOTE | 2025-02-01 18:32 | XR_ITS ---
Examination: AP chest single view Technique: Portable upright AP chest single view Date and time: February 01, 2025 1857 hrs., Comparison January 14, 2024 Indications: Weakness vomiting beginning 4 days ago. Findings: Mild opacity right base Normal heart size Left lung clear Mild osteopenia Impression: Atelectasis versus early pneumonia right base, clinical correlation advised
--- NOTE | 2025-02-01 18:40 | EDNOTE_ITS ---
ED Chest Pain RME/HPI General Chief Complaint: Nausea/Vomiting/Diarrhea Stated Complaint: N/V, CHEST PAIN, NO APPETITE, ABD BLOATED Time Seen by Provider: 02/01/25 18:31 Arrival date/time: 02/01/25 17:51 64M with history of ESLD and CHF presents to ED with daughter for several days of increased confusion, loss of appetite, ab bloating, as well as some CP and non-bloody emesis. Daughter denies URI symptoms, dyspnea, and fevers/chills. Limitations: no limitations Related Data Previous Rx's ?Medication ?Instructions ?Recorded megestrol 800 mg/20 mL (20 mL) 800 mg (20 mL) PO QDAY #600 mL 12/01/24 oral suspension furosemide 40 mg tablet (Lasix) 40 mg PO TID 1 month # 90 tabs 12/21/24 ciprofloxacin HCl 500 mg tablet 500 mg PO QDAY #30 tab s 12/31/24 blood sugar diagnostic (Accu-Chek #100 ea 01/03/25 Guide test strips) lancets (Accu-Chek Softclix #100 ea 01/03/25 Lancets) spironolactone 50 mg tablet 50 mg PO BID #60 tabs 09/24 blood-glucose meter (FreeStyle #1 ea 01/21/25 Lite Meter kit) famotidine 20 mg tablet (Pepcid) 20 mg PO BID #20 tabs 01/21/25 lactulose 20 gram oral packet 10 g PO TID #30 ea 01/21 metoclopramide HCl 10 mg tablet 10 mg PO Q6H PRN nause a and 01/21/25 (Reglan) vomiting #90 tabs midodrine 10 mg tablet 15 mg (1.5 x 10 mg) PO TID # 90 tabs 01/21/25 Allergies Allergy/AdvReac Type Severity Reaction Status Date / Time No Known Allergies Allergy Verified 02/01/25 17:55 Review of Systems Review of Systems Systems Reviewed: All systems reviewed, normal except as documented Constitutional Constitutional: Reports system reviewed and no additional complaints, except as documented, Denies fever(s), Denies headache(s) and Reports weakness ENT Ears, Nose, Mouth, and Throat: Denies disequilibrium and Denies headache(s) Cardiovascular Cardiovascular: Reports system reviewed and no additional complaints, except as documented, Reports as per HPI, Reports chest pain and Denies dyspnea Respiratory Respiratory: Reports system reviewed and no additional complaints, except as documented, Denies cough and Denies dyspnea Gastrointestinal Gastrointestinal: Reports system reviewed and no additional complaints, except as documented, Reports as per HPI, Denies abdominal pain, Reports nausea and Reports vomiting Neurologic Neurologic: Reports system reviewed and no additional complaints, except as documented, Reports as per HPI, Reports behavioral changes, Denies confusion, Denies disequilibrium, Denies headache(s) and Reports weakness Psychiatric Psychiatric: Reports behavioral changes and Denies confusion Past Medical History Past Medical History NEUROLOGIC: Positive Seizures (poss witnessed seizure before admission 11/15/24) CARDIAC: Negative Cardiac Disorders or Congestive Heart Failure RESPIRATORY: Negative Chronic Obstructive Pulmonary Disease (COPD) or Asthma GASTROINTESTINAL: Positive Cirrhosis and Ulcer (esophageal) GENITOURINARY: Negative Renal Disease ENDOCRINE: Negative Diabetes Mellitus Type 1 or Diabetes Mellitus Type 2 HEMATOLOGIC: Negative Sickle Cell Disease OTHER HISTORY: Negative Blood Transfusions, Blood Transfusion Reaction or Anesthesia Reactions Social History SMOKING STATUS: Never smoker ED Exam General Limitations: Present no limitations General appearance: Present in no apparent distress Head Head exam: Present atraumatic Eye Eye exam: Present normal appearance, PERRL and EOMI ENT ENT exam: Present normal exam, normal oropharynx and mucous membranes moist Neck Neck exam: Present normal inspection, full ROM and trachea midline Chest Chest inspection: Present normal inspection and symmetric chest wall rise Respiratory Respiratory exam: Present normal lung sounds bilaterally Cardiovascular Cardiovascular exam: Present regular rate, normal rhythm and normal heart sounds Abdominal Exam Abdominal exam: Present soft and normal bowel sounds Extremities Exam Extremities exam: Present normal inspection and full ROM Back Exam Back exam: Present normal inspection and full ROM Neurological Exam Neurological exam: Present CN II-XII intact Psychiatric Psychiatric exam: Present normal affect and normal mood Skin Skin exam: Present warm, dry, intact and normal color Course Quality Measures none Orders Category Date Time Status COVID-19 Screening Questionnaire NOW Care 02/01/25 21:04 Active Decision to Admit X1 Care 02/01/25 21:04 Completed EKG (ED ONLY) *Do not use* NOW Care 02/01/25 17:[address] head/brain wo con Stat Exams 02/01/25 18:32 Completed EKG (ED Only) Stat Exams 02/01/25 17:57 Draft XR chest 1V portable Stat Exams 02/01/25 18:32 Completed Ammonia Stat Lab 02/01/25 18:57 Completed B-Type Natriuretic Peptide Stat Lab 02/01/25 18:57 Completed CBC Stat Lab 02/01/25 18:57 Completed Comprehensive Metabolic Panel Stat Lab 02/01/25 18:57 Completed Lipase Stat Lab 02/01/25 18:57 Completed Magnesium Stat Lab 02/01/25 18:57 Completed Partial Thromboplastin Time Stat Lab 02/01/25 18:57 Completed Prothrombin Time with INR Stat Lab 02/01/25 18:57 Completed Troponin I Stat Lab 02/01/25 18:57 Completed Urinalysis, C/S if Indicated Stat Lab 02/01/25 20:36 Completed Vital Signs Vital signs: Vital Signs Temperature 97.9 F 02/01/25 18:06 Pulse Rate 75 02/01/25 18:06 Respiratory Rate 20 02/01/25 18:06 Blood Pressure 122/75 02/01/25 18:06 Pulse Oximetry (%) 98 02/01/25 18:06 Oxygen Delivery Method Room Air 02/01/25 18:06 O2 at 98% on RA and WNLs Chest Pain MDM Narrative MDM Narrative:: 64M with history of ESLD and CHF presents to ED with daughter for several days of increased confusion, loss of appetite, ab bloating, as well as some CP and non-bloody emesis. Daughter denies URI symptoms, dyspnea, and fevers/chills. Physical exam reveals normal pupil response and EOM. CN II-XII grossly intact. Neg pronator drift test. Normal WOB. Minimal ab bloating, but no obvious fluid wave. No tenderness. Patient is afebrile, calm, but slow to respond. EKG is NSR. CXR unremarkable. CT unremarkable. No leukocytosis or gross anemia. CMP remarkable for mildly low Na. Ammonia elevated. Normal trop and BNP. While waiting for test results, daughter states patient had some emesis with a small amount of blood in it. Patient has a history of variceal bleeds. Spoke to IM resident who reports to Dr. Reza, who will admit patient. Patient data External records reviewed:: [facility] previous records Clinical information provided by:: patient Social determinants that could affect healthcare access:: alcohol use Patient has the following chronic illnesses:: ESLD and CHF How is presenting disease/condition affected by chronic disease/condition?: exacerbated by Evaluation data The following diagnostics were reviewed and interpreted by me:: lab results, radiology exam(s) and EKG tracing(s) Lab and/or radiology exams considered but not ordered:: ordered Interpretation Summary: above Medications / Prescriptions Medications or Prescriptions considered but not ordered:: ordered Medication administrations:: Medication Administration History Acetaminophen (Acetaminophen 325 Mg Tablet) 650 mg PO Q6H PRN PRN Reason: Fever >101.5 or pain 1-3 Stop: 03/03/25 22:26 Ciprofloxacin (Ciprofloxacin Hcl 250 Mg Tablet) 500 mg PO BID [facility] Stop: 02/09/25 08:59 Famotidine (Famotidine 20 Mg Tablet) 20 mg PO BID [facility] Stop: 03/03/25 22:29 Last Admin: 02/01/25 23:40 Dose: 20 mg Documented By: DT Furosemide (Furosemide 40 Mg Tablet) 40 mg PO QDAY [facility] Stop: 03/04/25 08:59 Heparin Sodium (Porcine) (Heparin Sod Inj 5000 Unit/Ml Vial) 5,000 unit SC Q12HR [facility] Stop: 02/16/25 08:59 Albumin Human (Albuminar-25 Ivpb) 25 gm in 100 mls @ 100 mls/hr IV X1 ONE Stop: 02/02/25 00:33 Albumin Human (Albuminar-25 Ivpb) 12.5 gm in 50 mls @ 100 mls/hr IV QDAY [facility] Stop: 03/03/25 23:33 Lactulose (Lactulose Syrup 20 Gm/30 Ml Udc) 40 gm PO TID [facility]; Protocol Stop: 03/03/25 22:44 Last Admin: 02/01/25 23:42 Dose: 40 gm Documented By: DT Midodrine (Midodrine 5 Mg Tablet) 10 mg PO TID [facility] Stop: 03/03/25 23:39 Ondansetron HCl (Ondansetron Inj 2 Mg/Ml Inj 2 Ml) 4 mg IVP Q6H PRN; Protocol PRN Reason: NAUSEA OR VOMITING Stop: 03/03/25 22:26 Pantoprazole Sodium (Pantoprazole Inj 40 Mg Vial) 40 mg IVP QDAY [facility] Stop: 03/04/25 08:59 Rifaximin (Rifaximin 550 Mg Tablet) 550 mg PO BID [facility] Stop: 02/08/25 22:44 Spironolactone (Spironolactone 25 Mg Tablet) 25 mg PO QDAY [facility] Stop: 03/04/25 08:59 above Consultations Consultation(s) initiated? (list below): Yes Diagnosis Chest Pain Differential Diagnosis: fracture of rib, pneumothorax, stable angina, unstable angina pectoris, atypical chest pain, st elevation myocardial infarction, costochondritis, chest pain, biliary colic and other (CHF exacerbation, elevated ammonia levels, hepatic encephalopathy) Most likely diagnosis given after review of the tests above:: hepatic encephalopathy Admission Indicated Admission indicated?: indicated Admission Request Was there a request for admission?: Yes Admission Attestation Admission request attestation: Discussed case with [Dr. Reza] from Hospitalist service regarding admission. Discussed patients ED course, exam findings, labs, and radiology results. The Hospitalist [agrees] to accept the patient for admission. Disposition Plan Disposition Plan: Admit Discharge Plan Plan Patient Disposition: Admit Acute Care w/in Hospital Problem List Clinical Impression: Hepatic encephalopathy
[2025-02-01 19:05] LABS: Basophils # (Auto) 0.1 Thou/mm3 (0.0-0.2); Basophils % (Auto) 1 % (0-2.5); Eosinophils # (Auto) 0.1 Thou/mm3 (0.0-0.5); Eosinophils % (Auto) 3 % (0-10); Hematocrit 30.5 % (41.0-53.0); Hemoglobin 10.7 g/dL (13.5-16.0); Immature Granulocytes Auto 0.05 Thou/mm3 (0.00-0.00); Lymphocytes # (Auto) 0.9 Thou/mm3 (1.0-4.8); Lymphocytes % (Auto) 17 % (10-50); Mean Corpuscular HGB Conc 35.1 g/dl (31.0-37.0); Mean Corpuscular Hemoglobin 36.8 pg (25.0-35.0); Mean Corpuscular Volume 105 fL (80-100); Monocytes # (Auto) 0.6 Thou/mm3 (0.0-0.8); Monocytes % (Auto) 12 % (0-12); Neutrophils # (Auto) 3.5 Thou/mm3 (1.8-7.7); Neutrophils % (Auto) 66 % (37-80); Nucleated Red Blood Cell # 0.00 Thou/mm3 (0.00-0.00); Nucleated Red Blood Cell % 0 /100 WBC (0); Platelet Count 80 Thou/mm3 (140-440); RDW Standard Deviation 55.8 fL (35.1-43.9); Red Blood Count 2.91 Miln/mm3 (4.50-5.90); White Blood Count 5.3 Thou/mm3 (3.8-10.6)
[2025-02-01 19:18] LABS: INR 1.8 (0.9-1.3); Partial Thromboplastin Time 36.5 Seconds (22.0-36.0); Prothrombin Time 18.6 Seconds (9.0-12.2)
[2025-02-01 19:21] LABS: Ammonia 93 uMol/L (11-32); B-Type Natriuretic Peptide 34 pg/mL (0-100)
[2025-02-01 19:48] LABS: Alanine Aminotransferase 65 U/L (10-49); Albumin, Serum 2.3 gm/dL (3.4-4.8); Albumin/Globulin Ratio 0.5 (1.2-2.2); Alkaline Phosphatase 144 U/L (46-116); Anion Gap 9 (7-16); Aspartate Amino Transferase 111 U/L (0-34); BUN/Creatinine Ratio 10 Ratio (12-20); Bilirubin,Total 10.1 mg/dL (0.3-1.2); Blood Urea Nitrogen 11 mg/dL (9-23); Calcium 8.7 mg/dL (8.3-10.6); Calcium (Corrected) 10.1 mg/dL (8.5-10.1); Carbon Dioxide 23.3 mMol/L (20.0-31.0); Chloride 97 mMol/L (98-107); Creatinine (Component) 1.1 mg/dL (0.6-1.3); Globulin 4.7 gm/dL (2.3-3.5); Glucose 120 mg/dL (74-106); Lipase 27 U/L (12-53); Magnesium 1.6 mg/dL (1.6-2.6); Osmolality,Calculated 259 (275-295); Potassium 4.4 mMol/L (3.4-5.1); Sodium 129 mMol/L (136-145); Total Protein 7.0 gm/dL (5.7-8.2); Troponin I < 0.020 ng/mL (0.0-0.045); eGFR > 60 See Note
[2025-02-01 20:49] LABS: Collection Type, Urine Clean Catch
[2025-02-01 21:11] LABS: Amorphous Crystals,Urine Present (Absent); Bacteria,Urine Rare; Bilirubin,Urine Negative (Negative); Blood,Urine 2+ (Negative); Clarity,Urine Turbid (Clear/Hazy); Color,Urine Yellow (Lt Yel-Yel); Culture Indicated,Urine Not Indicated; Glucose, Urine Negative (Negative); Ketones,Urine Negative (Negative); Leukocyte Esterase,Urine Negative (Negative); Nitrite,Urine Negative (Negative); PH,Urine 7.0 (5.0-7.0); Protein,Urine Negative (Neg - Trace); RBC,Urine 12 /hpf (0-3); Specific Gravity,Urine 1.009 (1.001-1.035); Squamous Epithelial Cell,Urine 2 /hpf (0-5); Urobilinogen,Urine 4.0 mg/dL (0.0-1.0); WBC,Urine 1 /hpf (0-5)
[2025-02-01] MEDS: FAMOTIDINE 20 MG TABLET PO (23:40)
[2025-02-01] MEDS: LACTULOSE SYRUP 20 GM/30 ML UDC 40 GM PO (23:42)
[2025-02-01 23:43] VITALS: BP 106/74; PULSE 77; RESP 14; O2SAT 97
--- NOTE | 2025-02-01 23:54 | PD.RESHP ---
Documentation for date of: 02/01/25 [facility] History of Present Illness History of present illness: This is a 64-year-old male with PMHx of end-stage liver disease, currently on a transplant list with [facility], and chronic venous insufficiency, presenting to ED with worsening nausea, vomiting, and confusion. He is a Italian speaking gentleman, follows up at [facility] for management of ESLD and was recently excepted for transplant at [facility] but currently daughter is working on changing his insurance coverage for an upcoming appointment with [facility]. He lives in a group housing. Daughter was at bedside, is a sole slitter creaser slotter helper, and she visits with him on a daily basis. She states he has been taking his LACTULOSE 3 times daily, he is maintaining 3-4 bowel movements daily. However since Friday he has been having recurrent vomiting, up to 3 episodes daily, along with increased fatigue and confusion. Additionally, daughter did note streaks of bloody emesis, as well as dark (black, brown) stool. She stated that she is currently unable to care for him given her work schedule, decided to bring him into the ED. He was admitted in October 2024 for septic shock requiring ICU admission. At that time, he was diagnosed with decompensated liver cirrhosis, complicated by grade 3 esophageal varices with GI bleed requiring transfusion, as well as bacteremia secondary to E. coli SBP. His hospital course was very prolonged as he was poorly responsive to diuresis, with retained edema bilateral lower extremity, recurrent ascites, and complicated by low MAP. Hepatitis panel was negative at the time. Home meds include LASIX, SPIRONOLACTONE, MIDODRINE, and daily CIPROFLOXACIN for SBP prophylaxis, FAMOTIDINE, LACTULOSE, and MEGACE for appetite stimulation which she is currently not taking. In the office, blood pressure mostly on the softer side, and we have been unable to start BETA-JOSE JUAN for esophageal varices. Past Medical History: Alcohol-related ESLD, grade 3 esophageal varices, recurrent ascites, Hx SBP on long-term prophylaxis ANTIBIOTICS, chronic venous stasis, hypotension, chronic anemia, chronic thrombocytopenia, chronic elevated total bilirubin, current hepatic encephalopathy, Hx of E. coli bacteremia. Past Surgical History: None Medications: CIPROFLOXACIN 500 mg daily, FAMOTIDINE 20 mg BID, FUROSEMIDE 40 mg TID, SPIRONOLACTONE 50 mg daily, MIDODRINE 15 mg TID, REGLAN 10 mg q.6h., Soren Strahl 800 mg q. day PRN. Allergies: No known allergies Family History: No significant. Social History: Heavy alcohol use, last alcohol use June 2024, currently unemployed. ED Course: Afebrile, BP 122/75, HR 75, RR 20, satting 99% on room air. CBC findings are chronic with Hgb 10.0, PLT 70, WBC 4.5. Coag panel also around baseline with PT 19.8, INR 1.9, PTT slightly elevated at 40.2. CHEM panel remarkable for sodium 129, creatinine 1.1, GLUCOSE 120, TB 10.1 around baseline, ammonia 93, FTs around baseline with AST 111 and ALT 65 and ALP 144. Lipase was normal at 27. UA was negative for UTI. EKG shows sinus rhythm without acute ST changes. Chest x-ray showed atelectasis versus pneumonia right base, denies cough at this time. Head CT was negative for acute pathology. Reason for admission: Refractory nausea and vomiting, decompensated liver cirrhosis with possible ascites and mild hepatic encephalopathy. Will need admission for IV ANTIEMETICS, therapeutic paracentesis, LACTULOSE and RIFAXIMIN for hepatic encephalopathy. Exam Vital Signs Temp Pulse Resp BP Pulse Ox O2 Del Method 97.9 F 77 14 106/74 97 Room Air 02/01/25 18:06 02/01/25 23:43 02/01/25 23:43 02/01/25 23:43 02/01/25 23:43 02/01/25 23:43 Narrative Exam GENERAL Ill-appearing middle-age male, lethargic, no apparent distress. HEENT NCAT.?JACI. Oral mucosa is moist. Patent Nares NECK Supple, nontender, no JVD. CHEST RRR, no m/g/r CTAB, no w/r/r, symmetrical expansion. ABDOMEN Soft, distended, nontender, positive fluid wave. No guarding/rebound tenderness/masses. Bowel sounds presents EXTREMITIES 3+ bilateral lower extremity edema, possible venous stasis, no ulceration. SKIN Warm and dry. Diffuse jaundice, scleral icterus bilaterally. NEUROMUSCULAR No lumbar or midline, no CVA, no paraspinal muscle spasm or tenderness. Moves all 4 extremities well, with full ROM and good CSM. BRIONES x4, CN II-XII grossly intact. No focal neurologic deficits. PSYCHIATRY Normal mood and affect, cooperative, no SI or HI or hallucinations. Results: Labs 02/02/25 05:12 02/02/25 05:12 Labs: Short CBC 02/01/25 Range/Units 18:57 WBC 5.3 (3.8-10.6) Thou/mm3 Hgb 10.7 L (13.5-16.0) g/dL Hct 30.5 L (41.0-53.0) % Plt Count 80 L (140-440) Thou/mm3 BMP 02/01/25 18:57 Sodium 129 L Potassium 4.4 Chloride 97 L Carbon Dioxide 23.3 BUN 11 Creatinine 1.1 Glucose 120 H Calcium 8.7 Cardiac Enzymes 02/01/25 Range/Units 18:57 Troponin I < 0.020 (0.0-0.045) ng/mL Liver Function 02/01/25 Range/Units 18:57 Total Bilirubin 10.1 H (0.3-1.2) mg/dL AST 111 H (0-34) U/L ALT 65 H (10-49) U/L Alkaline Phosphatase 144 H (46-116) U/L Albumin 2.3 L (3.4-4.8) gm/dL Urine 02/01/25 Range/Units 20:36 Urine Color Yellow (Lt Yel-Yel) Urine Clarity Turbid A (Clear/Hazy) Urine pH 7.0 (5.0-7.0) Ur Specific [place] 1.009 (1.001-1.035) Urine Protein Negative (Neg - Trace) Urine Glucose (UA) Negative (Negative) Quality Measures Quality Measures none Medications Home Medications and Allergies Home Medications ?Medication ?Instructions ?Recorded ?Confirmed ?Type famotidine 20 mg tablet (Pepcid) 20 mg PO DAILY 02/02/25 02/02/25 History lactulose 10 gram/15 mL oral 20 g PO QDAY 02/02/25 02/02/25 History solution midodrine 10 mg tablet 10 mg PO TID 02/02/25 02/02/25 History pantoprazole 40 mg tablet,delayed 40 mg PO DAILY 02/02/25 02/02/25 History release Allergies Allergy/AdvReac Type Severity Reaction Status Date / Time No Known Allergies Allergy Verified 02/01/25 17:55 Visit Medications Acetaminophen (Acetaminophen 325 Mg Tablet) 650 mg PO Q6H PRN PRN Reason: Fever >101.5 or pain 1-3 Stop: 03/03/25 22:26 Ciprofloxacin (Ciprofloxacin Hcl 250 Mg Tablet) 500 mg PO BID [facility] Stop: 02/09/25 08:59 Famotidine (Famotidine 20 Mg Tablet) 20 mg PO BID SHANNAN Stop: 03/03/25 22:29 Last Admin: 02/01/25 23:40 Dose: 20 mg Furosemide (Furosemide 40 Mg Tablet) 40 mg PO QDAY SHANNAN Stop: 03/04/25 08:59 Heparin Sodium (Porcine) (Heparin Sod Inj 5000 Unit/Ml Vial) 5,000 unit SC Q12HR SHANNAN Stop: 02/16/25 08:59 Albumin Human (Albuminar-25 Ivpb) 25 gm in 100 mls @ 100 mls/hr IV X1 ONE Stop: 02/02/25 00:33 Albumin Human (Albuminar-25 Ivpb) 12.5 gm in 50 mls @ 100 mls/hr IV QDAY SHANNAN Stop: 03/03/25 23:33 Lactulose (Lactulose Syrup 20 Gm/30 Ml Udc) 40 gm PO TID SHANNAN; Protocol Stop: 03/03/25 22:44 Last Admin: 02/01/25 23:42 Dose: 40 gm Midodrine (Midodrine 5 Mg Tablet) 10 mg PO TID [facility] Stop: 03/03/25 23:39 Ondansetron HCl (Ondansetron Inj 2 Mg/Ml Inj 2 Ml) 4 mg IVP Q6H PRN; Protocol PRN Reason: NAUSEA OR VOMITING Stop: 03/03/25 22:26 Pantoprazole Sodium (Pantoprazole Inj 40 Mg Vial) 40 mg IVP QDAY [facility] Stop: 03/04/25 08:59 Rifaximin (Rifaximin 550 Mg Tablet) 550 mg PO BID [facility] Stop: 02/08/25 22:44 Spironolactone (Spironolactone 25 Mg Tablet) 25 mg PO QDAY [facility] Stop: 03/04/25 08:59 Assessment & Plan Plan This is a 64-year-old male with PMHx of end-stage liver disease, currently on a transplant list with Oneil, and chronic venous insufficiency, presenting to ED with worsening nausea, vomiting, and confusion. Acute hepatic encephalopathy, Grade 1 (mild) Decompensated liver cirrhosis Concern for recurrent ascites Chronic hypotension History of alcohol-related liver cirrhosis, presenting with nausea and vomiting, increased confusion, fatigue and generalized weakness. Vitals are at baseline and he has chronic hypotension requiring MIDODRINE. Labs significant for ammonia of 93, chronic hyperbilirubinemia around 10, chronically elevated LFTs, and hypoalbuminemia. Exam showed slight effusion, bilateral extremity edema 2+, diffuse ascites, jaundice, scleral icterus, no asterixis noted. Child-Daigle Score: 13 points, Child Class C. Life Expectancy : 1-3 years. MELD Score: 19.6%, Estimated 3-Month Mortality. ? Continue MIDODRINE 10 mg TID, may increase to 15 TID as needed ? Given ALBUMIN 25 mg x 1, initiated ALBUMIN infusions ? Pending paracentesi (no more than 5L) ? Holding diuresis in anticipation for paracentesis, may resume diuresis if blood pressure allows ? Continue RIFAXIMIN 550 mg BID ? Continue LACTULOSE 40 mg orally TID for goal 3?5 BMs daily Refractory nausea and vomiting Likely as a result of LACTULOSE, abdominal distention, and electrolyte disturbances. He is on home REGLAN, usually symptoms are controlled however have worsened over the last few days. ? Continue with ONDANSETRON PRN Concern for GI bleed, likely variceal bleed Chronic macrocytic anemia, likely liver dysfunction Chronic thrombocytopenia On last admission, he had anemia requiring transfusion. EGD then showed grade 3 esophageal varices requiring banding. He has been on FAMOTIDINE BID. However reports an episode of blood streaks emesis and new onset dark stool. Hemoglobin otherwise stable around 10.0 which is baseline for him. Folate and B12 within normal limits. Coag panel is also baseline with INR 1.8. PLT 80 around baseline. ? Ordered FOBT ? Transfuse if hemoglobin is less than 7 ? Continue PROTONIX 40 mg daily ? Consider OCTREOTIDE and GI consult for possible EGD if FOBT is positive or hemoglobin declines. ? Consider starting BETA-JOSE JUAN if BP tolerates (historically BP did not tolerate) Hx E. coli SBP with bacteremia On last admission, presented with bacteremia and septic shock in settings of SBP E. coli. Since, has been on CIPROFLOXACIN 500 mg daily SBP prophylaxis. Currently afebrile, no leukocytosis. Abdomen is distended but nontender. Low suspicion for SBP at this point. ? Continue home CIPROFLOXACIN 500 mg daily for SBP prophylaxis Mild metabolic hyponatremia Sodium 129 with serum osmolarity of 259, suggestive of hypovolemia in settings of decompensated cirrhosis and third spacing. ? Anticipate improvement with intravascular fluid optimization as above ? Fluid restriction Case was discussed with attending physician, Dr. Reza. Milind Benedict, DO PGY II This document was transcribed using voice recognition technology. Minor inaccuracies may be present. Attending Provider Attestation/Addendum After examination of the patient and review of the clinical data I feel that this patient needs admission to the hospital for further treatment/evaluation. I Jeramy Reza MD, attest that I was physically present for charles portions of evaluation, and examined patient, labs and imagings and plan of care were discussed with IM residents team, and I agree with the findings and plans documented above.
[2025-02-02] VITALS (14 sets, daily range): BP systolic 94–109; BP diastolic 60–70; PULSE 61–86; RESP 16–99; TEMP 36.1–36.5; O2SAT 95–99; BMI 25.2
[2025-02-02] MEDS: ALBUMIN HUMAN 25% IVPB 25 GM/100 ML BTL IV (00:55)
[2025-02-02] MEDS: ONDANSETRON INJ 2 MG/ML INJ 2 ML 4 MG IVP ×2 (00:56→21:06)
[2025-02-02] MEDS: MIDODRINE 5 MG TABLET 10 MG PO ×4 (01:17→21:06)
[2025-02-02] MEDS: LACTULOSE SYRUP 20 GM/30 ML UDC 40 GM PO ×3 (05:45→21:06)
[2025-02-02 06:18] LABS: Basophils # (Auto) 0.1 Thou/mm3 (0.0-0.2); Basophils % (Auto) 2 % (0-2.5); Eosinophils # (Auto) 0.1 Thou/mm3 (0.0-0.5); Eosinophils % (Auto) 3 % (0-10); Hematocrit 28.7 % (41.0-53.0); Hemoglobin 10.0 g/dL (13.5-16.0); Immature Granulocytes Auto 0.04 Thou/mm3 (0.00-0.00); Lymphocytes # (Auto) 0.8 Thou/mm3 (1.0-4.8); Lymphocytes % (Auto) 17 % (10-50); Mean Corpuscular HGB Conc 34.8 g/dl (31.0-37.0); Mean Corpuscular Hemoglobin 36.6 pg (25.0-35.0); Mean Corpuscular Volume 105 fL (80-100); Monocytes # (Auto) 0.5 Thou/mm3 (0.0-0.8); Monocytes % (Auto) 10 % (0-12); Neutrophils # (Auto) 3.0 Thou/mm3 (1.8-7.7); Neutrophils % (Auto) 67 % (37-80); Nucleated Red Blood Cell # 0.02 Thou/mm3 (0.00-0.00); Nucleated Red Blood Cell % 0 /100 WBC (0); RDW Standard Deviation 56.3 fL (35.1-43.9); Red Blood Count 2.73 Miln/mm3 (4.50-5.90); White Blood Count 4.5 Thou/mm3 (3.8-10.6)
[2025-02-02 06:22] LABS: Platelet Count 70 Thou/mm3 (140-440)
[2025-02-02 06:23] LABS: INR 1.9 (0.9-1.3); Partial Thromboplastin Time 40.2 Seconds (22.0-36.0); Prothrombin Time 19.8 Seconds (9.0-12.2)
[2025-02-02 06:36] LABS: Alanine Aminotransferase 58 U/L (10-49); Albumin, Serum 2.3 gm/dL (3.4-4.8); Albumin/Globulin Ratio 0.6 (1.2-2.2); Alkaline Phosphatase 117 U/L (46-116); Anion Gap 10 (7-16); Aspartate Amino Transferase 108 U/L (0-34); BUN/Creatinine Ratio 12 Ratio (12-20); Bilirubin,Total 12.2 mg/dL (0.3-1.2); Blood Urea Nitrogen 12 mg/dL (9-23); Calcium 9.3 mg/dL (8.3-10.6); Calcium (Corrected) 10.7 mg/dL (8.5-10.1); Carbon Dioxide 24.7 mMol/L (20.0-31.0); Chloride 99 mMol/L (98-107); Creatinine (Component) 1.0 mg/dL (0.6-1.3); Estimated Creatinine Clearance 78.1 mL/min (>60); Globulin 3.9 gm/dL (2.3-3.5); Glucose 117 mg/dL (74-106); Magnesium 1.6 mg/dL (1.6-2.6); Osmolality,Calculated 268 (275-295); Potassium 4.4 mMol/L (3.4-5.1); Sodium 134 mMol/L (136-145); Total Protein 6.2 gm/dL (5.7-8.2); eGFR > 60 See Note
[2025-02-02 06:38] LABS: Folate 10.86 ng/mL (>5.38); Vitamin B12 > 2000 pg/mL (211-911)
--- NOTE | 2025-02-02 08:00 | XR_ITS ---
Examination: Abdomen sonogram, Limited Date and time of exam: February 02, 2025 1132 hours INDICATIONS: Abdominal distention this week, cirrhosis history Technique: Real-time anand scale transabdominal sonographic images of the upper abdomen obtained. Findings: Minimal ascitic fluid IMPRESSION: Minimal ascitic fluid
[2025-02-02] MEDS: Magnesium Sulfate 4 GM Ivpb 4 GM/50 ML BAG IV (08:42)
[2025-02-02] MEDS: CIPROFLOXACIN HCL 250 MG TABLET 500 MG PO (08:42)
[2025-02-02 09:10] LABS: Phosphorous 3.5 mg/dL (2.4-5.1)
--- NOTE | 2025-02-02 09:35 | PC.SS ---
Patient Zen Verdugo is a 64 Year old male admitted for Hepatic Encephalopathy. SS met with patient at bedside to discuss discharge plan and verify demographic information. Patient reports he lives at home with his daughter, Scarlet Verdugo who he reports is his surrogate decision maker, [phone]. Patient is able to complete all ADL's independently prior to admission and did not utilize any source of DME to assist with ambulation. Choice of pharmacy is [facility]. PCP is [facility]. At time of discharge patient will return back home. DaughterScarlet will provide transportation. Discharge Plan Home Next of Kin: [place]
[2025-02-02 09:43] LABS: Slide Review Platelets confirmed
[2025-02-02] MEDS: ALBUMIN HUMAN 25% IVPB 12.5 GM/50 ML BTL IV (10:00)
[2025-02-02] MEDS: cefTRIAXone/D5w 1gm IV premix 1 GM/50 ML BAG IV (13:52)
[2025-02-02] MEDS: OCTREOTIDE ACET INJ 1,000 MCG in SODIUM CHLORIDE 0.9% 100 ML 5.1 MCG IV (13:53)
--- NOTE | 2025-02-02 14:49 | PC.SS ---
SS follow up note; Patient will possibly discharge home today.
--- NOTE | 2025-02-02 15:00 | ESPR_ITS ---
<Statement entered by Althea Reynolds MD - 02/02/25 15:50> Overnight, no acute events reported. Per patient's daughter, patient noted to have blood streaks in his emesis. Will put patient on octreotide drip, Protonix twice daily, IV ceftriaxone for SBP prophylaxis and consult GI. Ultrasound abdomen was ordered for potential paracentesis however there was not much ascitic fluid to tap. Will continue with lactulose and titrate to 3-4 bowel movements daily. Patient has become more altered recently we will continue to monitor patient's mentation. Patient is currently on liver transplant list. Anticipate discharge within 48 to 72 hours. I discussed with and supervised the corporate communications intern physician who took care of this patient. I personally saw and examined the patient and discussed the assessment and plan with the entire medicine team, including my attending Dr. Oglesby, I agree with most of the assessment and plan as documented below Althea Reynolds M.D. PGY-3 Disclaimer: Despite multiple revisions, due to the dictation software being used, the document bellow may not be free of grammatical errors including phonetic/typographic errors. However, this does not deter from our commitment to providing health care in the patient's best interest in mind. Documentation for date of: 02/02/25 Subjective Subjective Interval history: 02/02/25: No acute events overnight. Vital signs stable except for BP on the lower side which is baseline for patient. Patient appeared to be A&Ox2 and the rest of the history was provided by the daughter at bedside. She states that she noticed his father becoming more altered recently. She has noticed melena and blood streaked emesis x2 since a few days ago. IR was consulted for US guided paracenthesis however not sufficient pocket of fluid was observed; thus paracenthesis is not indicated at this time. Exam Vital Signs Temp Pulse Resp BP Pulse Ox O2 Del Method 97.2 F 73 18 96/66 96 Room Air 02/02/25 12:00 02/02/25 13:51 02/02/25 12:14 02/02/25 13:51 02/02/25 12:00 02/02/25 12:00 Narrative Exam GENERAL * Ill-appearing middle-age male, lethargic, no apparent distress. HEENT * NCAT. Oral mucosa is moist. Patent Nares NECK * Supple, nontender, no JVD. CV * RRR, no m/g/r Resp * CTAB, no w/r/r, symmetrical expansion. ABDOMEN * Soft, distended, nontender, positive fluid wave. No guarding/rebound tenderness/masses. EXTREMITIES * 3+ bilateral lower extremity edema, venous stasis changes, no ulceration. SKIN * Warm and dry. Diffuse jaundice, scleral icterus bilaterally. NEUROMUSCULAR * No lumbar or midline, no CVA, no paraspinal muscle spasm or tenderness. Moves all 4 extremities well, with full ROM and good CSM. AO x2, CN II-XII grossly intact. No focal neurologic deficits. PSYCHIATRY * Flat mood and affect, cooperative Objective Labs 02/03/25 05:17 02/03/25 05:17 Labs: Laboratory Results - last 24 hr 02/01/25 02/01/25 02/02/25 18:57 20:36 05:12 WBC 5.3 4.5 RBC 2.91 L 2.73 L Hgb 10.7 L 10.0 L Hct 30.5 L 28.7 L MCV 105 H 105 H MCH 36.8 H 36.6 H MCHC 35.1 34.8 RDW Std Deviation 55.8 H 56.3 H Plt Count 80 L 70 L Neut % (Auto) 66 67 Lymph % (Auto) 17 17 George % (Auto) 12 10 Eos % (Auto) 3 3 Baso % (Auto) 1 2 Neut # (Auto) 3.5 3.0 Lymph # (Auto) 0.9 L 0.8 L George # (Auto) 0.6 0.5 Eos # (Auto) 0.1 0.1 Baso # (Auto) 0.1 0.1 Immature Gran # (Auto) 0.05 H 0.04 H Absolute Nucleated RBC 0.00 0.02 H Immature Gran % 1 H 1 H Nucleated RBC % 0 0 PT 18.6 H 19.8 H INR 1.8 H 1.9 H APTT 36.5 H 40.2 H Sodium 129 L 134 L Potassium 4.4 4.4 Chloride 97 L 99 Carbon Dioxide 23.3 24.7 Anion Gap 9 10 BUN 11 12 Creatinine 1.1 1.0 Estim Creat Clear Calc Not Performed. 78.1 eGFR > 60 > 60 BUN/Creatinine Ratio 10 L 12 Glucose 120 H 117 H Calculated Osmolality 259 L 268 L Calcium 8.7 9.3 Corrected Calcium 10.1 10.7 H Phosphorus 3.5 Magnesium 1.6 1.6 Total Bilirubin 10.1 H 12.2 H D AST 111 H 108 H ALT 65 H 58 H Alkaline Phosphatase 144 H 117 H D Ammonia 93 H* Troponin I < 0.020 B-Natriuretic Peptide 34 Total Protein 7.0 6.2 Albumin 2.3 L 2.3 L Globulin 4.7 H 3.9 H Albumin/Globulin Ratio 0.5 L 0.6 L Lipase 27 Vitamin B12 > 2000 H Folate 10.86 Ur Collection Type Clean Catch Urine Color Yellow Urine Clarity Turbid A Urine pH 7.0 Ur Specific [place] 1.009 Urine Protein Negative Urine Glucose (UA) Negative Urine Ketones Negative Urine Blood 2+ A Urine Nitrite Negative Urine Bilirubin Negative Urine Urobilinogen (Auto) 4.0 Ur Leukocyte Esterase Negative Urine RBC 12 H Urine WBC 1 Ur Squamous Epith Cells 2 Amorphous Crystals Present A Urine Bacteria Rare Ur Culture Indicated? Not Indicated Misc Test Result Platelets confirmed Quality Measures Quality Measures none Assessment & Plan Assessment Current Active Medications: Generic Name Dose Route Start Last Admin Trade Name Freq PRN Reason Stop Dose Admin Acetaminophen 650 mg 02/01/25 22:27 Acetaminophen 325 Mg Tablet PO 03/03/25 22:26 Q6H PRN Fever >101.5 or pain 1-3 Albumin Human 12.5 gm in 50 mls @ 100 mls/hr 02/02/25 09:00 02/02/25 10:00 Albuminar-25 Ivpb IV 02/03/25 09:29 100 mls/hr QDAY SHANNAN Administration Ceftriaxone Sodium/Dextrose 1 gm in 50 mls @ 100 mls/hr 02/02/25 11:05 02/02/25 13:52 Rocephin/D5w 1gm Iv Premix IV 02/09/25 11:04 100 mls/hr QDAY SHANNAN Administration Octreotide Acetate 1,000 mcg/ 102 mls @ 5.1 mls/hr 02/02/25 11:30 02/02/25 13:53 Sodium Chloride IV 02/07/25 11:29 50 mcg/hr .Q20H SHANNAN 5.1 mls/hr Administration Protocol 50 MCG/HR Lactulose 40 gm 02/01/25 22:45 02/02/25 13:50 Lactulose Syrup 20 Gm/30 Ml Udc PO 03/03/25 22:44 40 gm TID SHANNAN Administration Protocol Midodrine 10 mg 02/01/25 23:40 02/02/25 13:51 Midodrine 5 Mg Tablet PO 03/03/25 23:39 10 mg TID SHANNAN Administration Ondansetron HCl 4 mg 02/01/25 22:27 02/02/25 00:56 Ondansetron Inj 2 Mg/Ml Inj 2 Ml IVP 03/03/25 22:26 4 mg Q6H PRN Administration NAUSEA OR VOMITING Protocol Pantoprazole Sodium 40 mg 02/02/25 21:00 Pantoprazole Inj 40 Mg Vial IVP 03/04/25 20:59 BID [facility] Pharmacy Consult 1 each 02/02/25 00:25 Pharmacy To Consult Patient XX 03/04/25 00:24 PRN PRN CONSULT Rifaximin 550 mg 02/01/25 22:45 02/02/25 08:42 Rifaximin 550 Mg Tablet PO 02/08/25 22:44 550 mg BID SHANNAN Administration Plan This is a 64-year-old male with PMHx of end-stage liver disease, currently on a transplant list with Oneil, and chronic venous insufficiency, presenting to ED with worsening nausea, vomiting, confusion, altered mental status, melena and blood streaked emesis since a few days ago. #Acute hepatic encephalopathy 2/2 elevated ammonia #Decompensated liver cirrhosis #Concern for recurrent ascites #Chronic hypotension #Thrombocytopenia #Elevated liver enzymes History of alcohol-related liver cirrhosis, presenting with nausea and vomiting, increased confusion, fatigue and generalized weakness. Vitals are at baseline and he has chronic hypotension requiring Midodrine. On admission, labs significant for ammonia of 93, chronic hyperbilirubinemia around 10, chronically elevated LFTs, and hypoalbuminemia. Exam showed slight effusion, bilateral extremity edema 2+, diffuse ascites, jaundice, scleral icterus, no asterixis noted. Platelets 70. Child-Daigle Score: 13 points, Child Class C. Life Expectancy : 1-3 years. MELD Score: 19.6%, Estimated 3-Month Mortality. Paracenthesis not indicated at this since not enough pocket of fluid was found by IR. Plan: ? Continue Midodrine 10 mg TID, may increase to 15 TID as needed ? Continue Albumin infusions ? Holding diuresis, may resume diuresis if blood pressure allows ? Continue Rifaximin 550 mg BID ? Continue Lactulose 40 mg orally TID for goal 3?5 BMs daily - Start Octerotide per protocol - Fluid restriction to 1500mL/day #Refractory nausea and vomiting Likely as a result of Lactulose, abdominal distention, and electrolyte disturbances. He is on home Reglan, usually symptoms are controlled however have worsened over the last few days. ? Continue with Zofran PRN #GI bleed, likely variceal bleed #Chronic macrocytic anemia, likely liver dysfunction #Chronic thrombocytopenia On last admission, he had anemia requiring transfusion. EGD then showed grade 3 esophageal varices requiring banding. He has been on FAMOTIDINE BID. However reports an episode of blood streaks emesis and new onset dark stool. Folate and B12 within normal limits. Coag panel is also baseline with INR 1.8. PLT 80 around baseline. Hgb 10.7-->10 Plan: ? Pending FOBT ? Transfuse if hemoglobin is less than 7 ? Continue Protonix 40 mg daily ? Consulted GI, appreciate recs ? Consider starting Beta holly if BP tolerates (historically BP did not tolerate) #Hx E. coli SBP with bacteremia On last admission, presented with bacteremia and septic shock in settings of SBP E. coli. Since, has been on CIPROFLOXACIN 500 mg daily SBP prophylaxis. Currently afebrile, no leukocytosis. Abdomen is distended but nontender. Low suspicion for SBP at this point. ? Start Rocephin 1g qday for SBP prophylaxis Mild metabolic hyponatremia (improved) Sodium 129 with serum osmolarity of 259, suggestive of hypovolemia in settings of decompensated cirrhosis and third spacing. Sodium improved to 134. Plan: ? Anticipate improvement with intravascular fluid optimization as above ? Fluid restriction to 1500 as above Hospital management: Lines: peripheral IV Diet: Regular diet DVT prophylaxis: SCDs Disposition: Acute hepatic encephalopathy management CODE STATUS: Full code Case was discussed with attending physician Dr. Oglesby and senior resident Dr. Reynolds. Nestor Bonilla DO PGY-1 Attending Provider Attestation/Addendum I have examined the patient, reviewed labs and imaging findings, discussed the case with the resident(s), and reviewed entered orders. I agree with the plan of care as outlined in this note, with these additional summaries/recommendations: Patient seen at bedside. Patient is currently encephalopathic and no reliable history can be obtained. Encephalopathy secondary to hepatic encephalopathy. Currently grade 1. Continue lactulose and rifaximin. Frequent reorientation and monitor for improvement. Patient also suspected of having GI bleed as he endorsed an episode of emesis with blood. Start octreotide, Protonix, and consult gastroenterology. Start IV Rocephin. Avoid chemical anticoagulation. Patient has decompensated cirrhosis and is currently on transplant list at [facility]. Avoid hepatotoxic agents and hepatically dose medications. Outpatient follow-up at [facility] for liver transplant. Low-salt diet, fluid restriction, and outpatient vaccine series. Patient noted to have ascites and will go for paracentesis evaluation today. Patient originally placed on ciprofloxacin although we will discontinue this and switch to IV Rocephin. Low suspicion for SBP at this time. Please see residents note for additional details and management. Repeat hematology and chemistry panel in AM. Dr. Reny MD
--- NOTE | 2025-02-02 21:35 | PD.IMCONS ---
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 has been accepted for liver transfer evaluation at [place] cc:: cc: Jeramy Reza MD Review of Systems Review of Systems ROS Unobtainable: unobtainable due to medical condition Past Medical History Surgical History OTHER SURGICAL HX: As in the history of present illness Meds Home Medications and Allergies Home Medications ?Medication ?Instructions ?Recorded ?Confirmed ?Type famotidine 20 mg tablet (Pepcid) 20 mg PO DAILY 02/02/25 02/02/25 History lactulose 10 gram/15 mL oral 20 g PO QDAY 02/02/25 02/02/25 History solution midodrine 10 mg tablet 10 mg PO TID 02/02/25 02/02/25 History pantoprazole 40 mg tablet,delayed 40 mg PO DAILY 02/02/25 02/02/25 History release Allergies Allergy/AdvReac Type Severity Reaction Status Date / Time No Known Allergies Allergy Verified 02/01/25 17:55 Exam Vital Signs Temp Pulse Resp BP Pulse Ox O2 Del Method 97 F 77 22 H 97/66 99 Room Air 02/02/25 16:00 02/02/25 21:06 02/02/25 18:24 02/02/25 21:06 02/02/25 16:00 02/02/25 16:00 Constitutional Comments: Chronically ill-appearing Routine Respiratory Exam Comments: Normal to auscultation Routine Abdominal Exam Comments: Positive bowel sounds Results Labs 02/02/25 05:12 02/02/25 05:12 Labs: Short CBC 02/02/25 Range/Units 05:12 WBC 4.5 (3.8-10.6) Thou/mm3 Hgb 10.0 L (13.5-16.0) g/dL Hct 28.7 L (41.0-53.0) % Plt Count 70 L (140-440) Thou/mm3 BMP 02/02/25 05:12 Sodium 134 L Potassium 4.4 Chloride 99 Carbon Dioxide 24.7 BUN 12 Creatinine 1.0 Glucose 117 H Calcium 9.3 Liver Function 02/02/25 Range/Units 05:12 Total Bilirubin 12.2 H D (0.3-1.2) mg/dL AST 108 H (0-34) U/L ALT 58 H (10-49) U/L Alkaline Phosphatase 117 H D (46-116) U/L Albumin 2.3 L (3.4-4.8) gm/dL Assessment and Plan Additional Assessment & Plan Additional Plan: # Hematemesis/melena in the setting of cirrhotic liver disease Differential diagnosis include esophageal varices bleeding versus hypertensive portal gastropathy and mucosal oozing of blood Also in the differential diagnosis Gaby-Toussaint tear as patient had nausea vomiting Plan Fiberoptic esophagogastroduodenoscopy with possible therapeutic intervention under intravenous moderate sedation Octreotide infusion IV Protonix Serial CBC Will follow the patient Thank you very much for the opportunity to participate in care of this patient
[2025-02-03] VITALS (17 sets, daily range): BP systolic 98–147; BP diastolic 64–98; PULSE 70–87; RESP 12–96; TEMP 36.1–36.6; O2SAT 94–100
--- NOTE | 2025-02-03 04:59 | PC.NURSE ---
[facility] downtime occured on 02/03/25 from [id number]
[2025-02-03] MEDS: MIDODRINE 5 MG TABLET 10 MG PO ×2 (05:06→21:38)
[2025-02-03] MEDS: LACTULOSE SYRUP 20 GM/30 ML UDC 40 GM PO (05:06)
[2025-02-03 05:40] LABS: Basophils # (Auto) 0.1 Thou/mm3 (0.0-0.2); Basophils % (Auto) 1 % (0-2.5); Eosinophils # (Auto) 0.1 Thou/mm3 (0.0-0.5); Eosinophils % (Auto) 4 % (0-10); Hematocrit 28.3 % (41.0-53.0); Hemoglobin 9.9 g/dL (13.5-16.0); Immature Granulocytes Auto 0.03 Thou/mm3 (0.00-0.00); Lymphocytes # (Auto) 0.8 Thou/mm3 (1.0-4.8); Lymphocytes % (Auto) 21 % (10-50); Mean Corpuscular HGB Conc 35.0 g/dl (31.0-37.0); Mean Corpuscular Hemoglobin 37.1 pg (25.0-35.0); Mean Corpuscular Volume 106 fL (80-100); Monocytes # (Auto) 0.5 Thou/mm3 (0.0-0.8); Monocytes % (Auto) 15 % (0-12); Neutrophils # (Auto) 2.1 Thou/mm3 (1.8-7.7); Neutrophils % (Auto) 58 % (37-80); Nucleated Red Blood Cell # 0.00 Thou/mm3 (0.00-0.00); Nucleated Red Blood Cell % 0 /100 WBC (0); RDW Standard Deviation 54.7 fL (35.1-43.9); Red Blood Count 2.67 Miln/mm3 (4.50-5.90); White Blood Count 3.6 Thou/mm3 (3.8-10.6)
[2025-02-03 05:41] LABS: Platelet Count 71 Thou/mm3 (140-440)
[2025-02-03 05:49] LABS: Ammonia 45 uMol/L (11-32)
[2025-02-03 06:13] LABS: Slide Review Platelets confirmed
[2025-02-03 06:22] LABS: Alanine Aminotransferase 53 U/L (10-49); Albumin, Serum 2.2 gm/dL (3.4-4.8); Albumin/Globulin Ratio 0.6 (1.2-2.2); Alkaline Phosphatase 106 U/L (46-116); Anion Gap 11 (7-16); Aspartate Amino Transferase 91 U/L (0-34); BUN/Creatinine Ratio 10 Ratio (12-20); Bilirubin,Total 11.7 mg/dL (0.3-1.2); Blood Urea Nitrogen 8 mg/dL (9-23); Calcium 8.8 mg/dL (8.3-10.6); Calcium (Corrected) 10.2 mg/dL (8.5-10.1); Carbon Dioxide 23.3 mMol/L (20.0-31.0); Chloride 101 mMol/L (98-107); Creatinine (Component) 0.8 mg/dL (0.6-1.3); Estimated Creatinine Clearance 97.6 mL/min (>60); Globulin 3.7 gm/dL (2.3-3.5); Glucose 138 mg/dL (74-106); Magnesium 1.5 mg/dL (1.6-2.6); Osmolality,Calculated 270 (275-295); Phosphorous 3.0 mg/dL (2.4-5.1); Potassium 4.4 mMol/L (3.4-5.1); Sodium 135 mMol/L (136-145); Total Protein 5.9 gm/dL (5.7-8.2); eGFR > 60 See Note
[2025-02-03] MEDS: Magnesium Sulfate 4 GM Ivpb 4 GM/50 ML BAG IV (08:29)
[2025-02-03] MEDS: ALBUMIN HUMAN 25% IVPB 12.5 GM/50 ML BTL IV (08:29)
[2025-02-03] MEDS: OCTREOTIDE ACET INJ 1,000 MCG in SODIUM CHLORIDE 0.9% 100 ML 5.1 MCG IV (08:29)
[2025-02-03] MEDS: cefTRIAXone/D5w 1gm IV premix 1 GM/50 ML BAG IV (08:33)
--- NOTE | 2025-02-03 10:34 | ESPR_ITS ---
<Statement entered by Althea Reynolds MD - 02/04/25 07:33> I discussed with and supervised the credit intern physician who took care of this patient. I personally saw and examined the patient and discussed the assessment and plan with the entire medicine team, including my attending Dr. Oglesby, I agree with most of the assessment and plan as documented below Althea Reynolds M.D. PGY-3 Disclaimer: Despite multiple revisions, due to the dictation software being used, the document bellow may not be free of grammatical errors including phonetic/typographic errors. However, this does not deter from our commitment to providing health care in the patient's best interest in mind. <Statement entered by Josie Mcleod MD - 02/03/25 16:28> Note reviewed, I agree with most of its contents and agree with the patient's care as documented by Dr. Bonilla. Patient examined at bedside. No events overnight. Increasing lacutolose to 60 TID in setting of encephalopathy 2/[address] Leyva planning for EGD today. Hemoglobin remaining around 10, platelets down trended 71. Electrolytes repleted as needed. Continue Protonix, octreotide infusion, rifaximin in setting of cirrhosis and GI bleed. The patient's management plan was discussed with my attending physician Dr. Oglesby. Josie Mcleod, PGY-2 Documentation for date of: 02/03/25 Subjective Subjective Interval history: 02/03/25: No acute events overnight. Vital signs stable. Patient's mentation improved from yesterday however still slightly altered (might be his baseline). Patient denies any abdominal pain, shortness of breath or chest pain. Patient has had 2 bowel movements yesterday but none today yet. We will increase the dose of lactulose to 60 TID with the goal of 4-5 bowel movements a day. Exam Vital Signs Temp Pulse Resp BP Pulse Ox O2 Del Method 97.0 F 70 16 106/70 100 Room Air 02/03/25 08:00 02/03/25 08:00 02/03/25 08:00 02/03/25 08:00 02/03/25 08:00 02/03/25 08:00 Narrative Exam GENERAL * Ill-appearing middle-age male, lethargic, no apparent distress. HEENT * NCAT. Oral mucosa is moist. Patent Nares NECK * Supple, nontender, no JVD. CV * RRR, no m/g/r Resp * CTAB, no w/r/r, symmetrical expansion. ABDOMEN * Soft, distended, nontender, positive fluid wave. No guarding/rebound tenderness/masses. EXTREMITIES * 2+ bilateral lower extremity edema, venous stasis changes, no ulceration. SKIN * Warm and dry. Diffuse jaundice, scleral icterus bilaterally. NEUROMUSCULAR * No lumbar or midline, no CVA, no paraspinal muscle spasm or tenderness. Moves all 4 extremities well, with full ROM and good CSM. AO x2, CN II-XII grossly intact. No focal neurologic deficits. PSYCHIATRY * Flat mood and affect, cooperative Objective Labs 02/04/25 06:16 02/04/25 06:16 Labs: Laboratory Results - last 24 hr 02/03/25 05:17 WBC 3.6 L RBC 2.67 L Hgb 9.9 L Hct 28.3 L MCV 106 H MCH 37.1 H MCHC 35.0 RDW Std Deviation 54.7 H Plt Count 71 L Neut % (Auto) 58 Lymph % (Auto) 21 [place] % (Auto) 15 H Eos % (Auto) 4 Baso % (Auto) 1 Neut # (Auto) 2.1 Lymph # (Auto) 0.8 L [place] # (Auto) 0.5 Eos # (Auto) 0.1 Baso # (Auto) 0.1 Immature Gran # (Auto) 0.03 H Absolute Nucleated RBC 0.00 Immature Gran % 1 H Nucleated RBC % 0 Sodium 135 L Potassium 4.4 Chloride 101 Carbon Dioxide 23.3 Anion Gap 11 BUN 8 L Creatinine 0.8 Estim Creat Clear Calc 97.6 eGFR > 60 BUN/Creatinine Ratio 10 L Glucose 138 H Calculated Osmolality 270 L Calcium 8.8 Corrected Calcium 10.2 H Phosphorus 3.0 Magnesium 1.5 L Total Bilirubin 11.7 H D AST 91 H ALT 53 H Alkaline Phosphatase 106 Ammonia 45 H Total Protein 5.9 Albumin 2.2 L Globulin 3.7 H Albumin/Globulin Ratio 0.6 L Misc Test Result Platelets confirmed Quality Measures Quality Measures none Assessment & Plan Assessment Current Active Medications: Generic Name Dose Route Start Last Admin Trade Name Freq PRN Reason Stop Dose Admin Acetaminophen 650 mg 02/01/25 22:27 Acetaminophen 325 Mg Tablet PO 03/03/25 22:26 Q6H PRN Fever >101.5 or pain 1-3 Ceftriaxone Sodium/Dextrose 1 gm in 50 mls @ 100 mls/hr 02/02/25 11:05 02/03/25 08:33 Rocephin/D5w 1gm Iv Premix IV 02/09/25 11:04 100 mls/hr QDAY SHANNAN Administration Octreotide Acetate 1,000 mcg/ 102 mls @ 5.1 mls/hr 02/02/25 11:30 02/03/25 08:29 Sodium Chloride IV 02/07/25 11:29 50 mcg/hr .Q20H SHANNAN 5.1 mls/hr Protocol Administration 50 MCG/HR Magnesium Sulfate 4 gm in 50 mls @ 12.5 mls/hr 02/03/25 07:49 02/03/25 08:29 Magnesium Sulfate Ivpb IV 02/03/25 11:48 12.5 mls/hr X1 ONE Administration Lactulose 40 gm 02/02/25 22:00 02/03/25 05:06 Lactulose Syrup 20 Gm/30 Ml Udc PO 03/03/25 21:59 40 gm TID SHANNAN Administration Protocol Midodrine 10 mg 02/01/25 23:40 02/03/25 05:06 Midodrine 5 Mg Tablet PO 03/03/25 23:39 10 mg TID SHANNAN Administration Ondansetron HCl 4 mg 02/01/25 22:27 02/02/25 21:06 Ondansetron Inj 2 Mg/Ml Inj 2 Ml IVP 03/03/25 22:26 4 mg Q6H PRN Administration NAUSEA OR VOMITING Protocol Pantoprazole Sodium 40 mg 02/02/25 21:00 02/03/25 08:29 Pantoprazole Inj 40 Mg Vial IVP 03/04/25 20:59 40 mg BID SHANNAN Administration Rifaximin 550 mg 02/01/25 22:45 02/03/25 08:30 Rifaximin 550 Mg Tablet PO 02/08/25 22:44 Not Given BID SHANNAN Plan This is a 64-year-old male with PMHx of end-stage liver disease, currently on a transplant list with [facility], and chronic venous insufficiency, presenting to ED with worsening nausea, vomiting, confusion, altered mental status, melena and blood streaked emesis since a few days ago. #Acute hepatic encephalopathy 2/2 elevated ammonia #Decompensated liver cirrhosis #Concern for recurrent ascites #Chronic hypotension #Thrombocytopenia #Elevated liver enzymes History of alcohol-related liver cirrhosis, presenting with nausea and vomiting, increased confusion, fatigue and generalized weakness. Vitals are at baseline and he has chronic hypotension requiring Midodrine. On admission, labs significant for ammonia of 93, chronic hyperbilirubinemia around 10, chronically elevated LFTs, and hypoalbuminemia. Exam showed slight effusion, bilateral extremity edema 2+, diffuse ascites, jaundice, scleral icterus, no asterixis noted. Platelets 71. Child-Daigle Score: 13 points, Child Class C. Life Expectancy : 1-3 years. MELD Score: 19.6%, Estimated 3-Month Mortality. Paracenthesis not indicated at this since not enough pocket of fluid was found by IR. Ammonia level improved to 45. Mentation improved from yesterday. Bowel movement not at goal. Plan: ? Continue Midodrine 10 mg TID, may increase to 15 TID as needed ? Continue Albumin infusions ? Holding diuresis, may resume diuresis if blood pressure allows ? Continue Rifaximin 550 mg BID ? Increase Lactulose to 60 mg orally TID for goal 3?5 BMs daily - Continue Octerotide infusion - Fluid restriction to 1500mL/day #Refractory nausea and vomiting Likely as a result of Lactulose, abdominal distention, and electrolyte disturbances. He is on home Reglan, usually symptoms are controlled however have worsened over the last few days. ? Continue with Zofran PRN #GI bleed, likely variceal bleed #Chronic macrocytic anemia, likely liver dysfunction #Chronic thrombocytopenia On last admission, he had anemia requiring transfusion. EGD then showed grade 3 esophageal varices requiring banding. He has been on FAMOTIDINE BID. However reports an episode of blood streaks emesis and new onset dark stool. Folate and B12 within normal limits. Coag panel is also baseline with INR 1.8. PLT 80 around baseline. Hgb 10.7-->10-->9.9 GI was consulted, plan for EGD later today to further investigate for any potential upper GI bleed. Plan: - EGD today with GI, Dr. Leyva ? Pending FOBT ? Transfuse if hemoglobin is less than 7 ? Continue Protonix 40 mg daily ? Consider starting Beta holly if BP tolerates (historically BP did not tolerate) #Hx E. coli SBP with bacteremia On last admission, presented with bacteremia and septic shock in settings of SBP E. coli. Since, has been on CIPROFLOXACIN 500 mg daily SBP prophylaxis. Currently afebrile, no leukocytosis. Abdomen is distended but nontender. Low suspicion for SBP at this point. ? Start Rocephin 1g qday for SBP prophylaxis Mild metabolic hyponatremia (improved) Sodium 129 with serum osmolarity of 259, suggestive of hypovolemia in settings of decompensated cirrhosis and third spacing. Sodium improved to 134. Plan: ? Anticipate improvement with intravascular fluid optimization as above ? Fluid restriction to 1500 as above Hospital management: Lines: peripheral IV Diet: NPO DVT prophylaxis: SCDs Disposition: Acute hepatic encephalopathy management CODE STATUS: Full code Case was discussed with attending physician Dr. Oglesby and senior residents Drs. Reynolds and Harsha. Nestor Bonilla, DO PGY-1 Attending Provider Attestation/Addendum I have examined the patient, reviewed labs and imaging findings, discussed the case with the resident(s), and reviewed entered orders. I agree with the plan of care as outlined in this note, with these additional summaries/recommendations: Patient seen at bedside. No acute overnight events. Patient's mental status has moderately improved from yesterday although encephalopathy has not resolved. Encephalopathy secondary to hepatic encephalopathy. Currently grade 1. Continue lactulose and rifaximin. Titrate lactulose to 2-3 bowel movements a day. Frequent reorientation and monitor for improvement. Patient also suspected of having GI bleed as he endorsed an episode of emesis with blood. Continue octreotide, Protonix, and consult gastroenterology. Continue IV Rocephin. Avoid chemical anticoagulation. Patient has decompensated cirrhosis and is currently on transplant list at [facility]. Avoid hepatotoxic agents and hepatically dose medications. Outpatient follow-up at [facility] for liver transplant. Low-salt diet, fluid restriction, and outpatient vaccine series. Patient noted to have ascites and although ultrasound did not reveal enough drainable peritoneal fluid. Low suspicion for SBP at this time. Please see residents note for additional details and management. Repeat hematology and chemistry panel in AM. Dr. Reny MD
--- NOTE | 2025-02-03 14:56 | PC.SS ---
SS follow up note; EGD pending, patient will discharge home within Possible 2 days.
--- NOTE | 2025-02-03 15:56 | SUR.PHASEI ---
1551 To PACU able to lift head off of pillow, following simple commands continue to monitor pt vitals signs and status.
--- NOTE | 2025-02-03 16:38 | SUR.PHASEI ---
1630 Awake, alert, transfer to room 364 in stable condition, no complaints, no s/s of distress noted vitals stable.
[2025-02-03] MEDS: LACTULOSE SYRUP 20 GM/30 ML UDC 60 GM PO (21:37)
[2025-02-04] VITALS (10 sets, daily range): BP systolic 97–127; BP diastolic 70–90; PULSE 78–107; RESP 13–96; TEMP 36.1–36.7; O2SAT 95–99
[2025-02-04] MEDS: OCTREOTIDE ACET INJ 1,000 MCG in SODIUM CHLORIDE 0.9% 100 ML 5.1 MCG IV (05:01)
[2025-02-04] MEDS: LACTULOSE SYRUP 20 GM/30 ML UDC 60 GM PO ×3 (05:01→22:11)
[2025-02-04] MEDS: MIDODRINE 5 MG TABLET 10 MG PO ×2 (05:01→22:09)
[2025-02-04 06:39] LABS: Basophils # (Auto) 0.1 Thou/mm3 (0.0-0.2); Basophils % (Auto) 1 % (0-2.5); Eosinophils # (Auto) 0.1 Thou/mm3 (0.0-0.5); Eosinophils % (Auto) 2 % (0-10); Hematocrit 32.2 % (41.0-53.0); Hemoglobin 10.9 g/dL (13.5-16.0); Immature Granulocytes Auto 0.05 Thou/mm3 (0.00-0.00); Lymphocytes # (Auto) 0.4 Thou/mm3 (1.0-4.8); Lymphocytes % (Auto) 9 % (10-50); Mean Corpuscular HGB Conc 33.9 g/dl (31.0-37.0); Mean Corpuscular Hemoglobin 36.6 pg (25.0-35.0); Mean Corpuscular Volume 108 fL (80-100); Monocytes # (Auto) 0.4 Thou/mm3 (0.0-0.8); Monocytes % (Auto) 10 % (0-12); Neutrophils # (Auto) 3.3 Thou/mm3 (1.8-7.7); Neutrophils % (Auto) 76 % (37-80); Nucleated Red Blood Cell # 0.00 Thou/mm3 (0.00-0.00); Nucleated Red Blood Cell % 0 /100 WBC (0); RDW Standard Deviation 57.2 fL (35.1-43.9); Red Blood Count 2.98 Miln/mm3 (4.50-5.90); White Blood Count 4.3 Thou/mm3 (3.8-10.6)
[2025-02-04 06:46] LABS: Platelet Count 65 Thou/mm3 (140-440)
[2025-02-04 06:55] LABS: Ammonia 37 uMol/L (11-32)
[2025-02-04 07:19] LABS: Alanine Aminotransferase 55 U/L (10-49); Albumin, Serum 2.5 gm/dL (3.4-4.8); Albumin/Globulin Ratio 0.6 (1.2-2.2); Alkaline Phosphatase 108 U/L (46-116); Anion Gap 12 (7-16); Aspartate Amino Transferase 86 U/L (0-34); BUN/Creatinine Ratio 11 Ratio (12-20); Bilirubin,Total 16.6 mg/dL (0.3-1.2); Blood Urea Nitrogen 8 mg/dL (9-23); Calcium 9.4 mg/dL (8.3-10.6); Calcium (Corrected) 10.6 mg/dL (8.5-10.1); Carbon Dioxide 20.5 mMol/L (20.0-31.0); Chloride 100 mMol/L (98-107); Creatinine (Component) 0.7 mg/dL (0.6-1.3); Estimated Creatinine Clearance 111.5 mL/min (>60); Globulin 4.3 gm/dL (2.3-3.5); Glucose 162 mg/dL (74-106); Magnesium 1.5 mg/dL (1.6-2.6); Osmolality,Calculated 266 (275-295); Phosphorous 3.1 mg/dL (2.4-5.1); Potassium 4.7 mMol/L (3.4-5.1); Sodium 132 mMol/L (136-145); Total Protein 6.8 gm/dL (5.7-8.2); eGFR > 60 See Note
[2025-02-04 08:01] LABS: Slide Review Platelets confirmed
[2025-02-04] MEDS: cefTRIAXone/D5w 1gm IV premix 1 GM/50 ML BAG IV (08:32)
[2025-02-04] MEDS: Magnesium Sulfate 4 GM Ivpb 4 GM/50 ML BAG IV (08:32)
--- NOTE | 2025-02-04 08:40 | ESPR_ITS ---
<Statement entered by Josie Mcleod MD - 02/04/25 15:19> Note reviewed, I agree with most of its contents and agree with the patient's care as documented by Dr. Bonilla. Patient examined at bedside. No events overnight. Has no major complaints EGD completed yesterday showed grade 2 esophageal varices which were banded. Recommendations to continue octreotide drip for total of 5 days. Per GI, patient should be evaluated for TIPS surgery to prevent recurrent rebleeds. The patient's management plan was discussed with my attending physician Dr. Oglesby. Josie Mcleod, PGY-2 <Statement entered by Althea Reynolds MD - 02/04/25 13:45> Patient seen and examined at bedside. No acute overnight events reported. Patient had EGD yesterday with Dr. Leyva, and was found to have grade 2 esophageal varices which were eradicated and banded. Patient will have to be on octreotide for total of 5 days, currently on daily to of treatment. I discussed with and supervised the actuarial intern physician who took care of this patient. I personally saw and examined the patient and discussed the assessment and plan with the entire medicine team, including my attending Dr. Oglesby, I agree with most of the assessment and plan as documented below Althea Reynolds M.D. PGY-3 Disclaimer: Despite multiple revisions, due to the dictation software being used, the document bellow may not be free of grammatical errors including phonetic/typographic errors. However, this does not deter from our commitment to providing health care in the patient's best interest in mind. Documentation for date of: 02/04/25 Subjective Subjective Interval history: 02/04/25: No overnight events. Vital signs remain stable. Patient was examined and evaluated at bedside. Patient's mentation continues to improve. Patient denies any abdominal pain. Patient does not have any complaints at this time. Patient underwent EGD with GI yesterday, grade II esophageal varices were found which were eradicated and banded. Also, gastritis with evidence of recent bleeding was noted. Exam Vital Signs Temp Pulse Resp BP Pulse Ox O2 Del Method O2 Flow Rate 97.5 F 78 20 120/70 97 Room Air 3 02/04/25 04:00 02/04/25 06:54 02/04/25 06:54 02/04/25 05:01 02/04/25 04:00 02/04/25 04:00 02/03/25 15:45 Narrative Exam GENERAL * Ill-appearing middle-age male, lethargic, no apparent distress. HEENT * NCAT. Oral mucosa is moist. Patent Nares NECK * Supple, nontender, no JVD. CV * RRR, no m/g/r Resp * CTAB, no w/r/r, symmetrical expansion. ABDOMEN * Soft, distended, nontender, positive fluid wave. No guarding/rebound tenderness/masses. EXTREMITIES * 2+ bilateral lower extremity edema, venous stasis changes, no ulceration. SKIN * Warm and dry. Diffuse jaundice, scleral icterus bilaterally. NEUROMUSCULAR * No lumbar or midline, no CVA, no paraspinal muscle spasm or tenderness. Moves all 4 extremities well, with full ROM and good CSM. AO x2, CN II-XII grossly intact. No focal neurologic deficits. PSYCHIATRY * Flat mood and affect, cooperative Objective Labs 02/05/25 05:23 02/05/25 05:23 Labs: Laboratory Results - last 24 hr 02/04/25 06:16 WBC 4.3 RBC 2.98 L Hgb 10.9 L Hct 32.2 L MCV 108 H MCH 36.6 H MCHC 33.9 RDW Std Deviation 57.2 H Plt Count 65 L Neut % (Auto) 76 Lymph % (Auto) 9 L [place] % (Auto) 10 Eos % (Auto) 2 Baso % (Auto) 1 Neut # (Auto) 3.3 Lymph # (Auto) 0.4 L [place] # (Auto) 0.4 Eos # (Auto) 0.1 Baso # (Auto) 0.1 Immature Gran # (Auto) 0.05 H Absolute Nucleated RBC 0.00 Immature Gran % 1 H Nucleated RBC % 0 Sodium 132 L Potassium 4.7 Chloride 100 Carbon Dioxide 20.5 Anion Gap 12 BUN 8 L Creatinine 0.7 Estim Creat Clear Calc 111.5 eGFR > 60 BUN/Creatinine Ratio 11 L Glucose 162 H Calculated Osmolality 266 L Calcium 9.4 Corrected Calcium 10.6 H Phosphorus 3.1 Magnesium 1.5 L Total Bilirubin 16.6 H D AST 86 H ALT 55 H Alkaline Phosphatase 108 Ammonia 37 H Total Protein 6.8 Albumin 2.5 L Globulin 4.3 H Albumin/Globulin Ratio 0.6 L Misc Test Result Platelets confirmed Quality Measures Quality Measures none Assessment & Plan Assessment Current Active Medications: Generic Name Dose Route Start Last Admin Trade Name Freq PRN Reason Stop Dose Admin Acetaminophen 650 mg 02/01/25 22:27 Acetaminophen 325 Mg Tablet PO 03/03/25 22:26 Q6H PRN Fever >101.5 or pain 1-3 Ceftriaxone Sodium/Dextrose 1 gm in 50 mls @ 100 mls/hr 02/02/25 11:05 02/04/25 08:32 Rocephin/D5w 1gm Iv Premix IV 02/09/25 11:04 100 mls/hr QDAY SHANNAN Administration Octreotide Acetate 1,000 mcg/ 102 mls @ 5.1 mls/hr 02/02/25 11:30 02/04/25 05:01 Sodium Chloride IV 02/07/25 11:29 50 mcg/hr .Q20H SHANNAN 5.1 mls/hr Protocol Administration 50 MCG/HR Magnesium Sulfate 4 gm in 50 mls @ 12.5 mls/hr 02/04/25 07:34 02/04/25 08:32 Magnesium Sulfate Ivpb IV 02/04/25 11:33 12.5 mls/hr X1 ONE Administration Lactulose 60 gm 02/03/25 14:00 02/04/25 05:01 Lactulose Syrup 20 Gm/30 Ml Udc PO 03/05/25 13:59 60 gm TID SHANNAN Administration Protocol Midodrine 10 mg 02/01/25 23:40 02/04/25 05:01 Midodrine 5 Mg Tablet PO 03/03/25 23:39 10 mg TID SHANNAN Administration Ondansetron HCl 4 mg 02/01/25 22:27 02/02/25 21:06 Ondansetron Inj 2 Mg/Ml Inj 2 Ml IVP 03/03/25 22:26 4 mg Q6H PRN Administration NAUSEA OR VOMITING Protocol Pantoprazole Sodium 40 mg 02/02/25 21:00 02/04/25 08:32 Pantoprazole Inj 40 Mg Vial IVP 03/04/25 20:59 40 mg BID SHANNAN Administration Rifaximin 550 mg 02/01/25 22:45 02/04/25 08:33 Rifaximin 550 Mg Tablet PO 02/08/25 22:44 550 mg BID SHANNAN Administration Plan This is a 64-year-old male with PMHx of end-stage liver disease, currently on a transplant list with [facility], and chronic venous insufficiency, presenting to ED with worsening nausea, vomiting, confusion, altered mental status, melena and blood streaked emesis since a few days ago. #Acute hepatic encephalopathy 2/2 elevated ammonia #Decompensated liver cirrhosis #Concern for recurrent ascites #Chronic hypotension #Thrombocytopenia #Elevated liver enzymes History of alcohol-related liver cirrhosis, presenting with nausea and vomiting, increased confusion, fatigue and generalized weakness. Vitals are at baseline and he has chronic hypotension requiring Midodrine. On admission, labs significant for ammonia of 93, chronic hyperbilirubinemia around 10, chronically elevated LFTs, and hypoalbuminemia. Exam showed slight effusion, bilateral extremity edema 2+, diffuse ascites, jaundice, scleral icterus, no asterixis noted. Platelets 65. Child-Daigle Score: 13 points, Child Class C. Life Expectancy : 1-3 years. MELD Score: 19.6%, Estimated 3-Month Mortality. Paracenthesis not indicated at this since not enough pocket of fluid was found by IR. Ammonia level continues to improve to 37. Mentation improved from yesterday. Currently with 2 bowel movements a day. Plan: ? Continue Midodrine 10 mg TID, may increase to 15 TID as needed ? Continue Albumin infusions ? Holding diuresis, may resume diuresis if blood pressure allows ? Continue Rifaximin 550 mg BID ? Continue Lactulose to 60 mg orally TID for goal 3?5 BMs daily - Continue Octerotide infusion for 5 days (started on 02/02/25) - Fluid restriction to 1500mL/day #Refractory nausea and vomiting Likely as a result of Lactulose, abdominal distention, and electrolyte disturbances. He is on home Reglan, usually symptoms are controlled however have worsened over the last few days. ? Continue with Zofran PRN #GI bleed #Grade II esophageal varices- eradicated and banded #Gastritis #Chronic macrocytic anemia, likely liver dysfunction #Chronic thrombocytopenia On last admission, he had anemia requiring transfusion. EGD then showed grade 3 esophageal varices requiring banding. He has been on FAMOTIDINE BID. However reports an episode of blood streaks emesis and new onset dark stool. Folate and B12 within normal limits. Coag panel is also baseline with INR 1.8. PLT 80 around baseline. Hgb 10.7-->10-->9.9-->10.9 GI was consulted, EGD was performed (02/03/25) which revealed grade II esophageal varices which were eradicated and banded. Also gastritis was noted with evidence of recent bleeding. Plan: - Clear liquid diet - Octreotide as above ? Transfuse if hemoglobin is less than 7 ? Continue Protonix 40 mg daily ? Consider starting Beta holly if BP tolerates (historically BP did not tolerate) #Hx E. coli SBP with bacteremia On last admission, presented with bacteremia and septic shock in settings of SBP E. coli. Since, has been on CIPROFLOXACIN 500 mg daily SBP prophylaxis. Currently afebrile, no leukocytosis. Abdomen is distended but nontender. Low suspicion for SBP at this point. ? Continue Rocephin 1g qday for SBP prophylaxis Mild metabolic hyponatremia (improved) Sodium 129 with serum osmolarity of 259, suggestive of hypovolemia in settings of decompensated cirrhosis and third spacing. Sodium improved to 134. Plan: ? Anticipate improvement with intravascular fluid optimization as above ? Fluid restriction to 1500 as above Hospital management: Lines: peripheral IV Diet: CLD DVT prophylaxis: SCDs Disposition: Acute hepatic encephalopathy management CODE STATUS: Full code Case was discussed with attending physician Dr. Oglesby and senior residents Drs. Reynolds and Harsha. Nestor Bonilla, PGY-1 Attending Provider Attestation/Addendum I have examined the patient, reviewed labs and imaging findings, discussed the case with the resident(s), and reviewed entered orders. I agree with the plan of care as outlined in this note, with these additional summaries/recommendations: Patient seen at bedside. No acute overnight events. Patient's mental status continues to improve. Encephalopathy secondary to hepatic encephalopathy. Currently grade 1. Continue lactulose and rifaximin. Titrate lactulose to 2-3 bowel movements a day. Frequent reorientation and monitor for improvement. Patient diagnosed with decompensated cirrhosis and GI bleed as he endorsed an episode of emesis with blood. Patient is status post EGD which revealed grade 2 esophageal varices which were completely eradicated. Per gastroenterology will continue octreotide for 5 days, clear liquid diet, and if patient bleeds again he will likely need transfer to a tertiary center for TIPS. Continue IV Rocephin. Avoid chemical anticoagulation. Patient has decompensated cirrhosis and is currently on transplant list at [facility]. Avoid hepatotoxic agents and hepatically dose medications. Outpatient follow-up at [facility] for liver transplant. Low-salt diet, fluid restriction, and outpatient vaccine series. Patient noted to have ascites and ultrasound did not reveal enough drainable peritoneal fluid. Low suspicion for SBP at this time. Please see residents note for additional details and management. Repeat hematology and chemistry panel in AM. Dr. Reny MD
--- NOTE | 2025-02-04 10:04 | PC.SS ---
Rounding: On Octreotide until 02/07. DC plan home
--- NOTE | 2025-02-04 21:30 | ESPR_ITS ---
Documentation for date of: 02/04/25 Subjective Subjective Interval history: Hemoglobin [place] are 10.9 and 33.2 status post dilatation of the esophageal varices Exam Vital Signs Temp Pulse Resp BP Pulse Ox O2 Del Method O2 Flow Rate 97.1 F 100 19 117/80 95 Room Air 3 02/04/25 20:00 02/04/25 20:00 02/04/25 20:00 02/04/25 20:00 02/04/25 20:00 02/04/25 20:00 02/03/25 15:45 Objective Labs 02/04/25 06:16 02/04/25 06:16 Labs: Laboratory Results - last 24 hr 02/04/25 06:16 WBC 4.3 RBC 2.98 L Hgb 10.9 L Hct 32.2 L MCV 108 H MCH 36.6 H MCHC 33.9 RDW Std Deviation 57.2 H Plt Count 65 L Neut % (Auto) 76 Lymph % (Auto) 9 L [place] % (Auto) 10 Eos % (Auto) 2 Baso % (Auto) 1 Neut # (Auto) 3.3 Lymph # (Auto) 0.4 L [place] # (Auto) 0.4 Eos # (Auto) 0.1 Baso # (Auto) 0.1 Immature Gran # (Auto) 0.05 H Absolute Nucleated RBC 0.00 Immature Gran % 1 H Nucleated RBC % 0 Sodium 132 L Potassium 4.7 Chloride 100 Carbon Dioxide 20.5 Anion Gap 12 BUN 8 L Creatinine 0.7 Estim Creat Clear Calc 111.5 eGFR > 60 BUN/Creatinine Ratio 11 L Glucose 162 H Calculated Osmolality 266 L Calcium 9.4 Corrected Calcium 10.6 H Phosphorus 3.1 Magnesium 1.5 L Total Bilirubin 16.6 H D AST 86 H ALT 55 H Alkaline Phosphatase 108 Ammonia 37 H Total Protein 6.8 Albumin 2.5 L Globulin 4.3 H Albumin/Globulin Ratio 0.6 L Misc Test Result Platelets confirmed Impressions Impression: Esophageal varices status post band ligation Gastric mucosal bleeding Continue octreotide infusion Assessment & Plan A&P Narrative # Hematemesis/melena in the setting of cirrhotic liver disease Differential diagnosis include esophageal varices bleeding versus hypertensive portal gastropathy and mucosal oozing of blood Also in the differential diagnosis Gaby-Toussaint tear as patient had nausea vomiting Plan Fiberoptic esophagogastroduodenoscopy with possible therapeutic intervention under intravenous moderate sedation Octreotide infusion IV Protonix Serial CBC Will follow the patient Thank you very much for the opportunity to participate in care of this patient Time Spent With Patient Time: Total time spent is greater than 50% in coordination of care (as documented) at patient's floor/unit and/or counseling patient:
[2025-02-05] VITALS (11 sets, daily range): BP systolic 94–113; BP diastolic 63–77; PULSE 74–109; RESP 14–95; TEMP 36.4–38.3; O2SAT 92–100
[2025-02-05] MEDS: OCTREOTIDE ACET INJ 1,000 MCG in SODIUM CHLORIDE 0.9% 100 ML 5.1 MCG IV ×2 (00:10→20:00)
[2025-02-05] MEDS: LACTULOSE SYRUP 20 GM/30 ML UDC 60 GM PO (05:39)
[2025-02-05] MEDS: MIDODRINE 5 MG TABLET 10 MG PO ×3 (05:39→21:14)
[2025-02-05 05:45] LABS: Basophils # (Auto) 0.0 Thou/mm3 (0.0-0.2); Basophils % (Auto) 1 % (0-2.5); Eosinophils # (Auto) 0.0 Thou/mm3 (0.0-0.5); Eosinophils % (Auto) 1 % (0-10); Hematocrit 25.5 % (41.0-53.0); Hemoglobin 8.8 g/dL (13.5-16.0); Immature Granulocytes Auto 0.03 Thou/mm3 (0.00-0.00); Lymphocytes # (Auto) 0.3 Thou/mm3 (1.0-4.8); Lymphocytes % (Auto) 9 % (10-50); Mean Corpuscular HGB Conc 34.5 g/dl (31.0-37.0); Mean Corpuscular Hemoglobin 36.5 pg (25.0-35.0); Mean Corpuscular Volume 106 fL (80-100); Monocytes # (Auto) 0.6 Thou/mm3 (0.0-0.8); Monocytes % (Auto) 17 % (0-12); Neutrophils # (Auto) 2.4 Thou/mm3 (1.8-7.7); Neutrophils % (Auto) 71 % (37-80); Nucleated Red Blood Cell # 0.00 Thou/mm3 (0.00-0.00); Nucleated Red Blood Cell % 0 /100 WBC (0); RDW Standard Deviation 54.9 fL (35.1-43.9); Red Blood Count 2.41 Miln/mm3 (4.50-5.90); White Blood Count 3.4 Thou/mm3 (3.8-10.6)
[2025-02-05 05:47] LABS: Platelet Count 54 Thou/mm3 (140-440)
[2025-02-05 06:08] LABS: Alanine Aminotransferase 46 U/L (10-49); Albumin, Serum 2.2 gm/dL (3.4-4.8); Albumin/Globulin Ratio 0.6 (1.2-2.2); Alkaline Phosphatase 90 U/L (46-116); Anion Gap 11 (7-16); Aspartate Amino Transferase 80 U/L (0-34); BUN/Creatinine Ratio 10 Ratio (12-20); Bilirubin,Total 10.7 mg/dL (0.3-1.2); Blood Urea Nitrogen 10 mg/dL (9-23); Calcium 8.9 mg/dL (8.3-10.6); Calcium (Corrected) 10.3 mg/dL (8.5-10.1); Carbon Dioxide 22.5 mMol/L (20.0-31.0); Chloride 97 mMol/L (98-107); Creatinine (Component) 1.0 mg/dL (0.6-1.3); Estimated Creatinine Clearance 78.1 mL/min (>60); Globulin 3.8 gm/dL (2.3-3.5); Glucose 156 mg/dL (74-106); Magnesium 1.7 mg/dL (1.6-2.6); Osmolality,Calculated 262 (275-295); Phosphorous 2.5 mg/dL (2.4-5.1); Potassium 4.8 mMol/L (3.4-5.1); Sodium 130 mMol/L (136-145); Total Protein 6.0 gm/dL (5.7-8.2); eGFR > 60 See Note
[2025-02-05 06:22] LABS: Slide Review Platelets confirmed
[2025-02-05] MEDS: cefTRIAXone/D5w 1gm IV premix 1 GM/50 ML BAG IV (08:29)
[2025-02-05] MEDS: Magnesium Sulfate 2 GM Ivpb 2 GM/50 ML BAG IV (09:24)
[2025-02-05] MEDS: LACTULOSE SYRUP 20 GM/30 ML UDC PO ×2 (14:11→21:14)
--- NOTE | 2025-02-05 14:34 | PC.SS ---
Rounding: On Octreotide until 02/07
--- NOTE | 2025-02-05 15:12 | PD.RESPRO ---
Documentation for date of: 02/05/25 Subjective Subjective Interval history: Patient examined at bedside. No events overnight. He was exhibiting involuntary shaking movements but denied any withdrawal type symptoms stating that last drink was few years ago. Mentation has improved, vitals are stable. Labs significant for downtrending hemoglobin 8.8 status post banding of grade 2 esophageal varices. Possible causes of anemia including microcytic anemia due to alcohol use history, iron deficiency anemia, GI recommends outpatient we transfer to tertiary care center for TIPS procedure in likelihood of rebleeding. Plan to continue octreotide drip for 2 more days and Protonix. Decrease lactulose from 60 3 times daily to 20 3 times daily with titrated to bowel movements. Exam Vital Signs Temp Pulse Resp BP Pulse Ox O2 Del Method O2 Flow Rate 98.6 F 109 H 18 106/69 92 L Room Air 3 02/05/25 12:00 02/05/25 14:11 02/05/25 12:00 02/05/25 14:11 02/05/25 12:00 02/05/25 12:00 02/03/25 15:45 Narrative Exam General: Ill appearing, No acute distress but noticeably involuntary shaking, cooperative , lethargic HEENT: NCAT, No JVD noted. Mucosa moist. Pupils are equal and reactive to light bilaterally. Scleral icterus Cardiovascular: Normal S1 and S2. Regular rate and rhythm. Respiratory: Lungs are clear to auscultation bilaterally. No wheezing or crackles heard. Abdomen: Soft, nontender, slight distension Skin: Warm to touch, dry, no rashes noted Musculoskeletal: 2+ bilateral lower extremity edema, venous stasis changes, no ulceration. Neuro: Alert and oriented x3. No focal neuro deficits. Psych: Normal affect and mood Objective Labs 02/06/25 04:58 02/06/25 04:58 Labs: Laboratory Results - last 24 hr 02/05/25 05:23 WBC 3.4 L RBC 2.41 L Hgb 8.8 L D Hct 25.5 L MCV 106 H MCH 36.5 H MCHC 34.5 RDW Std Deviation 54.9 H Plt Count 54 L Neut % (Auto) 71 Lymph % (Auto) 9 L [place] % (Auto) 17 H Eos % (Auto) 1 Baso % (Auto) 1 Neut # (Auto) 2.4 Lymph # (Auto) 0.3 L [place] # (Auto) 0.6 Eos # (Auto) 0.0 Baso # (Auto) 0.0 Immature Gran # (Auto) 0.03 H Absolute Nucleated RBC 0.00 Immature Gran % 1 H Nucleated RBC % 0 Sodium 130 L Potassium 4.8 Chloride 97 L Carbon Dioxide 22.5 Anion Gap 11 BUN 10 Creatinine 1.0 Estim Creat Clear Calc 78.1 eGFR > 60 BUN/Creatinine Ratio 10 L Glucose 156 H Calculated Osmolality 262 L Calcium 8.9 Corrected Calcium 10.3 H Phosphorus 2.5 Magnesium 1.7 Total Bilirubin 10.7 H D AST 80 H ALT 46 Alkaline Phosphatase 90 Total Protein 6.0 Albumin 2.2 L Globulin 3.8 H Albumin/Globulin Ratio 0.6 L Misc Test Result Platelets confirmed Quality Measures Quality Measures none Assessment & Plan Assessment Current Active Medications: Generic Name Dose Route Start Last Admin Trade Name Freq PRN Reason Stop Dose Admin Acetaminophen 650 mg 02/01/25 22:27 Acetaminophen 325 Mg Tablet PO 03/03/25 22:26 Q6H PRN Fever >101.5 or pain 1-3 Ceftriaxone Sodium/Dextrose 1 gm in 50 mls @ 100 mls/hr 02/02/25 11:05 02/05/25 08:29 Rocephin/D5w 1gm Iv Premix IV 02/09/25 11:04 100 mls/hr QDAY SHANNAN Administration Octreotide Acetate 1,000 mcg/ 102 mls @ 5.1 mls/hr 02/02/25 11:30 02/05/25 00:10 Sodium Chloride IV 02/07/25 11:29 50 mcg/hr .Q20H SHANNAN 5.1 mls/hr Protocol Administration 50 MCG/HR Lactulose 20 gm 02/05/25 14:00 02/05/25 14:11 Lactulose Syrup 20 Gm/30 Ml Udc PO 03/07/25 13:59 20 gm TID SHANNAN Administration Protocol Midodrine 10 mg 02/01/25 23:40 02/05/25 14:11 Midodrine 5 Mg Tablet PO 03/03/25 23:39 10 mg TID SHANNAN Administration Ondansetron HCl 4 mg 02/01/25 22:27 02/02/25 21:06 Ondansetron Inj 2 Mg/Ml Inj 2 Ml IVP 03/03/25 22:26 4 mg Q6H PRN Administration NAUSEA OR VOMITING Protocol Pantoprazole Sodium 40 mg 02/02/25 21:00 02/05/25 08:29 Pantoprazole Inj 40 Mg Vial IVP 03/04/25 20:59 40 mg BID SHANNAN Administration Rifaximin 550 mg 02/01/25 22:45 02/05/25 08:29 Rifaximin 550 Mg Tablet PO 02/08/25 22:44 550 mg BID SHANNAN Administration Plan This is a 64-year-old male with PMHx of end-stage liver disease, currently on a transplant list with Oneil, and chronic venous insufficiency, presenting to ED with worsening nausea, vomiting, confusion, altered mental status, melena and blood streaked emesis since a few days ago. #Acute hepatic encephalopathy (resolving) 2/2 elevated ammonia #Decompensated liver cirrhosis #Concern for recurrent ascites #Chronic hypotension #Thrombocytopenia #Transamninitis History of alcohol-related liver cirrhosis, presenting with nausea and vomiting, increased confusion, fatigue and generalized weakness. Vitals are at baseline and he has chronic hypotension requiring Midodrine. On admission, labs significant for ammonia of 93, chronic hyperbilirubinemia around 10, chronically elevated LFTs, and hypoalbuminemia. Exam showed slight effusion, bilateral extremity edema 2+, diffuse ascites, jaundice, scleral icterus, no asterixis noted. Platelets 65. Child-Daigle Score: 13 points, Child Class C. Life Expectancy : 1-3 years. MELD Score: 19.6%, Estimated 3-Month Mortality. Paracenthesis not indicated at this since not enough pocket of fluid was found by IR. Ammonia level continues to improve to 37. Mentation improved from yesterday. Currently with 2 bowel movements a day. Plan: ? Continue Midodrine 10 mg TID, may increase to 15 TID as needed ? Continue Albumin infusions ? Holding diuresis, may resume diuresis if blood pressure allows ? Continue Rifaximin 550 mg BID ? Continue Lactulose to 60 mg orally TID for goal 3?5 BMs daily - Continue Octerotide infusion for 5 days (started on 02/02/25) - Fluid restriction to 1500mL/day ? Continue Rocephin 1g qday for SBP prophylaxis #GI bleed #Grade II esophageal varices- eradicated and banded #Gastritis #Macrocytic anemia On last admission, he had anemia requiring transfusion. EGD then showed grade 3 esophageal varices requiring banding. He has been on FAMOTIDINE BID. However reports an episode of blood streaks emesis and new onset dark stool. Folate and B12 within normal limits. Coag panel is also baseline with INR 1.8. PLT 80 around baseline. Hgb 10.7-->10-->9.9-->10.9 GI was consulted, EGD was performed (02/03/25) which revealed grade II esophageal varices which were eradicated and banded. Also gastritis was noted with evidence of recent bleeding. Plan: - Clear liquid diet - Octreotide as above ? Transfuse if hemoglobin is less than 7 ? Continue Protonix 40 mg daily ? Consider starting Beta holly if BP tolerates (historically BP did not tolerate) Mild metabolic hyponatremia (improved) Sodium 129 with serum osmolarity of 259, suggestive of hypovolemia in settings of decompensated cirrhosis and third spacing. Sodium improved to 134. ? Anticipate improvement with intravascular fluid optimization as above Hospital management: Diet: renal DVT prophylaxis: SCDs Disposition: Acute hepatic encephalopathy management CODE STATUS: Full code Case was discussed with attending physician Dr. Oglesby. Josie Mcleod, PGY2 Attending Provider Attestation/Addendum I have examined the patient, reviewed labs and imaging findings, discussed the case with the resident(s), and reviewed entered orders. I agree with the plan of care as outlined in this note, with these additional summaries/recommendations: Patient seen at bedside. No acute overnight events. Patient's mental status continues to improve although patient continues to have a significant tremor. Encephalopathy secondary to hepatic encephalopathy. Currently grade 1. Continue lactulose and rifaximin. Decrease lactulose as patient had 5 bowel movements in last 24 hours. Titrate lactulose to 2-3 bowel movements a day. Frequent reorientation and monitor for improvement. Patient diagnosed with decompensated cirrhosis and GI bleed as he endorsed an episode of emesis with blood. Patient is status post EGD which revealed grade 2 esophageal varices which were completely eradicated. Per gastroenterology will continue octreotide for 5 days and if patient bleeds again he will likely need transfer to a tertiary center for TIPS. Continue IV Rocephin. Hemoglobin did decrease today although no evidence of rebleeding at this time, we will continue to monitor closely. Avoid chemical anticoagulation. Patient has decompensated cirrhosis and is currently on transplant list at [facility]. Avoid hepatotoxic agents and hepatically dose medications. Outpatient follow-up at [facility] for liver transplant. Low-salt diet, fluid restriction, and outpatient vaccine series. Patient noted to have ascites and ultrasound did not reveal enough drainable peritoneal fluid. Low suspicion for SBP at this time. Please see residents note for additional details and management. Repeat hematology and chemistry panel in AM. Dr. Reny MD
--- NOTE | 2025-02-05 18:30 | PD.IMPROG ---
Documentation for date of: 02/05/25 Subjective Subjective Interval history: Patient evaluated at downward trending hemoglobin hematocrit to 8.8 and 25.5 It was 10.9 and 32.2 yesterday patient underwent upper endoscopy yesterday requiring band ligation of the esophageal varices in total 2 bands were put in There were retana red spots on the varices suggestive of recent GI bleed Exam Vital Signs Temp Pulse Resp BP Pulse Ox O2 Del Method O2 Flow Rate 98.6 F 109 H 18 106/69 92 L Room Air 3 02/05/25 12:00 02/05/25 14:11 02/05/25 12:00 02/05/25 14:11 02/05/25 12:00 02/05/25 12:00 02/03/25 15:45 Objective Labs 02/05/25 05:23 02/05/25 05:23 Labs: Laboratory Results - last 24 hr 02/05/25 05:23 WBC 3.4 L RBC 2.41 L Hgb 8.8 L D Hct 25.5 L MCV 106 H MCH 36.5 H MCHC 34.5 RDW Std Deviation 54.9 H Plt Count 54 L Neut % (Auto) 71 Lymph % (Auto) 9 L [place] % (Auto) 17 H Eos % (Auto) 1 Baso % (Auto) 1 Neut # (Auto) 2.4 Lymph # (Auto) 0.3 L [place] # (Auto) 0.6 Eos # (Auto) 0.0 Baso # (Auto) 0.0 Immature Gran # (Auto) 0.03 H Absolute Nucleated RBC 0.00 Immature Gran % 1 H Nucleated RBC % 0 Sodium 130 L Potassium 4.8 Chloride 97 L Carbon Dioxide 22.5 Anion Gap 11 BUN 10 Creatinine 1.0 Estim Creat Clear Calc 78.1 eGFR > 60 BUN/Creatinine Ratio 10 L Glucose 156 H Calculated Osmolality 262 L Calcium 8.9 Corrected Calcium 10.3 H Phosphorus 2.5 Magnesium 1.7 Total Bilirubin 10.7 H D AST 80 H ALT 46 Alkaline Phosphatase 90 Total Protein 6.0 Albumin 2.2 L Globulin 3.8 H Albumin/Globulin Ratio 0.6 L Misc Test Result Platelets confirmed Impressions Impression: # Esophageal varices status post band ligation # Gastritis with hypertensive portal gastropathy Continue octreotide infusion and advance diet as tolerated Assessment & Plan A&P Narrative # Hematemesis/melena in the setting of cirrhotic liver disease Differential diagnosis include esophageal varices bleeding versus hypertensive portal gastropathy and mucosal oozing of blood Also in the differential diagnosis Gaby-Toussaint tear as patient had nausea vomiting Plan Fiberoptic esophagogastroduodenoscopy with possible therapeutic intervention under intravenous moderate sedation Octreotide infusion IV Protonix Serial CBC Will follow the patient Thank you very much for the opportunity to participate in care of this patient Time Spent With Patient Time: Total time spent is greater than 50% in coordination of care (as documented) at patient's floor/unit and/or counseling patient:
[2025-02-06] VITALS (19 sets, daily range): BP systolic 73–107; BP diastolic 43–66; PULSE 46–84; RESP 15–20; TEMP 36.1–37; O2SAT 92–100
[2025-02-06] MEDS: MIDODRINE 5 MG TABLET 10 MG PO ×2 (05:20→07:44)
[2025-02-06] MEDS: LACTULOSE SYRUP 20 GM/30 ML UDC PO ×2 (05:20→13:31)
[2025-02-06] MEDS: MIDODRINE 5 MG TABLET PO (05:42)
[2025-02-06] MEDS: ALBUMIN HUMAN 25% IVPB 12.5 GM/50 ML BTL IV (05:43)
[2025-02-06 06:22] LABS: Basophils # (Auto) 0.0 Thou/mm3 (0.0-0.2); Basophils % (Auto) 0 % (0-2.5); Eosinophils # (Auto) 0.0 Thou/mm3 (0.0-0.5); Eosinophils % (Auto) 0 % (0-10); Hematocrit 21.5 % (41.0-53.0); Immature Granulocytes Auto 0.03 Thou/mm3 (0.00-0.00); Lymphocytes # (Auto) 0.8 Thou/mm3 (1.0-4.8); Lymphocytes % (Auto) 17 % (10-50); Mean Corpuscular HGB Conc 34.4 g/dl (31.0-37.0); Mean Corpuscular Hemoglobin 36.8 pg (25.0-35.0); Mean Corpuscular Volume 107 fL (80-100); Monocytes # (Auto) 0.5 Thou/mm3 (0.0-0.8); Monocytes % (Auto) 12 % (0-12); Neutrophils # (Auto) 3.1 Thou/mm3 (1.8-7.7); Neutrophils % (Auto) 70 % (37-80); Nucleated Red Blood Cell # 0.00 Thou/mm3 (0.00-0.00); Nucleated Red Blood Cell % 0 /100 WBC (0); RDW Standard Deviation 56.0 fL (35.1-43.9); Red Blood Count 2.01 Miln/mm3 (4.50-5.90); White Blood Count 4.4 Thou/mm3 (3.8-10.6)
[2025-02-06 06:34] LABS: Hemoglobin 7.4 g/dL (13.5-16.0); Platelet Count 55 Thou/mm3 (140-440)
[2025-02-06 07:07] LABS: Slide Review Platelets confirmed
[2025-02-06 07:12] LABS: Alanine Aminotransferase 38 U/L (10-49); Albumin, Serum 1.8 gm/dL (3.4-4.8); Albumin/Globulin Ratio 0.5 (1.2-2.2); Alkaline Phosphatase 83 U/L (46-116); Anion Gap 9 (7-16); Aspartate Amino Transferase 92 U/L (0-34); BUN/Creatinine Ratio 12 Ratio (12-20); Bilirubin,Total 5.5 mg/dL (0.3-1.2); Blood Urea Nitrogen 13 mg/dL (9-23); Calcium 8.3 mg/dL (8.3-10.6); Calcium (Corrected) 10.1 mg/dL (8.5-10.1); Carbon Dioxide 23.1 mMol/L (20.0-31.0); Chloride 96 mMol/L (98-107); Creatinine (Component) 1.1 mg/dL (0.6-1.3); Estimated Creatinine Clearance 71.0 mL/min (>60); Globulin 3.5 gm/dL (2.3-3.5); Glucose 141 mg/dL (74-106); Magnesium 1.8 mg/dL (1.6-2.6); Osmolality,Calculated 259 (275-295); Phosphorous 2.6 mg/dL (2.4-5.1); Potassium 4.9 mMol/L (3.4-5.1); Sodium 128 mMol/L (136-145); Total Protein 5.3 gm/dL (5.7-8.2); eGFR > 60 See Note
[2025-02-06] MEDS: ALBUMIN HUMAN 25% IVPB 25 GM/100 ML BTL IV (07:44)
[2025-02-06] MEDS: RINGERS LACTATED 1000 ML 1,000 ML 999 ML IV (07:45)
[2025-02-06 07:49] LABS: Lactate (Lactic Acid) 2.8 mMol/L (0.4-2.0)
--- NOTE | 2025-02-06 08:07 | PC.NURSE ---
called a rapid response for low bp. patient transfered to tele.
--- NOTE | 2025-02-06 08:12 | PD.RESEVENT ---
Documentation for date of: 02/06/25 Event Note Event Note: Rapid response was called at 7:27 AM for acute change in blood pressure. MAP at that time was below 65, however patient was alert and oriented x 3 denied any pain or showed any distress. Patient's labs were significant for decrease in hemoglobin from 10.7 to now 7.4 this morning. Gave patient an additional midodrine 10 mg this morning along with another push of albumin 25 g and half a liter LR bolus. Will also transfuse 1 unit of RBCs and check hemoglobin prior to transfusing another unit of blood. Lactic acid was ordered and was 2.8. Patient was also on med/tele and will upgrade patient to telemetry. Patient's plan and care discussed with my attending, Dr. Reny Reynolds MD PGY-3
--- NOTE | 2025-02-06 09:50 | PD.RESPRO ---
Documentation for date of: 02/06/25 Subjective Subjective Interval history: No acute overnight events reported. Pt seen and examined at bedside status post rapid response around 830 this morning. Pt denies any shaking, feeling cold or having any pain in his abdomen. Patient's lower extremity swelling continues to be present but does not appear to be worsened status post his half liter LR bolus infusion, albumin 25% infusion, and blood transfusion. Patient already received 1 unit of RBC, and pending repeat H&H prior to starting next transfusion. Ordered a total of 2 RBC, and currently 1 is transfused and pending transfusion of the second unit status post repeat H&H. Will have night team follow-up with all the results. Reached out to Dr. Leyva GI and recommended patient have a repeat EGD status post octreotide infusion. Recommended that if patient needed a TIPS procedure, he would have to do a repeat EGD to see how the current gastric mucosa appears. Per nurse and patient, patient denies having any hematemesis or dark tarry stools. Exam Vital Signs Temp Pulse Resp BP Pulse Ox O2 Del Method O2 Flow Rate 98.6 F 62 17 84/54 L 94 L Nasal Cannula 2 02/06/25 08:00 02/06/25 08:00 02/06/25 08:00 02/06/25 08:00 02/06/25 08:00 02/06/25 08:00 02/06/25 08:00 Narrative Exam General: Ill appearing, No acute distress, cooperative, more alert today HEENT: NCAT, No JVD noted. Mucosa moist. Pupils are equal and reactive to light bilaterally. Scleral icterus Cardiovascular: Normal S1 and S2. Regular rate and rhythm. Respiratory: Lungs are clear to auscultation bilaterally. No wheezing or crackles heard. Abdomen: Soft, nontender, slight distension Skin: Warm to touch, dry, no rashes noted Musculoskeletal: 2+ bilateral lower extremity edema, venous stasis changes, no ulceration. Neuro: Alert and oriented x3. No focal neuro deficits. Psych: Normal affect and mood Objective Labs 02/07/25 05:05 02/07/25 05:05 Labs: Laboratory Results - last 24 hr 02/06/25 02/06/25 04:58 07:33 WBC 4.4 RBC 2.01 L Hgb 7.4 L Hct 21.5 L* MCV 107 H MCH 36.8 H MCHC 34.4 RDW Std Deviation 56.0 H Plt Count 55 L Neut % (Auto) 70 Lymph % (Auto) 17 [place] % (Auto) 12 Eos % (Auto) 0 Baso % (Auto) 0 Neut # (Auto) 3.1 Lymph # (Auto) 0.8 L [place] # (Auto) 0.5 Eos # (Auto) 0.0 Baso # (Auto) 0.0 Immature Gran # (Auto) 0.03 H Absolute Nucleated RBC 0.00 Immature Gran % 1 H Nucleated RBC % 0 Sodium 128 L Potassium 4.9 Chloride 96 L Carbon Dioxide 23.1 Anion Gap 9 BUN 13 Creatinine 1.1 Estim Creat Clear Calc 71.0 eGFR > 60 BUN/Creatinine Ratio 12 Glucose 141 H Calculated Osmolality 259 L Lactic Acid 2.8 H Calcium 8.3 Corrected Calcium 10.1 Phosphorus 2.6 Magnesium 1.8 Total Bilirubin 5.5 H D AST 92 H ALT 38 Alkaline Phosphatase 83 Total Protein 5.3 L Albumin 1.8 L Globulin 3.5 Albumin/Globulin Ratio 0.5 L Misc Test Result Platelets confirmed Blood Type O Positive Antibody Screen NEGATIVE Crossmatch See Detail Blood Bank Wristband ID Yes Quality Measures Quality Measures none Assessment & Plan Assessment Current Active Medications: Generic Name Dose Route Start Last Admin Trade Name Freq PRN Reason Stop Dose Admin Acetaminophen 650 mg 02/01/25 22:27 Acetaminophen 325 Mg Tablet PO 03/03/25 22:26 Q6H PRN Fever >101.5 or pain 1-3 Ceftriaxone Sodium/Dextrose 1 gm in 50 mls @ 100 mls/hr 02/02/25 11:05 02/05/25 08:29 Rocephin/D5w 1gm Iv Premix IV 02/09/25 11:04 100 mls/hr QDAY SHANNAN Administration Octreotide Acetate 1,000 mcg/ 102 mls @ 5.1 mls/hr 02/02/25 11:30 02/05/25 20:00 Sodium Chloride IV 02/07/25 11:29 50 mcg/hr .Q20H SHANNAN 5.1 mls/hr Protocol Administration 50 MCG/HR Lactulose 20 gm 02/05/25 14:00 02/06/25 05:20 Lactulose Syrup 20 Gm/30 Ml Udc PO 03/07/25 13:59 20 gm TID SHANNAN Administration Protocol Midodrine 10 mg 02/01/25 23:40 02/06/25 05:20 Midodrine 5 Mg Tablet PO 03/03/25 23:39 10 mg TID SHANNAN Administration Ondansetron HCl 4 mg 02/01/25 22:27 02/02/25 21:06 Ondansetron Inj 2 Mg/Ml Inj 2 Ml IVP 03/03/25 22:26 4 mg Q6H PRN Administration NAUSEA OR VOMITING Protocol Pantoprazole Sodium 40 mg 02/02/25 21:00 02/05/25 20:06 Pantoprazole Inj 40 Mg Vial IVP 03/04/25 20:59 40 mg BID SHANNAN Administration Rifaximin 550 mg 02/01/25 22:45 02/05/25 20:00 Rifaximin 550 Mg Tablet PO 02/08/25 22:44 550 mg BID SHANNAN Administration Plan This is a 64-year-old male with PMHx of end-stage liver disease, currently on a transplant list with [facility], and chronic venous insufficiency, presenting to ED with worsening nausea, vomiting, confusion, altered mental status, melena and blood streaked emesis since a few days ago. #Acute blood loss anemia #GI bleed #Grade II esophageal varices- eradicated and banded #Macrocytic anemia On last admission, he had anemia requiring transfusion. EGD then showed grade 3 esophageal varices requiring banding. He has been on FAMOTIDINE BID. However reports an episode of blood streaks emesis and new onset dark stool. Folate and B12 within normal limits. Coag panel is also baseline with INR 1.8. PLT 80 around baseline. Hgb 10.7-->10-->9.9-->10.9 GI was consulted, EGD was performed (02/03/25) which revealed grade II esophageal varices which were eradicated and banded. Also gastritis was noted with evidence of recent bleeding. Hemoglobin 02/06/2025 was 7.4 which is a 3 point drop from 2 days ago which was 10.9. ? Clear liquid diet ? Octreotide drip will finish 02/07/2025 ? Will transfuse if hemoglobin is less than 7 ? Continue Protonix 40 mg twice daily ? Consider starting Beta holly if BP tolerates (historically BP did not tolerate) ? GI, Leyva following, and may do another EGD in the next 24 hours to assess for possibility of TIPS procedure and transfer ? Continue to monitor for any signs of jr blood including hematemesis and jr blood in stool ? Pending repeat H&H from 1 unit transfusion from this morning, and if less than 7, 1 unit is ready to go for next transfusion ? Will run transfusion at a slower rate due to patient's decompensated liver cirrhosis to avoid any increase in patient's portal pressure #Acute hepatic encephalopathy (resolving) 2/2 elevated ammonia #Decompensated liver cirrhosis #Concern for recurrent ascites #Chronic hypotension #Thrombocytopenia #Transamninitis History of alcohol-related liver cirrhosis, presenting with nausea and vomiting, increased confusion, fatigue and generalized weakness. Vitals are at baseline and he has chronic hypotension requiring Midodrine. On admission, labs significant for ammonia of 93, chronic hyperbilirubinemia around 10, chronically elevated LFTs, and hypoalbuminemia. Exam showed slight effusion, bilateral extremity edema 2+, diffuse ascites, jaundice, scleral icterus, no asterixis noted. Platelets 65. Child-Daigle Score: 13 points, Child Class C. Life Expectancy : 1-3 years. MELD Score: 19.6%, Estimated 3-Month Mortality. Paracenthesis not indicated at this since not enough pocket of fluid was found by IR. Ammonia level continues to improve to 37. Mentation improved from yesterday. Currently with 2 bowel movements a day. ? Increased to midodrine 15 TID as needed ? Continue Albumin 25% infusions daily ? Holding diuresis, may resume diuresis if blood pressure allows ? Continue Rifaximin 550 mg BID ? Continue Lactulose decrease to 20 mg orally TID, however has not had a bowel movement today we will have to reassess and increase dose ? Continue Octerotide infusion for 5 days (started on 02/02/25) ? Fluid restriction to 1500mL/day ? Continue Rocephin 1g qday for SBP prophylaxis Mild metabolic hyponatremia-worsening Sodium 128 today with serum osmolarity of 259, suggestive of hypovolemia in settings of decompensated cirrhosis and third spacing. ? Anticipate improvement with intravascular fluid optimization as above Health Maintenance: DVT prophylaxis: SCDs Diet: Renal Mayo: No Lines: PIV Supplemental O2: None CODE STATUS: Full code Disposition: Pending octreotide infusion completion, possible EGD in the next 24 hours to assess whether TIPS procedure is needed immediately at a tertiary center. Patient's plan and care discussed with my attending, Dr. Reny Reynolds MD PGY-3 Attending Provider Attestation/Addendum I have examined the patient, reviewed labs and imaging findings, discussed the case with the resident(s), and reviewed entered orders. I agree with the plan of care as outlined in this note, with these additional summaries/recommendations: Patient seen at bedside. No acute overnight events. Patient had rapid response this morning for hypotension. MAP was noted in high 50s/low 60s. Patient did remain relatively asymptomatic. Patient does have underlying hypotension at baseline and on home midodrine. Etiology for hypotension today possibly related to chronic hypotension versus return of GI bleed versus intravascular volume depletion. Patient was given a small fluid bolus with improvement in blood pressure. Continue midodrine. Hemoglobin has decreased to 7.4 from 10.92 days prior. 1 unit PRBCs ordered. We will discuss case with gastroenterology. Patient's acute encephalopathy secondary to hepatic encephalopathy has mostly resolved. Currently grade 1. Continue lactulose and rifaximin. Titrate lactulose to 2-3 bowel movements a day. Patient diagnosed with decompensated cirrhosis and GI bleed as he endorsed an episode of emesis with blood. Patient is status post EGD which revealed grade 2 esophageal varices which were completely eradicated. Per gastroenterology will continue octreotide for 5 days and if patient bleeds again he will likely need transfer to a tertiary center for TIPS. Continue IV Rocephin. Hemoglobin did decrease today although no evidence of rebleeding at this time, we will continue to monitor closely. Avoid chemical anticoagulation. Patient has decompensated cirrhosis and is currently on transplant list at [facility]. Avoid hepatotoxic agents and hepatically dose medications. Outpatient follow-up at [facility] for liver transplant. Low-salt diet, fluid restriction, and outpatient vaccine series. Patient noted to have ascites and ultrasound did not reveal enough drainable peritoneal fluid. Low suspicion for SBP at this time. Please see residents note for additional details and management. Repeat hematology and chemistry panel in AM. Dr. Reny MD
[2025-02-06] MEDS: cefTRIAXone/D5w 1gm IV premix 1 GM/50 ML BAG IV (10:08)
[2025-02-06 10:45] LABS: Reflex Lactate? Y
[2025-02-06 12:26] LABS: Lactic Acid, 3 HR 2.8 mMol/L (0.4-2.0)
[2025-02-06] MEDS: MIDODRINE 5 MG TABLET 15 MG PO ×2 (13:31→21:58)
--- NOTE | 2025-02-06 16:59 | ESPR_ITS ---
Documentation for date of: 02/06/25 Subjective Subjective Interval history: Patient evaluated Downward trending hemoglobin hematocrit Repeat endoscopy in a.m. To see if one of the bands came off or patient having mucosal oozing of blood Continue octreotide infusion Exam Vital Signs Temp Pulse Resp BP Pulse Ox O2 Del Method O2 Flow Rate 97.2 F 58 L 18 107/66 97 Nasal Cannula 2 02/06/25 15:40 02/06/25 15:40 02/06/25 15:40 02/06/25 15:40 02/06/25 15:40 02/06/25 12:00 02/06/25 12:00 Objective Labs 02/06/25 04:58 02/06/25 04:58 Labs: Laboratory Results - last 24 hr 02/06/25 02/06/25 02/06/25 04:58 07:33 12:10 WBC 4.4 RBC 2.01 L Hgb 7.4 L Hct 21.5 L* MCV 107 H MCH 36.8 H MCHC 34.4 RDW Std Deviation 56.0 H Plt Count 55 L Neut % (Auto) 70 Lymph % (Auto) 17 [place] % (Auto) 12 Eos % (Auto) 0 Baso % (Auto) 0 Neut # (Auto) 3.1 Lymph # (Auto) 0.8 L [place] # (Auto) 0.5 Eos # (Auto) 0.0 Baso # (Auto) 0.0 Immature Gran # (Auto) 0.03 H Absolute Nucleated RBC 0.00 Immature Gran % 1 H Nucleated RBC % 0 Sodium 128 L Potassium 4.9 Chloride 96 L Carbon Dioxide 23.1 Anion Gap 9 BUN 13 Creatinine 1.1 Estim Creat Clear Calc 71.0 eGFR > 60 BUN/Creatinine Ratio 12 Glucose 141 H Calculated Osmolality 259 L Lactic Acid 2.8 H 2.8 H Calcium 8.3 Corrected Calcium 10.1 Phosphorus 2.6 Magnesium 1.8 Total Bilirubin 5.5 H D AST 92 H ALT 38 Alkaline Phosphatase 83 Total Protein 5.3 L Albumin 1.8 L Globulin 3.5 Albumin/Globulin Ratio 0.5 L Misc Test Result Platelets confirmed Blood Type O Positive Antibody Screen NEGATIVE Crossmatch See Detail Blood Bank Wristband ID Yes Impressions Impression: Downward trending hemoglobin hematocrit Plan N.p.o. Repeat endoscopy tomorrow Assessment & Plan A&P Narrative # Hematemesis/melena in the setting of cirrhotic liver disease Differential diagnosis include esophageal varices bleeding versus hypertensive portal gastropathy and mucosal oozing of blood Also in the differential diagnosis Gaby-Toussaint tear as patient had nausea vomiting Plan Fiberoptic esophagogastroduodenoscopy with possible therapeutic intervention under intravenous moderate sedation Octreotide infusion IV Protonix Serial CBC Will follow the patient Thank you very much for the opportunity to participate in care of this patient Time Spent With Patient Time: Total time spent is greater than 50% in coordination of care (as documented) at patient's floor/unit and/or counseling patient:
[2025-02-06 17:10] LABS: Hematocrit 25.8 % (41.0-53.0)
[2025-02-06 17:13] LABS: Hemoglobin 8.8 g/dL (13.5-16.0)
[2025-02-06] MEDS: OCTREOTIDE ACET INJ 1,000 MCG in SODIUM CHLORIDE 0.9% 100 ML 5.1 MCG IV (17:14)
[2025-02-06] MEDS: LACTULOSE SYRUP 20 GM/30 ML UDC 40 GM PO ×2 (18:10→22:01)
[2025-02-07] VITALS (24 sets, daily range): BP systolic 88–110; BP diastolic 59–74; PULSE 55–97; RESP 12–19; TEMP 36–36.6; O2SAT 95–100
[2025-02-07 05:32] LABS: Basophils # (Auto) 0.0 Thou/mm3 (0.0-0.2); Basophils % (Auto) 1 % (0-2.5); Eosinophils # (Auto) 0.1 Thou/mm3 (0.0-0.5); Eosinophils % (Auto) 4 % (0-10); Hematocrit 29.0 % (41.0-53.0); Hemoglobin 10.0 g/dL (13.5-16.0); Immature Granulocytes Auto 0.02 Thou/mm3 (0.00-0.00); Lymphocytes # (Auto) 0.7 Thou/mm3 (1.0-4.8); Lymphocytes % (Auto) 17 % (10-50); Mean Corpuscular HGB Conc 34.5 g/dl (31.0-37.0); Mean Corpuscular Hemoglobin 35.3 pg (25.0-35.0); Mean Corpuscular Volume 103 fL (80-100); Monocytes # (Auto) 0.5 Thou/mm3 (0.0-0.8); Monocytes % (Auto) 13 % (0-12); Neutrophils # (Auto) 2.5 Thou/mm3 (1.8-7.7); Neutrophils % (Auto) 65 % (37-80); Nucleated Red Blood Cell # 0.00 Thou/mm3 (0.00-0.00); Nucleated Red Blood Cell % 0 /100 WBC (0); RDW Standard Deviation 61.6 fL (35.1-43.9); Red Blood Count 2.83 Miln/mm3 (4.50-5.90); White Blood Count 3.9 Thou/mm3 (3.8-10.6)
[2025-02-07 06:01] LABS: Alanine Aminotransferase 50 U/L (10-49); Albumin, Serum 2.1 gm/dL (3.4-4.8); Albumin/Globulin Ratio 0.7 (1.2-2.2); Alkaline Phosphatase 82 U/L (46-116); Anion Gap 9 (7-16); Aspartate Amino Transferase 114 U/L (0-34); BUN/Creatinine Ratio 11 Ratio (12-20); Bilirubin,Total 5.0 mg/dL (0.3-1.2); Blood Urea Nitrogen 11 mg/dL (9-23); Calcium 8.6 mg/dL (8.3-10.6); Calcium (Corrected) 10.1 mg/dL (8.5-10.1); Carbon Dioxide 22.1 mMol/L (20.0-31.0); Chloride 98 mMol/L (98-107); Creatinine (Component) 1.0 mg/dL (0.6-1.3); Estimated Creatinine Clearance 78.1 mL/min (>60); Globulin 3.2 gm/dL (2.3-3.5); Glucose 105 mg/dL (74-106); Magnesium 1.7 mg/dL (1.6-2.6); Osmolality,Calculated 258 (275-295); Phosphorous 2.7 mg/dL (2.4-5.1); Potassium 5.1 mMol/L (3.4-5.1); Sodium 129 mMol/L (136-145); Total Protein 5.3 gm/dL (5.7-8.2); eGFR > 60 See Note
[2025-02-07] MEDS: MIDODRINE 5 MG TABLET 15 MG PO ×3 (06:12→22:03)
[2025-02-07] MEDS: LACTULOSE SYRUP 20 GM/30 ML UDC 40 GM PO (06:13)
[2025-02-07 07:35] LABS: Platelet Count 43 Thou/mm3 (140-440); Slide Review Platelets confirmed
[2025-02-07] MEDS: cefTRIAXone/D5w 1gm IV premix 1 GM/50 ML BAG IV (08:52)
[2025-02-07] MEDS: ALBUMIN HUMAN 25% IVPB 25 GM/100 ML BTL IV (10:08)
[2025-02-07] MEDS: Magnesium Sulfate 2 GM Ivpb 2 GM/50 ML BAG IV (11:20)
--- NOTE | 2025-02-07 14:39 | PD.RESPRO ---
Documentation for date of: 02/07/25 Subjective Subjective Interval history: Patient examined at bedside. No events overnight. Patient has no major complaints stated that he had bowel movement this morning with no noticeable blood in the stool. Vitals are stable hemoglobin 10 this morning after receiving 1 unit PRBC transfusion yesterday. Sodium 129, potassium 5.1. Hyponatremia possibly in setting of decompensated liver cirrhosis. Continue to monitor. Currently n.p.o. for EGD today to reevaluate for any rebleeding of esophageal varices. Monitor hemoglobin and plan for transfusion if less than 7. Today is last day of octreotide drip. Pending EGD results patient may need transfer of care for treatment of TIPS. He is currently on the liver transplant list at [place]. Continue midodrine and decrease lactulose to 20 TID. Exam Vital Signs Temp Pulse Resp BP Pulse Ox O2 Del Method O2 Flow Rate 96.9 F 67 15 91/59 L 96 Room Air 2 02/07/25 08:00 02/07/25 14:04 02/07/25 08:00 02/07/25 14:04 02/07/25 08:00 02/07/25 08:00 02/06/25 12:00 Narrative Exam General: Ill appearing, No acute distress, cooperative, more alert today HEENT: NCAT, No JVD noted. Mucosa moist. Pupils are equal and reactive to light bilaterally. Scleral icterus Cardiovascular: Normal S1 and S2. Regular rate and rhythm. Respiratory: Lungs are clear to auscultation bilaterally. No wheezing or crackles heard. Abdomen: Soft, nontender, slight distension Skin: Warm to touch, dry, no rashes noted Musculoskeletal: 2+ bilateral lower extremity edema, venous stasis changes, no ulceration. Neuro: Alert and oriented x3. No focal neuro deficits. Psych: Normal affect and mood Objective Labs 02/07/25 05:05 02/07/25 05:05 Labs: Laboratory Results - last 24 hr 02/06/25 02/06/25 02/07/25 07:33 16:49 05:05 WBC 3.9 RBC 2.83 L Hgb 8.8 L 10.0 L Hct 25.8 L 29.0 L MCV 103 H MCH 35.3 H MCHC 34.5 RDW Std Deviation 61.6 H Plt Count 43 L D Neut % (Auto) 65 Lymph % (Auto) 17 [place] % (Auto) 13 H Eos % (Auto) 4 Baso % (Auto) 1 Neut # (Auto) 2.5 Lymph # (Auto) 0.7 L [place] # (Auto) 0.5 Eos # (Auto) 0.1 Baso # (Auto) 0.0 Immature Gran # (Auto) 0.02 H Absolute Nucleated RBC 0.00 Immature Gran % 1 H Nucleated RBC % 0 Sodium 129 L Potassium 5.1 Chloride 98 Carbon Dioxide 22.1 Anion Gap 9 BUN 11 Creatinine 1.0 Estim Creat Clear Calc 78.1 eGFR > 60 BUN/Creatinine Ratio 11 L Glucose 105 Calculated Osmolality 258 L Calcium 8.6 Corrected Calcium 10.1 Phosphorus 2.7 Magnesium 1.7 Total Bilirubin 5.0 H D AST 114 H ALT 50 H Alkaline Phosphatase 82 Total Protein 5.3 L Albumin 2.1 L Globulin 3.2 Albumin/Globulin Ratio 0.7 L Misc Test Result Platelets confirmed Crossmatch See Detail Quality Measures Quality Measures none Assessment & Plan Assessment Current Active Medications: Generic Name Dose Route Start Last Admin Trade Name Freq PRN Reason Stop Dose Admin Acetaminophen 650 mg 02/01/25 22:27 Acetaminophen 325 Mg Tablet PO 03/03/25 22:26 Q6H PRN Fever >101.5 or pain 1-3 Ceftriaxone Sodium/Dextrose 1 gm in 50 mls @ 100 mls/hr 02/02/25 11:05 02/07/25 08:52 Rocephin/D5w 1gm Iv Premix IV 02/09/25 11:04 100 mls/hr QDAY SHANNAN Administration Albumin Human 25 gm in 100 mls @ 100 mls/hr 02/07/25 09:00 02/07/25 10:08 Albuminar-25 Ivpb IV 02/10/25 08:59 100 mls/hr QDAY SHANNAN Administration Lactulose 20 gm 02/07/25 10:14 02/07/25 14:06 Lactulose Syrup 20 Gm/30 Ml Udc PO 03/08/25 17:44 Not Given TID SHANNAN Protocol Midodrine 15 mg 02/06/25 14:00 02/07/25 14:04 Midodrine 5 Mg Tablet PO 03/08/25 13:59 15 mg TID SHANNAN Administration Ondansetron HCl 4 mg 02/01/25 22:27 02/02/25 21:06 Ondansetron Inj 2 Mg/Ml Inj 2 Ml IVP 03/03/25 22:26 4 mg Q6H PRN Administration NAUSEA OR VOMITING Protocol Pantoprazole Sodium 40 mg 02/02/25 21:00 02/07/25 08:53 Pantoprazole Inj 40 Mg Vial IVP 03/04/25 20:59 40 mg BID SHANNAN Administration Rifaximin 550 mg 02/01/25 22:45 02/07/25 08:53 Rifaximin 550 Mg Tablet PO 02/08/25 22:44 550 mg BID SHANNAN Administration Plan This is a 64-year-old male with PMHx of end-stage liver disease, currently on a transplant list with [facility], and chronic venous insufficiency, presenting to ED with worsening nausea, vomiting, confusion, altered mental status, melena and blood streaked emesis since a few days ago. #Acute blood loss anemia #GI bleed #Grade II esophageal varices- eradicated and banded #Macrocytic anemia On last admission, he had anemia requiring transfusion. EGD then showed grade 3 esophageal varices requiring banding. He has been on FAMOTIDINE BID. However reports an episode of blood streaks emesis and new onset dark stool. Folate and B12 within normal limits. Coag panel is also baseline with INR 1.8. PLT 80 around baseline. Hgb 10.7-->10-->9.9-->10.9 GI was consulted, EGD was performed (02/03/25) which revealed grade II esophageal varices which were eradicated and banded. Also gastritis was noted with evidence of recent bleeding. Hemoglobin 02/06/2025 was 7.4 which is a 3 point drop from 2 days ago which was 10.9. ? Octreotide drip will finish 02/07/2025 ? Will transfuse if hemoglobin is less than 7--1 unit is ready to go for next transfusion if needed ? Continue Protonix 40 mg twice daily ? Consider starting Beta holly if BP tolerates (historically BP did not tolerate) ? GI, Leyva following, --repeating EGD today to see if any bands misplaced or new mucosal bleeding. Will assess for possibility of TIPS procedure and transfer ? Continue to monitor for any signs of jr blood including hematemesis and jr blood in stool ? Will run transfusion at a slower rate due to patient's decompensated liver cirrhosis to avoid any increase in patient's portal pressure #Acute hepatic encephalopathy (resolved) 2/2 elevated ammonia #Decompensated liver cirrhosis #Concern for recurrent ascites #Chronic hypotension #Thrombocytopenia #Transamninitis History of alcohol-related liver cirrhosis, presenting with nausea and vomiting, increased confusion, fatigue and generalized weakness. Vitals are at baseline and he has chronic hypotension requiring Midodrine. On admission, labs significant for ammonia of 93, chronic hyperbilirubinemia around 10, chronically elevated LFTs, and hypoalbuminemia. Exam showed slight effusion, bilateral extremity edema 2+, diffuse ascites, jaundice, scleral icterus, no asterixis noted. Platelets 65. Child-Daigle Score: 13 points, Child Class C. Life Expectancy : 1-3 years. MELD Score: 19.6%, Estimated 3-Month Mortality. Paracenthesis not indicated at this since not enough pocket of fluid was found by IR. Ammonia level continues to improve to 37. Mentation improved from yesterday. Currently with 2 bowel movements a day. ? midodrine 15 TID as needed ? Continue Albumin 25% infusions daily ? Holding diuresis, may resume diuresis if blood pressure allows ? Continue Rifaximin 550 mg BID ?Lactulose decrease to 20 mg orally TID ? Octerotide infusion for 5 days (started on 02/02/25-02/07) ? Fluid restriction to 1500mL/day ? Continue Rocephin 1g qday for SBP prophylaxis #Mild metabolic hyponatremia Likely in setting of decompensated cirrhosis and third spacing. -daily CBC ? Anticipate improvement with intravascular fluid optimization as above Health Maintenance: DVT prophylaxis: SCDs Diet: Renal Mayo: No Lines: PIV CODE STATUS: Full code Disposition: EGD in the next 24 hours to assess whether TIPS procedure is needed immediately at a tertiary center. Patient's plan and care discussed with my attending, Dr. Reny Mcleod PGY2 Attending Provider Attestation/Addendum I have examined the patient, reviewed labs and imaging findings, discussed the case with the resident(s), and reviewed entered orders. I agree with the plan of care as outlined in this note, with these additional summaries/recommendations: Patient seen at bedside. No acute overnight events. Mean arterial pressure stable on midodrine. He currently denies lightheadedness or dizziness. His mental status is back to baseline. Patient does have underlying chronic hypotension, continue midodrine. Patient did receive a unit of PRBCs yesterday and hemoglobin now 10.0. Etiology for hypotension yesterday possibly related to chronic hypotension versus return of GI bleed. Patient will go for repeat EGD today to evaluate if esophageal varices are bleeding again. If evidence of bleeding patient may require transfer to tertiary center for TIPS procedure. Patient's acute encephalopathy secondary to hepatic encephalopathy has resolved. Continue lactulose and rifaximin. Titrate lactulose to 2-3 bowel movements a day. Patient diagnosed with decompensated cirrhosis. Patient is status post EGD which revealed grade 2 esophageal varices which were banded. Continue octreotide infusion. Continue IV Rocephin. Avoid chemical anticoagulation. Patient has decompensated cirrhosis and is currently on transplant list at [place]. Avoid hepatotoxic agents and hepatically dose medications. Outpatient follow-up at [facility] for liver transplant. Low-salt diet, fluid restriction, and outpatient vaccine series. Patient noted to have ascites and ultrasound did not reveal enough drainable peritoneal fluid. Low suspicion for SBP at this time. Please see residents note for additional details and management. Repeat hematology and chemistry panel in AM. Dr. Reny MD
--- NOTE | 2025-02-07 16:42 | SUR.PHASEI ---
pt received from OR in recovery bay 5. pt asleep but responds to voice, breathing unlabored on nc 5l. v/s stable. report received from Mely Felipe.
--- NOTE | 2025-02-07 18:20 | SUR.PHASEI ---
pt asleep but responds to voice, breathing unlabored on nc 2l. v/s stable. report called to Franc LEO. pt will be transferred to room at this time.
[2025-02-07] MEDS: LACTULOSE SYRUP 20 GM/30 ML UDC PO (22:03)
[2025-02-08] VITALS (10 sets, daily range): BP systolic 96–109; BP diastolic 62–77; PULSE 60–86; RESP 16–30; TEMP 36–36.4; O2SAT 96–98
[2025-02-08] MEDS: MIDODRINE 5 MG TABLET 15 MG PO ×3 (05:27→21:31)
[2025-02-08] MEDS: LACTULOSE SYRUP 20 GM/30 ML UDC PO ×2 (05:28→13:13)
[2025-02-08 06:11] LABS: Basophils # (Auto) 0.0 Thou/mm3 (0.0-0.2); Basophils % (Auto) 1 % (0-2.5); Eosinophils # (Auto) 0.1 Thou/mm3 (0.0-0.5); Eosinophils % (Auto) 4 % (0-10); Hematocrit 29.5 % (41.0-53.0); Hemoglobin 10.5 g/dL (13.5-16.0); Immature Granulocytes Auto 0.02 Thou/mm3 (0.00-0.00); Lymphocytes # (Auto) 0.7 Thou/mm3 (1.0-4.8); Lymphocytes % (Auto) 18 % (10-50); Mean Corpuscular HGB Conc 35.6 g/dl (31.0-37.0); Mean Corpuscular Hemoglobin 36.1 pg (25.0-35.0); Mean Corpuscular Volume 101 fL (80-100); Monocytes # (Auto) 0.5 Thou/mm3 (0.0-0.8); Monocytes % (Auto) 13 % (0-12); Neutrophils # (Auto) 2.3 Thou/mm3 (1.8-7.7); Neutrophils % (Auto) 64 % (37-80); Nucleated Red Blood Cell # 0.00 Thou/mm3 (0.00-0.00); Nucleated Red Blood Cell % 0 /100 WBC (0); RDW Standard Deviation 59.3 fL (35.1-43.9); Red Blood Count 2.91 Miln/mm3 (4.50-5.90); White Blood Count 3.6 Thou/mm3 (3.8-10.6)
[2025-02-08 06:16] LABS: Platelet Count 49 Thou/mm3 (140-440)
[2025-02-08 06:20] LABS: Alanine Aminotransferase 47 U/L (10-49); Albumin, Serum 2.2 gm/dL (3.4-4.8); Albumin/Globulin Ratio 0.7 (1.2-2.2); Alkaline Phosphatase 83 U/L (46-116); Anion Gap 8 (7-16); Aspartate Amino Transferase 92 U/L (0-34); BUN/Creatinine Ratio 17 Ratio (12-20); Bilirubin,Total 6.4 mg/dL (0.3-1.2); Blood Urea Nitrogen 12 mg/dL (9-23); Calcium 8.5 mg/dL (8.3-10.6); Calcium (Corrected) 9.9 mg/dL (8.5-10.1); Carbon Dioxide 24.2 mMol/L (20.0-31.0); Chloride 100 mMol/L (98-107); Creatinine (Component) 0.7 mg/dL (0.6-1.3); Estimated Creatinine Clearance 111.5 mL/min (>60); Globulin 3.2 gm/dL (2.3-3.5); Glucose 88 mg/dL (74-106); Osmolality,Calculated 263 (275-295); Potassium 4.5 mMol/L (3.4-5.1); Sodium 132 mMol/L (136-145); Total Protein 5.4 gm/dL (5.7-8.2); eGFR > 60 See Note
[2025-02-08] MEDS: PANTOPRAZOLE 40 MG TABLET PO ×2 (08:56→21:31)
[2025-02-08] MEDS: cefTRIAXone/D5w 1gm IV premix 1 GM/50 ML BAG IV (08:56)
[2025-02-08] MEDS: ALBUMIN HUMAN 25% IVPB 25 GM/100 ML BTL IV (08:56)
--- NOTE | 2025-02-08 10:32 | XR_ITS ---
Examination: Abdomen sonogram, Limited Date and time of exam: May 10, 2025, 1207 hours INDICATIONS: Cirrhosis, abdominal distention this week Technique: Real-time anand scale transabdominal sonographic images of the upper abdomen obtained. Findings: Minimal ascitic fluid IMPRESSION: Minimal ascitic fluid
[2025-02-08 11:06] LABS: Slide Review Platelets confirmed
--- NOTE | 2025-02-08 15:57 | PC.SS ---
SS follow up note; Patient will discharge possibly home tomorrow.
[2025-02-08] MEDS: LACTULOSE SYRUP 20 GM/30 ML UDC 30 GM PO ×2 (17:38→21:35)
--- NOTE | 2025-02-08 17:43 | ESPR_ITS ---
Documentation for date of: 02/08/25 Subjective Subjective Interval history: Patient examined at bedside. EGD done last night and demonstrated a Gaby- Tanika tear that was not currently bleeding. A mass was also present but was not biopsied due to risk of bleeding. Recommended repeat EGD in 8 to 12 weeks and clear liquid diet with advancement tomorrow morning. Patient has no concerns today, appears to be tolerating the lower dose of lactulose, he is not encephalopathic. Vital signs stable. Hgb stable at 10.5 today after 1 unit PRBC on 02/07. Sodium continues to be low at but stable at 132. Repeat Abdominal US for assessment of ascites fluid results still pending. Patient appears to be tolerating the lower dose of lactulose He is currently on the liver transplant list at [place]. Continue midodrine. Exam Vital Signs Temp Pulse Resp BP Pulse Ox O2 Del Method O2 Flow Rate 97.5 F 62 21 H 109/77 98 Room Air 1 02/08/25 16:00 02/08/25 16:02/08/25 16:02/08/25 16:02/08/25 16:02/08/25 16:02/07/25 23:59 Narrative Exam General: Ill appearing, No acute distress, cooperative, alert today HEENT: NCAT, No JVD noted. Mucosa moist. Pupils are equal and reactive to light bilaterally. Scleral icterus Cardiovascular: Normal S1 and S2. Regular rate and rhythm. Respiratory: Lungs are clear to auscultation bilaterally. No wheezing or crackles heard. Abdomen: Soft, nontender, slight distension Skin: Warm to touch, dry, no rashes noted Musculoskeletal: 2+ bilateral lower extremity edema, venous stasis changes, no ulceration. Neuro: Alert No focal neuro deficits. Psych: Normal affect and mood Objective Labs 02/09/25 04:44 02/09/25 04:44 Labs: Laboratory Results - last 24 hr 02/08/25 04:39 WBC 3.6 L RBC 2.91 L Hgb 10.5 L Hct 29.5 L MCV 101 H MCH 36.1 H MCHC 35.6 RDW Std Deviation 59.3 H Plt Count 49 L Neut % (Auto) 64 Lymph % (Auto) 18 [place] % (Auto) 13 H Eos % (Auto) 4 Baso % (Auto) 1 Neut # (Auto) 2.3 Lymph # (Auto) 0.7 L [place] # (Auto) 0.5 Eos # (Auto) 0.1 Baso # (Auto) 0.0 Immature Gran # (Auto) 0.02 H Absolute Nucleated RBC 0.00 Immature Gran % 1 H Nucleated RBC % 0 Sodium 132 L Potassium 4.5 D Chloride 100 Carbon Dioxide 24.2 Anion Gap 8 BUN 12 Creatinine 0.7 Estim Creat Clear Calc 111.5 eGFR > 60 BUN/Creatinine Ratio 17 Glucose 88 Calculated Osmolality 263 L Calcium 8.5 Corrected Calcium 9.9 Total Bilirubin 6.4 H D AST 92 H ALT 47 Alkaline Phosphatase 83 Total Protein 5.4 L Albumin 2.2 L Globulin 3.2 Albumin/Globulin Ratio 0.7 L Misc Test Result Platelets confirmed Quality Measures Quality Measures none Assessment & Plan Assessment Current Active Medications: Generic Name Dose Route Start Last Admin Trade Name Freq PRN Reason Stop Dose Admin Acetaminophen 650 mg 02/01/25 22:27 Acetaminophen 325 Mg Tablet PO 03/03/25 22:26 Q6H PRN Fever >101.5 or pain 1-3 Ceftriaxone Sodium/Dextrose 1 gm in 50 mls @ 100 mls/hr 02/02/25 11:05 02/08/25 08:56 Rocephin/D5w 1gm Iv Premix IV 02/09/25 11:04 100 mls/hr QDAY SHANNAN Administration Albumin Human 25 gm in 100 mls @ 100 mls/hr 02/07/25 09:00 02/08/25 08:56 Albuminar-25 Ivpb IV 02/10/25 08:59 100 mls/hr QDAY SHANNAN Administration Lactulose 30 gm 02/08/25 17:15 02/08/25 17:38 Lactulose Syrup 20 Gm/30 Ml Udc PO 03/10/25 17:14 30 gm TID SHANNAN Administration Protocol Midodrine 15 mg 02/06/25 14:00 02/08/25 13:13 Midodrine 5 Mg Tablet PO 03/08/25 13:59 15 mg TID SHANNAN Administration Ondansetron HCl 4 mg 02/01/25 22:27 02/02/25 21:06 Ondansetron Inj 2 Mg/Ml Inj 2 Ml IVP 03/03/25 22:26 4 mg Q6H PRN Administration NAUSEA OR VOMITING Protocol Pantoprazole Sodium 40 mg 02/08/25 09:00 02/08/25 08:56 Pantoprazole 40 Mg Tablet PO 03/10/25 08:59 40 mg BID SHANNAN Administration Rifaximin 550 mg 02/01/25 22:45 02/08/25 08:56 Rifaximin 550 Mg Tablet PO 02/08/25 22:44 550 mg BID SHANNAN Administration Plan This is a 64-year-old male with PMHx of end-stage liver disease, currently on a transplant list with [facility], and chronic venous insufficiency, presenting to ED with worsening nausea, vomiting, confusion, altered mental status, melena and blood streaked emesis since a few days ago. #Gaby-Cruz Tear #Acute blood loss anemia #GI bleed #Grade II esophageal varices- eradicated and banded #Macrocytic anemia On last admission, he had anemia requiring transfusion. EGD then showed grade 3 esophageal varices requiring banding. He has been on FAMOTIDINE BID. However reports an episode of blood streaks emesis and new onset dark stool. Folate and B12 within normal limits. Coag panel is also baseline with INR 1.8. PLT 80 around baseline. Hgb 10.7-->10-->9.9-->10.9. GI was consulted, EGD was performed (02/03/25) which revealed grade II esophageal varices which were eradicated and banded. Also gastritis was noted with evidence of recent bleeding. Hemoglobin 02/06/2025 was 7.4 which is a 3 point drop from 2 days ago which was 10.9. Patient given 1 unit PRBCs, hgb improved and has remained stable around 10. EGD results demonstrated a non-bleeding gaby-cruz tear and a mass that was not biopsied due to risk of bleeding. - GI recommends follow up EGD in 8 to 12 weeks. - CLD today per GI recommendations, reassess for toleration of diet. ? Octreotide drip completed on 02/07/2025 ? Hgb stable at 10.5, continue to monitor. ? Continue Protonix 40 mg twice daily ? Consider starting Beta holly if BP tolerates (historically BP did not tolerate) ? Continue to monitor for any signs of jr blood including hematemesis and jr blood in stool ? Will run transfusion at a slower rate due to patient's decompensated liver cirrhosis to avoid any increase in patient's portal pressure #Acute hepatic encephalopathy (resolved) 2/2 elevated ammonia #Decompensated liver cirrhosis #Concern for recurrent ascites #Chronic hypotension #Thrombocytopenia #Transamninitis History of alcohol-related liver cirrhosis, presenting with nausea and vomiting, increased confusion, fatigue and generalized weakness. Vitals are at baseline and he has chronic hypotension requiring Midodrine. On admission, labs significant for ammonia of 93, chronic hyperbilirubinemia around 10, chronically elevated LFTs, and hypoalbuminemia. Exam showed slight effusion, bilateral extremity edema 2+, diffuse ascites, jaundice, scleral icterus, no asterixis noted. Platelets 65. Child-Daigle Score: 13 points, Child Class C. Life Expectancy : 1-3 years. MELD Score: 19.6%, Estimated 3-Month Mortality. Paracenthesis not indicated initially since not enough pocket of fluid was found by IR. Repeating Abdominal US today to reassess for ascites fluid for possible paracentesis. Ammonia level continues to improve to 37. Mentation improved from yesterday. Currently with 2 bowel movements a day. ? midodrine 15 TID ? Continue Albumin 25% infusions daily ? Holding diuresis, may resume diuresis if blood pressure allows ? Continue Rifaximin 550 mg BID ?Lactulose decrease to 20 mg orally TID ? Octerotide infusion for 5 days (started on 02/02/25-02/07) ? Fluid restriction to 1500mL/day ? Continue Rocephin 1g qday for SBP prophylaxis - Pending Abdominal US results. #Mild metabolic hyponatremia Likely in setting of decompensated cirrhosis and third spacing. -daily CMP ? Anticipate improvement with intravascular fluid optimization as above Health Maintenance: DVT prophylaxis: SCDs Diet: CLD Mayo: No Lines: PIV CODE STATUS: Full code Disposition: Pending toleration of diet advancement. Patient's plan and care discussed with my attending, Dr. Anderson. Aj Newell DO PGY1, ([facility] Resident) Attending Provider Attestation/Addendum I have discussed and was present for the essential components of the history, physical examination, diagnosis, and treatment plan with the resident. I agree with the patient's care as documented by the resident and amended herein by me. Anil Anderson DO. Although this document has been carefully reviewed, there may still be some phonetic and other typographical errors. These errors are purely grammatical due to imperfections in the software program and should not be construed in any way to compromise the substance of the patient's medical care during this visit.
--- NOTE | 2025-02-08 22:11 | ESPR_ITS ---
Documentation for date of: 02/08/25 Subjective Subjective Interval history: Hemoglobin hematocrit 10.5 and 29.5 endoscopy last night showed GE junction Gaby-Toussaint tear most likely a source of bleeding Exam Vital Signs Temp Pulse Resp BP Pulse Ox O2 Del Method O2 Flow Rate 97.5 F 74 19 98/64 96 Room Air 1 02/08/25 19:52 02/08/25 21:31 02/08/25 19:52 02/08/25 21:31 02/08/25 19:52 02/08/25 19:52 02/07/25 23:59 Objective Labs 02/08/25 04:39 02/08/25 04:39 Labs: Laboratory Results - last 24 hr 02/08/25 04:39 WBC 3.6 L RBC 2.91 L Hgb 10.5 L Hct 29.5 L MCV 101 H MCH 36.1 H MCHC 35.6 RDW Std Deviation 59.3 H Plt Count 49 L Neut % (Auto) 64 Lymph % (Auto) 18 [place] % (Auto) 13 H Eos % (Auto) 4 Baso % (Auto) 1 Neut # (Auto) 2.3 Lymph # (Auto) 0.7 L [place] # (Auto) 0.5 Eos # (Auto) 0.1 Baso # (Auto) 0.0 Immature Gran # (Auto) 0.02 H Absolute Nucleated RBC 0.00 Immature Gran % 1 H Nucleated RBC % 0 Sodium 132 L Potassium 4.5 D Chloride 100 Carbon Dioxide 24.2 Anion Gap 8 BUN 12 Creatinine 0.7 Estim Creat Clear Calc 111.5 eGFR > 60 BUN/Creatinine Ratio 17 Glucose 88 Calculated Osmolality 263 L Calcium 8.5 Corrected Calcium 9.9 Total Bilirubin 6.4 H D AST 92 H ALT 47 Alkaline Phosphatase 83 Total Protein 5.4 L Albumin 2.2 L Globulin 3.2 Albumin/Globulin Ratio 0.7 L Misc Test Result Platelets confirmed Impressions Impression: Gaby-Toussaint tear distal esophagus GE junction with the possibility of a mass in the same region No biopsies were attempted because of fear of bleeding Advance diet as tolerated Outpatient endoscopy in 12 weeks Assessment & Plan A&P Narrative # Hematemesis/melena in the setting of cirrhotic liver disease Differential diagnosis include esophageal varices bleeding versus hypertensive portal gastropathy and mucosal oozing of blood Also in the differential diagnosis Gaby-Toussaint tear as patient had nausea vomiting Plan Fiberoptic esophagogastroduodenoscopy with possible therapeutic intervention under intravenous moderate sedation Octreotide infusion IV Protonix Serial CBC Will follow the patient Thank you very much for the opportunity to participate in care of this patient Time Spent With Patient Time: Total time spent is greater than 50% in coordination of care (as documented) at patient's floor/unit and/or counseling patient:
[2025-02-09] VITALS (10 sets, daily range): BP systolic 97–114; BP diastolic 68–74; PULSE 66–95; RESP 16–21; TEMP 36.3–36.6; O2SAT 94–97
[2025-02-09 06:04] LABS: Basophils # (Auto) 0.0 Thou/mm3 (0.0-0.2); Basophils % (Auto) 1 % (0-2.5); Eosinophils # (Auto) 0.1 Thou/mm3 (0.0-0.5); Eosinophils % (Auto) 5 % (0-10); Hematocrit 27.6 % (41.0-53.0); Hemoglobin 9.9 g/dL (13.5-16.0); Immature Granulocytes Auto 0.02 Thou/mm3 (0.00-0.00); Lymphocytes # (Auto) 0.6 Thou/mm3 (1.0-4.8); Lymphocytes % (Auto) 21 % (10-50); Mean Corpuscular HGB Conc 35.9 g/dl (31.0-37.0); Mean Corpuscular Hemoglobin 36.1 pg (25.0-35.0); Mean Corpuscular Volume 101 fL (80-100); Monocytes # (Auto) 0.4 Thou/mm3 (0.0-0.8); Monocytes % (Auto) 12 % (0-12); Neutrophils # (Auto) 1.9 Thou/mm3 (1.8-7.7); Neutrophils % (Auto) 62 % (37-80); Nucleated Red Blood Cell # 0.00 Thou/mm3 (0.00-0.00); Nucleated Red Blood Cell % 0 /100 WBC (0); RDW Standard Deviation 57.7 fL (35.1-43.9); Red Blood Count 2.74 Miln/mm3 (4.50-5.90); White Blood Count 3.1 Thou/mm3 (3.8-10.6)
[2025-02-09 06:05] LABS: Platelet Count 48 Thou/mm3 (140-440)
[2025-02-09] MEDS: LACTULOSE SYRUP 20 GM/30 ML UDC 30 GM PO ×3 (06:24→21:30)
[2025-02-09] MEDS: MIDODRINE 5 MG TABLET 15 MG PO ×3 (06:25→21:31)
[2025-02-09 06:30] LABS: Alanine Aminotransferase 42 U/L (10-49); Albumin, Serum 2.2 gm/dL (3.4-4.8); Albumin/Globulin Ratio 0.7 (1.2-2.2); Alkaline Phosphatase 76 U/L (46-116); Anion Gap 9 (7-16); Aspartate Amino Transferase 90 U/L (0-34); BUN/Creatinine Ratio 10 Ratio (12-20); Bilirubin,Total 7.0 mg/dL (0.3-1.2); Blood Urea Nitrogen 6 mg/dL (9-23); Calcium 8.5 mg/dL (8.3-10.6); Calcium (Corrected) 9.9 mg/dL (8.5-10.1); Carbon Dioxide 22.6 mMol/L (20.0-31.0); Chloride 100 mMol/L (98-107); Creatinine (Component) 0.6 mg/dL (0.6-1.3); Estimated Creatinine Clearance 130.1 mL/min (>60); Globulin 3.0 gm/dL (2.3-3.5); Glucose 105 mg/dL (74-106); Osmolality,Calculated 262 (275-295); Potassium 4.5 mMol/L (3.4-5.1); Sodium 132 mMol/L (136-145); Total Protein 5.2 gm/dL (5.7-8.2); eGFR > 60 See Note
[2025-02-09] MEDS: ALBUMIN HUMAN 25% IVPB 25 GM/100 ML BTL IV (09:58)
[2025-02-09] MEDS: cefTRIAXone/D5w 1gm IV premix 1 GM/50 ML BAG IV (09:58)
[2025-02-09] MEDS: PANTOPRAZOLE 40 MG TABLET PO ×2 (09:59→21:30)
[2025-02-09 12:40] LABS: Slide Review Platelets confirmed
--- NOTE | 2025-02-09 14:36 | PC.SS ---
SS follow up note; Ultrasound results pending. Patient will discharge home when medically cleared.
--- NOTE | 2025-02-09 21:41 | PD.RESPRO ---
Documentation for date of: 02/09/25 Subjective Subjective Interval history: Patient examined at bedside. NAOE. Feeling good today. No concerns. Continues to have bowel movements, two yesterday. Spoke with daughter today and clarified that he will be getting in contact with PCP. Has been seeing Dr. Benedict but will be switching. Not yet connected with [facility] team due to insurance conflicts. She will be switching insurances after discharge. Abd US showed minmal ascites fluid. Exam Vital Signs Temp Pulse Resp BP Pulse Ox O2 Del Method O2 Flow Rate 97.8 F 79 16 104/68 96 Room Air 1 02/09/25 20:00 02/09/25 21:31 02/09/25 20:00 02/09/25 21:31 02/09/25 20:00 02/09/25 20:00 02/07/25 23:59 Narrative Exam General: Chronically Ill appearing, No acute distress, cooperative, alert today HEENT: NCAT, No JVD noted. Mucosa moist. Pupils are equal and reactive to light bilaterally. Scleral icterus Cardiovascular: Normal S1 and S2. Regular rate and rhythm. Respiratory: Lungs are clear to auscultation bilaterally. No wheezing or crackles heard. Abdomen: Soft, nontender, slight distension Skin: Warm to touch, dry, no rashes noted Musculoskeletal: 2+ bilateral lower extremity edema, venous stasis changes, no ulceration. Neuro: Alert No focal neuro deficits. Psych: Normal affect and mood Objective Labs 02/10/25 04:27 02/10/25 04:27 Labs: Laboratory Results - last 24 hr 02/06/25 02/09/25 07:33 04:44 WBC 3.1 L RBC 2.74 L Hgb 9.9 L Hct 27.6 L MCV 101 H MCH 36.1 H MCHC 35.9 RDW Std Deviation 57.7 H Plt Count 48 L Neut % (Auto) 62 Lymph % (Auto) 21 [place] % (Auto) 12 Eos % (Auto) 5 Baso % (Auto) 1 Neut # (Auto) 1.9 Lymph # (Auto) 0.6 L [place] # (Auto) 0.4 Eos # (Auto) 0.1 Baso # (Auto) 0.0 Immature Gran # (Auto) 0.02 H Absolute Nucleated RBC 0.00 Immature Gran % 1 H Nucleated RBC % 0 Sodium 132 L Potassium 4.5 Chloride 100 Carbon Dioxide 22.6 Anion Gap 9 BUN 6 L Creatinine 0.6 Estim Creat Clear Calc 130.1 eGFR > 60 BUN/Creatinine Ratio 10 L Glucose 105 Calculated Osmolality 262 L Calcium 8.5 Corrected Calcium 9.9 Total Bilirubin 7.0 H D AST 90 H ALT 42 Alkaline Phosphatase 76 Total Protein 5.2 L Albumin 2.2 L Globulin 3.0 Albumin/Globulin Ratio 0.7 L Misc Test Result Platelets confirmed Crossmatch See Detail Quality Measures Quality Measures none Assessment & Plan Assessment Current Active Medications: Generic Name Dose Route Start Last Admin Trade Name Freq PRN Reason Stop Dose Admin Acetaminophen 650 mg 02/01/25 22:27 Acetaminophen 325 Mg Tablet PO 03/03/25 22:26 Q6H PRN Fever >101.5 or pain 1-3 Albumin Human 25 gm in 100 mls @ 100 mls/hr 02/07/25 09:00 02/09/25 09:58 Albuminar-25 Ivpb IV 02/10/25 08:59 100 mls/hr QDAY SHANNAN Administration Lactulose 30 gm 02/08/25 17:15 02/09/25 21:30 Lactulose Syrup 20 Gm/30 Ml Udc PO 03/10/25 17:14 30 gm TID SHANNAN Administration Protocol Midodrine 15 mg 02/06/25 14:00 02/09/25 21:31 Midodrine 5 Mg Tablet PO 03/08/25 13:59 15 mg TID SHANNAN Administration Ondansetron HCl 4 mg 02/01/25 22:27 02/02/25 21:06 Ondansetron Inj 2 Mg/Ml Inj 2 Ml IVP 03/03/25 22:26 4 mg Q6H PRN Administration NAUSEA OR VOMITING Protocol Pantoprazole Sodium 40 mg 02/08/25 09:00 02/09/25 21:30 Pantoprazole 40 Mg Tablet PO 03/10/25 08:59 40 mg BID SHANNAN Administration Plan This is a 64-year-old male with PMHx of end-stage liver disease, currently on a transplant list with [place], and chronic venous insufficiency, presenting to ED with worsening nausea, vomiting, confusion, altered mental status, melena and blood streaked emesis since a few days ago. #Gaby-Cruz Tear #Acute blood loss anemia #GI bleed #Grade II esophageal varices- eradicated and banded #Macrocytic anemia On last admission, he had anemia requiring transfusion. EGD then showed grade 3 esophageal varices requiring banding. He has been on FAMOTIDINE BID. However reports an episode of blood streaks emesis and new onset dark stool. Folate and B12 within normal limits. Coag panel is also baseline with INR 1.8. PLT 80 around baseline. Hgb 10.7-->10-->9.9-->10.9. GI was consulted, EGD was performed (02/03/25) which revealed grade II esophageal varices which were eradicated and banded. Also gastritis was noted with evidence of recent bleeding. Hemoglobin 02/06/2025 was 7.4 which is a 3 point drop from 2 days ago which was 10.9. Patient given 1 unit PRBCs, hgb improved and has remained stable around 10. EGD results demonstrated a non-bleeding gaby-cruz tear and a mass that was not biopsied due to risk of bleeding. - GI recommends follow up EGD in 8 to 12 weeks. - CLD today per GI recommendations, reassess for toleration of diet. ? Octreotide drip completed on 02/07/2025 ? Hgb stable at 10.5, continue to monitor. ? Continue Protonix 40 mg twice daily ? Consider starting Beta holly if BP tolerates (historically BP did not tolerate) ? Continue to monitor for any signs of jr blood including hematemesis and jr blood in stool ? Will run transfusion at a slower rate due to patient's decompensated liver cirrhosis to avoid any increase in patient's portal pressure #Acute hepatic encephalopathy (resolved) 2/2 elevated ammonia #Decompensated liver cirrhosis #Concern for recurrent ascites #Chronic hypotension #Thrombocytopenia #Transamninitis History of alcohol-related liver cirrhosis, presenting with nausea and vomiting, increased confusion, fatigue and generalized weakness. Vitals are at baseline and he has chronic hypotension requiring Midodrine. On admission, labs significant for ammonia of 93, chronic hyperbilirubinemia around 10, chronically elevated LFTs, and hypoalbuminemia. Exam showed slight effusion, bilateral extremity edema 2+, diffuse ascites, jaundice, scleral icterus, no asterixis noted. Platelets 65. Child-Daigle Score: 13 points, Child Class C. Life Expectancy : 1-3 years. MELD Score: 19.6%, Estimated 3-Month Mortality. Paracenthesis not indicated initially since not enough pocket of fluid was found by IR. Repeating Abdominal US today to reassess for ascites fluid for possible paracentesis. Ammonia level continues to improve to 37. Mentation improved from yesterday. Currently with 2 bowel movements a day. Repeat Abdominal US showed minimal ascites fluid. ? midodrine 15 TID ? Continue Albumin 25% infusions daily ? Holding diuresis, may resume diuresis if blood pressure allows ? Continue Rifaximin 550 mg BID ?Lactulose decrease to 20 mg orally TID ? Octerotide infusion for 5 days (started on 02/02/25-02/07) ? Fluid restriction to 1500mL/day ? Continue Rocephin 1g qday for SBP prophylaxis #Mild metabolic hyponatremia Likely in setting of decompensated cirrhosis and third spacing. Overall, poor prognostic indicator regarding chronic decompensated cirrhosis. -daily CMP ? Anticipate improvement with intravascular fluid optimization as above Health Maintenance: DVT prophylaxis: SCDs Diet: CLD Mayo: No Lines: PIV CODE STATUS: Full code Disposition:Likely DC tomorrow. Patient's plan and care discussed with my attending, Dr. Anderson. Attending Provider Attestation/Addendum I have discussed and was present for the essential components of the history, physical examination, diagnosis, and treatment plan with the resident. I agree with the patient's care as documented by the resident and amended herein by me. Anil Anderson DO. Although this document has been carefully reviewed, there may still be some phonetic and other typographical errors. These errors are purely grammatical due to imperfections in the software program and should not be construed in any way to compromise the substance of the patient's medical care during this visit.
--- NOTE | 2025-02-09 21:46 | ESPR_ITS ---
Documentation for date of: 02/09/25 Subjective Subjective Interval history: Hemoglobin hematocrit 9.9 and 27.6 Exam Vital Signs Temp Pulse Resp BP Pulse Ox O2 Del Method O2 Flow Rate 97.8 F 79 16 104/68 96 Room Air 1 02/09/25 20:00 02/09/25 21:31 02/09/25 20:00 02/09/25 21:31 02/09/25 20:00 02/09/25 20:00 02/07/25 23:59 Objective Labs 02/09/25 04:44 02/09/25 04:44 Labs: Laboratory Results - last 24 hr 02/06/25 02/09/25 07:33 04:44 WBC 3.1 L RBC 2.74 L Hgb 9.9 L Hct 27.6 L MCV 101 H MCH 36.1 H MCHC 35.9 RDW Std Deviation 57.7 H Plt Count 48 L Neut % (Auto) 62 Lymph % (Auto) 21 [place] % (Auto) 12 Eos % (Auto) 5 Baso % (Auto) 1 Neut # (Auto) 1.9 Lymph # (Auto) 0.6 L [place] # (Auto) 0.4 Eos # (Auto) 0.1 Baso # (Auto) 0.0 Immature Gran # (Auto) 0.02 H Absolute Nucleated RBC 0.00 Immature Gran % 1 H Nucleated RBC % 0 Sodium 132 L Potassium 4.5 Chloride 100 Carbon Dioxide 22.6 Anion Gap 9 BUN 6 L Creatinine 0.6 Estim Creat Clear Calc 130.1 eGFR > 60 BUN/Creatinine Ratio 10 L Glucose 105 Calculated Osmolality 262 L Calcium 8.5 Corrected Calcium 9.9 Total Bilirubin 7.0 H D AST 90 H ALT 42 Alkaline Phosphatase 76 Total Protein 5.2 L Albumin 2.2 L Globulin 3.0 Albumin/Globulin Ratio 0.7 L Misc Test Result Platelets confirmed Crossmatch See Detail Impressions Impression: Gaby-Toussaint tear status post endoscopic intervention for control of hemorrhage distal esophageal ulcers continue current management Assessment & Plan A&P Narrative # Hematemesis/melena in the setting of cirrhotic liver disease Differential diagnosis include esophageal varices bleeding versus hypertensive portal gastropathy and mucosal oozing of blood Also in the differential diagnosis Gaby-Toussaint tear as patient had nausea vomiting Plan Fiberoptic esophagogastroduodenoscopy with possible therapeutic intervention under intravenous moderate sedation Octreotide infusion IV Protonix Serial CBC Will follow the patient Thank you very much for the opportunity to participate in care of this patient Time Spent With Patient Time: Total time spent is greater than 50% in coordination of care (as documented) at patient's floor/unit and/or counseling patient:
[2025-02-10] VITALS (10 sets, daily range): BP systolic 91–118; BP diastolic 60–78; PULSE 69–81; RESP 15–19; TEMP 36.3–36.9; O2SAT 94–99; BMI 25.2; BMI 15.0
[2025-02-10 05:36] LABS: Basophils # (Auto) 0.0 Thou/mm3 (0.0-0.2); Basophils % (Auto) 1 % (0-2.5); Eosinophils # (Auto) 0.1 Thou/mm3 (0.0-0.5); Eosinophils % (Auto) 3 % (0-10); Hematocrit 27.0 % (41.0-53.0); Hemoglobin 9.5 g/dL (13.5-16.0); Immature Granulocytes Auto 0.02 Thou/mm3 (0.00-0.00); Lymphocytes # (Auto) 0.8 Thou/mm3 (1.0-4.8); Lymphocytes % (Auto) 23 % (10-50); Mean Corpuscular HGB Conc 35.2 g/dl (31.0-37.0); Mean Corpuscular Hemoglobin 36.0 pg (25.0-35.0); Mean Corpuscular Volume 102 fL (80-100); Monocytes # (Auto) 0.5 Thou/mm3 (0.0-0.8); Monocytes % (Auto) 14 % (0-12); Neutrophils # (Auto) 2.1 Thou/mm3 (1.8-7.7); Neutrophils % (Auto) 58 % (37-80); Nucleated Red Blood Cell # 0.00 Thou/mm3 (0.00-0.00); Nucleated Red Blood Cell % 0 /100 WBC (0); Platelet Count 45 Thou/mm3 (140-440); RDW Standard Deviation 59.7 fL (35.1-43.9); Red Blood Count 2.64 Miln/mm3 (4.50-5.90); White Blood Count 3.5 Thou/mm3 (3.8-10.6)
[2025-02-10] MEDS: LACTULOSE SYRUP 20 GM/30 ML UDC 30 GM PO ×3 (05:43→21:06)
[2025-02-10] MEDS: MIDODRINE 5 MG TABLET 15 MG PO ×3 (05:43→21:06)
[2025-02-10 05:58] LABS: Alanine Aminotransferase 48 U/L (10-49); Albumin, Serum 2.3 gm/dL (3.4-4.8); Albumin/Globulin Ratio 0.8 (1.2-2.2); Alkaline Phosphatase 78 U/L (46-116); Anion Gap 9 (7-16); Aspartate Amino Transferase 117 U/L (0-34); BUN/Creatinine Ratio 8 Ratio (12-20); Bilirubin,Total 6.9 mg/dL (0.3-1.2); Blood Urea Nitrogen < 5 mg/dL (9-23); Calcium 8.5 mg/dL (8.3-10.6); Calcium (Corrected) 9.9 mg/dL (8.5-10.1); Carbon Dioxide 22.9 mMol/L (20.0-31.0); Chloride 102 mMol/L (98-107); Creatinine (Component) 0.6 mg/dL (0.6-1.3); Estimated Creatinine Clearance 130.1 mL/min (>60); Globulin 2.8 gm/dL (2.3-3.5); Glucose 105 mg/dL (74-106); Osmolality,Calculated 265 (275-295); Potassium 4.5 mMol/L (3.4-5.1); Sodium 134 mMol/L (136-145); Total Protein 5.1 gm/dL (5.7-8.2); eGFR > 60 See Note
[2025-02-10 07:10] LABS: Slide Review Platelets confirmed
[2025-02-10] MEDS: PANTOPRAZOLE 40 MG TABLET PO ×2 (09:40→21:06)
--- NOTE | 2025-02-10 19:25 | ESPR_ITS ---
<Statement entered by Josie Mcleod MD - 02/11/25 11:55> Patient examined at bedside. He is AOx3, no major complaints. Per nursing he is having about 2 BM per day. PT eval ordered after noticeable unsteady gait. He will need close follow up after discharge with restricted fluid intake, low sodium diet due to his cirrhosis. Continue midodrine, lactulose, and Rifaxmin. Labs and vitals are stable with improving hyponatremia. The patient's management plan was discussed with my attending physician Dr. Josie Mcleod, PGY-2 Documentation for date of: 02/10/25 Subjective Subjective Interval history: Patient examined at bedside. NAOE. Feeling good today. No concerns. Continues to have bowel movements, two yesterday. PT eval ordered because of nursing report that patient had unsteady gait. Attempted to reach out to daughter to see her preferences of SNF vs home with home health pending RT evaluation. Exam Vital Signs Temp Pulse Resp BP Pulse Ox O2 Del Method O2 Flow Rate 97.5 F 77 18 104/69 98 Room Air 1 02/10/25 16:00 02/10/25 16:02/10/25 16:02/10/25 16:02/10/25 16:02/10/25 16:00 02/07/25 23:59 Narrative Exam General: Elderly patient, appears chronically ill, no acute distress. HEENT: No JVD noted. oral Mucosa moist. Pupils are equal, some scleral icterus Cardiovascular: Normal S1 and S2. Regular rate and rhythm. No murmur appreciated Respiratory: Clear to auscultation bilaterally without wheezes or crackles. Abdomen: Soft, nontender, mild distension. Skin: Dry, no rashes, brawny appearance to the LE bilaterally. Musculoskeletal: No gross injuries. Able to move all 4 extremities. LE edematous with evidence of chronic venous stasis. Neuro: No focal neuro deficits. Objective Labs 02/10/25 04:27 02/10/25 04:27 Labs: Laboratory Results - last 24 hr 02/10/25 04:27 WBC 3.5 L RBC 2.64 L Hgb 9.5 L Hct 27.0 L MCV 102 H MCH 36.0 H MCHC 35.2 RDW Std Deviation 59.7 H Plt Count 45 L Neut % (Auto) 58 Lymph % (Auto) 23 [place] % (Auto) 14 H Eos % (Auto) 3 Baso % (Auto) 1 Neut # (Auto) 2.1 Lymph # (Auto) 0.8 L [place] # (Auto) 0.5 Eos # (Auto) 0.1 Baso # (Auto) 0.0 Immature Gran # (Auto) 0.02 H Absolute Nucleated RBC 0.00 Immature Gran % 1 H Nucleated RBC % 0 Sodium 134 L Potassium 4.5 Chloride 102 Carbon Dioxide 22.9 Anion Gap 9 BUN < 5 L Creatinine 0.6 Estim Creat Clear Calc 130.1 eGFR > 60 BUN/Creatinine Ratio 8 L Glucose 105 Calculated Osmolality 265 L Calcium 8.5 Corrected Calcium 9.9 Total Bilirubin 6.9 H AST 117 H ALT 48 Alkaline Phosphatase 78 Total Protein 5.1 L Albumin 2.3 L Globulin 2.8 Albumin/Globulin Ratio 0.8 L Misc Test Result Platelets confirmed Quality Measures Quality Measures none Assessment & Plan Assessment Current Active Medications: Generic Name Dose Route Start Last Admin Trade Name Freq PRN Reason Stop Dose Admin Acetaminophen 650 mg 02/01/25 22:27 Acetaminophen 325 Mg Tablet PO 03/03/25 22:26 Q6H PRN Fever >101.5 or pain 1-3 Lactulose 30 gm 02/08/25 17:15 02/10/25 13:20 Lactulose Syrup 20 Gm/30 Ml Udc PO 03/10/25 17:14 30 gm TID SHANNAN Administration Protocol Midodrine 15 mg 02/06/25 14:00 02/10/25 13:20 Midodrine 5 Mg Tablet PO 03/08/25 13:59 15 mg TID SHANNAN Administration Ondansetron HCl 4 mg 02/01/25 22:27 02/02/25 21:06 Ondansetron Inj 2 Mg/Ml Inj 2 Ml IVP 03/03/25 22:26 4 mg Q6H PRN Administration NAUSEA OR VOMITING Protocol Pantoprazole Sodium 40 mg 02/08/25 09:00 02/10/25 09:40 Pantoprazole 40 Mg Tablet PO 03/10/25 08:59 40 mg BID SHANNAN Administration Plan Plan This is a 64-year-old male with PMHx of end-stage liver disease, currently on a transplant list with [place], and chronic venous insufficiency, presenting to ED with worsening nausea, vomiting, confusion, altered mental status, melena and blood streaked emesis since a few days ago. #Gaby-Cruz Tear #Acute blood loss anemia #GI bleed #Grade II esophageal varices- eradicated and banded #Macrocytic anemia On last admission, he had anemia requiring transfusion. EGD then showed grade 3 esophageal varices requiring banding. He has been on FAMOTIDINE BID. However reports an episode of blood streaks emesis and new onset dark stool. Folate and B12 within normal limits. Coag panel is also baseline with INR 1.8. PLT 80 around baseline. Hgb 10.7-->10-->9.9-->10.9. GI was consulted, EGD was performed (02/03/25) which revealed grade II esophageal varices which were eradicated and banded. Also gastritis was noted with evidence of recent bleeding. Hemoglobin 02/06/2025 was 7.4 which is a 3 point drop from 2 days ago which was 10.9. Patient given 1 unit PRBCs, hgb improved and has remained stable around 10. EGD results demonstrated a non-bleeding gaby-cruz tear and a mass that was not biopsied due to risk of bleeding. Bleeding Resolved - GI recommends follow up EGD in 8 to 12 weeks. ? Octreotide drip completed on 02/07/2025 ? Hgb stable at 9.5, continue to monitor. ? Continue Protonix 40 mg twice daily ? Consider starting Beta holly if BP tolerates (historically BP did not tolerate) ? Continue to monitor for any signs of jr blood including hematemesis and jr blood in stool #Acute hepatic encephalopathy (resolved) 2/2 elevated ammonia #Decompensated liver cirrhosis #Concern for recurrent ascites #Chronic hypotension #Thrombocytopenia #Transamninitis History of alcohol-related liver cirrhosis, presenting with nausea and vomiting, increased confusion, fatigue and generalized weakness. Vitals are at baseline and he has chronic hypotension requiring Midodrine. On admission, labs significant for ammonia of 93, chronic hyperbilirubinemia around 10, chronically elevated LFTs, and hypoalbuminemia. Exam showed slight effusion, bilateral extremity edema 2+, diffuse ascites, jaundice, scleral icterus, no asterixis noted. Platelets 65. Child-Daigle Score: 13 points, Child Class C. Life Expectancy : 1-3 years. MELD Score: 19.6%, Estimated 3-Month Mortality. Paracenthesis not indicated initially since not enough pocket of fluid was found by IR. Repeating Abdominal US today to reassess for ascites fluid for possible paracentesis. Ammonia level continues to improve to 37. Mentation improved from yesterday. Currently with 2 bowel movements a day. Repeat Abdominal US showed minimal ascites fluid. Overall, stable. ? midodrine 15 TID ? Continue Albumin 25% infusions daily ? Holding diuresis, may resume diuresis if blood pressure allows ? Continue Rifaximin 550 mg BID ?Lactulose decrease to 20 mg orally TID ? Octerotide infusion for 5 days (started on 02/02/25-02/07) Completed. ? Fluid restriction to 1500mL/day ? Continue Rocephin 1g qday for SBP prophylaxis will likely discharge with ciprofloxacin for SBP prohylaxis. #Mild metabolic hyponatremia Likely in setting of decompensated cirrhosis and third spacing. Overall, poor prognostic indicator regarding chronic decompensated cirrhosis. Improved to 134 today. -daily CMP Health Maintenance: DVT prophylaxis: SCDs Diet: CLD Mayo: No Lines: PIV CODE STATUS: Full code Disposition:Likely DC tomorrow. Patient's plan and care discussed with my attending, Dr. Anderson. Aj Newell DO PGY-1 ([facility] Resident) Attending Provider Attestation/Addendum I have discussed and was present for the essential components of the history, physical examination, diagnosis, and treatment plan with the resident. I agree with the patient's care as documented by the resident and amended herein by me. Anil Anderson DO. Although this document has been carefully reviewed, there may still be some phonetic and other typographical errors. These errors are purely grammatical due to imperfections in the software program and should not be construed in any way to compromise the substance of the patient's medical care during this visit.
--- NOTE | 2025-02-10 20:46 | ESPR_ITS ---
Documentation for date of: 02/10/25 Subjective Subjective Interval history: Patient evaluated hemoglobin hematocrit 9.5 and 27.0 Status post band ligation of the esophageal varices Exam Vital Signs Temp Pulse Resp BP Pulse Ox O2 Del Method O2 Flow Rate 97.6 F 74 18 118/74 99 Room Air 1 02/10/25 20:00 02/10/25 20:00 02/10/25 20:00 02/10/25 20:00 02/10/25 20:00 02/10/25 20:00 02/07/25 23:59 Objective Labs 02/10/25 04:27 02/10/25 04:27 Labs: Laboratory Results - last 24 hr 02/10/25 04:27 WBC 3.5 L RBC 2.64 L Hgb 9.5 L Hct 27.0 L MCV 102 H MCH 36.0 H MCHC 35.2 RDW Std Deviation 59.7 H Plt Count 45 L Neut % (Auto) 58 Lymph % (Auto) 23 [place] % (Auto) 14 H Eos % (Auto) 3 Baso % (Auto) 1 Neut # (Auto) 2.1 Lymph # (Auto) 0.8 L [place] # (Auto) 0.5 Eos # (Auto) 0.1 Baso # (Auto) 0.0 Immature Gran # (Auto) 0.02 H Absolute Nucleated RBC 0.00 Immature Gran % 1 H Nucleated RBC % 0 Sodium 134 L Potassium 4.5 Chloride 102 Carbon Dioxide 22.9 Anion Gap 9 BUN < 5 L Creatinine 0.6 Estim Creat Clear Calc 130.1 eGFR > 60 BUN/Creatinine Ratio 8 L Glucose 105 Calculated Osmolality 265 L Calcium 8.5 Corrected Calcium 9.9 Total Bilirubin 6.9 H AST 117 H ALT 48 Alkaline Phosphatase 78 Total Protein 5.1 L Albumin 2.3 L Globulin 2.8 Albumin/Globulin Ratio 0.8 L Misc Test Result Platelets confirmed Impressions Impression: Status post band ligation of the esophageal varices Hypertensive portal gastropathy Continue current management Assessment & Plan A&P Narrative # Hematemesis/melena in the setting of cirrhotic liver disease Differential diagnosis include esophageal varices bleeding versus hypertensive portal gastropathy and mucosal oozing of blood Also in the differential diagnosis Gaby-Toussaint tear as patient had nausea vomiting Plan Fiberoptic esophagogastroduodenoscopy with possible therapeutic intervention under intravenous moderate sedation Octreotide infusion IV Protonix Serial CBC Will follow the patient Thank you very much for the opportunity to participate in care of this patient Time Spent With Patient Time: Total time spent is greater than 50% in coordination of care (as documented) at patient's floor/unit and/or counseling patient:
[2025-02-11] VITALS: BP 106/67; PULSE 72; RESP 17; TEMP 37.2; O2SAT 99
[2025-02-11 04:00] VITALS: BP 97/67; PULSE 80; RESP 25; TEMP 37.1; O2SAT 97
[2025-02-11 05:19] VITALS: BP 106/67; PULSE 72
[2025-02-11] MEDS: MIDODRINE 5 MG TABLET 15 MG PO (05:19)
[2025-02-11] MEDS: LACTULOSE SYRUP 20 GM/30 ML UDC 30 GM PO (05:19)
[2025-02-11 08:00] VITALS: BP 103/68; PULSE 75; PULSE 78; RESP 18; TEMP 36.4; O2SAT 96
[2025-02-11] MEDS: PANTOPRAZOLE 40 MG TABLET PO (08:07)
--- NOTE | 2025-02-11 11:44 | ESDS_ITS ---
Planned Discharge Date 02/11/25 DS: Providers Provider Date of admission: 02/01/25 22:27 Primary care physician: Physician No Primary/Family Admitting Provider: Jeramy Reza MD Attending Provider on Admission: Messi Anderson DO Consults: 02/02/25 00:37 Referral Registered Dietitian Routine Comment: Health Equity Referral - Knowledge Deficit Routine Comment: Positive screening for knowledge deficit needs. 02/02/25 11:06 Consult to Gastroenterology Routine Comment: c/f GI bleed in the setting of decomp liver dz Consulting Provider: Ghassan Leyva 02/10/25 09:07 Referral Physical Therapy Routine Comment: Physician Instructions: Attending Provider on DC: Messi Anderson DO Discharging Provider: Aj Newell MD DS: Diagnosis Problem List Completed Was Problem List Reviewed/Reconciled?: Yes Hospital Course Hospital Course Hospital course: This is a 64-year-old male with PMHx of end-stage liver disease secondary to alcohol use, SBP, grade 3 esophageal varices, recurrent ascites, currently working on getting on the transplant list with [facility] but insurance is not compatible, and chronic venous insufficiency, presenting to ED on 02/01/25 with worsening nausea, blood streaked vomiting, melanotic stool, and confusion. Admitted for refractory nausea and vomiting, possible upper GI bleed, decompensated liver cirrhosis with possible ascites and mild hepatic encephalopathy. His lactulose, midodrine, ciprofloxacin, and rifaximin were continued. Albumin infusion was initiated and furosemide was held pending paracentesis. 02/02: IR consulted for US guided paracentesis but there was an insufficient amount of ascites fluid present to justify paracentesis. Ciprofloxacin was switched to daily ceftriaxone for SBP prophylaxis. BP was low at this time, 96/66, so furosemide continued to be held. GI consulted and octreatide infusion started. 02/03: EGD conducted and demonstrated grade II esophageal varices which were banded and resulted in complete eradication without bleeding. Diffuse gastritis with recent stigmata of bleeding was also found. Recommendation was for TIPS procedure if bleeding recurred. 02/04: Patient mentation continued to improve. 02/06: Rapid response was called at 7:27 AM for acute change in blood pressure. MAP at that time was below 65, however patient was alert and oriented x 3 denied any pain or showed any distress. Patient's labs were significant for decrease in hemoglobin from 10.7 to now 7.4 this morning. Gave patient an additional midodrine 10 mg this morning along with another push of albumin 25 g and half a liter LR bolus. Patient also give 2 Units of PRBCs. 02/07: Patient completed course of octreotide daily infusion. Repeat EGD showed Gaby Toussaint at the GE junction w/o active bleeding, an overlying mass which was not biopsied due to high risk of bleeding. Gastritis was also noted w/o evidence of continued bleeding. Recommendation was repeat EGD in 8 to 12 weeks. 02/08: Patient's hgb remained stable at 10.5. Repeat US of the abdomen conducted demonstrated minmal ascites fluid, not feasible for paracentesis. Patient's blood pressure remained stable but low on midodrine. 02/10: Patient back at baseline mentation, improved nausea and vomiting. BP continued to be low normal on midodrine. 02/11: Patient was discharged home with home health in stable condition. Home medications were restarted with the exception of furosemide due to low BP. Propranolol considered for GI bleed prophylaxis but was not started for the same reason. Recommendations were close f/u outpatient, establishing with [facility] tx[facility] list, and GI f/u for EGD in 8-12 weeks. Discharge Diagnoses: #Gaby-Toussaint Tear #Grade II esophageal varices- eradicated and banded #GI bleed (resolved) #Acute hepatic encephalopathy (resolved) 2/2 elevated ammonia #Decompensated liver cirrhosis #Chronic hypotension #Thrombocytopenia #Transamninitis #Macrocytic anemia Time Spent with Patient Time attestation: Total time spent providing and/or coordinating discharge services: Time spent: Greater than 30 minutes Home Health Home Health Referral Orders: 02/10/25 14:28 Home Health Referral Routine Reason For Exam: debility Home-Bound The patient must either because of illness or injury, need the aid of supportive devices such as crutches, canes, wheelchairs, and walkers; the use of special transportation; or the assistance of another person in order to leave their place of residence; OR have a condition such that leaving his or her home is medically contraindicated. In addition, the patient also meets the following criteria: patient is normally unable to leave the home and leaving home requires considerable taxing effort. Addendum to Home Health Certification Practitioner's Certification: I certify that the patient has been under my care in the hospital and the care of attending physician (see below). We had a [id number] encounter on (see date below). My clinical findings indicate that the patient is home bound per the above criteria and the Home Health Services noted in these orders are medically necessary. The primary reason for the [id number] encounter is related to the fact that the patient requires home health services. Date Certifying [id number] Physician Encounter: 02/10/25 Physician's Name who will Assume Oversight for HH Services: Physician No Primary/Family BLADE GROOVER - Community Resources: No PT to Evaluate: Yes PT to evaluate and provide a treatmnet plan to increase patient's mobility and strength. Wound Care: No IV Therapy: No Discontinue PICC Line Once Treatment Complete: No RN Safety Evaluation: Yes RN to evaluate and create a plan of care that will produce positive outcomes. Palliative Treatment: No Palliative treatment and evaluate the need for hospice. Home Health Aide - Personal Care: No Home Health Aide to assist with any ADL's. Exam Vital Signs Temp Pulse Resp BP Pulse Ox O2 Del Method O2 Flow Rate 97.5 F 78 18 103/68 96 Aerosol Mask 1 02/11/25 08:00 02/11/25 08:00 02/11/25 08:00 02/11/25 08:00 02/11/25 08:00 02/11/25 08:00 02/07/25 23:59 Narrative Exam General: Elderly patient, appears chronically ill, no acute distress. HEENT: No JVD noted. oral Mucosa moist. Pupils are equal, some scleral icterus. Cardiovascular: Normal S1 and S2. Regular rate and rhythm. No murmur appreciated Respiratory: Clear to auscultation bilaterally without wheezes or crackles. Abdomen: Soft, nontender, mild distension. Skin: Dry, no rashes, brawny appearance to the LE bilaterally. Musculoskeletal: No gross injuries. Able to move all 4 extremities. B/L LE pitting edema with evidence of chronic venous stasis. Neuro: A&O x3, No focal neuro deficits. Discharge Plan Plan Patient Disposition: HOME (Self Care) Patient condition on transfer: Stable Prescriptions/Referrals Prescriptions/Med Rec: New Xifaxan 550 mg tablet 550 mg PO BID 90 Days Qty: 180 0RF Continued metoclopramide HCl [Reglan] 10 mg tablet 10 mg PO Q6H PRN (Reason: nausea and vomiting) Qty: 90 2RF Patient Comments: Pt takes BID everyday due to lot of vomiting. famotidine [Pepcid] 20 mg tablet 20 mg PO DAILY Patient Comments: new prescriiption. midodrine 10 mg tablet 10 mg PO TID Patient Comments: 08:30,13:30,17:30 Rx Instructions: do not give last dose of day after 6PM or within 4 hrs of bedtime pantoprazole 40 mg tablet,delayed release (DR/EC) 40 mg PO DAILY Patient Comments: TAKE 1 TABLET BY MOUTH EVERY DAY Changed lactulose 20 gram packet 10 g PO TID PRN (Reason: encephalopathy) Qty: 30 2RF Rx Instructions: titrate to 2-3 bowel movements per day. Held spironolactone 50 mg tablet 50 mg PO BID Qty: 60 3RF Hold Instructions: Resume on 03/01/25. Until follow up with PCP due to low blood pressure. furosemide [Lasix] 40 mg tablet 40 mg PO TID 30 Days Qty: 90 3RF Hold Instructions: Resume on 03/01/25. Until follow up with PCP due to low blood pressure. Discontinued megestrol 800 mg/20 mL (20 mL) suspension 800 mg PO QDAY Qty: 600 3RF ciprofloxacin HCl 500 mg tablet 500 mg PO QDAY Qty: 30 3RF Patient Comments: SEPT[facility] LAST TIME ADMITTED ABOUT 2 MONS. AGO lactulose 10 gram/15 mL solution 20 g PO QDAY Referrals: Ghassan Leyva MD [Physician, Gastroenterology] No Primary/Family,Physician [Primary Care Provider] Patient/Caregiver Discharge Instructions Other Discharge Activity Instructions:: Resume previous medications. Continue to Rifaximin as prescribed as management of cirrhosis. Closely follow up with GI doctor. Restrict fluid intake to 1500cc/day. Continue low sodium diet <2g/day. Education Materials: Paracentesis Dc, Hepatic Encephalopathy, Treating Cirrhosis Print Language: Slovenian Stand Alone Forms: Rae Award Info., Patient Portal Info Letter Discharge Order Discharge Orders: Discharge (Routine); Ordered 02/11/25 Ordered By: Josie Mcleod Quality Discharge Quality Measures VTE prophylaxis Attestestation Attestation I have discussed and was present for the essential components of the discharge history, physical examination, diagnosis, and discharge treatment plan with the resident. I agree with the patient's discharge care as documented by the resident and amended herein by me. Anil Anderson DO. The patient understood all discharge instructions, all questions were answered satisfactorily. The patient was instructed to return to the Emergency Department is symptoms worsened or persisted. Patient was stable, afebrile and tolerating p.o. intake at time of discharge home. Patient will be discharged with lactulose, rifaximin and midodrine. Will need close follow-up with primary care physician and for referral to hepatobiliary specialist for possible liver transplant. The patient's family, namely his daughter understood all instructions, all questions answered satisfactorily. See resident note above for additional details in regards to admission Although this document has been carefully reviewed, there may still be some phonetic and other typographical errors. These errors are purely grammatical due to imperfections in the software program and should not be construed in any way to compromise the substance of the patient's medical care during this visit.
[2025-02-11 12:00] VITALS: PULSE 75
--- NOTE | 2025-02-12 09:33 | PC.CM ---
Home Health referrals sent out via [employer], pending responses at this time.
--- NOTE | 2025-02-14 11:40 | PC.CC ---
Addendum entered by Tiana Chung RN 02/14/25 11:43: Daughters phone number is the same listed as patients, unable to make contact will close case Original Note: 12 home health agencies has declined patient. Attempted to call patient to make him aware and phone line rings busy times two. No other number in chart to contact.
== END 2025-02-11 14:15 | disposition home or self-care (01) | DRG 279 ==
LOC: SERX 18:29 → SERHOLD 22:55 → S3NX 02-02 00:07 → S2NX 02-06 07:53
PROVIDERS: Physician Assistant; Specialist; Student in an Organized Health Care Education/Training Program; Admitting Provider Student in an Organized Health Care Education/Training Program; Emergency Provider Emergency Medicine; Visit Provider Student in an Organized Health Care Education/Training Program
PROC: (CPT 43239; principal; 2025-02-03 18:15)
PROC: 0DJ08ZZ Inspection of Upper Intestinal Tract, Via Natural or Artificial Opening Endoscopic (ICD-10-PCS; CPT 43239; principal; 2025-02-07 20:30)
DX: K72.10 Chronic hepatic failure without coma (principal); I87.2 Venous insufficiency (chronic) (peripheral); D62 Acute posthemorrhagic anemia; D69.6 Thrombocytopenia, unspecified; E87.1 Hypo-osmolality and hyponatremia; E88.09 Other disorders of plasma-protein metabolism, not elsewhere classified; I50.9 Heart failure, unspecified; I95.89 Other hypotension; K70.31 Alcoholic cirrhosis of liver with ascites; K76.6 Portal hypertension; K76.82 Hepatic encephalopathy; Z56.0 Unemployment, unspecified; Z76.82 Awaiting organ transplant status; Z79.899 Other long term (current) drug therapy; I85.10 Secondary esophageal varices without bleeding; K22.6 Gastro-esophageal laceration-hemorrhage syndrome
CPT/HCPCS: 36415; 70450; 71045; 76705; 80053; 81001; 82140; 82607; 82746; 83605; 83690; 83735; 83880; 84100; 84484; 85014; 85018; 85025; 85610; 85730; 86850; 86900; 86901; 86923; 87811; 93005; 93225; 96374; 96375; 97162; 99284; A4649; J0696; J1200; J2250; J2354; J2405; J2470; J3010; J3475; J7050; J7120; P9016; P9047; A9270

== ENCOUNTER 2025-03-12 10:02 | Inpatient (IN) | payer MEDICAID, SELFPAY ==
[2025-03-12] VITALS (34 sets, daily range): BP systolic 83–172; BP diastolic 55–81; PULSE 74–120; RESP 4–23; TEMP 31.9–37.1; O2SAT 90–100; BMI 25.0
--- NOTE | 2025-03-12 10:46 | PD.EDFALL ---
ED Fall Injury RME/HPI General Chief Complaint: Fall Stated Complaint: Fell this am, weak, ALMS Time Seen by Provider: 03/12/25 10:38 Arrival date/time: 03/12/25 10:02 Limitations: no limitations RME / HPI RME / HPI Narrative: DR. VICKERS MAIN ED EVALUATION: 64-year-old male with a past medical history of end-stage liver disease (currently on the [place] transplant list), chronic ascites, and chronic venous insufficiency presenting after an unwitnessed fall this morning. He was found on the floor by family members and appeared lethargic at that time. Patient denies any pain, chest discomfort, shortness of breath, or other complaints. No reported head trauma or deformities. No new medications or recent alcohol use. Related Data Home Medications ?Medication ?Instructions ?Recorded ?Confirmed famotidine 20 mg tablet (Pepcid) 20 mg PO DAILY 02/02/25 02/02/25 midodrine 10 mg tablet 10 mg PO TID 02/02/25 02/02/25 pantoprazole 40 mg tablet,delayed 40 mg PO DAILY 02/02/25 02/02/25 release Previous Rx's ?Medication ?Instructions ?Recorded furosemide 40 mg tablet (Lasix) 40 mg PO TID 1 month #90 tabs 12/21/24 Held on 02/09/25. Instructions: Resume on 03/01/25. Until follow up with PCP due to low blood pressure. spironolactone 50 mg tablet 50 mg PO BID #60 tabs 01/03/25 Held on 02/09/25. Instructions: Resume on 03/01/25. Until follow up with PCP due to low blood pressure. metoclopramide HCl 10 mg tablet 10 mg PO Q6H PRN nausea and 01/21/25 (Reglan) vomiting #90 tabs lactulose 20 gram oral packet 10 g PO TID PRN encephalopathy #30 02/09/25 ea rifaximin 550 mg tablet (Xifaxan) 550 mg PO BID 3 months #180 tabs 02/09/25 Allergies Allergy/AdvReac Type Severity Reaction Status Date / Time No Known Allergies Allergy Verified 03/12/25 10:06 Review of Systems Review of Systems Systems Reviewed: All systems reviewed, normal except as documented Past Medical History Past Medical History CARDIAC: Positive Edema (legs) GASTROINTESTINAL: Positive Gastrointestinal Disorders (esphageal varices banding couple of yrs ago. ESLD.), Cirrhosis (x3yrs. Paracentesis x1 2 mons ago.), Esophageal Varices and Ulcer (esophageal) ENDOCRINE: Positive Diabetes Mellitus Type 2 OTHER HISTORY: Positive Falls (2 days ago due to weakness, scrape bilateral knees.) Social History SMOKING STATUS: Never smoker SECOND HAND EXPOSURE: No SUBSTANCE USE: does not use ALCOHOL: Never ED Exam General Limitations: Present no limitations General appearance: Present alert and other (Emaciated, jaundiced, lethargic but arousable, appears chronically ill.) Head Head exam: Present atraumatic, normocephalic and normal inspection Eye Eye exam: Present normal appearance, PERRL and EOMI ENT ENT exam: Present normal exam, normal oropharynx and mucous membranes moist Neck Neck exam: Present normal inspection, full ROM and trachea midline Chest Chest inspection: Present normal inspection and symmetric chest wall rise Respiratory Respiratory exam: Present normal lung sounds bilaterally Cardiovascular Cardiovascular exam: Present regular rate, normal rhythm and normal heart sounds Abdominal Exam Abdominal exam: Present distention (Distended with ascites); Absent tenderness, guarding or rebound Extremities Exam Extremities exam: Present normal inspection and full ROM Back Exam Back exam: Present normal inspection and full ROM Neurological Exam Neurological exam: Present alert, oriented X3 and CN II-XII intact Psychiatric Psychiatric exam: Present normal affect and normal mood Skin Skin exam: Present warm, dry, intact and other (Jaundiced) Course Quality Measures Current suspected stage: sepsis Possible source: unknown Blood cultures ordered: yes Antibiotic ordered: No Pertinent labs: 03/12/25 03/12/25 11:06 15:14 Lactic Acid 8.3 H* mMol/L 4.5 H* mMol/L (0.4-2.0) (0.4-2.0) Procalcitonin 0.21 ng/ml (0.0-0.49) 1145: Sepsis alert initiated. Orders made at this time are congruent with ED Adult Sepsis Order List. Re-evaluation is to be completed. 1444: Sepsis reassessment performed consisting of lab review, vitals, physical exam including auscultation of heart, lungs, and visual evaluation of capillary refills, mucosal membranes and extremities. sepsis Orders Category Date Time Status CT Screening NOW Care 03/12/25 10:50 Active EKG (ED ONLY) *Do not use* NOW Care 03/12/25 10:50 Completed Mayo [Urinary Catheter] NOW Care 03/12/25 11:48 Active Initiate Warming Therapy X1 Care 03/12/25 11:46 Active Insert IV NOW Care 03/12/25 10:58 Active Insert NG / OG tube NOW Care 03/12/25 15:26 Active Referral Speech Therapy Stat Cons 03/12/25 15:10 Active Referral Wound Care Stat Cons 03/12/25 15:[address] abdomen pelvis w con Stat Exams 03/12/25 10:50 Completed CXRP [XR chest 1V portable] Stat Exams 03/12/25 10:50 Completed EKG (ED Only) Stat Exams 03/12/25 10:50 Draft ABG [Arterial Blood Gas] Stat Lab 03/12/25 11:49 Completed Ammonia Stat Lab 03/12/25 13:08 Completed BNP [B-Type Natriuretic Peptide] Stat Lab 03/12/25 11:06 Completed Blood Culture (Lab) Stat Lab 03/12/25 12:25 Received CBC [CBC] Stat Lab 03/12/25 11:06 Completed CK [Creatine Kinase] Stat Lab 03/12/25 11:06 Completed CMP [Comprehensive Metabolic Panel] Stat Lab 03/12/25 11:06 Completed D-Dimer Stat Lab 03/12/25 11:06 Completed Lactic Acid [Lactate (Lactic Acid)] Stat Lab 03/12/25 11:06 Completed Lactic Acid, 3 HR Stat Lab 03/12/25 15:14 Completed Lipase Stat Lab 03/12/25 11:06 Completed Procalcitonin Stat Lab 03/12/25 11:06 Completed Troponin I Stat Lab 03/12/25 11:06 Completed UA, C/S IF [Urinalysis, C/S if Indicated] Stat Lab 03/12/25 11:50 Completed Albumin Human-Kjda 25% Ivpb [Albuminex 25% Ivpb] Med 03/12/25 15:30 Ordered 25 gm IV QDAY Lactulose Syrup [Enulose Syrup] Med 03/12/25 15:26 Once 30 gm PO X1 ONE Morphine* Inj Med 03/12/25 10:50 Discontinued 4 mg IVP X1 ONE Ondansetron Inj [Zofran Inj] Med 03/12/25 10:50 Discontinued 4 mg IVP X1 ONE Sodium Chloride 0.9% [Ns] 50 ml Med 03/12/25 15:32 Ordered IV X1 cefTRIAXone [Rocephin] 2 gm Med 03/12/25 15:26 Active SODIUM CHLORIDE 0.9% (Popper) [Ns 0.9% (P)] 50 ml IV X1 Vital Signs Vital signs: Vital Signs Temperature 98.8 F 03/12/25 10:07 Pulse Rate 89 03/12/25 10:07 Respiratory Rate 18 03/12/25 10:07 Blood Pressure 172/70 H 03/12/25 10:07 Pulse Oximetry (%) 100 03/12/25 10:07 Oxygen Delivery Method Room Air 03/12/25 10:07 Fall MDM Narrative MDM Narrative:: I, Leona Robles am scribing for and in the presence of Dr. Vickers. 64-year-old male with advanced liver disease and significant chronic ascites presenting after an unwitnessed fall. Exam notable for emaciation, jaundice, tachypnea, and ascites without tenderness. Vitals stable. Given his cirrhosis and lethargy, hepatic encephalopathy is high on the differential, along with possible mechanical fall versus secondary fall from metabolic or infectious cause. Plan to order abdomen/pelvis CT, abdomen US, basic labs, as well as CXR and EKG. Supportive care and fall precautions initiated. Patient cannot swallow. Will admit for encephalopathy, liver cirrhosis, and ascites but no infection. Patient data External records reviewed:: [facility] previous records Clinical information provided by:: patient Social determinants that could affect healthcare access:: none Patient has the following chronic illnesses:: end-stage liver disease (currently on the [place] transplant list), chronic ascites, and chronic venous insufficiency How is presenting disease/condition affected by chronic disease/condition?: exacerbated by Evaluation data The following diagnostics were reviewed and interpreted by me:: lab results, radiology exam(s) and EKG tracing(s) (EKG#1: EKG at 1104 hours. Interpreted by me: sinus rhythm, rate 76, no axis deviation, no ischemia, normal intervals ) Lab and/or radiology exams considered but not ordered:: none Interpretation Summary: See MDM narrative above. RADIOLOGY Procedure(s): XR chest 1V portable Accession Number(s): [id number] cc: Flaco Nicolas MD; Willian Verdugo MD; Pillo Good MD~ EXAMINATION: AP chest single view TECHNIQUE: AP portable semiupright chest single view Date and time: March 12, 2025, 11:54 a.m., comparison 02/01/2025 INDICATIONS: Onset chest pain today. FINDINGS: There is mild enlargement of the cardiac contour. Moderate vascular congestion. No lobar pneumonia. The osseous structures are intact. IMPRESSION: Moderate vascular congestion. Dictated By: Pillo Good MD Procedure(s): CT abdomen pelvis w con Accession Number(s): [id number] cc: Flaco Nicolas MD; Willian Verdugo MD; Pillo Good MD~ Examination: CT abdomen with intravenous contrast CT pelvis with intravenous contrast 2-D coronal reconstructions 2-D sagittal reconstructions Date and time of exam: March 12, 2025, 1321 hours, comparison December 17, 2024 INDICATIONS: Epigastric pain abdominal pain today, diagnosis cirrhosis. CTDI: vol (mGy) 16.4 DLP: (mGycm) 998 Technique: Multiple axial sections of the abdomen and pelvis have been obtained. 64 slice high-resolution scanner used. 3 mm axial sections have been obtained, post intravenous injection 60 cc Isovue-300 2-D sagittal, coronal reconstructions obtained. Low dose protocols were performed. One or more of the following dose reduction techniques were used; automated exposure control, adjustment of the mA and/or KV according to patient size, use of iterative reconstruction technique. Findings: Mild enlargement cardiac contour. Cirrhosis, 12 mm lesion upper right lobe of the liver 34 mm 12 mm 16 mm low-density liver lesions Prominent ascites. Mild splenomegaly. Multiple gallstones Distended gallbladder No pancreatic mass No hydronephrosis. No bowel obstruction Normal appendix Anasarca Urinary bladder contracted around a Mayo catheter Fluid-containing right inguinal hernia. Prominent osteopenia with advanced degenerative disc disease L4-L5 IMPRESSION: Cirrhosis Benign liver cyst. Prominent ascites. Cholelithiasis. No pancreatic mass. Normal appendix. No bowel obstruction Dictated By: Pillo Good MD Medications / Prescriptions Medications or Prescriptions considered but not ordered:: none Medication administrations:: Medication Administration History Albumin Human (Albumin Human-Kjda 25% Ivpb 25 Gm/100 Ml Btl) 25 gm IV QDAY SHANNAN Stop: 04/11/25 15:29 Ceftriaxone Sodium 2 gm/ (Sodium Chloride) 50 mls @ 100 mls/hr IV X1 ONE Stop: 03/12/25 15:55 Sodium Chloride (Ns) 50 mls @ 200 mls/hr IV X1 ONE Stop: 03/12/25 15:46 Discontinued Medications Lactulose (Lactulose Syrup 20 Gm/30 Ml Udc) 30 gm PO X1 ONE; Protocol Stop: 03/12/25 15:27 Morphine Sulfate (Morphine Sulf Inj 4 Mg/Ml Vial) 4 mg IVP X1 ONE Stop: 03/12/25 10:51 Last Admin: 03/12/25 11:15 Dose: 4 mg Documented By: SHAYY Ondansetron HCl (Ondansetron Inj 2 Mg/Ml Inj 2 Ml) 4 mg IVP X1 ONE; Protocol Stop: 03/12/25 10:51 Last Admin: 03/12/25 11:15 Dose: 4 mg Documented By: SHAYY see above if any Consultations Consultation(s) initiated? (list below): Yes Consultation #1 (Physician, Specialty, Details): Discussed test HPI, PMHx, lab, radiology results and/or management with resident working with the hospitalist. Will admit for further evaluation and management. Accepts patient for admission. Time: 15:30 Diagnosis Fall Differential Diagnosis: other (Mechanical fall, hepatic encephalopathy, intracranial hemorrhage, metabolic derangement, large abdominal or thoracic injury.) Most likely diagnosis given after review of the tests above:: Encephalopathy, liver cirrhosis, and ascites but no infection. Admission Indicated Admission indicated?: indicated Admission Request Was there a request for admission?: Yes Admission Attestation Admission request attestation: Discussed case with [] from Hospitalist service regarding admission. Discussed patients ED course, exam findings, labs, and radiology results. The Hospitalist [agrees,declines] to accept the patient for admission. Disposition Plan Disposition Plan: Admit Critical Care Time Critical Care Time Critical Care Time: Yes Total Critical Care Time (min.): 45 Attestation: The high probability of sudden, clinically significant deterioration in the patient?s condition required the highest level of my preparedness to intervene urgently. The services I provided to this patient were to treat and/or prevent clinically significant deterioration. Services included the following: chart data review, reviewing nursing notes and/or old charts, documentation time, multi site leasing consultant collaboration regarding findings and treatment options, medication orders and management, direct patient care, vital sign assessments and ordering, interpreting and reviewing diagnostic studies and lab tests. Aggregate critical care time includes only time during which I was engaged in work directly related to the patient?s care, as described above, whether at bedside or elsewhere in the Emergency Department. It did not include time spent performing other reported procedures or the services of residents, students, nurses or physician assistants. Discharge Plan Prescriptions/Referrals Prescriptions/Med Rec: No Action spironolactone 50 mg tablet 50 mg PO BID Qty: 60 3RF metoclopramide HCl [Reglan] 10 mg tablet 10 mg PO Q6H PRN (Reason: nausea and vomiting) Qty: 90 2RF Patient Comments: Pt takes BID everyday due to lot of vomiting. furosemide [Lasix] 40 mg tablet 40 mg PO TID 30 Days Qty: 90 3RF famotidine [Pepcid] 20 mg tablet 20 mg PO DAILY Patient Comments: new prescriiption. midodrine 10 mg tablet 10 mg PO TID Patient Comments: 08:30,13:30,17:30 Rx Instructions: do not give last dose of day after 6PM or within 4 hrs of bedtime pantoprazole 40 mg tablet,delayed release (DR/EC) 40 mg PO DAILY Patient Comments: TAKE 1 TABLET BY MOUTH EVERY DAY lactulose 20 gram packet 10 g PO TID PRN (Reason: encephalopathy) Qty: 30 2RF Rx Instructions: titrate to 2-3 bowel movements per day. Xifaxan 550 mg tablet 550 mg PO BID 90 Days Qty: 180 0RF Referrals: Willian Verdugo MD [Primary Care Provider, Family Practice] - In 1 week Patient/Caregiver Discharge Instructions Print Language: Faroese
--- NOTE | 2025-03-12 10:50 | XR_ITS ---
EXAMINATION: AP chest single view TECHNIQUE: AP portable semiupright chest single view Date and time: March 12, 2025, 11:54 a.m., comparison 02/01/2025 INDICATIONS: Onset chest pain today. FINDINGS: There is mild enlargement of the cardiac contour. Moderate vascular congestion. No lobar pneumonia. The osseous structures are intact. IMPRESSION: Moderate vascular congestion.
--- NOTE | 2025-03-12 10:50 | XR_ITS ---
Examination: CT abdomen with intravenous contrast CT pelvis with intravenous contrast 2-D coronal reconstructions 2-D sagittal reconstructions Date and time of exam: March 12, 2025, 1321 hours, comparison December 17, 2024 INDICATIONS: Epigastric pain abdominal pain today, diagnosis cirrhosis. CTDI: vol (mGy) 16.4 DLP: (mGycm) 998 Technique: Multiple axial sections of the abdomen and pelvis have been obtained. 64 slice high-resolution scanner used. 3 mm axial sections have been obtained, post intravenous injection 60 cc Isovue-300 2-D sagittal, coronal reconstructions obtained. Low dose protocols were performed. One or more of the following dose reduction techniques were used; automated exposure control, adjustment of the mA and/or KV according to patient size, use of iterative reconstruction technique. Findings: Mild enlargement cardiac contour. Cirrhosis, 12 mm lesion upper right lobe of the liver 34 mm 12 mm 16 mm low-density liver lesions Prominent ascites. Mild splenomegaly. Multiple gallstones Distended gallbladder No pancreatic mass No hydronephrosis. No bowel obstruction Normal appendix Anasarca Urinary bladder contracted around a Mayo catheter Fluid-containing right inguinal hernia. Prominent osteopenia with advanced degenerative disc disease L4-L5 IMPRESSION: Cirrhosis Benign liver cyst. Prominent ascites. Cholelithiasis. No pancreatic mass. Normal appendix. No bowel obstruction
--- NOTE | 2025-03-12 10:50 | EKG_ITS ---
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
[2025-03-12] MEDS: MORPHINE SULF INJ 4 MG/ML VIAL IVP (11:15)
[2025-03-12] MEDS: ONDANSETRON INJ 2 MG/ML INJ 2 ML 4 MG IVP (11:15)
[2025-03-12 11:36] LABS: Lactate (Lactic Acid) 8.3 mMol/L (0.4-2.0)
[2025-03-12 11:42] LABS: Basophils # (Auto) 0.0 Thou/mm3 (0.0-0.2); Basophils % (Auto) 0 % (0-2.5); Eosinophils # (Auto) 0.0 Thou/mm3 (0.0-0.5); Eosinophils % (Auto) 0 % (0-10); Hematocrit 31.7 % (41.0-53.0); Hemoglobin 10.8 g/dL (13.5-16.0); Immature Granulocytes Auto 0.02 Thou/mm3 (0.00-0.00); Lymphocytes # (Auto) 0.5 Thou/mm3 (1.0-4.8); Lymphocytes % (Auto) 9 % (10-50); Mean Corpuscular HGB Conc 34.1 g/dl (31.0-37.0); Mean Corpuscular Hemoglobin 35.9 pg (25.0-35.0); Mean Corpuscular Volume 105 fL (80-100); Monocytes # (Auto) 0.4 Thou/mm3 (0.0-0.8); Monocytes % (Auto) 9 % (0-12); Neutrophils # (Auto) 4.1 Thou/mm3 (1.8-7.7); Neutrophils % (Auto) 81 % (37-80); Nucleated Red Blood Cell # 0.00 Thou/mm3 (0.00-0.00); Nucleated Red Blood Cell % 0 /100 WBC (0); RDW Standard Deviation 66.2 fL (35.1-43.9); Red Blood Count 3.01 Miln/mm3 (4.50-5.90); White Blood Count 5.0 Thou/mm3 (3.8-10.6)
[2025-03-12 11:54] LABS: D-Dimer 2320 ng/mL (<600)
[2025-03-12 11:59] LABS: Platelet Count 59 Thou/mm3 (140-440)
[2025-03-12 12:02] LABS: Collection Type, Urine Clean Catch
[2025-03-12 12:04] LABS: B-Type Natriuretic Peptide 30 pg/mL (0-100)
[2025-03-12 12:04] LABS: Base Excess 3 (-3-3); HCO3 26 mEq/L (20-26); Inspired Oxygen, FIO2 21 %; O2 Saturation 100 % (91-98); PCO2 35 mmHg (32.0-48.0); PO2 129 mmHg (83-108); pH, Arterial 7.48 (7.35-7.45)
[2025-03-12 12:05] LABS: Allen Test Not Performed; Puncture Site Right Radial
[2025-03-12 12:13] LABS: Slide Review Platelets confirmed
[2025-03-12 12:25] LABS: Bilirubin,Urine Negative (Negative); Blood,Urine 3+ (Negative); Calcium Oxalate Crystals,Urine 4+; Color,Urine Drk-Yellow (Lt Yel-Yel); Culture Indicated,Urine Not Indicated; Glucose, Urine Negative (Negative); Granular Casts,Urine 14 /hpf (0-1); Hyaline Casts,Urine 10 /hpf (0-1); Ketones,Urine Negative (Negative); Leukocyte Esterase,Urine Negative (Negative); Nitrite,Urine Negative (Negative); PH,Urine 5.5 (5.0-7.0); Protein,Urine 1+ (Neg - Trace); RBC,Urine 125 /hpf (0-3); Specific Gravity,Urine 1.017 (1.001-1.035); Squamous Epithelial Cell,Urine 5 /hpf (0-5); Urobilinogen,Urine Negative mg/dL (0.0-1.0)
[2025-03-12 12:26] LABS: Clarity,Urine Cloudy (Clear/Hazy)
[2025-03-12 12:27] LABS: WBC,Urine 4 /hpf (0-5)
[2025-03-12 12:30] LABS: Alanine Aminotransferase 98 U/L (10-49); Albumin, Serum 2.5 gm/dL (3.4-4.8); Albumin/Globulin Ratio 0.5 (1.2-2.2); Alkaline Phosphatase 133 U/L (46-116); Anion Gap 16 (7-16); Aspartate Amino Transferase 166 U/L (0-34); BUN/Creatinine Ratio 23 Ratio (12-20); Bilirubin,Total 14.0 mg/dL (0.3-1.2); Blood Urea Nitrogen 18 mg/dL (9-23); Calcium 9.5 mg/dL (8.3-10.6); Calcium (Corrected) 10.7 mg/dL (8.5-10.1); Carbon Dioxide 25.1 mMol/L (20.0-31.0); Chloride 98 mMol/L (98-107); Creatine Kinase 288 U/L (34-171); Creatinine (Component) 0.8 mg/dL (0.6-1.3); Estimated Creatinine Clearance 103.7 mL/min (>60); Globulin 5.5 gm/dL (2.3-3.5); Glucose 125 mg/dL (74-106); Osmolality,Calculated 280 (275-295); Potassium 3.6 mMol/L (3.4-5.1); Procalcitonin 0.21 ng/ml (0.0-0.49); Sodium 139 mMol/L (136-145); Total Protein 8.0 gm/dL (5.7-8.2); Troponin I 0.029 ng/mL (0.0-0.045); eGFR > 60 See Note
[2025-03-12 13:22] LABS: Lipase 26 U/L (12-53)
[2025-03-12 13:42] LABS: Ammonia 80 uMol/L (11-32)
[2025-03-12 14:26] LABS: Reflex Lactate? Y
[2025-03-12 15:25] LABS: Lactic Acid, 3 HR 4.5 mMol/L (0.4-2.0)
--- NOTE | 2025-03-12 15:25 | PC.NURSE ---
DR. PARHAM MADE AWARE THAT THIS PT IS MORE LETHARGIC, AND LESS RESPONSIVE, NO NEW ORDERS GIVEN.
--- NOTE | 2025-03-12 15:46 | XR_ITS ---
Examination: CT brain head without contrast. 2-D sagittal coronal reconstructions Date and time of exam: March 12, 2025, 1606 hours INDICATIONS: Stroke alert, onset focal neurologic deficit today CTDI: vol (mGy): 29.7 DLP: (mGycm): 994 Technique: Multiple CT axial sections of the brain have been obtained, 5 mm slice thickness. Contrast has not been administered. 2-D sagittal, coronal reconstructions have been obtained Low dose protocols were performed. One or more of the following dose reduction techniques were used; automated exposure control, adjustment of the mA and/or KV according to patient size, use of iterative reconstruction technique. Findings: No significant ventricular enlargement. Intra-axial or extra-axial hemorrhage density is not seen. No mass effect or midline shift Basal cisterns are not remarkable. Fourth ventricle is midline. Cranial vault intact. Impression: Negative for acute hemorrhage, mass effect or midline shift
[2025-03-12] MEDS: cefTRIAXone 2 GM in SODIUM CHLORIDE 0.9% (Popper) 50 ML IV (15:49)
--- NOTE | 2025-03-12 16:07 | XR_ITS ---
Examination: CTA carotids with intravenous contrast CTA brain, head with intravenous contrast. 2-D sagittal, coronal reconstructions. 3-D reconstructions. Exam date and time: March 12, 2025, 1611 hours INDICATIONS: Stroke alert, episode of loss of consciousness followed by generalized weakness today CTDI: vol (mGy) 16.4 DLP: (mGycm) 459 Technique: Multiple CTA axial brain, head carotid images post intravenous contrast injection 100 cc, Isovue-370. 2-D sagittal, coronal reconstructions. 3-D reconstructions, 3-D post processing including vascular maximum intensity projection images. Low dose protocols were performed. One or more of the following dose reduction techniques were used; automated exposure control, adjustment of the mA and/or KV according to patient size, use of iterative reconstruction technique. Findings: Prominent vascular congestion No significant common carotid carotid bifurcation or internal carotid artery stenoses Dominant left vertebral artery in the neck with no critical stenoses Intracranial vertebral arteries basilar artery and posterior cerebral branches fill with no large vessel occlusions Juxtasellar supraclinoid portions internal carotid arteries M1 segments middle cerebral arteries middle cerebral artery trifurcation vessels and anterior cerebral arteries fill with no large vessel occlusions IMPRESSION: No significant neck arterial stenoses No cerebral large vessel arterial occlusions or thrombus
[2025-03-12] MEDS: SODIUM CHLORIDE 0.9% 100 ML IV (16:37)
[2025-03-12] MEDS: SODIUM CHLORIDE 0.9% 50 ML 100 ML IV (16:38)
--- NOTE | 2025-03-12 16:43 | PD.TNEURO ---
Tele Neuro Consultation Consultation Date 03/12/25 Most Recent Vital Signs Last Vital Signs Temp 94.5 F L 03/12/25 16:24 Pulse 101 H 03/12/25 16:24 Resp 16 03/12/25 16:24 BP 106/62 03/12/25 16:24 Pulse Ox 91 L 03/12/25 16:24 O2 Del Method Room Air 03/12/25 16:24 Laboratory-Coagulation Panel D-Dimer 2320 ng/mL (<600) H 03/12/25 11:06 Consultation Narrative [facility] Tele[facility]urology Consult Services Patient Name:???Zen Galvan Date of :???1960 Identification Number:??? Date of Service:???03/12/2025 15:59:51 Diagnosis:?G93.49 - Encephalopathy Multifactorial ?I63.312 - Cerebrovascular accident (CVA) due to thrombosis of left middle cerebral artery (HCCC) Impression: ?64-year-old male with history of hepatic encephalopathy who presented from home, last normal at around 9 PM last night. He was found down this morning. He was significantly hypothermic on arrival and also had several metabolic derangements including an ammonia level in the 80s. He was being admitted to the hospital and stroke alert was called for left facial droop that has reportedly been present for several days per patient's daughter. Bedside nurse said that earlier he was also more awake and alert and speaking, able to say his name. Now he is minimally responsive. On exam, he is very altered. Alerted to voice but did not follow any commands or speak. He had withdraw from noxious in all of his extremities and a mild L lower facial droop. Eyes were midline. ?CTH with no acute findings. Obtained CTA to rule out LVO - showed that one of the L M2 branches was very stenotic vs. occluded. Called radiology to discuss - attempted to call x 2 with no response. Discussed the CTA results with Dr. Nicolas (ED provider) and my concern for possible L M2 occlusion vs. high grade stenosis. Recommended he call the transfer center for possible thrombectomy if patient's family is wishing to intervene vs. waiting for the formal read. He is currently DNR/DNI with end stage liver failure. ? He is not a TNK candidate given LKN and also platelet count of 62. ?Dr. Nicolas will speak to family and await the radiology read on the CTA and call transfer center if family wishes to intervene. ? ?His exam and mental status seems more consistent with severe metabolic encephalopathy. However, cannot rule out that this vascular finding is also potentially new and contributing to the change in mental status/aphasia. Our recommendations are outlined below. Recommendations: ? Stroke/Telemetry Floor ? Neuro Checks (Q2) ? Bedside Swallow Eval ? DVT Prophylaxis ? IV Fluids, Normal Saline ? Head of Bed 30 Degrees ? Euglycemia and Avoid Hyperthermia (PRN Acetaminophen) ? Hold Anticoagulation for Now ?Call transfer center if LVO confirmed for potential thrombectomy if within GO ?No antiplatelets given his thrombocytopenia ?MRI brain without contrast ?Labs: lipid panel and hemoglobin A1C if not done within last 90 days ?Statin therapy if LDL > 70 ?TTE with bubble ?Holter monitor at discharge to assess for A-fib ?PT/OT/Speech Sign Out: ? Discussed with Emergency Department Provider Advanced Imaging: CTA Head and Neck Completed. LVO:Yes Discussed with RUBEN :No Metrics: Last Known Well: 03/11/2025 21:00:00 Dispatch Time: 03/12/2025 15:59:51 Initial Response Time: 03/12/2025 16:01:43Symptoms: decreased LOC. Initial patient interaction: 03/12/2025 16:05:58 NIHSS Assessment Completed: 03/12/2025 16:09:07Patient is not a candidate for Thrombolytic. Thrombolytic Medical Decision: 03/12/2025 16:09:09Patient was not deemed candidate for Thrombolytic because of following reasons: LKW outside 4.5 hr window. . Low Platelet count <100 000/mm3 . CT Head: I personally reviewed all the CT images that were available to me and it showed: no acute process Radiologist was called back for review of advanced imaging on 03/12/2025 16:35:39 Primary Provider Notified of Diagnostic Impression and Management Plan on: 03/12/2025 16:40:46 History of Present Illness:Patient is a 64 year old Male. He has been here in the hospital since 12 PM. He was found down and unresponsive at home. Has a hx of liver cirrhosis. He was found on the floor this morning. Initial temp was 89.4 degrees rectal. Ammonia level 80. 15 minutes ago, he had a change in mental status where he was less responsive and not speaking to staff. Admitting team was concerned about a L facial droop Previously was able to tell the nurse Past Medical History: ?There is no history of Hypertension ?There is no history of Diabetes Mellitus ?There is no history of Hyperlipidemia ?There is no history of Stroke Other PMH:? end stage liver disease Medications: No Anticoagulant use? No Antiplatelet use Reviewed EMR for current medications Allergies:? Reviewed Social History: Unable To Obtain Due To Patient Status :?Patient Cannot Communicate Relevant Social History Family History: There is no family history of premature cerebrovascular disease pertinent to this consultation ROS : 14 Points Review of Systems was performed and was negative except mentioned in HPI. Past Surgical History: There Is No Surgical History Contributory To Today?s Visit Examination: BP(93/57),?Pulse(100),?Blood Glucose(130) 1A: Level of Consciousness - Arouses to minor stimulation?+ 1 1B: Ask Month and Age - Aphasic?+ 2 1C: Blink Eyes & Squeeze Hands - Performs 0 Tasks?+ 2 2: Test Horizontal Extraocular Movements - Normal?+ 0 3: Test Visual Hill - No Visual Loss?+ 0 4: Test Facial Palsy (Use Grimace if Obtunded) - Partial paralysis (lower face)?+ 2 5A: Test Left Arm Motor Drift - No Effort Against Skipwith?+ 3 5B: Test Right Arm Motor Drift - No Effort Against Skipwith?+ 3 6A: Test Left Leg Motor Drift - No Effort Against Skipwith?+ 3 6B: Test Right Leg Motor Drift - No Effort Against Skipwith?+ 3 7: Test Limb Ataxia (FNF/Heel-Souza) - Does Not Understand?+ 0 8: Test Sensation - Normal; No sensory loss?+ 0 9: Test Language/Aphasia - Mute/Global Aphasia: No Usable Speech/Auditory Comprehension?+ 3 10: Test Dysarthria - Mute/Anarthric?+ 2 11: Test Extinction/Inattention - No abnormality?+ 0 NIHSS Score:?24 NIHSS Free Text :?mild L lower facial droop Pre-Morbid Modified [place] Scale: 0 Points = No symptoms at all Spoke with :?Dr. Nicolas This consult was conducted in real time using interactive audio and video technology. Patient was informed of the technology being used for this visit and agreed to proceed. Patient located in hospital and provider located at home/office setting. Patient is being evaluated for possible acute neurologic impairment and high probability of imminent or life-threatening deterioration. I spent total of 35 minutes providing care to this patient, including time for face to face visit via telemedicine, review of medical records, imaging studies and discussion of findings with providers, the patient and/or family. Radiologist not available: A: Imaging reviewed independently via remote access workstation. Attempted to contact radiologist at [place], [place] 03/12/2025 4:35:59 PM via phone. No response received at time of consultation. B: Remote physician workstations do not possess the same resolution, calibration, or diagnostic capabilities as hospital-based radiology reading stations, and formal radiologist read is necessary. A formal radiology interpretation was not available at the time of this evaluation. C: Bedside team was informed of the limitations of remote imaging review and the absence of radiology confirmation at this time. Recommendation to obtain formal radiology read as soon as possible was made. Dr Dottie Bejarano [facility] For Inpatient follow-up with [facility] physician please call [facility] at . As we are not an outpatient service for any post hospital discharge needs please contact the hospital for assistance. If you have any questions for the [facility] physicians or need to reconsult for clinical or diagnostic changes please contact us via [facility] at . Signature :Godfrey Bejarano
[2025-03-12] MEDS: SODIUM CHLORIDE 0.9% 100 ML 999 ML IV (16:48)
[2025-03-12] MEDS: SODIUM CHLORIDE 0.9% 50 ML 999 ML IV (16:48)
--- NOTE | 2025-03-12 17:04 | XR_ITS ---
EXAMINATION: AP chest single view TECHNIQUE: AP portable semiupright chest single view Date and time: March 12, 2025, 1716 hours, comparison March 12, 2025 11:54 a.m. INDICATIONS: Post orogastric tube placement FINDINGS: Orogastric tube in the stomach satisfactory position Prominent vascular congestion, there appears to be early septal edema at the lung bases Reduced inspiratory effort Prominent osteopenia IMPRESSION: Orogastric tube in the stomach satisfactory position Suspicious for early heart failure.
--- NOTE | 2025-03-12 17:11 | PC.CC ---
Zen Stuart is a 64-year-old male admitted for Fell this am, ALMS. Tarper made contact with Pt at bedside to complete initial and discuss discharge disposition. Pt asleep on gurney, information was obtained by Next of Kin daughter Scarlet Verdugo [phone].Role and reason for the contact was explained to Pt. Demographic information was verified. Pt needs assistance with all ADLs. Pt utilizes walker as source of DME but daughter reports Pt is unable to walk and is in need of DME- Wheelchair or assitant devise to transport Pt. Pt?s choice of pharmacy [place] [facility] [place] [address]. PCP is [facility]. At time of discharge patient will return home, family will provide transportation. Daughter is requesting SNIF placement. Discharge Plan: Home Next of Kin: daughter Scarlet Verdugo [phone] PCP: [facility]
[2025-03-12] MEDS: ALBUMIN HUMAN-KJDA 25% IVPB 25 GM/100 ML BTL IV (17:22)
[2025-03-12] MEDS: LACTULOSE SYRUP 20 GM/30 ML UDC 30 GM NG (17:26)
--- NOTE | 2025-03-12 17:36 | EVENTNT_ITS ---
Documentation for date of: 03/12/25 Event Note Event Note: 64 yo male PMHx of alcohol-related ESLD, grade 3 esophageal varices, recurrent ascites, Hx SBP on long-term prophylaxis antibiotics, chronic venous stasis, hypotension, chronic anemia, chronic thrombocytopenia, chronic elevated total bilirubin, current hepatic encephalopathy, and Hx of E. coli bacteremia. Patient presented to ED 03/12/25 secondary to GLF with weakness, unknown LNW time. In the ED, vitals 172/70, HR 89, RR 18, requiring 2L sating @ 100%. Temperature was recorded as 98.8 on arrival, 89.4 at 11:45AM on rectal thermometer, bear hugger placed, temperature 95.0 rectal @ 17:04. Patient given morphine, started on ceftriaxone, albumin x1 50, lactulose 30. IM Team called for possible admission. IM Team examined patient at bedside: AOx0, somnolent, not responding to verbal stimuli. Notable left-sided facial d apollo. Pupils sluggishly reactive to light. No EOM. Eyes closed. Emmanuel jaundice on forehead, body and sublingual submucosa deposits, and dental caries. Apparent JVD. Lungs sounds exhibit low breath sounds. Heart rate tachycardic, normal rhythm, murmur radiated to left upper chest near substernal notch. Abdomen distension with hepatomegaly, right hernia present, and echomosis present on umbilicus. Significant peripheral edema, LLE > RLE. GCS 7. DNR/DNI discussed at bedside with ED team and daughter Scarlet, decision made to make patient DNR/DNI. Given Teleneurologist recommendations, given M2 high grade occulsion recommend transfer for possible thrombectomy or repeat read. IM Team with Attending Physican Dr. Cline returned bedside. Goals of Care discussed with Scarlet. IM Team and nurse present in ER Trauma Room 2. Discussed the risks and benefits of transferring patient to stroke center, PLTs 60 will not be a thrombo-embolectomy candidate. We presented the alternative options of comfort care and conservative management if not transferring patient. We defined comfort care as allowing a natural with comfort measures like pain control; and conservative management as giving lactulose in-patient for treatment of hepatic encephalopathy to await if patient's mentation improves. We had a lengthy risks/benefits discussion of each. Scarlet understood each option, she stated she does not want to transfer her father and she repeated the risks of not treating stroke like examples of assisted sequelae and possible . With further discussion, Scarlet chose conservative treatment, Scarlet does not want comfort care at the moment. DNR/DNI readdressed and Scarlet agreed that DNR/DNI status is the decision she made. She does not want compressions nor a tube for inspiration. Scarlet understood the risks and benefits with her decision.
[2025-03-12] MEDS: LACTULOSE SYRUP 20 GM/30 ML UDC 60 GM NG (18:41)
--- NOTE | 2025-03-12 20:34 | ECHO_ITS ---
Transthoracic Echo Report Ht (in): 72 Wt (lb): 185 Exam Location: Echo Lab Status: Emergency [employer] Sales Representative: Aissatou Montelongo Indications: Procedure Performed: BP: 121 / 74 HR: 107 Technical Quality: Technically difficult study MEASUREMENTS (Male / Female) Normal Values 2D ECHO LVOT Diameter 2.1 cm LV Ejection Fraction MOD BP 71.0 % >= 55 % LV Cardiac Index MOD BP 5650.2 cm?/min?m? LV Ejection Fraction MOD 4C 65.9 % LV Cardiac Index MOD 4C 4359.0 cm?/min?m? LV Ejection Fraction 4C AL 66.7 % LV Cardiac Index 4C AL 4587.9 cm?/min?m? LV Ejection Fraction MOD 2C 71.7 % LV Cardiac Index MOD 2C 5557.3 cm?/min?m? LV Ejection Fraction 2C AL 73.5 % LV Cardiac Index 2C AL 5858.6 cm?/min?m? LA Volume Index 32.2 cm?/m? 16 - 28 cm?/m? DOPPLER AV Peak Velocity 164.0 cm/s AV Peak Gradient 10.8 mmHg AV Mean Gradient 5.0 mmHg AV Velocity Time Integral 27.6 cm LVOT Peak Velocity 132.0 cm/s LVOT Peak Gradient 7.0 mmHg LVOT Velocity Time Integral 29.1 cm LVOT Cardiac Index 5205.6 cm?/min?m? AV Area Cont Eq vti 3.7 cm? AV Area Cont Eq pk 2.8 cm? LV E' Lateral Velocity 19.1 cm/s LV E' Septal Velocity 11.3 cm/s TR Peak Velocity 269.0 cm/s TR Peak Gradient 28.9 mmHg PV Peak Velocity 96.4 cm/s PV Peak Gradient 3.7 mmHg FINDINGS Left Ventricle Normal left ventricular size, wall thickness, systolic function with no obvious regional wall motion abnormalities. Unable to evaluate diastolic function due to tachycardia. The ejection fraction is visually estimated at 65-70%. Right Ventricle The right ventricle is normal in size and systolic function. Left Atrium The left atrium is normal by two-dimensional, color flow and Doppler imaging with no structural abnormalities, no thrombus formation present. Right Atrium The right atrium is normal by two-dimensional imaging, color flow and Doppler imaging with no structural abnormalities, no thrombus formation present. Atrial Septum The interatrial septum appears normal with no evidence of a shunt. Aorta The aorta is normal by two-dimensional, color flow and Doppler interrogation. Mitral Valve The mitral valve is normal by two-dimensional, color flow and Doppler interrogation. Trace mitral regurgitation. Aortic Valve The aortic valve is trileaflet and normal by two-dimensional, color flow and Doppler interrogation. Mild-to- moderate aortic valve regurgitation. Tricuspid Valve The tricuspid valve is normal by two-dimensional, color flow and Doppler interrogation. There is mild tricuspid valve regurgitation. Pulmonic Valve The pulmonic valve is not well visualized. There is no significant pulmonic valve regurgitation. Vessels Inferior vena cava not well visualized. Pericardium The pericardium is normal by two-dimensional imaging. There is no significant pericardial effusion. CONCLUSIONS Indication: Stroke Positive bubble study Normal LV size and wall thickness. Unable to evaluate diastolic function due to tachycardia.Estimated EF at 65-70%. The RV is normal in size and systolic function. Trace MR. Mild to moderate AI. Mild TR. Cristina Holland (Electronically Signed) Final Date: 14 March 2025 07:32
--- NOTE | 2025-03-12 20:40 | PD.RESHP ---
Documentation for date of: 03/12/25 HPI History of Present Illness History of present illness: Mr. Stuart is a 64 y/o Finnish-speaking male with PMH alcohol-related ESLD, grade 3 esophageal varices, recurrent ascites, SBP on long-term prophylaxis antibiotics, chronic venous stasis, hypotension, chronic anemia, chronic thrombocytopenia, chronic elevated total bilirubin, current hepatic encephalopathy, and Hx of E. coli bacteremia who presented to the ED on 03/12 with weakness. Unknown LKAW. Patient unable to answer questions, unresponsive to verbal stimuli. No family at bedside. History obtained from chart review. Upon initial assessment, patient was AOx0, somnolent, not responding to verbal stimuli, L facial droop, pupils sluggish but reactive to light. Emmanuel jaundice on forehead, body and sublingual submucosa deposits, and dental caries. JVD. Abdomen distension with hepatomegaly, right hernia present, and echomosis present on umbilicus. Significant peripheral edema, LLE > RLE. GCS 7. Patient made DNR/DNI after family discussion. Recent admission 02/01-02/11/25 for refractory nausea and vomiting, upper GI bleed, decompensated liver cirrhosis with ascites and hepatic encephalopathy. Grade II esophageal varices were banded. Gaby Toussaint at GE junction found on EGD, no active bleeding w/ overlying mass. Given 2U pRBC, octreotide gtt. MAP maintained with midodrine. ED course: Vitals T 94.5 --> Jethro hugger --> 97.3, HR 90-110s, RR 9-20s, BP 101/71 - 110/64, spO2 91% --> 2L 97%. Labs significant for hgb 10.8, HCT 31.7, plt 59, Ca 10.7, albumin 2.5, total bili 14, CK 288, PT >63, INR undetectable, aPTT 56.8. D dimer 2320, Lactic acid 8.3 --> 4.5. Ammonia 80. UA 1+ protein, 3+ blood, 125 RBC, 4+ Ca oxalalaet crystals, 10 hyaline casts, [address] head negative for acute hemorrhage. CTA positive for M2 high grade occlusion. CXR moderate vascular congestion, G in place. Bcx pending. EKG NNSR HR 76, QTc 419.Given plt 59, will not be a thrombectomy candidate. Family does not want to transfer patient for LVO management. Family chose conservative treatment without comfort care at this time. Given Zofran, morphine 4 mg IV, Ceftriaxone 2 g IV, Lactulose 90 mg total, lasix 40 mg IV, albumin 25 mg IV, 2.2L NS IV. PMHx: ESLD, grade 3 esophageal varices, recurrent ascites, SBP on long-term prophylaxis antibiotics, chronic venous stasis, hypotension, chronic anemia, chronic thrombocytopenia, chronic elevated total bilirubin, current hepatic encephalopathy, and Hx of E. coli bacteremia Allergies: NKDA Home meds: Pending med rec SgHx: none SHx: Heavy alcohol use (not quantified) FHx: none reported Review of Systems Review of Systems Narrative Review of Systems: Unable to assess due to patient mentation Exam Vital Signs Temp Pulse Resp BP Pulse Ox O2 Del Method O2 Flow Rate 97.3 F 117 H 17 125/69 97 Room Air 2 03/12/25 18:47 03/12/25 18:47 03/12/25 18:47 03/12/25 18:47 03/12/25 18:47 03/12/25 18:47 03/12/25 18:17 Narrative Exam General: No acute distress Eye: PERRL, scleral icterus HENT: Normocephalic, atraumatic Neck: Supple, non-tender Lungs: , symmetric chest rise, on 2L O2 spO2 97% Heart: Normal S1 and S2, no MRG. 2+ LE pitting edema Abdomen: Soft, diffusely TTP , distended Musculoskeletal: Unable to assess due to mentation Skin: b/l LE venous stasis dermatitis Neurologic: Obtunded, grimaces to noxious stimuli Results: Labs 03/12/25 11:06 03/12/25 11:06 Labs: Short CBC 03/12/25 Range/Units 11:06 WBC 5.0 (3.8-10.6) Thou/mm3 Hgb 10.8 L (13.5-16.0) g/dL Hct 31.7 L (41.0-53.0) % Plt Count 59 L D (140-440) Thou/mm3 BMP 03/12/25 11:06 Sodium 139 Potassium 3.6 Chloride 98 Carbon Dioxide 25.1 BUN 18 Creatinine 0.8 Glucose 125 H Calcium 9.5 Cardiac Enzymes 03/12/25 Range/Units 11:06 Total Creatine Kinase 288 H (34-171) U/L Troponin I 0.029 (0.0-0.045) ng/mL Liver Function 03/12/25 Range/Units 11:06 Total Bilirubin 14.0 H (0.3-1.2) mg/dL AST 166 H (0-34) U/L ALT 98 H (10-49) U/L Alkaline Phosphatase 133 H (46-116) U/L Albumin 2.5 L (3.4-4.8) gm/dL Urine 03/12/25 Range/Units 11:50 Urine Color Drk-Yellow A (Lt Yel-Yel) Urine Clarity Cloudy A (Clear/Hazy) Urine pH 5.5 (5.0-7.0) Ur Specific [place] 1.017 (1.001-1.035) Urine Protein 1+ A (Neg - Trace) Urine Glucose (UA) Negative (Negative) ABG Interpretation ABG results: 03/12/25 11:49 ABG pH 7.48 H ABG pCO2 35 ABG pO2 129 H ABG HCO3 26 ABG O2 Saturation 100 H ABG Base Excess 3 Quality Measures Quality Measures sepsis Current suspected stage: ruled out Possible source: unknown Blood cultures ordered: yes Antibiotic ordered: Yes Medications Home Medications and Allergies Home Medications ?Medication ?Instructions ?Recorded ?Confirmed ?Type famotidine 20 mg tablet (Pepcid) 20 mg PO DAILY 02/02/25 02/02/25 History midodrine 10 mg tablet 10 mg PO TID 02/02/25 02/02/25 History pantoprazole 40 mg tablet,delayed 40 mg PO DAILY 02/02/25 02/02/25 History release Allergies Allergy/AdvReac Type Severity Reaction Status Date / Time No Known Allergies Allergy Verified 03/12/25 10:06 Visit Medications Albumin Human (Albuminex 25% Ivpb) 25 gm in 100 mls @ 100 mls/hr IV QDAY SHANNAN Stop: 04/11/25 16:59 Last Infusion: 03/12/25 18:36 Dose: Infused Discontinued Medications Albumin Human (Albumin Human-Kjda 25% Ivpb 25 Gm/100 Ml Btl) 25 gm IV QDAY SHANNAN Stop: 04/11/25 15:29 Last Admin: 03/12/25 16:53 Dose: Not Given Ceftriaxone Sodium 2 gm/ (Sodium Chloride) 50 mls @ 100 mls/hr IV X1 ONE Stop: 03/12/25 15:55 Last Infusion: 03/12/25 16:47 Dose: Infused Sodium Chloride (Ns) 50 mls @ 200 mls/hr IV X1 ONE Stop: 03/12/25 15:46 Last Admin: 03/12/25 15:56 Dose: Not Given Sodium Chloride (Ns) 1,000 mls @ 400 mls/hr IV .Q2H30M ONE Stop: 03/12/25 18:15 Last Admin: 03/12/25 15:56 Dose: Not Given Sodium Chloride (Ns) 500 mls @ 999 mls/hr IV .Q31M SHANNAN Stop: 04/11/25 15:50 Last Admin: 03/12/25 16:29 Dose: Not Given Sodium Chloride (Ns) 50 mls @ 100 mls/hr IV X1 ONE Stop: 03/12/25 16:40 Last Infusion: 03/12/25 16:47 Dose: Infused Sodium Chloride (Ns) 100 mls @ 100 mls/hr IV X1 ONE Stop: 03/12/25 17:11 Last Infusion: 03/12/25 16:47 Dose: Infused Sodium Chloride (Ns) 50 mls @ 999 mls/hr IV X1 ONE Stop: 03/12/25 16:34 Last Infusion: 03/12/25 17:06 Dose: Infused Sodium Chloride (Ns) 100 mls @ 999 mls/hr IV X1 ONE Stop: 03/12/25 16:37 Last Infusion: 03/12/25 17:06 Dose: Infused Lactulose (Lactulose Syrup 20 Gm/30 Ml Udc) 30 gm PO X1 ONE; Protocol Stop: 03/12/25 15:27 Last Admin: 03/12/25 16:29 Dose: Not Given Lactulose (Lactulose Syrup 20 Gm/30 Ml Udc) 20 gm PO TID SHANNAN; Protocol Stop: 04/11/25 21:59 Lactulose (Lactulose Syrup 20 Gm/30 Ml Udc) 30 gm NG X1 ONE; Protocol Stop: 03/12/25 16:39 Last Admin: 03/12/25 17:26 Dose: 30 gm Lactulose (Lactulose Syrup 20 Gm/30 Ml Udc) 60 gm NG TID SHANNAN; Protocol Stop: 04/11/25 18:29 Last Admin: 03/12/25 18:41 Dose: 60 gm Morphine Sulfate (Morphine Sulf Inj 4 Mg/Ml Vial) 4 mg IVP X1 ONE Stop: 03/12/25 10:51 Last Admin: 03/12/25 11:15 Dose: 4 mg Ondansetron HCl (Ondansetron Inj 2 Mg/Ml Inj 2 Ml) 4 mg IVP X1 ONE; Protocol Stop: 03/12/25 10:51 Last Admin: 03/12/25 11:15 Dose: 4 mg Assessment & Plan Plan Mr. Stuart is a 64 y/o Finnish-speaking male with PMH alcohol-related ESLD c/b grade 3 esophageal varices, recurrent ascites, SBP on long-term prophylaxis antibiotics, chronic venous stasis, hypotension who presented to the ED on 03/12 with weakness. Unknown LKAW. Patient unable to answer questions, unresponsive to verbal stimuli. Admitted for stroke w/u, acute decompensated ESLD. #Acute Ischemic stroke, secondary to M2 occlusion Hx stroke/TIA: unknown, none listed in chart Hx afib: none Smoking hx: unknown Initial symptoms: Weakness. AOx0, somnolent, not responding to verbal stimuli, L facial droop, pupils sluggish but reactive to light. LKAW: unknown Initial NIHSS: unable to assess given obtunded Inital BP: 101/71 EKG: NSR HR 76, QTc 419 Initial glucose: 125 Troponin: negative CT head w/o: negative for acute hemorrhage CTA head/neck w/: M2 occlusion Pt not a candidate for tPA. Family decided against transfer and thrombectomy at this time. Plan: - Pending MRI stroke protocol, A1C, lipid panel, TSH, echo - Atorvastatin 80 mg NG daily for plaque stabilization - Held DAPT given plt 59, elevated PT/INR - Neuro Checks q4h - Permissive HTN - Aspiration Precautions, Head of bed 30 degrees - Euglycemia and avoid Hyperthermia - Consulted neurology, appreciate recs #Hepatic encephalopathy #Acutely decompensated on Chronic End-stage liver disease #Anasarca Initial presentation: obtunded Ammonia: 80 Albumin: 2.5 Total bili: 14 Hepatitis panel: non-reactive Lactic acid: 8.3 --> 4.5 Kidney function: WNL Synthetic liver dysfunction present. PT >63, INR too high for detection, aPTT 56.8 Meds given in ED: Zofran, morphine 4 mg IV, Ceftriaxone 2 g IV, Lactulose 90 mg total, lasix 40 mg IV, albumin 25 mg IV, 2.2L NS IV. MELD-Na: unable to calculate given INR too high for detection, [highest detectable INR per lab is 5, indicating that patient's MELD score>35points, which is associated with at least 65-66% estimated 90 day mortality] Child-Daigle: 15 points, child class C, life expectancy of 1-3 yrs; 82% perioperative mortality for abdominal surgery DDX cause: infection, constipation, electrolyte abnormalities, GI bleed, excess diuresis, dehydration, renal dysfunction, meds/toxins (NSAIDs, sedatives, EtOH, Acetaminophen) Plan: - Pending blood cx, repeat PT/INR, b/l LE Doppler, paracentesis w/ fluid analysis, liver US - Lactulose 20 mg NG TID - Lasix 40 mg IV TID - Spironolactone 100 mg NG daily - Rifaximin 550 mg NG BID - Pantoprazole 40 mg IV daily - Ceftriaxone 2 g IV daily for SBP prophylaxis (given hx SBP) - CTM for s/sx GI bleed, daily CBC - Daily weights - Transfuse pRBC if hgb <7 - Transfuse plt if plt <10 to prevent spontaneous hemorrhage - NPO given AMS - Avoid sedating agents - Limit Acetaminophen use <=2-3 g/day for mild 1-3 pain (650 mg PO q8h). Avoid NSAIDs 2/2 risk of hepatorenal syndrome. #Coagulopathy #Thrombocytopenia - H/h stable - continue to monitor for any signs of bleeding - holding antiplatelet and AC #Elevated D-dimer - Venous doppler of LE ordered #SIRS criteria # Suspected SBP #Hypothermia - resolved T 94.5, HR >20, RR >20. LA 8.3 --> 4.3. Given 2.2 L NS in ED Plan: - Jethro hugger PRN - Pending blood cx - Continue with rocephin 2g IV daily - F/u with diagnostic parascentesis and body fluid cultures #Macrocytic anemia Hgb 10.8, HCT 31.7, MCV 105 Plan: - CTM with daily CBC - Transfuse if hgb <7 - CTM for s/sx active bleed Checklist Dispo: Admit to tele for q4h neuro checks Diet: NPO given AMS Bowel Reg: lactulose 20 g NG TID VTE ppx: SCD GI ppx: pantroprazole 40 mg IV daily Pain mgmt: Tylenol PRN Code status: DNR/DNI Plan discussed with Dr. Bell and Dr. Faustino Lopez MD PGY1 Attending Provider Attestation/Addendum Ledy, Beverly Harmon, DO, attest that I was physically present for the charles portions of the service and evaluated the patient with the resident and I reviewed and discussed the case with the resident and agree with the resident's findings and plans of care as documented above Patient is a 64 yo male with pmhx of alcoholic liver cirrhosis, SBP, grade 3 esophageal varices, recurrent ascites, chronic venous insufficiency, Gaby Toussaint tear, thrombocytopenia, E.coli bacteremia who was brought to ED due to altered mental status.? Patient was found unresponsive at home around 9 PM last night. Patient was hypothermic on presentation with temperature of 89.4. He was noted to have a D-dimer 2320, lactic acid of 8.3, bilirubin of 14, AST is 166, ALT 90, ALP 133 and ammonia level of 80. ?Teleneurology was called due to a stroke alert. CTA shows no acute intracranial findings.? CTA head and neck appears to have a very stenotic versus occluded M2 branch per teleneuro.? Recommended transfer for possible thrombectomy.? However, goals of care was discussed with patient's daughter who had been at bedside earlier this evening.? She has been updated regarding patient's clinical status.? Patient was not responding to any verbal stimuli and very somnolent.? He was also noted to have a left facial droop.? Patient's daughter had made the decision to place patient CODE STATUS is DNR/DNI.? She also expressed that she would not like for patient to be transferred for thrombectomy, having weighed the risks versus benefits of undergoing procedure with patient's complicated medical history with thrombocytopenia.? She has expressed that she wishes for conservative management.? This was signed out from day team who was initially called for admission.? No family at bedside at time of my evaluation.? Patient does withdraw from noxious stimuli.? He appears to have some nystagmus in his right eye.? Pupils are reactive to light bilaterally.? Patient does appear jaundiced. ?He grimaces to pain on palpation of the abdomen.? Patient has anasarca with 3+ pitting edema in his lower extremities extending to his abdomen.? NG tube was placed in ED.? Decision made to admit patient for further medical management and further workup of acute CVA, acute metabolic encephalopathy, hepatic encephalopathy, decompensated liver cirrhosis and possible SBP.? It is recommended by telemetry neuro to hold off on any anticoagulation.? Patient also not a candidate for TNK Given his last known well from 9 PM and the platelet count of 59.? Also holding off on antiplatelets for the same reason. INR noted to be significantly elevated and out of detectable range. Will monitor for any signs of bleeding. H/H at baseline at this time. Given acute encephalopathy and coagulopathy, patient is in acute on chronic liver failure. MELD-Na score of at least 35 points indicating 65-66% chance of 90 day mortality based off of highest detectable INR of 5 per lab. Child daigle class C. Will start patient on lactulose via NG tube with rifaximin.? Will also start on 2 g of IV Rocephin for SBP as patient has altered mental status and appears to have pain on palpation of abdomen, as well as history of SBP in the past.? Will order a paracentesis with fluid studies.? Will also obtain an ultrasound of the liver given elevated LFTs and bilirubin.? Will start patient on IV diuresis given anasarca, along with albumin daily.? MRI and echo are pending for stroke workup. Will consult neurology for further recommendations as well. ?Pending venous doppler at this time due to elevated D-dimer. Patient does not appear to be in respiratory distress. Will order CTA of chest in AM as patient had already undergone CTA of head/neck earlier. Low suspicion for PE at this time. All AC and antiplatelets held due to coagulopathy and thrombocytopenia.
[2025-03-12 21:45] LABS: Partial Thromboplastin Time 56.8 Seconds (22.0-36.0)
[2025-03-12 22:12] LABS: Prothrombin Time > 63.0 Seconds (9.0-12.2)
--- NOTE | 2025-03-12 22:14 | XR_ITS ---
Examination: Abdomen sonogram, Limited Date and time of exam: March 12, 2025, 1050 hours INDICATIONS: Elevated bilirubin Laboratory examination today Technique: Real-time anand scale transabdominal sonographic images of the upper abdomen obtained. Findings: Gallbladder sludge No gallstones Gallbladder wall is thickened 0.5 cm with edema, however the patient has severe ascites Common bile duct 0.9 cm Pancreatic head 3.0 cm Cirrhosis, liver irregular in contour with multiple liver cysts, prominent ascites Normal hepatopetal portal venous flow Patent IVC Impression: Gallbladder wall is thickened however the patient has cirrhosis with severe ascites Consider MRCP follow-up to assess the enlarged common bile duct
--- NOTE | 2025-03-12 22:30 | XR_ITS ---
Examination: Venous duplex lower extremity sonogram, bilateral. Date and time of exam: March 12, 2020 5:11 p.m. INDICATIONS: Leg pain and swelling this week Technique: Multiple sonographic images of the deep venous system have been obtained. B-mode/2-D grayscale imaging of vascular structures and Doppler spectral analysis (waveforms) and color performed Both legs are examined. Findings: Deep venous systems do not demonstrate abnormal echogenicity. No diagnostic visualization left popliteal vein All visualized deep veins exhibit compressibility. All visualized deep veins exhibit augmentation. Impression: No DVT demonstrated
[2025-03-12] MEDS: SPIRONOLACTONE 25 MG TABLET 100 MG NG (22:59)
[2025-03-12] MEDS: LACTULOSE SYRUP 20 GM/30 ML UDC NG (23:03)
--- NOTE | 2025-03-12 23:29 | PC.NURSE ---
this RN attempted to contact both numbers on patients chart in order to collect information regarding patient medications and admission questions. no answer at this time
[2025-03-13] VITALS (13 sets, daily range): BP systolic 121–137; BP diastolic 74–91; PULSE 107–125; RESP 14–95; TEMP 35.6–36.2; O2SAT 94–98; BMI 25.2
[2025-03-13] MEDS: LACTULOSE SYRUP 20 GM/30 ML UDC NG (05:35)
[2025-03-13] MEDS: FUROSEMIDE INJ 10 MG/ML 4ML VIAL 40 MG IVP ×3 (05:35→21:04)
[2025-03-13 06:12] LABS: Basophils # (Auto) 0.0 Thou/mm3 (0.0-0.2); Basophils % (Auto) 0 % (0-2.5); Eosinophils # (Auto) 0.0 Thou/mm3 (0.0-0.5); Eosinophils % (Auto) 1 % (0-10); Hematocrit 29.5 % (41.0-53.0); Hemoglobin 10.0 g/dL (13.5-16.0); Immature Granulocytes Auto 0.02 Thou/mm3 (0.00-0.00); Lymphocytes # (Auto) 0.5 Thou/mm3 (1.0-4.8); Lymphocytes % (Auto) 9 % (10-50); Mean Corpuscular HGB Conc 33.9 g/dl (31.0-37.0); Mean Corpuscular Hemoglobin 36.1 pg (25.0-35.0); Mean Corpuscular Volume 107 fL (80-100); Monocytes # (Auto) 0.6 Thou/mm3 (0.0-0.8); Monocytes % (Auto) 11 % (0-12); Neutrophils # (Auto) 4.7 Thou/mm3 (1.8-7.7); Neutrophils % (Auto) 79 % (37-80); Nucleated Red Blood Cell # 0.00 Thou/mm3 (0.00-0.00); Nucleated Red Blood Cell % 0 /100 WBC (0); RDW Standard Deviation 68.9 fL (35.1-43.9); Red Blood Count 2.77 Miln/mm3 (4.50-5.90); White Blood Count 6.0 Thou/mm3 (3.8-10.6)
[2025-03-13 06:28] LABS: Platelet Count 41 Thou/mm3 (140-440)
[2025-03-13 06:44] LABS: Alanine Aminotransferase 86 U/L (10-49); Albumin, Serum 2.6 gm/dL (3.4-4.8); Albumin/Globulin Ratio 0.6 (1.2-2.2); Alkaline Phosphatase 101 U/L (46-116); Anion Gap 16 (7-16); Aspartate Amino Transferase 182 U/L (0-34); BUN/Creatinine Ratio 20 Ratio (12-20); Bilirubin,Total 11.7 mg/dL (0.3-1.2); Blood Urea Nitrogen 16 mg/dL (9-23); Calcium 9.1 mg/dL (8.3-10.6); Calcium (Corrected) 10.2 mg/dL (8.5-10.1); Carbon Dioxide 23.6 mMol/L (20.0-31.0); Cardiac Risk Estimate 13.0 RATIO (4.0-6.7); Chloride 101 mMol/L (98-107); Cholesterol 67 mg/dL (132-200); Creatinine (Component) 0.8 mg/dL (0.6-1.3); Estimated Creatinine Clearance 103.7 mL/min (>60); Globulin 4.1 gm/dL (2.3-3.5); Glucose 145 mg/dL (74-106); HDL Cholesterol < 5 mg/dL (40-60); LDH (Lactate Dehydrogenase) 430 U/L (120-246); LDL Cholesterol,Calculated 52 mg/dL (0-130); Magnesium 2.0 mg/dL (1.6-2.6); Osmolality,Calculated 285 (275-295); Phosphorous 3.8 mg/dL (2.4-5.1); Potassium 4.8 mMol/L (3.4-5.1); Sodium 141 mMol/L (136-145); Thyroid Stimulating Hormone 2.29 uIU/mL (0.55-4.78); Total Protein 6.7 gm/dL (5.7-8.2); Triglycerides 48 mg/dL (30-150); eGFR > 60 See Note
[2025-03-13 07:57] LABS: Prothrombin Time > 63.0 Seconds (9.0-12.2)
--- NOTE | 2025-03-13 08:04 | ESPR_ITS ---
<Statement entered by Giana Cline MD - 03/25/25 17:18> I reviewed above note and agree with findings and plans. I have also personally examined the patient with medicine team and went over assessment and plan with medical team including academic intern and resident physician. <Statement entered by Abel Kim MD - 03/14/25 05:46> I saw and examined patient personally and supervised PGY 1 resident, Dr. Adan with formulating a management plan. I agree with the documentation with the exceptions as listed below. Patient altered mental status likely due to hepatic encephalopathy. Today his mentation is improved from yesterday and he is saying some incomprehensible words. Increased lactulose to 60 g mg 3 times daily along with rifaximin 550 mg p.o. twice daily. Repeat CT brain was ordered to rule out hemorrhage. Plan of care discussed with Attending Dr. Son Kim MD PGY 2 Disclaimer: This note was dictated by speech recognition. Minor errors in life insurance agent may be present due to voice recognition software. Documentation for date of: 03/13/25 Subjective Subjective Interval history: 64 yo male PMHx of alcohol-related ESLD, grade 3 esophageal varices, recurrent ascites, Hx SBP on long-term prophylaxis antibiotics, chronic venous stasis, hypotension, chronic anemia, chronic thrombocytopenia, chronic elevated total bilirubin, current hepatic encephalopathy, and Hx of E. coli bacteremia. Patient presented to ED 03/12/25 secondary to GLF with weakness, unknown LNW time. ED course: Vitals T 94.5 --> Bear hugger --> 97.3, HR 90-110s, RR 9-20s, BP 101/71 - 110/64, spO2 91% --> 2L 97%. Labs significant for Hgb 10.8, Hct 31.7, PLT 59, Ca 10.7, albumin 2.5, total bili 14, CK 288, PT >63, INR undetectable, aPTT 56.8. D dimer 2320, Lactic acid 8.3 --> 4.5. Ammonia 80. UA 1+ protein, 3+ blood, 125 RBC, 4+ Ca oxalalaet crystals, 10 hyaline casts, [address] head negative for acute hemorrhage. CTA negative for M1 high grade occlusion. Teleneuro suggested a possible left-sided M2 stenosis, final read from radiologist did not support this. CXR moderate vascular congestion, G in place. Bcx pending. EKG NNSR HR 76, QTc 419.Given PLT 59, will not be a thrombectomy candidate. Family does not want to transfer patient for LVO management. Family chose conservative treatment without comfort care at this time. Given Zofran, morphine 4 mg IV, Ceftriaxone 2 g IV, Lactulose 90 mg total, lasix 40 mg IV, albumin 25 mg IV, 2.2L NS IV. In our service, [facility] labs showed Hgb 10.0, Hct 29.5, MCV 107. PLT 41. PT > 63.0 unchanged from 03/12. INR still incalculable same as 03/12. BMP unremarkable; T Bili 11.7, AST 182, ALT 86, ALP 101. LDH 430. UA showed blood 3+, urine RBCs, and Ca Oxalate 4+. TSH 2.24; Cholesterol 67, LDL 52, HDL < 5. Venous Doppler of LE negative for DVT ordered for d-dimer 2320 03/12. Liver US shows gallbladder thickening, ascites radiologist recommend MRCP. Given scheduled lactulose 20mg NG TID, lasix 40mg IV TID, spirinolactone 100mg NG daily, rifaximin 500mg NG BID, pantoprazole 40mg IV daily, and 2g rocephin IV daily. At bedside, patient withdrawing from noxious stimuli (+4), opening eyes to verbal command (+3) and responds with incomprehensible sounds (+2); GCS:9. Juandice present diffusely on head, shoulders and sublingual mucosa. Abdominal distention unchanged from yesterday and notable heptomegaly. Ordered Vitamin K, CT head noncon, coag panel and 60 lactulose TID NG. Exam Vital Signs Temp Pulse Resp BP Pulse Ox O2 Del Method O2 Flow Rate 96.7 F L 116 H 19 130/86 H 94 L Nasal Cannula 2 03/13/25 04:00 03/13/25 05:35 03/13/25 04:00 03/13/25 05:35 03/13/25 04:00 03/13/25 04:00 03/13/25 04:00 Narrative Exam General: Somnolent, poorly nourished, cachetic Eye: disconjugate, pupils are unequal to light reflex, right pupil exhibits slightly greater change in reflex, left pupil more sluggish, scleral icterus present HENT: Normocephalic, atraumatic, hearing not assessable, yellow deposits in oral mucous membranes Neck: Supple, non-tender, JVD present, no lymphadenopathy Lungs: Clear to auscultation bilaterally, labored respirations, symmetric chest rise, no use of accessory muscles Heart: Normal S1 and S2, no S3 or S4 appreciated. Normal rate and regular rhythm, murmur?. Peripheral pulses intact bilaterally, capillary refill > 2 sec Abdomen: Soft, distended, normal bowel sounds. Hepatomegaly. No guarding. Musculoskeletal: Not assessable. Skin: Skin is warm, dry. LE pitting edema b/l Neurologic: AOx0. Cannot assess motor or sensation. Objective Labs 03/13/25 04:20 03/13/25 04:20 Labs: Laboratory Results - last 24 hr 03/12/25 03/12/25 03/12/25 11:06 11:49 11:50 WBC 5.0 RBC 3.01 L Hgb 10.8 L Hct 31.7 L MCV 105 H MCH 35.9 H MCHC 34.1 RDW Std Deviation 66.2 H Plt Count 59 L D Neut % (Auto) 81 H Lymph % (Auto) 9 L [place] % (Auto) 9 Eos % (Auto) 0 Baso % (Auto) 0 Neut # (Auto) 4.1 Lymph # (Auto) 0.5 L [place] # (Auto) 0.4 Eos # (Auto) 0.0 Baso # (Auto) 0.0 Immature Gran # (Auto) 0.02 H Absolute Nucleated RBC 0.00 Immature Gran % 0 Nucleated RBC % 0 PT INR APTT D-Dimer 2320 H Puncture Site Right Radial ABG pH 7.48 H ABG pCO2 35 ABG pO2 129 H ABG HCO3 26 ABG O2 Saturation 100 H ABG Base Excess 3 FiO2 21 Sodium 139 Potassium 3.6 Chloride 98 Carbon Dioxide 25.1 Anion Gap 16 BUN 18 Creatinine 0.8 Estim Creat Clear Calc 103.7 eGFR > 60 BUN/Creatinine Ratio 23 H Glucose [address] Glu mg/dL Hemoglobin A1c Calculated Osmolality 280 Lactic Acid 8.3 H* Calcium 9.5 Corrected Calcium 10.7 H Phosphorus Magnesium Total Bilirubin 14.0 H AST 166 H ALT 98 H Alkaline Phosphatase 133 H Ammonia Lactate Dehydrogenase Total Creatine Kinase 288 H Troponin I 0.029 B-Natriuretic Peptide 30 Total Protein 8.0 Albumin 2.5 L Globulin 5.5 H Albumin/Globulin Ratio 0.5 L Triglycerides Cholesterol LDL Cholesterol, Calc HDL Cholesterol Cholesterol/HDL Ratio Lipase 26 Procalcitonin 0.21 TSH Ur Collection Type Clean Catch Urine Color Drk-Yellow A Urine Clarity Cloudy A Urine pH 5.5 Ur Specific [place] 1.017 Urine Protein 1+ A Urine Glucose (UA) Negative Urine Ketones Negative Urine Blood 3+ A Urine Nitrite Negative Urine Bilirubin Negative Urine Urobilinogen (Auto) Negative Ur Leukocyte Esterase Negative Urine RBC 125 H Urine WBC 4 Ur Squamous Epith Cells 5 Calcium Oxalate Crystal 4+ A Urine Bacteria None Hyaline Casts 10 H Granular Casts 14 H Ur Culture Indicated? Not Indicated Misc Test Result Platelets confirmed 03/12/25 03/12/25 03/12/25 13:08 15:14 17:11 WBC RBC Hgb Hct MCV MCH MCHC RDW Std Deviation Plt Count Neut % (Auto) Lymph % (Auto) [place] % (Auto) Eos % (Auto) Baso % (Auto) Neut # (Auto) Lymph # (Auto) [place] # (Auto) Eos # (Auto) Baso # (Auto) Immature Gran # (Auto) Absolute Nucleated RBC Immature Gran % Nucleated RBC % PT > 63.0 H* D INR APTT 56.8 H D D-Dimer Puncture Site ABG pH ABG pCO2 ABG pO2 ABG HCO3 ABG O2 Saturation ABG Base Excess FiO2 Sodium Potassium Chloride Carbon Dioxide Anion Gap BUN Creatinine Estim Creat Clear Calc eGFR BUN/Creatinine Ratio Glucose Estimated Ave Glu mg/dL Hemoglobin A1c Calculated Osmolality Lactic Acid 4.5 H* Calcium Corrected Calcium Phosphorus Magnesium Total Bilirubin AST ALT Alkaline Phosphatase Ammonia 80 H Lactate Dehydrogenase Total Creatine Kinase Troponin I B-Natriuretic Peptide Total Protein Albumin Globulin Albumin/Globulin Ratio Triglycerides Cholesterol LDL Cholesterol, Calc HDL Cholesterol Cholesterol/HDL Ratio Lipase Procalcitonin TSH Ur Collection Type Urine Color Urine Clarity Urine pH Ur Specific [place] Urine Protein Urine Glucose (UA) Urine Ketones Urine Blood Urine Nitrite Urine Bilirubin Urine Urobilinogen (Auto) Ur Leukocyte Esterase Urine RBC Urine WBC Ur Squamous Epith Cells Calcium Oxalate Crystal Urine Bacteria Hyaline Casts Granular Casts Ur Culture Indicated? Misc Test Result 03/13/25 03/13/25 04:20 07:00 WBC 6.0 RBC 2.77 L Hgb 10.0 L Hct 29.5 L MCV 107 H MCH 36.1 H MCHC 33.9 RDW Std Deviation 68.9 H Plt Count 41 L D Neut % (Auto) 79 Lymph % (Auto) 9 L [place] % (Auto) 11 Eos % (Auto) 1 Baso % (Auto) 0 Neut # (Auto) 4.7 Lymph # (Auto) 0.5 L [place] # (Auto) 0.6 Eos # (Auto) 0.0 Baso # (Auto) 0.0 Immature Gran # (Auto) 0.02 H Absolute Nucleated RBC 0.00 Immature Gran % 0 Nucleated RBC % 0 PT > 63.0 H* INR APTT D-Dimer Puncture Site ABG pH ABG pCO2 ABG pO2 ABG HCO3 ABG O2 Saturation ABG Base Excess FiO2 Sodium 141 Potassium 4.8 D Chloride 101 Carbon Dioxide 23.6 Anion Gap 16 BUN 16 Creatinine 0.8 Estim Creat Clear Calc 103.7 eGFR > 60 BUN/Creatinine Ratio [address] Glu mg/dL Cancelled Hemoglobin A1c Cancelled Calculated Osmolality 285 Lactic Acid Calcium 9.1 Corrected Calcium 10.2 H Phosphorus 3.8 Magnesium 2.0 Total Bilirubin 11.7 H D AST 182 H ALT 86 H Alkaline Phosphatase 101 D Ammonia Lactate Dehydrogenase 430 H Total Creatine Kinase Troponin I B-Natriuretic Peptide Total Protein 6.7 Albumin 2.6 L Globulin 4.1 H Albumin/Globulin Ratio 0.6 L Triglycerides 48 Cholesterol 67 L LDL Cholesterol, Calc 52 HDL Cholesterol < 5 L Cholesterol/HDL Ratio 13.0 H Lipase Procalcitonin TSH 2.29 Ur Collection Type Urine Color Urine Clarity Urine pH Ur Specific [place] Urine Protein Urine Glucose (UA) Urine Ketones Urine Blood Urine Nitrite Urine Bilirubin Urine Urobilinogen (Auto) Ur Leukocyte Esterase Urine RBC Urine WBC Ur Squamous Epith Cells Calcium Oxalate Crystal Urine Bacteria Hyaline Casts Granular Casts Ur Culture Indicated? Misc Test Result ABG Interpretation ABG results: 03/12/25 11:49 ABG pH 7.48 H ABG pCO2 35 ABG pO2 129 H ABG HCO3 26 ABG O2 Saturation 100 H ABG Base Excess 3 Quality Measures Quality Measures sepsis Current suspected stage: sepsis Possible source: unknown Blood cultures ordered: yes Antibiotic ordered: Yes Assessment & Plan Assessment Current Active Medications: Generic Name Dose Route Start Last Admin Trade Name Freq PRN Reason Stop Dose Admin Acetaminophen 650 mg 03/12/25 20:30 Acetaminophen 325 Mg Tablet NG 04/11/25 20:29 Q6H PRN Fever >100.3 or pain 1-3 Atorvastatin Calcium 80 mg 03/13/25 21:00 Atorvastatin Calcium 20 Mg Tablet NG 04/12/25 20:59 HS SHANNAN Furosemide 40 mg 03/13/25 06:00 03/13/25 05:35 Furosemide Inj 10 Mg/Ml 4ml Vial IVP 04/12/25 05:59 40 mg TID SHANNAN Administration Albumin Human 25 gm in 100 mls @ 100 mls/hr 03/12/25 17:00 03/12/25 18:36 Albuminex 25% Ivpb IV 04/11/25 16:59 Infused QDAY SHANNAN Infusion Ceftriaxone Sodium/Dextrose 2 gm in 50 mls @ 100 mls/hr 03/13/25 21:00 Rocephin/D5w 2gm IV 03/20/25 20:59 QPM SHANNAN Lactulose 20 gm 03/12/25 18:30 03/13/25 05:35 Lactulose Syrup 20 Gm/30 Ml Udc NG 04/11/25 18:29 20 gm TID SHANNAN Administration Protocol Ondansetron HCl 4 mg 03/12/25 20:30 Ondansetron Inj 2 Mg/Ml Inj 2 Ml IVP 04/11/25 20:29 Q6H PRN NAUSEA OR VOMITING Protocol Pantoprazole Sodium 40 mg 03/13/25 09:00 Pantoprazole Inj 40 Mg Vial IVP 04/12/25 08:59 QDAY SHANNAN Rifaximin 550 mg 03/12/25 21:00 03/12/25 23:00 Rifaximin 550 Mg Tablet NG 03/19/25 20:59 550 mg BID SHANNAN Administration Spironolactone 100 mg 03/12/25 20:45 03/12/25 22:59 Spironolactone 25 Mg Tablet NG 04/11/25 20:44 100 mg DAILY SHANNAN Administration Plan Plan Mr. Stuart is a 64 y/o Mongolian-speaking male with PMH alcohol-related ESLD c/b grade 3 esophageal varices, recurrent ascites, SBP on long-term prophylaxis antibiotics, chronic venous stasis, hypotension who presented to the ED on 03/12 with weakness. Unknown LKAW. Patient unable to answer questions, unresponsive to verbal stimuli. Admitted for stroke w/u, acute decompensated ESLD. #Hepatic encephalopathy #Acutely decompensated on Chronic End-stage liver disease #Anasarca #Thombocytopenia #Hypoalbuminemia #Hyperammonemia GCS: 9 up from 7 Ammonia: 80; Albumin: 2.5; Total bili: 14 Hepatitis panel: non-reactive Lactic acid: 8.3 --> 4.5 Kidney function: WNL Synthetic liver dysfunction present. PT >63, INR too high for detection MELD-Na: unable to calculate given INR too high for detection MELD-XI: 22; 19.6% 90 day mortality Child-Daigle: 15 points, child class C, life expectancy of 1-3 yrs; 82% perioperative mortality for abdominal surgery DDX cause: infection, constipation, electrolyte abnormalities, GI bleed, excess diuresis, dehydration, renal dysfunction, meds/toxins (NSAIDs, sedatives, EtOH, Acetaminophen) Plan: - Pending Blood Cx, paracentesis w/ fluid analysis held - Lactulose 20 mg NG TID --> increased to 60 TID - Lasix 40 mg IV TID - Spironolactone 100 mg NG daily - Rifaximin 550 mg NG BID - Pantoprazole 40 mg IV daily - Ceftriaxone 2 g IV daily for SBP prophylaxis (given hx SBP) - CTM for S/Sx GI bleed, daily CBC - Daily weights - Transfuse pRBC if hgb <7 - Transfuse PLT <10 to prevent spontaneous hemorrhage - Avoid sedating agents - Limit Acetaminophen use <=2-3 g/day for mild 1-3 pain (650 mg PO q8h). Avoid NSAIDs 2/2 risk of hepatorenal syndrome. #Left-sided facial droop Hx stroke/TIA: unknown, none listed in chart Hx afib: none Smoking hx: unknown Initial symptoms: Weakness. AOx0, somnolent, not responding to verbal stimuli, L facial droop, pupils sluggish but reactive to light. LKAW: unknown Initial NIHSS: unable to assess given obtunded Inital BP: 101/71 EKG: NSR HR 76, QTc 419 Initial glucose: 125 Troponin: negative CT head w/o: negative for acute hemorrhage CTA head/neck w/: no LVO Pt not a candidate for tPA. Family decided against transfer and thrombectomy at this time. Ddx: peripherial facial nerve palsy vs central facial nerve palsy Plan: - Pending MRI stroke protocol, A1C, echo - Atorvastatin 80 mg NG daily for plaque stabilization - Held DAPT given plt 59, elevated PT/INR - Neuro Checks q4h - Permissive HTN - Aspiration Precautions, Head of bed 30 degrees - Euglycemia and avoid Hyperthermia - Consulted neurology, appreciate recs #Coagulopathy #Thrombocytopenia - H/H stable - continue to monitor for any signs of bleeding - holding antiplatelet and AC #Elevated D-dimer Venous doppler of LE negative #SIRS criteria #Suspected SBP T 94.5, HR >20, RR >20. LA 8.3 --> 4.3. Given 2.2 L NS in ED Plan: - Jethro hugger PRN - Pending BCx x2 - Continue with rocephin 2g IV daily - Diagnostic parascentesis held #Macrocytic anemia Hgb 10.8, HCT 31.7, MCV 105 Plan: - CTM with daily CBC - Transfuse if hgb <7 - CTM for S/Sx of blood loss anemia Checklist Dispo: Tele Diet: NPO Bowel Reg: lactulose 60 g NG TID VTE ppx: SCD GI ppx: pantroprazole 40 mg IV daily Pain mgmt: Tylenol PRN Code status: DNR/DNI Case was discussed with Attending Dr. Cline, and Senior Resident Dr. Judy Adan, DO PGY-1
[2025-03-13 08:05] LABS: Slide Review Platelets confirmed
[2025-03-13] MEDS: ALBUMIN HUMAN-KJDA 25% IVPB 25 GM/100 ML BTL IV (08:16)
[2025-03-13] MEDS: SPIRONOLACTONE 25 MG TABLET 100 MG NG (08:17)
--- NOTE | 2025-03-13 09:59 | XR_ITS ---
Examination: CT brain head without contrast. 2-D sagittal coronal reconstructions Date and time of exam: March 13, 2025, 1302 hours, comparison March 12, 2025 INDICATIONS: Stroke alert, onset focal neurologic deficit March 12, 2025 CTDI: vol (mGy): 50.2 DLP: (mGycm): 1001 Technique: Multiple CT axial sections of the brain have been obtained, 5 mm slice thickness. Contrast has not been administered. 2-D sagittal, coronal reconstructions have been obtained Low dose protocols were performed. One or more of the following dose reduction techniques were used; automated exposure control, adjustment of the mA and/or KV according to patient size, use of iterative reconstruction technique. Findings: No significant ventricular enlargement. Intra-axial or extra-axial hemorrhage density is not seen. No mass effect or midline shift Basal cisterns are not remarkable. Fourth ventricle is midline. Cranial vault intact. Impression: No interval acute hemorrhage, mass effect or midline shift
[2025-03-13] MEDS: LACTULOSE SYRUP 20 GM/30 ML UDC 60 GM NG ×2 (14:14→21:04)
[2025-03-13] MEDS: PHYTONADIONE INJ 10 MG/ML AMP SC (14:15)
[2025-03-13] MEDS: ATORVASTATIN CALCIUM 20 MG TABLET 80 MG NG (20:56)
[2025-03-13] MEDS: cefTRIAXone/D5w 2gm 2 GM/50 ML BAG IV (20:56)
[2025-03-14] VITALS (13 sets, daily range): BP systolic 121–139; BP diastolic 80–91; PULSE 105–127; RESP 14–18; TEMP 35.9–36.2; O2SAT 92–98; BMI 25.7
[2025-03-14] MEDS: FUROSEMIDE INJ 10 MG/ML 4ML VIAL 40 MG IVP ×2 (05:25→20:35)
[2025-03-14] MEDS: LACTULOSE SYRUP 20 GM/30 ML UDC 60 GM NG (05:26)
[2025-03-14 05:48] LABS: Basophils # (Auto) 0.0 Thou/mm3 (0.0-0.2); Basophils % (Auto) 0 % (0-2.5); Eosinophils # (Auto) 0.0 Thou/mm3 (0.0-0.5); Eosinophils % (Auto) 0 % (0-10); Hematocrit 29.6 % (41.0-53.0); Hemoglobin 9.8 g/dL (13.5-16.0); Immature Granulocytes Auto 0.04 Thou/mm3 (0.00-0.00); Lymphocytes # (Auto) 0.7 Thou/mm3 (1.0-4.8); Lymphocytes % (Auto) 6 % (10-50); Mean Corpuscular HGB Conc 33.1 g/dl (31.0-37.0); Mean Corpuscular Hemoglobin 35.9 pg (25.0-35.0); Mean Corpuscular Volume 108 fL (80-100); Monocytes # (Auto) 0.5 Thou/mm3 (0.0-0.8); Monocytes % (Auto) 4 % (0-12); Neutrophils # (Auto) 11.0 Thou/mm3 (1.8-7.7); Neutrophils % (Auto) 89 % (37-80); Nucleated Red Blood Cell # 0.00 Thou/mm3 (0.00-0.00); Nucleated Red Blood Cell % 0 /100 WBC (0); RDW Standard Deviation 70.6 fL (35.1-43.9); Red Blood Count 2.73 Miln/mm3 (4.50-5.90); White Blood Count 12.3 Thou/mm3 (3.8-10.6)
[2025-03-14 06:00] LABS: Platelet Count 40 Thou/mm3 (140-440)
[2025-03-14 06:16] LABS: Slide Review Platelets confirmed
[2025-03-14 06:25] LABS: Alanine Aminotransferase 89 U/L (10-49); Albumin, Serum 2.8 gm/dL (3.4-4.8); Albumin/Globulin Ratio 0.7 (1.2-2.2); Alkaline Phosphatase 105 U/L (46-116); Anion Gap 16 (7-16); Aspartate Amino Transferase 173 U/L (0-34); BUN/Creatinine Ratio 25 Ratio (12-20); Bilirubin,Total 11.7 mg/dL (0.3-1.2); Blood Urea Nitrogen 20 mg/dL (9-23); Calcium 10.0 mg/dL (8.3-10.6); Calcium (Corrected) 11.0 mg/dL (8.5-10.1); Carbon Dioxide 26.6 mMol/L (20.0-31.0); Chloride 102 mMol/L (98-107); Creatinine (Component) 0.8 mg/dL (0.6-1.3); Estimated Creatinine Clearance 103.7 mL/min (>60); Globulin 4.3 gm/dL (2.3-3.5); Glucose 163 mg/dL (74-106); Magnesium 2.0 mg/dL (1.6-2.6); Osmolality,Calculated 295 (275-295); Phosphorous 2.7 mg/dL (2.4-5.1); Potassium 3.2 mMol/L (3.4-5.1); Sodium 145 mMol/L (136-145); Total Protein 7.1 gm/dL (5.7-8.2); eGFR > 60 See Note
[2025-03-14 06:58] LABS: Partial Thromboplastin Time 55.1 Seconds (22.0-36.0)
[2025-03-14 07:01] LABS: Prothrombin Time > 63.0 Seconds (9.0-12.2)
[2025-03-14 07:52] LABS: Misc Send Out* See Sep Rpt
--- NOTE | 2025-03-14 08:59 | PCS.ST ---
Pt is not able to safely particpate in swallowing evaluation this AM. Will check status later today.
[2025-03-14] MEDS: POTASSIUM CHLORIDE 10% 20 MEQ/15 ML UDC 40 MEQ GT (09:36)
[2025-03-14] MEDS: PHYTONADIONE INJ 10 MG/ML AMP SC (09:36)
[2025-03-14] MEDS: LACTULOSE SYRUP 20 GM/30 ML UDC 40 GM NG ×4 (09:36→17:55)
[2025-03-14] MEDS: POTASSIUM CHL 10 mEq IVPB 10 MEQ/100 ML BAG 100 MEQ IV ×4 (09:37→14:16)
[2025-03-14] MEDS: SPIRONOLACTONE 25 MG TABLET 100 MG NG (09:37)
[2025-03-14] MEDS: ALBUMIN HUMAN-KJDA 25% IVPB 25 GM/100 ML BTL IV (09:37)
--- NOTE | 2025-03-14 13:55 | PD.RESPRO ---
Documentation for date of: 03/14/25 No overnight events. Patient is alert but not orientated to name, time, or place. Despite aggressive management for acute metabolic encephalopathy, no changes. Facial drop improved from admission, TIA can not be ruled out but given overall prognosis patient would not be a candidate for any dual anti-platelets given coagulation studies. Patient is also not a candidate for parasentesis given elevated PT. Hospice referral. 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 Senior Resident Attestation: I have discussed the case with supervising physician and commercial internship physician involved in the care of patient. I personally saw and examined patient and discussed the assessment and plan with the entire medical team, including attending. I agree with assessment and plan as documented below. Uzma Broussard MD PGY-2 Internal Medicine Subjective Subjective Interval history: No overnight events. Patient was examined at bedside; they are awake and in NAD but remain unresponsive and seemingly obtunded. Labs today significant for WBC 6.0 -> 12.3, Hgb 10.0 -> 9.8 (MCV 108, RDW 70.6), plt# 40, PT > 63.0, APTT 55.1, potassium 4.8 -> 3.2 (received GT KCl 40 mg and IV KCl 40 mg), last LA 4.5 (03/12), corrected calcium 10.2 -> 11.0, TBili 11.7, AST 173, and ALT 89. Physical exam remains relatively unchanged from yesterday. 03/[address] has resulted and showed no evidence of acute hemorrhage, mass effect, or midline shift. BCx from 03/12 showed 2/2 [id number] Plan Updates: -Changed NG lactulose 60 g TID -> 40 g q3HR -Changed IV Lasix 40 mg TID -> BID Exam Vital Signs Temp Pulse Resp BP Pulse Ox O2 Del Method O2 Flow Rate 96.6 F L 109 H 16 123/85 H 96 Nasal Cannula 2 03/14/25 11:47 03/14/25 11:47 03/14/25 11:47 03/14/25 11:47 03/14/25 11:47 03/14/25 11:47 03/14/25 11:47 Narrative Exam General: Somnolent but awake, poorly nourished, cachetic Eye: disconjugate, pupils are unequal to light reflex, right pupil exhibits slightly greater change in reflex, left pupil more sluggish, scleral icterus present HENT: Normocephalic, atraumatic, hearing not assessable, yellow deposits in oral mucous membranes Neck: Supple, non-tender, JVD present, no lymphadenopathy Lungs: Clear to auscultation bilaterally, labored respirations, symmetric chest rise, no use of accessory muscles Heart: Normal S1 and S2, no S3 or S4 appreciated. Normal rate and regular rhythm, murmur?. Peripheral pulses intact bilaterally, capillary refill > 2 sec Abdomen: Soft, distended, normal bowel sounds. Fluid wave noted. Hepatomegaly. No guarding. Musculoskeletal: Not assessable. Skin: Skin is warm, dry. LE pitting edema b/l Neurologic: AOx0. Cannot assess motor or sensation. Objective Labs 03/14/25 04:41 03/14/25 04:41 Labs: Laboratory Results - last 24 hr 03/14/25 04:41 WBC 12.3 H D RBC 2.73 L Hgb 9.8 L Hct 29.6 L MCV 108 H MCH 35.9 H MCHC 33.1 RDW Std Deviation 70.6 H Plt Count 40 L Neut % (Auto) 89 H Lymph % (Auto) 6 L [place] % (Auto) 4 Eos % (Auto) 0 Baso % (Auto) 0 Neut # (Auto) 11.0 H Lymph # (Auto) 0.7 L [place] # (Auto) 0.5 Eos # (Auto) 0.0 Baso # (Auto) 0.0 Immature Gran # (Auto) 0.04 H Absolute Nucleated RBC 0.00 Immature Gran % 0 Nucleated RBC % 0 PT > 63.0 H* INR APTT 55.1 H Sodium 145 Potassium 3.2 L D Chloride 102 Carbon Dioxide 26.6 Anion Gap 16 BUN 20 Creatinine 0.8 Estim Creat Clear Calc 103.7 eGFR > 60 BUN/Creatinine Ratio 25 H Glucose 163 H Calculated Osmolality 295 Calcium 10.0 Corrected Calcium 11.0 H Phosphorus 2.7 Magnesium 2.0 Total Bilirubin 11.7 H AST 173 H ALT 89 H Alkaline Phosphatase 105 Total Protein 7.1 Albumin 2.8 L Globulin 4.3 H Albumin/Globulin Ratio 0.7 L Misc Test Result Platelets confirmed ABG Interpretation ABG results: 03/12/25 11:49 ABG pH 7.48 H ABG pCO2 35 ABG pO2 129 H ABG HCO3 26 ABG O2 Saturation 100 H ABG Base Excess 3 Quality Measures Quality Measures sepsis Current suspected stage: ruled out Possible source: unknown Blood cultures ordered: yes Antibiotic ordered: Yes Assessment & Plan Assessment Current Active Medications: Generic Name Dose Route Start Last Admin Trade Name Freq PRN Reason Stop Dose Admin Acetaminophen 650 mg 03/12/25 20:30 Acetaminophen 325 Mg Tablet NG 04/11/25 20:29 Q6H PRN Fever >100.3 or pain 1-3 Atorvastatin Calcium 80 mg 03/13/25 21:00 03/13/25 20:56 Atorvastatin Calcium 20 Mg Tablet NG 04/12/25 20:59 80 mg HS SHANNAN Administration Furosemide 40 mg 03/14/25 21:00 Furosemide Inj 10 Mg/Ml 4ml Vial IVP 04/13/25 20:59 BID SHANNAN Albumin Human 25 gm in 100 mls @ 100 mls/hr 03/12/25 17:00 03/14/25 09:37 Albuminex 25% Ivpb IV 04/11/25 16:59 100 mls/hr QDAY SHANNAN Administration Ceftriaxone Sodium/Dextrose 2 gm in 50 mls @ 100 mls/hr 03/13/25 21:00 03/13/25 20:56 Rocephin/D5w 2gm IV 03/20/25 20:59 100 mls/hr QPM SHANNAN Administration Lactulose 40 gm 03/14/25 08:30 03/14/25 11:15 Lactulose Syrup 20 Gm/30 Ml Udc NG 04/13/25 08:29 40 gm Q3H SHANNAN Administration Protocol Ondansetron HCl 4 mg 03/12/25 20:30 Ondansetron Inj 2 Mg/Ml Inj 2 Ml IVP 04/11/25 20:29 Q6H PRN NAUSEA OR VOMITING Protocol Pantoprazole Sodium 40 mg 03/13/25 09:00 03/14/25 09:36 Pantoprazole Inj 40 Mg Vial IVP 04/12/25 08:59 40 mg QDAY SHANNAN Administration Phytonadione 10 mg 03/13/25 13:45 03/14/25 09:36 Phytonadione Inj 10 Mg/Ml Amp SC 03/15/25 13:44 10 mg QDAY SHANNAN Administration Rifaximin 550 mg 03/12/25 21:00 03/14/25 09:37 Rifaximin 550 Mg Tablet NG 03/19/25 20:59 550 mg BID SHANNAN Administration Spironolactone 100 mg 03/12/25 20:45 03/14/25 09:37 Spironolactone 25 Mg Tablet NG 04/11/25 20:44 100 mg DAILY SHANNAN Administration Plan Patient is a 64 y/o [place]uran-speaking male with PMH alcohol-related ESLD c/b grade 3 esophageal varices, recurrent ascites, SBP on long-term prophylaxis antibiotics, chronic venous stasis, hypotension who presented to the ED on 03/12 with weakness. Unknown LKAW. Patient unable to answer questions, unresponsive to verbal stimuli. Admitted for stroke w/u, acute decompensated ESLD. #Hepatic encephalopathy #Acutely decompensated on Chronic End-stage liver disease #Anasarca #Thombocytopenia #Hypoalbuminemia #Hyperammonemia GCS: 9 Ammonia: 80; Albumin: 2.5; Total bili: 14 Hepatitis panel: non-reactive Lactic acid: 8.3 --> 4.5 Kidney function: WNL Synthetic liver dysfunction present. PT >63, INR too high for detection MELD-Na: unable to calculate given INR too high for detection MELD-XI: 22; 19.6% 90 day mortality Child-Daigle: 15 points, child class C, life expectancy of 1-3 yrs; 82% perioperative mortality for abdominal surgery DDX cause: infection, constipation, electrolyte abnormalities, GI bleed, excess diuresis, dehydration, renal dysfunction, meds/toxins (NSAIDs, sedatives, EtOH, Acetaminophen) Plan: - 03/12 BCx showed 2/2 [id number], paracentesis w/ fluid analysis held - Changed NG lactulose 60 g TID -> 40 g q3HR - Lasix 40 mg IV TID -> BID - Spironolactone 100 mg NG daily - Rifaximin 550 mg NG BID - Pantoprazole 40 mg IV daily - Ceftriaxone 2 g IV daily for SBP prophylaxis (given hx SBP) - CTM for S/Sx GI bleed, daily CBC - Daily weights - Transfuse pRBC if hgb <7 - Transfuse PLT <10 to prevent spontaneous hemorrhage - Avoid sedating agents - Limit Acetaminophen use <=2-3 g/day for mild 1-3 pain (650 mg PO q8h). Avoid NSAIDs 2/2 risk of hepatorenal syndrome. #Left-sided facial droop Hx stroke/TIA: unknown, none listed in chart Hx afib: none Smoking hx: unknown Initial symptoms: Weakness. AOx0, somnolent, not responding to verbal stimuli, L facial droop, pupils sluggish but reactive to light. LKAW: unknown Initial NIHSS: unable to assess given obtunded Inital BP: 101/71 EKG: NSR HR 76, QTc 419 Initial glucose: 125 Troponin: negative CT head w/o: negative for acute hemorrhage CTA head/neck w/: no LVO Pt not a candidate for tPA. Family decided against transfer and thrombectomy at this time. Ddx: peripheral facial nerve palsy vs central facial nerve palsy Plan: - Pending MRI stroke protocol, A1C, echo - Atorvastatin 80 mg NG daily for plaque stabilization - Held DAPT given plt 59, elevated PT/INR - Neuro Checks q4h - Permissive HTN - Aspiration Precautions, Head of bed 30 degrees - Euglycemia and avoid Hyperthermia - Consulted neurology, appreciate recs #Coagulopathy #Thrombocytopenia - H/H stable - continue to monitor for any signs of bleeding - holding antiplatelet and AC #Elevated D-dimer Venous doppler of LE negative #SIRS criteria #Suspected SBP T 94.5, HR >20, RR >20. LA 8.3 --> 4.3. Given 2.2 L NS in ED Plan: - Jethro hugger PRN - 03/12 BCx showed 2/2 [id number] - Continue with rocephin 2g IV daily - Diagnostic parascentesis held #Macrocytic anemia Hgb 10.8, HCT 31.7, MCV 105 Plan: - CTM with daily CBC - Transfuse if hgb <7 - CTM for S/Sx of blood loss anemia Checklist Dispo: Tele Diet: NPO Bowel Reg: Changed NG lactulose 60 g TID -> 40 g q3HR VTE ppx: SCD GI ppx: pantoprazole 40 mg IV daily Pain mgmt: Tylenol PRN Code status: DNR/DNI Case was discussed with Attending Dr. Guzman, and Senior Resident Dr. Aarti Dejesus, DO Internal Medicine, PGY-1 Attending Provider Attestation/Addendum 64-year-old male patient with decompensated liver cirrhosis, end-stage liver disease with coagulopathy, hepatic encephalopathy. The patient is lethargic. He has received maximal medical management. The patient will will be referred for hospice evaluation. Discussed with housestaff.
--- NOTE | 2025-03-14 14:26 | PC.SS ---
update: SS contacted patient's daughter, Scarlet in regards to goals of care meeting tomorrow at 11AM. Scarlet verbalized understanding and will be available at 11AM. SS updated Team A. No further needs at this time.
[2025-03-14] MEDS: cefTRIAXone/D5w 2gm 2 GM/50 ML BAG IV (20:35)
[2025-03-14] MEDS: ATORVASTATIN CALCIUM 20 MG TABLET 80 MG NG (20:36)
--- NOTE | 2025-03-14 20:54 | PD.RESPRO ---
Documentation for date of: 03/14/25 Subjective Subjective Interval history: Patient examined at bedside. MRI and EEG are pending as workup for acute enecphalopathy. Patient remains confused, AOx0. Head CT negative for acute hemorrhage, mass effect, or midline shift. Left side facial droop has resolved. A1c pending. Continue to hold anticoagulants due to underlying severe coagulopathy. Noted that primary care team conducting goals of care meeting with family tomorrow. Exam Vital Signs Temp Pulse Resp BP Pulse Ox O2 Del Method O2 Flow Rate 97.1 F 107 H 15 139/87 H 96 Nasal Cannula 2 03/14/25 16:00 03/14/25 20:35 03/14/25 19:45 03/14/25 20:35 03/14/25 19:45 03/14/25 16:00 03/14/25 19:45 Narrative Exam General: Somnolent but awake, poorly nourished, cachetic Eye: pupils are unequal to light reflex, right pupil exhibits slightly greater change in reflex, left pupil more sluggish, scleral icterus present HENT: Normocephalic, atraumatic Neck: Supple, non-tender, JVD present, no lymphadenopathy Lungs: Clear to auscultation bilaterally, labored respirations, symmetric chest rise, no use of accessory muscles Heart: Normal S1 and S2, no S3 or S4 appreciated. Normal rate and regular rhythm,Peripheral pulses intact bilaterally Abdomen: Soft, distended, normal bowel sounds. Fluid wave noted. Hepatomegaly. No guarding. Musculoskeletal: Not assessable. Skin: Skin is warm, dry. LE pitting edema b/l Neurologic: AOx0. Cannot assess motor or sensation. Objective Labs 03/16/25 03:35 03/16/25 03:35 Labs: Laboratory Results - last 24 hr 03/14/25 04:41 WBC 12.3 H D RBC 2.73 L Hgb 9.8 L Hct 29.6 L MCV 108 H MCH 35.9 H MCHC 33.1 RDW Std Deviation 70.6 H Plt Count 40 L Neut % (Auto) 89 H Lymph % (Auto) 6 L [place] % (Auto) 4 Eos % (Auto) 0 Baso % (Auto) 0 Neut # (Auto) 11.0 H Lymph # (Auto) 0.7 L [place] # (Auto) 0.5 Eos # (Auto) 0.0 Baso # (Auto) 0.0 Immature Gran # (Auto) 0.04 H Absolute Nucleated RBC 0.00 Immature Gran % 0 Nucleated RBC % 0 PT > 63.0 H* INR APTT 55.1 H Sodium 145 Potassium 3.2 L D Chloride 102 Carbon Dioxide 26.6 Anion Gap 16 BUN 20 Creatinine 0.8 Estim Creat Clear Calc 103.7 eGFR > 60 BUN/Creatinine Ratio 25 H Glucose 163 H Calculated Osmolality 295 Calcium 10.0 Corrected Calcium 11.0 H Phosphorus 2.7 Magnesium 2.0 Total Bilirubin 11.7 H AST 173 H ALT 89 H Alkaline Phosphatase 105 Total Protein 7.1 Albumin 2.8 L Globulin 4.3 H Albumin/Globulin Ratio 0.7 L Misc Test Result Platelets confirmed ABG Interpretation ABG results: 03/12/25 11:49 ABG pH 7.48 H ABG pCO2 35 ABG pO2 129 H ABG HCO3 26 ABG O2 Saturation 100 H ABG Base Excess 3 Quality Measures Quality Measures sepsis Current suspected stage: sepsis Possible source: unknown Blood cultures ordered: yes Antibiotic ordered: Yes Assessment & Plan Assessment Current Active Medications: Generic Name Dose Route Start Last Admin Trade Name Freq PRN Reason Stop Dose Admin Acetaminophen 650 mg 03/12/25 20:30 Acetaminophen 325 Mg Tablet NG 04/11/25 20:29 Q6H PRN Fever >100.3 or pain 1-3 Atorvastatin Calcium 80 mg 03/13/25 21:00 03/14/25 20:36 Atorvastatin Calcium 20 Mg Tablet NG 04/12/25 20:59 80 mg HS SHANNAN Administration Furosemide 40 mg 03/14/25 21:00 03/14/25 20:35 Furosemide Inj 10 Mg/Ml 4ml Vial IVP 04/13/25 20:59 40 mg BID SHANNAN Administration Albumin Human 25 gm in 100 mls @ 100 mls/hr 03/12/25 17:00 03/14/25 19:31 Albuminex 25% Ivpb IV 04/11/25 16:59 Infused QDAY SHANNAN Infusion Ceftriaxone Sodium/Dextrose 2 gm in 50 mls @ 100 mls/hr 03/13/25 21:00 03/14/25 20:35 Rocephin/D5w 2gm IV 03/20/25 20:59 100 mls/hr QPM SHANNAN Administration Lactulose 40 gm 03/14/25 08:30 03/14/25 20:37 Lactulose Syrup 20 Gm/30 Ml Udc NG 04/13/25 08:29 40 gm Q3H SHANNAN Administration Protocol Ondansetron HCl 4 mg 03/12/25 20:30 Ondansetron Inj 2 Mg/Ml Inj 2 Ml IVP 04/11/25 20:29 Q6H PRN NAUSEA OR VOMITING Protocol Pantoprazole Sodium 40 mg 03/13/25 09:00 03/14/25 09:36 Pantoprazole Inj 40 Mg Vial IVP 04/12/25 08:59 40 mg QDAY SHANNAN Administration Phytonadione 10 mg 03/13/25 13:45 03/14/25 09:36 Phytonadione Inj 10 Mg/Ml Amp SC 03/15/25 13:44 10 mg QDAY SHANNAN Administration Rifaximin 550 mg 03/12/25 21:00 03/14/25 20:36 Rifaximin 550 Mg Tablet NG 03/19/25 20:59 550 mg BID SHANNAN Administration Spironolactone 100 mg 03/12/25 20:45 03/14/25 09:37 Spironolactone 25 Mg Tablet NG 04/11/25 20:44 100 mg DAILY SHANNAN Administration Plan Patient is a 64 y/o Wolof-speaking male with PMH alcohol-related ESLD c/b grade 3 esophageal varices, recurrent ascites, SBP on long-term prophylaxis antibiotics, chronic venous stasis, hypotension who presented to the ED on 03/12 with weakness. Neurology consulted for additional workup of encephalopathy. #Acute encephalopathy Likely due to acute decompensated liver cirhosis. Rule out seizures with EEG. Mentation remains AOx3. Lactic acid downtrending. Left side facial droop has resolved. CT head w/o: negative for acute hemorrhage CTA head/neck w/: no LVO -MRI pending -EEG pending -neuro checks q4hr -hold anticoagulants due to coagulopathy #Coagulopathy #Thrombocytopenia #SBP hx #Macrocytic anemia Primary care team to manage above conditions and ongoing care needs. The patient's management plan was discussed with my attending physician Dr. Reynolds. Josie Mcleod, PGY-2 Attending Provider Attestation/Addendum I personally have seen and examined the patient at the bedside and agreed with the resident's findings, assessment and plan of care. his presentation is consistent with hepatic encephalopathy. Will follow-up with the EEG to confirm. His prognosis seems to be poor
[2025-03-15] VITALS (12 sets, daily range): BP systolic 123–144; BP diastolic 82–95; PULSE 83–126; RESP 14–21; TEMP 35.9–36.4; O2SAT 94–98; BMI 25.1
--- NOTE | 2025-03-15 | XR_ITS ---
Examinations: MRI Brain without intravenous contrast. MRI brain with intravenous contrast MRA brain with intravenous contrast. MRA brain without intravenous contrast MRA neck with intravenous contrast Date and time of exam: March 15, 2025, 1118 hours INDICATIONS: Stroke alert March 12, 2025, onset focal neurologic deficit Technique: Multiple axial and sagittal images of the brain have been obtained Siemens high-resolution 1.5 Edith short bore scanner is utilized. Sagittal sections, T1-weighted, TR 500, TE 14 Axial sections proton density and T2-weighted, TR 3,000, TE 34, TR 3,000, TE 91 Inversion recovery axial images, TR 9,260, TE 111, TI 2,500 Diffusion weighted images, axial sections, TR 4,800, TE 128, B value 1,000 Axial sections, ADC map, TR 4,800, TE 128. Contrast images have been obtained post intravenous 20 cc Gadolinium. T1-weighted axial and coronal images post contrast have been obtained. Angiographic images of neck and brain are obtained pre and post contrast. 3-D post processing performed, including brain, extracranial neck arterial maximum intensity projections Findings: Sellaturcica is not enlarged. The optic chiasm and infundibular stalk are not remarkable. Prepontine and interpeduncular cisterns are not enlarged. No localized enlargement of the medulla or angeles. Fourth ventricle and cerebellar tonsils normal in position. Subacute hemorrhage is not seen. Fourth ventricle is midline. Mass in the cerebellopontine angle region is not evident. 7th and 8th nerve complexes exhibits symmetry. Globes are symmetrical with no retro-orbital mass. Increased white matter signal moderate Diffusion-weighted images demonstrate no focus of restricted diffusion. Mass-effect upon the ventricular system is not identified. Abnormal contrast enhancement is not definite. MRA brain carotid images no carotid stenoses, lower large vessel occlusions Impression: The study is significantly degraded by continuous patient motion Negative for hemorrhage or mass effect No gross acute infarcts Moderate chronic microvascular white matter stage
--- NOTE | 2025-03-15 03:06 | RESP.EEG ---
EEG completed and ready for review
[2025-03-15] MEDS: LACTULOSE SYRUP 20 GM/30 ML UDC 40 GM NG (05:31)
[2025-03-15 05:43] LABS: Basophils # (Auto) 0.0 Thou/mm3 (0.0-0.2); Basophils % (Auto) 0 % (0-2.5); Eosinophils # (Auto) 0.0 Thou/mm3 (0.0-0.5); Eosinophils % (Auto) 0 % (0-10); Hematocrit 28.3 % (41.0-53.0); Hemoglobin 9.4 g/dL (13.5-16.0); Immature Granulocytes Auto 0.08 Thou/mm3 (0.00-0.00); Lymphocytes # (Auto) 0.6 Thou/mm3 (1.0-4.8); Lymphocytes % (Auto) 8 % (10-50); Mean Corpuscular HGB Conc 33.2 g/dl (31.0-37.0); Mean Corpuscular Hemoglobin 36.3 pg (25.0-35.0); Mean Corpuscular Volume 109 fL (80-100); Monocytes # (Auto) 0.5 Thou/mm3 (0.0-0.8); Monocytes % (Auto) 6 % (0-12); Neutrophils # (Auto) 7.1 Thou/mm3 (1.8-7.7); Neutrophils % (Auto) 85 % (37-80); Nucleated Red Blood Cell # 0.00 Thou/mm3 (0.00-0.00); Nucleated Red Blood Cell % 0 /100 WBC (0); RDW Standard Deviation 72.0 fL (35.1-43.9); Red Blood Count 2.59 Miln/mm3 (4.50-5.90); White Blood Count 8.4 Thou/mm3 (3.8-10.6)
[2025-03-15 05:59] LABS: Platelet Count 49 Thou/mm3 (140-440)
[2025-03-15 06:26] LABS: Alanine Aminotransferase 106 U/L (10-49); Albumin, Serum 2.9 gm/dL (3.4-4.8); Albumin/Globulin Ratio 0.7 (1.2-2.2); Alkaline Phosphatase 105 U/L (46-116); Anion Gap 11 (7-16); Aspartate Amino Transferase 242 U/L (0-34); BUN/Creatinine Ratio 19 Ratio (12-20); Bilirubin,Total 11.8 mg/dL (0.3-1.2); Blood Urea Nitrogen 23 mg/dL (9-23); Calcium 10.0 mg/dL (8.3-10.6); Calcium (Corrected) 10.9 mg/dL (8.5-10.1); Carbon Dioxide 28.6 mMol/L (20.0-31.0); Chloride 106 mMol/L (98-107); Creatinine (Component) 1.2 mg/dL (0.6-1.3); Estimated Creatinine Clearance 69.2 mL/min (>60); Globulin 4.1 gm/dL (2.3-3.5); Glucose 188 mg/dL (74-106); Magnesium 2.0 mg/dL (1.6-2.6); Osmolality,Calculated 299 (275-295); Phosphorous 2.6 mg/dL (2.4-5.1); Potassium 3.6 mMol/L (3.4-5.1); Sodium 146 mMol/L (136-145); Total Protein 7.0 gm/dL (5.7-8.2); eGFR > 60 See Note
[2025-03-15] MEDS: ALBUMIN HUMAN-KJDA 25% IVPB 25 GM/100 ML BTL IV (09:42)
--- NOTE | 2025-03-15 09:42 | ESPR_ITS ---
<Statement entered by Abel Kim MD - 03/15/25 18:15> I saw and examined patient personally and supervised PGY 1 resident, Dr. Adan with formulating a management plan. I agree with the documentation with the exceptions as listed below. Goals of care discussion with patient's daughter was held today with director of social work Cathi also in attendance. The topic of hospice was broached and the options presented to patient's daughter. His condition was also explained along with the high risk of deterioration and in the near future. MR brain showed chronic microvascular white matter changes. PT was ordered to assess patient for possible outpatient hospice once family comes to her decision. With regards to patient's acute metabolic encephalopathy, etiology likely due to hepatic encephalopathy. MR brain was negative for stroke, no meningeal signs. The only etiology that has not been excluded is thiamine deficiency. We will start patient on high-dose thiamine 500 mg IV 3 times daily as a trial and monitor for improvement of mentation. Plan of care discussed with Attending Dr. Reny Kim MD PGY 2 Disclaimer: This note was dictated by speech recognition. Minor errors in leaded glass installer may be present due to voice recognition software. Documentation for date of: 03/15/25 Subjective Subjective Interval history: NAEON, reviewed labs chronic macrocytic anemia present Hbg 9.4, Hct 28.3, MCV 109 most likely from decompensated ESLD. PLT 49, coag from 03/14 show PT 63.0 and INR incalculable. BMP unremarkable except slightly elevated Na 146, Glu 188. MRI of brain with MRA was negative for hemorrhage or mass effect, no gross acute infarcts, and moderate chronic microvascular white matter stage. GOCs discussion was had with daughter Scarlet and her partner, Scarlet being primary decision maker for her father, Zen Sanders. IM Team presented the options of conservative treatment and hospice. Explained the difference of each option and what the implications of her decisions would yield. The director of social work provided Scarlet with information about hospice so she could make an informed decision. Scarlet mentioned her father having an appointment with liver transplant team at [facility] this Friday. Our team informed Scarlet that her father may not be well to attend the appointment given his AOx0 today, the waxing and waning of his condition, and MELD-Na score of 35 representing a 66% approximate mortality within 90 days. Scarlet understood that it's a statistic, that her father may live past the 90 days into 2 years or may tomorrow. We discussed the benefits that hospice may bring that being less suffering, no daily labs and adhering improving quality of life. At this time, Scarlet did not have an answer. Our team, supported Scarlet and encouraged her that an answer was not needed. Scarlet was not able to make a decision at this time and wants to continue care. grain ii farmworker provided information for hospice. Exam Vital Signs Temp Pulse Resp BP Pulse Ox O2 Del Method O2 Flow Rate 97.1 F 122 H 16 129/88 H 94 L Nasal Cannula 1 03/15/25 07:59 03/15/25 07:59 03/15/25 07:59 03/15/25 07:59 03/15/25 07:59 03/15/25 07:59 03/15/25 07:59 Narrative Exam General: Somnolent but awake, poorly nourished, cachetic Eye: pupils are unequal to light reflex, right pupil exhibits slightly greater change in reflex, left pupil more sluggish, scleral icterus present HENT: Normocephalic, atraumatic, dental caries, sublingual mucosa deposits Neck: Supple, non-tender, JVD present, no lymphadenopathy Lungs: Clear to auscultation bilaterally, labored respirations, symmetric chest rise, no use of accessory muscles Heart: Normal S1 and S2, no S3 or S4 appreciated. Normal rate and regular rhythm,Peripheral pulses intact bilaterally Abdomen: Soft, distended, normal bowel sounds. Fluid wave noted. Hepatomegaly. No guarding. Musculoskeletal: Not assessable. Skin: Skin is warm, dry. LE pitting edema b/l Neurologic: AOx0. Cannot assess motor or sensation. Objective Labs 03/16/25 03:35 03/16/25 03:35 Labs: Laboratory Results - last 24 hr 03/15/25 05:19 WBC 8.4 RBC 2.59 L Hgb 9.4 L Hct 28.3 L MCV 109 H MCH 36.3 H MCHC 33.2 RDW Std Deviation 72.0 H Plt Count 49 L D Neut % (Auto) 85 H Lymph % (Auto) 8 L [place] % (Auto) 6 Eos % (Auto) 0 Baso % (Auto) 0 Neut # (Auto) 7.1 Lymph # (Auto) 0.6 L [place] # (Auto) 0.5 Eos # (Auto) 0.0 Baso # (Auto) 0.0 Immature Gran # (Auto) 0.08 H Absolute Nucleated RBC 0.00 Immature Gran % 1 H Nucleated RBC % 0 Sodium 146 H Potassium 3.6 Chloride 106 Carbon Dioxide 28.6 Anion Gap 11 BUN 23 Creatinine 1.2 Estim Creat Clear Calc 69.2 eGFR > 60 BUN/Creatinine Ratio 19 Glucose 188 H Calculated Osmolality 299 H Calcium 10.0 Corrected Calcium 10.9 H Phosphorus 2.6 Magnesium 2.0 Total Bilirubin 11.8 H AST 242 H ALT 106 H Alkaline Phosphatase 105 Total Protein 7.0 Albumin 2.9 L Globulin 4.1 H Albumin/Globulin Ratio 0.7 L ABG Interpretation ABG results: 03/12/25 11:49 ABG pH 7.48 H ABG pCO2 35 ABG pO2 129 H ABG HCO3 26 ABG O2 Saturation 100 H ABG Base Excess 3 Quality Measures Quality Measures sepsis Current suspected stage: sepsis Possible source: unknown Blood cultures ordered: yes Antibiotic ordered: Yes Assessment & Plan Assessment Current Active Medications: Generic Name Dose Route Start Last Admin Trade Name Freq PRN Reason Stop Dose Admin Acetaminophen 650 mg 03/12/25 20:30 Acetaminophen 325 Mg Tablet NG 04/11/25 20:29 Q6H PRN Fever >100.3 or pain 1-3 Atorvastatin Calcium 80 mg 03/13/25 21:00 03/14/25 20:36 Atorvastatin Calcium 20 Mg Tablet NG 04/12/25 20:59 80 mg HS SHANNAN Administration Furosemide 40 mg 03/14/25 21:00 03/14/25 20:35 Furosemide Inj 10 Mg/Ml 4ml Vial IVP 04/13/25 20:59 40 mg BID SHANNAN Administration Albumin Human 25 gm in 100 mls @ 100 mls/hr 03/12/25 17:00 03/14/25 19:31 Albuminex 25% Ivpb IV 04/11/25 16:59 Infused QDAY SHANNAN Infusion Ceftriaxone Sodium/Dextrose 2 gm in 50 mls @ 100 mls/hr 03/13/25 21:00 03/14/25 23:57 Rocephin/D5w 2gm IV 03/20/25 20:59 Infused QPM SHANNAN Infusion Lactulose 20 gm 03/15/25 14:00 Lactulose Syrup 20 Gm/30 Ml Udc NG 04/14/25 13:59 TID SHANNAN Protocol Ondansetron HCl 4 mg 03/12/25 20:30 Ondansetron Inj 2 Mg/Ml Inj 2 Ml IVP 04/11/25 20:29 Q6H PRN NAUSEA OR VOMITING Protocol Pantoprazole Sodium 40 mg 03/13/25 09:00 03/14/25 09:36 Pantoprazole Inj 40 Mg Vial IVP 04/12/25 08:59 40 mg QDAY SHANNAN Administration Phytonadione 10 mg 03/13/25 13:45 03/14/25 09:36 Phytonadione Inj 10 Mg/Ml Amp SC 03/15/25 13:44 10 mg QDAY SHANNAN Administration Rifaximin 550 mg 03/12/25 21:00 03/14/25 20:36 Rifaximin 550 Mg Tablet NG 03/19/25 20:59 550 mg BID SHANNAN Administration Spironolactone 100 mg 03/12/25 20:45 03/14/25 09:37 Spironolactone 25 Mg Tablet NG 04/11/25 20:44 100 mg DAILY SHANNAN Administration Plan Patient is a 64 y/o Amharic-speaking male with PMH alcohol-related ESLD c/b grade 3 esophageal varices, recurrent ascites, SBP on long-term prophylaxis antibiotics, chronic venous stasis, hypotension who presented to the ED on 03/12 with weakness. Unknown LKAW. Patient unable to answer questions, unresponsive to verbal stimuli. Admitted for stroke w/u, acute decompensated ESLD. #Hepatic encephalopathy #Acutely decompensated on Chronic End-stage liver disease #Anasarca #Thombocytopenia #Hypoalbuminemia #Hyperammonemia GCS: 9 --> 8 Ammonia: 80; Albumin: 2.5; Total bili: 14 Hepatitis panel: non-reactive Lactic acid: 8.3 --> 4.5 Kidney function: WNL Synthetic liver dysfunction present. PT >63, INR too high for detection MELD-Na: unable to calculate given INR too high for detection MELD-XI: 22; 19.6% 90 day mortality Child-Daigle: 15 points, child class C, life expectancy of 1-3 yrs; 82% perioperative mortality for abdominal surgery DDX cause: infection, constipation, electrolyte abnormalities, GI bleed, excess diuresis, dehydration, renal dysfunction, meds/toxins (NSAIDs, sedatives, EtOH, Acetaminophen) Plan: - 03/12 BCx showed 2/2 NG 48HR, paracentesis w/ fluid analysis held - Changed NG lactulose 60 g TID -> 40 g q3HR - Lasix 40 mg IV TID -> BID - Spironolactone 100 mg NG daily - Rifaximin 550 mg NG BID - Pantoprazole 40 mg IV daily - Ceftriaxone 2 g IV daily for SBP prophylaxis (given hx SBP) - CTM for S/Sx GI bleed, daily CBC - Daily weights - Transfuse pRBC if hgb <7 - Transfuse PLT <10 to prevent spontaneous hemorrhage - Avoid sedating agents - Limit Acetaminophen use <=2-3 g/day for mild 1-3 pain (650 mg PO q8h). Avoid NSAIDs 2/2 risk of hepatorenal syndrome. - GOC completed today 11:00AM refer to subjective Hx #Left-sided facial droop Hx stroke/TIA: unknown, none listed in chart Hx afib: none Smoking hx: unknown Initial symptoms: Weakness. AOx0, somnolent, not responding to verbal stimuli, L facial droop, pupils sluggish but reactive to light. LKAW: unknown Initial NIHSS: unable to assess given obtunded Inital BP: 101/71 EKG: NSR HR 76, QTc 419 Initial glucose: 125 Troponin: negative CT head w/o: negative for acute hemorrhage CTA head/neck w/: no LVO Pt not a candidate for tPA. Family decided against transfer and thrombectomy at this time. Ddx: peripheral facial nerve palsy vs central facial nerve palsy Plan: - Pending MRI showed no signs of ischemic or hemorrhagic stroke, no midline shift, or acute abnormalities - Atorvastatin 80 mg NG daily for plaque stabilization - PLT 49, elevated PT/INR - Neuro Checks q4h - Permissive HTN - Aspiration Precautions, Head of bed 30 degrees - Euglycemia and avoid Hyperthermia - Consulted neurology, appreciate recs #Coagulopathy #Thrombocytopenia - H/H stable - continue to monitor for any signs of bleeding - holding antiplatelet and AC #Elevated D-dimer Venous doppler of LE negative #SIRS criteria #Suspected SBP T 94.5, HR >20, RR >20. LA 8.3 --> 4.3. Given 2.2 L NS in ED Plan: - Jethro mary PRN - 03/12 BCx showed 2/2 NG 48HR - Continue with rocephin 2g IV daily - Diagnostic parascentesis held #Macrocytic anemia Hgb 10.8, HCT 31.7, MCV 105 Plan: - CTM with daily CBC - Transfuse if hgb <7 - CTM for S/Sx of blood loss anemia Checklist Dispo: Tele Diet: NPO Bowel Reg: Changed NG lactulose 60 g TID -> 40 g q3HR VTE ppx: SCD GI ppx: pantoprazole 40 mg IV daily Pain mgmt: Tylenol PRN Code status: DNR/DNI Case was discussed with Attending Dr. Oglesby, and Senior Resident Dr. Judy Adan, DO PGY-1 Attending Provider Attestation/Addendum I have examined the patient, reviewed labs and imaging findings, discussed the case with the resident(s), and reviewed entered orders. I agree with the plan of care as outlined in this note, with these additional summaries/recommendations: Patient and patient's family seen at bedside. We will continue treatment for hepatic encephalopathy although only mild to moderate improvement thus far. Continue lactulose and rifaximin. Pending MRI brain to rule out acute CVA although suspicion is low. Will continue high intensity statin although patient is not a candidate for anticoagulation given his significant bleeding risk. Goals of care was held with patient's daughter and all treatment options plus prognosis was explained at length. Family would like more time to think but in the meantime we will make hospice referral so they can obtain additional information to make an informed decision. Continue NG tube. 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 Prognosis is guarded. Continue low-salt diet and fluid restriction. Outpatient vaccine series as desired by family. Continue Rocephin for suspected SBP. Patient's family updated on the plan and in agreement. All questions answered to satisfaction. Please see residents note for additional details and management. Dr. Reny MD
[2025-03-15] MEDS: PHYTONADIONE INJ 10 MG/ML AMP SC (09:43)
[2025-03-15] MEDS: FUROSEMIDE INJ 10 MG/ML 4ML VIAL 40 MG IVP ×2 (09:43→20:47)
[2025-03-15] MEDS: SPIRONOLACTONE 25 MG TABLET 100 MG NG (09:44)
--- NOTE | 2025-03-15 11:20 | PC.SS ---
SS follow up note; Goals of care meeting was held with patient's daughter, Scarlet. Facilitated by Dr. Oglesby and Team A. Dr. Oglesby provided a detailed explanation of the patient's current medical condition and discussed the patient's prognosis, treatment options and discussed hospice services with patient's daughter Scarlet. At the time she would like more education on hospice. SS informed Scarlet that SS would contact Hospice agency of the day, she verbalized understanding. SS contacted [facility] and provided patients daughters information.
[2025-03-15 11:43] LABS: Slide Review Platelets confirmed
--- NOTE | 2025-03-15 13:00 | PC.SS ---
Addendum entered by Cathi Godoy 03/15/25 15:51: SS follow up note; SS was contacted by patient's daughter, Scarlet and she informed SS that [facility] contacted her and she informed SS that if she does decide for patient to discharge home, she would like [facility] instead of [facility]. At the time PT evaluation is pending and SS will sent PT note to [facility] to determine if they are able to accept under comfort measures. Addendum entered by Cathi Godoy 03/15/25 15:36: SS follow up note; SS submitted hospice referral through [facility] to [facility]. Patient's daughter would like [facility] to contact her as well to determine what agency she would like patient to be followed by. SS informed her that patient does not have SNF coverage for hospice services. She informed patients daughter that patient could discharge to SNF under Comfort measures. SS submitted Referral through [employer]. Severino from [facility] requesting PT note. SS updated team A. At the time PT note is pending, if [facility] is not able to accept patient under comfort measures, patient will discharge home with Hospice. SS will stand by for further needs. Original Note: SS follow up note; SS contacted [facility], and informed them that at the time patient's daughter has not been contacted. Staff at [facility] informed SS they would have someone follow up with patient's daughter, Scarlet.
[2025-03-15] MEDS: LACTULOSE SYRUP 20 GM/30 ML UDC NG ×2 (13:41→21:09)
[2025-03-15] MEDS: THIAMINE INJ 100 MG/ML VIAL 2 ML 500 MG IVP ×2 (13:41→21:11)
--- NOTE | 2025-03-15 19:21 | PD.RESPRO ---
Documentation for date of: 03/15/25 Subjective Subjective Interval history: Patient examined at bedside. BP 142/95, tachycardia 118. Hemoglobin 9.4, MCV 109, platelets up trended to 49 today. AOx0. MR brain showed chronic microvascular white matter changes, negative for stroke, no meningeal signs. Noted that goals of care discussion held with family today. They are considering possible hospice. Patient started on thiamine, EEG pending. Exam Vital Signs Temp Pulse Resp BP Pulse Ox O2 Del Method O2 Flow Rate 96.6 F L 118 H 15 142/95 H 95 Nasal Cannula 1 03/15/25 16:00 03/15/25 16:00 03/15/25 16:00 03/15/25 16:00 03/15/25 16:00 03/15/25 16:00 03/15/25 16:00 Narrative Exam General: Somnolent but awake, poorly nourished, cachetic Eye: pupils are unequal to light reflex, right pupil exhibits slightly greater change in reflex, left pupil more sluggish, scleral icterus present HENT: Normocephalic, atraumatic Neck: Supple, non-tender, JVD present, no lymphadenopathy Lungs: Clear to auscultation bilaterally, labored respirations, symmetric chest rise, no use of accessory muscles Heart: Normal S1 and S2, no S3 or S4 appreciated. Normal rate and regular rhythm,Peripheral pulses intact bilaterally Abdomen: Soft, distended, normal bowel sounds. Fluid wave noted. Hepatomegaly. No guarding. Musculoskeletal: Not assessable. Skin: Skin is warm, dry. LE pitting edema b/l Neurologic: AOx0. Cannot assess motor or sensation. Objective Labs 03/16/25 03:35 03/16/25 03:35 Labs: Laboratory Results - last 24 hr 03/15/25 05:19 WBC 8.4 RBC 2.59 L Hgb 9.4 L Hct 28.3 L MCV 109 H MCH 36.3 H MCHC 33.2 RDW Std Deviation 72.0 H Plt Count 49 L D Neut % (Auto) 85 H Lymph % (Auto) 8 L [place] % (Auto) 6 Eos % (Auto) 0 Baso % (Auto) 0 Neut # (Auto) 7.1 Lymph # (Auto) 0.6 L [place] # (Auto) 0.5 Eos # (Auto) 0.0 Baso # (Auto) 0.0 Immature Gran # (Auto) 0.08 H Absolute Nucleated RBC 0.00 Immature Gran % 1 H Nucleated RBC % 0 Sodium 146 H Potassium 3.6 Chloride 106 Carbon Dioxide 28.6 Anion Gap 11 BUN 23 Creatinine 1.2 Estim Creat Clear Calc 69.2 eGFR > 60 BUN/Creatinine Ratio 19 Glucose 188 H Calculated Osmolality 299 H Calcium 10.0 Corrected Calcium 10.9 H Phosphorus 2.6 Magnesium 2.0 Total Bilirubin 11.8 H AST 242 H ALT 106 H Alkaline Phosphatase 105 Total Protein 7.0 Albumin 2.9 L Globulin 4.1 H Albumin/Globulin Ratio 0.7 L Misc Test Result Platelets confirmed ABG Interpretation ABG results: 03/12/25 11:49 ABG pH 7.48 H ABG pCO2 35 ABG pO2 129 H ABG HCO3 26 ABG O2 Saturation 100 H ABG Base Excess 3 Quality Measures Quality Measures sepsis Current suspected stage: ruled out Possible source: unknown Blood cultures ordered: yes Antibiotic ordered: Yes Assessment & Plan Assessment Current Active Medications: Generic Name Dose Route Start Last Admin Trade Name Freq PRN Reason Stop Dose Admin Acetaminophen 650 mg 03/12/25 20:30 Acetaminophen 325 Mg Tablet NG 04/11/25 20:29 Q6H PRN Fever >100.3 or pain 1-3 Atorvastatin Calcium 80 mg 03/13/25 21:00 03/14/25 20:36 Atorvastatin Calcium 20 Mg Tablet NG 04/12/25 20:59 80 mg HS SHANNAN Administration Furosemide 40 mg 03/14/25 21:00 03/15/25 09:43 Furosemide Inj 10 Mg/Ml 4ml Vial IVP 04/13/25 20:59 40 mg BID SHANNAN Administration Albumin Human 25 gm in 100 mls @ 100 mls/hr 03/12/25 17:00 03/15/25 09:42 Albuminex 25% Ivpb IV 04/11/25 16:59 100 mls/hr QDAY SHNANAN Administration Ceftriaxone Sodium/Dextrose 2 gm in 50 mls @ 100 mls/hr 03/13/25 21:00 03/14/25 23:57 Rocephin/D5w 2gm IV 03/20/25 20:59 Infused QPM SHANNAN Infusion Lactulose 20 gm 03/15/25 14:00 03/15/25 13:41 Lactulose Syrup 20 Gm/30 Ml Udc NG 04/14/25 13:59 20 gm TID SHANNAN Administration Protocol Ondansetron HCl 4 mg 03/12/25 20:30 Ondansetron Inj 2 Mg/Ml Inj 2 Ml IVP 04/11/25 20:29 Q6H PRN NAUSEA OR VOMITING Protocol Pantoprazole Sodium 40 mg 03/13/25 09:00 03/15/25 09:44 Pantoprazole Inj 40 Mg Vial IVP 04/12/25 08:59 40 mg QDAY SHANNAN Administration Rifaximin 550 mg 03/12/25 21:00 03/15/25 09:44 Rifaximin 550 Mg Tablet NG 03/19/25 20:59 550 mg BID SHANNAN Administration Spironolactone 100 mg 03/12/25 20:45 03/15/25 09:44 Spironolactone 25 Mg Tablet NG 04/11/25 20:44 100 mg DAILY SHANNAN Administration Thiamine HCl 500 mg 03/15/25 14:00 03/15/25 13:41 Thiamine Inj 100 Mg/Ml Vial 2 Ml IVP 04/14/25 13:59 500 mg TID SHANNAN Administration Plan Patient is a 64 y/o Citizen Of [place]-speaking male with PMH alcohol-related ESLD c/b grade 3 esophageal varices, recurrent ascites, SBP on long-term prophylaxis antibiotics, chronic venous stasis, hypotension who presented to the ED on 03/12 with weakness. Neurology consulted for additional workup of encephalopathy. #Acute encephalopathy Likely due to acute decompensated liver cirhosis. Rule out seizures with EEG. Mentation remains AOx3. Lactic acid downtrending. Left side facial droop has resolved. CT head w/o: negative for acute hemorrhage CTA head/neck w/: no LVO MR brain showed chronic microvascular white matter changes, negative for stroke, no meningeal signs. -EEG pending -neuro checks q4hr -hold anticoagulants due to coagulopathy #Coagulopathy #Thrombocytopenia #SBP hx #Macrocytic anemia Primary care team to manage above conditions and ongoing care needs. The patient's management plan was discussed with my attending physician Dr. Reynolds. Josie Mcleod, PGY-2 Attending Provider Attestation/Addendum I personally have seen and examined the patient at the bedside and agreed with the resident's findings, assessment and plan of care. 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 His condition is critical and his prognosis is poor. EEG showed diffuse slowing consistent with encephalopathy encephalopathy.
[2025-03-15] MEDS: ATORVASTATIN CALCIUM 20 MG TABLET 80 MG NG (20:48)
[2025-03-15] MEDS: cefTRIAXone/D5w 2gm 2 GM/50 ML BAG IV (20:56)
[2025-03-16] VITALS (10 sets, daily range): BP systolic 83–124; BP diastolic 56–87; PULSE 94–140; RESP 18–30; TEMP 34.7–36.3; O2SAT 85–100; BMI 25.4
--- NOTE | 2025-03-16 03:16 | EVENTNT_ITS ---
Documentation for date of: 03/16/25 Event Note Event Note: Rapid was called at 3:06 on 03/16 due to labored breathing Vitals BP 110/84, IA 122,Temp-96.5,Blood glucose:183 saturating 86% on 15 litres of O2. Physical examination shows Unresponsive person with distended abdomen with decr eased breath sounds over the lungs Ordered : CBC,CMP,Lactate, ABG,BIPAP Patient was put on BiPaP
[2025-03-16 03:22] LABS: Base Excess 4 (-3-3); HCO3 30 mEq/L (20-26); Inspired O2, VO2 Liters 15 L/min; Inspired Oxygen, FIO2 21 %; O2 Saturation 87 % (91-98); PCO2 54 mmHg (32.0-48.0); pH, Arterial 7.35 (7.35-7.45)
[2025-03-16 03:25] LABS: Allen Test Performed/OK; PO2 58 mmHg (83-108); Puncture Site Right Radial
--- NOTE | 2025-03-16 03:47 | PC.RT ---
Rapid was called due to patient decline. forceful expiatory and belly breathing with tracheal wheeze. Lungs sound completely junky
--- NOTE | 2025-03-16 03:55 | PC.NURSE ---
emily on bipap at 70% fio2. icu called that patients sats were 84%. I bumped bipap to 100% fio2, called Dr. Lopez and RT. O2 is 93 at this time on 100% fio2. sitter at bedside, will monitor.
[2025-03-16 04:00] LABS: Lactate (Lactic Acid) 4.1 mMol/L (0.4-2.0)
[2025-03-16 04:42] LABS: Alanine Aminotransferase 142 U/L (10-49); Albumin, Serum 2.7 gm/dL (3.4-4.8); Albumin/Globulin Ratio 0.8 (1.2-2.2); Alkaline Phosphatase 95 U/L (46-116); Anion Gap 13 (7-16); Aspartate Amino Transferase 359 U/L (0-34); BUN/Creatinine Ratio 15 Ratio (12-20); Bilirubin,Total 12.0 mg/dL (0.3-1.2); Blood Urea Nitrogen 24 mg/dL (9-23); Calcium 9.5 mg/dL (8.3-10.6); Calcium (Corrected) 10.5 mg/dL (8.5-10.1); Carbon Dioxide 27.3 mMol/L (20.0-31.0); Chloride 106 mMol/L (98-107); Creatinine (Component) 1.6 mg/dL (0.6-1.3); Estimated Creatinine Clearance 51.2 mL/min (>60); Globulin 3.6 gm/dL (2.3-3.5); Glucose 199 mg/dL (74-106); Magnesium 2.4 mg/dL (1.6-2.6); Osmolality,Calculated 300 (275-295); Phosphorous 4.0 mg/dL (2.4-5.1); Potassium 4.4 mMol/L (3.4-5.1); Sodium 146 mMol/L (136-145); Total Protein 6.3 gm/dL (5.7-8.2); eGFR 48 See Note
[2025-03-16] MEDS: LACTULOSE SYRUP 20 GM/30 ML UDC NG ×2 (05:05→13:37)
[2025-03-16] MEDS: THIAMINE INJ 100 MG/ML VIAL 2 ML 500 MG IVP ×2 (05:05→13:37)
[2025-03-16 06:36] LABS: Basophils # (Auto) 0.0 Thou/mm3 (0.0-0.2); Basophils % (Auto) 0 % (0-2.5); Eosinophils # (Auto) 0.0 Thou/mm3 (0.0-0.5); Eosinophils % (Auto) 0 % (0-10); Hematocrit 29.2 % (41.0-53.0); Hemoglobin 9.4 g/dL (13.5-16.0); Immature Granulocytes Auto 0.08 Thou/mm3 (0.00-0.00); Lymphocytes # (Auto) 0.5 Thou/mm3 (1.0-4.8); Lymphocytes % (Auto) 7 % (10-50); Mean Corpuscular HGB Conc 32.2 g/dl (31.0-37.0); Mean Corpuscular Hemoglobin 36.6 pg (25.0-35.0); Mean Corpuscular Volume 114 fL (80-100); Monocytes # (Auto) 0.7 Thou/mm3 (0.0-0.8); Monocytes % (Auto) 8 % (0-12); Neutrophils # (Auto) 6.9 Thou/mm3 (1.8-7.7); Neutrophils % (Auto) 84 % (37-80); Nucleated Red Blood Cell # 0.04 Thou/mm3 (0.00-0.00); Nucleated Red Blood Cell % 1 /100 WBC (0); RDW Standard Deviation 78.2 fL (35.1-43.9); Red Blood Count 2.57 Miln/mm3 (4.50-5.90); White Blood Count 8.3 Thou/mm3 (3.8-10.6)
[2025-03-16 06:40] LABS: Platelet Count 42 Thou/mm3 (140-440)
[2025-03-16 06:52] LABS: Reflex Lactate? Y
[2025-03-16 08:07] LABS: Lactic Acid, 3 HR 4.6 mMol/L (0.4-2.0)
[2025-03-16 08:16] LABS: Slide Review Platelets confirmed
[2025-03-16] MEDS: ALBUMIN HUMAN-KJDA 25% IVPB 25 GM/100 ML BTL IV (08:34)
--- NOTE | 2025-03-16 09:39 | ESPR_ITS ---
Documentation for date of: 03/16/25 Overnight, rapid response called for patient given some concern hypoxia. Patient's ABG was obtained and noted to be pCO2 of 54 with an elevated bicarb. Patient was started on BiPAP. Patient examined at bedside this morning noted to have worsening anginal breathing. Chest x-ray of obtained this morning noted for complete atelectasis. Given end-stage liver disease with multiorgan failure primary team once again spoke with next of kin about starting comfort measures. Scarlet, next of kin, agreeable to comfort measures and all other medical intervention for chronic problems was discontinued. - The patient's plan was discussed with attending Dr. Oglesby. Uzma Broussard MD PGY2 Internal Medicine Subjective Subjective Interval history: Rapid was called at 3:06 on 03/16 for labored breathing. Vitals BP 110/84, HR 122, Temp 96.5, saturating 86% on 15 litres of O2. Physical examination shows Unresponsive person with distended abdomen with decreased breath sounds over the lungs. Patient was placed on BiPAP. Current labs show no leukocytosis; PLT 42, INR incalculable. BMP showed Na 146, BUN 44, Cr 1.6. Lactate 4.6. Corrected Ca 10.5. T Bili 12.0, AST 359, ALT 142, ALP 95. ABG pH 7.35, pCO2 54, pO2 58, Bicarb 30. EEG from neurology showed diffuse low-grade brain acitivty consistent with hepatic encephalopathy. CXR ordered. At bedside patient's condition has not improved from yesterday despite treatment with lactulose, rifaximin, spironolactone, rocephin, and lasix. AOx0, GCS 8, LE pitting edema b/l and was switched from BiPAP to high flow on 40L. At approximately 03/16 14:00 placed was hypoxic in light of the multiorgan dysfunction occuring, the daughter Scarlet was informed about her father's status. Scarlet agreed with comfort care. Comfort care measures were initiated. Exam Vital Signs Temp Pulse Resp BP Pulse Ox O2 Del Method O2 Flow Rate 96.5 F L 102 H 19 91/71 92 L BiPAP 40 03/16/25 03:48 03/16/25 09:08 03/16/25 09:08 03/16/25 03:48 03/16/25 09:08 03/16/25 03:48 03/16/25 09:08 FiO2 100 03/16/25 09:08 Narrative Exam General: Somnolent but awake, poorly nourished, cachetic Eye: pupils are unequal to light reflex, right pupil exhibits slightly greater change in reflex, left pupil more sluggish, scleral icterus present HENT: Normocephalic, atraumatic, dental caries, sublingual mucosa deposits Neck: Supple, non-tender, JVD present, no lymphadenopathy Lungs: Clear to auscultation bilaterally, labored respirations, symmetric chest rise, no use of accessory muscles Heart: Normal S1 and S2, no S3 or S4 appreciated. Normal rate and regular rhythm,Peripheral pulses intact bilaterally Abdomen: Soft, distended, normal bowel sounds. Fluid wave noted. Hepatomegaly. No guarding. Musculoskeletal: Not assessable. Skin: Skin is warm, dry. LE pitting edema b/l Neurologic: AOx0. Cannot assess motor or sensation. Objective Labs 03/16/25 03:35 03/16/25 03:35 Labs: Laboratory Results - last 24 hr 03/15/25 03/16/25 03/16/25 05:19 03:17 03:35 WBC 8.3 RBC 2.57 L Hgb 9.4 L Hct 29.2 L MCV 114 H MCH 36.6 H MCHC 32.2 RDW Std Deviation 78.2 H Plt Count 42 L Neut % (Auto) 84 H Lymph % (Auto) 7 L Bullock % (Auto) 8 Eos % (Auto) 0 Baso % (Auto) 0 Neut # (Auto) 6.9 Lymph # (Auto) 0.5 L Bullock # (Auto) 0.7 Eos # (Auto) 0.0 Baso # (Auto) 0.0 Immature Gran # (Auto) 0.08 H Absolute Nucleated RBC 0.04 H Immature Gran % 1 H Nucleated RBC % 1 H Puncture Site Right Radial ABG pH 7.35 ABG pCO2 54 H ABG pO2 58 L* ABG HCO3 30 H ABG O2 Saturation 87 L ABG Base Excess 4 H Oxygen Liter Flow 15 FiO2 21 Sodium 146 H Potassium 4.4 D Chloride 106 Carbon Dioxide 27.3 Anion Gap 13 BUN 24 H Creatinine 1.6 H Estim Creat Clear Calc 51.2 L eGFR 48 L BUN/Creatinine Ratio 15 Glucose 199 H Calculated Osmolality 300 H Lactic Acid 4.1 H* Calcium 9.5 Corrected Calcium 10.5 H Phosphorus 4.0 Magnesium 2.4 Total Bilirubin 12.0 H AST 359 H ALT 142 H Alkaline Phosphatase 95 Total Protein 6.3 Albumin 2.7 L Globulin 3.6 H Albumin/Globulin Ratio 0.8 L Misc Test Result Platelets confirmed Platelets confirmed 03/16/25 07:30 WBC RBC Hgb Hct MCV MCH MCHC RDW Std Deviation Plt Count Neut % (Auto) Lymph % (Auto) Bullock % (Auto) Eos % (Auto) Baso % (Auto) Neut # (Auto) Lymph # (Auto) Bullock # (Auto) Eos # (Auto) Baso # (Auto) Immature Gran # (Auto) Absolute Nucleated RBC Immature Gran % Nucleated RBC % Puncture Site ABG pH ABG pCO2 ABG pO2 ABG HCO3 ABG O2 Saturation ABG Base Excess Oxygen Liter Flow FiO2 Sodium Potassium Chloride Carbon Dioxide Anion Gap BUN Creatinine Estim Creat Clear Calc eGFR BUN/Creatinine Ratio Glucose Calculated Osmolality Lactic Acid 4.6 H* Calcium Corrected Calcium Phosphorus Magnesium Total Bilirubin AST ALT Alkaline Phosphatase Total Protein Albumin Globulin Albumin/Globulin Ratio Misc Test Result ABG Interpretation ABG results: 03/12/25 03/16/25 11:49 03:17 ABG pH 7.48 H 7.35 ABG pCO2 35 54 H ABG pO2 129 H 58 L* ABG HCO3 26 30 H ABG O2 Saturation 100 H 87 L ABG Base Excess 3 4 H Quality Measures Quality Measures sepsis Current suspected stage: ruled out Possible source: unknown Blood cultures ordered: yes Antibiotic ordered: No Assessment & Plan Assessment Current Active Medications: Generic Name Dose Route Start Last Admin Trade Name Freq PRN Reason Stop Dose Admin Acetaminophen 650 mg 03/12/25 20:30 Acetaminophen 325 Mg Tablet NG 04/11/25 20:29 Q6H PRN Fever >100.3 or pain 1-3 Atorvastatin Calcium 80 mg 03/13/25 21:00 03/15/25 20:48 Atorvastatin Calcium 20 Mg Tablet NG 04/12/25 20:59 80 mg On Hold: 03/16/25 08:00 HS SHANNAN Administration Furosemide 40 mg 03/14/25 21:00 03/15/25 20:47 Furosemide Inj 10 Mg/Ml 4ml Vial IVP 04/13/25 20:59 40 mg On Hold: 03/16/25 08:00 BID SHANNAN Administration Albumin Human 25 gm in 100 mls @ 100 mls/hr 03/12/25 17:00 03/16/25 08:34 Albuminex 25% Ivpb IV 04/11/25 16:59 100 mls/hr QDAY SHANNAN Administration Ceftriaxone Sodium/Dextrose 2 gm in 50 mls @ 100 mls/hr 03/13/25 21:00 03/15/25 20:56 Rocephin/D5w 2gm IV 03/20/25 20:59 100 mls/hr QPM SHANNAN Administration Lactulose 20 gm 03/15/25 14:00 03/16/25 05:05 Lactulose Syrup 20 Gm/30 Ml Udc NG 04/14/25 13:59 20 gm TID SHANNAN Administration Protocol Midodrine 2.5 mg 03/16/25 08:01 Midodrine 2.5 Mg Tablet PO 04/15/25 13:59 TID PRN Hypotension Ondansetron HCl 4 mg 03/12/25 20:30 Ondansetron Inj 2 Mg/Ml Inj 2 Ml IVP 04/11/25 20:29 Q6H PRN NAUSEA OR VOMITING Protocol Pantoprazole Sodium 40 mg 03/13/25 09:00 03/16/25 08:34 Pantoprazole Inj 40 Mg Vial IVP 04/12/25 08:59 40 mg QDAY SHANNAN Administration Rifaximin 550 mg 03/12/25 21:00 03/16/25 08:34 Rifaximin 550 Mg Tablet NG 03/19/25 20:59 550 mg BID SHANNAN Administration Spironolactone 100 mg 03/12/25 20:45 03/15/25 09:44 Spironolactone 25 Mg Tablet NG 04/11/25 20:44 100 mg On Hold: 03/16/25 08:00 DAILY SHANNAN Administration Thiamine HCl 500 mg 03/15/25 14:00 03/16/25 05:05 Thiamine Inj 100 Mg/Ml Vial 2 Ml IVP 04/14/25 13:59 500 mg TID SHANNAN Administration Plan Patient is a 64 y/o Cameroonian-speaking male with PMH alcohol-related ESLD c/b grade 3 esophageal varices, recurrent ascites, SBP on long-term prophylaxis antibiotics, chronic venous stasis, hypotension who presented to the ED on 10/11 with weakness. Unknown LKAW. Patient unable to answer questions, unresponsive to verbal stimuli. Admitted for stroke w/u, acute decompensated ESLD. #Comfort Measures #Goals of Care Care Team, nurses, and social human services assistants at bedside discussed GOCs with Scarlet, discussion included overall poor prognosis of Zen Verdugo given ESLD secondary to multiorgan failure. Patient's worsening pulmonary function, increased oxygen requirements on 15L, total left lung atelectasis on CXR, MARCUS, increasing sodium level, worsening lactate acidosis, chronic thrombocytopenia PLT 42, INR incalculable, worsening transaminitis, no change in mentation, AOx0, and addition of low-grade hypothermia. Comfort measures started 14:00 with morphine drip. Family is agreeable. Daughter, Scarlet, was informed of patient's decline in condition and daughter has made an informed decision for comfort care. Family consoled at bedside and Assembler [employer] services requested. Rest of patient's chronic all further medical management deferred at this time due to comfort care. MELD-Na: unable to calculate given INR too high for detection MELD-XI: 22; 19.6% 90 day mortality Child-Daigle: 15 points, child class C, life expectancy of 1-3 yrs; 82% perioperative mortality for abdominal surgery #Multi-organ Failure #Hepatic encephalopathy #Acute on Chronic Liver Failure #Transaminitis, worsening #MARCUS #Lactic Acidosis, worsening #Left-sided facial droop, resolved #Coagulopathy #Thrombocytopenia #Elevated D-dimer #SIRS criteria #Suspected SBP #Macrocytic anemia Checklist Dispo: Tele Diet: NPO Bowel Reg: none VTE ppx: SCD GI ppx: none Pain mgmt: morphine ggt Code status: DNR/DNI, comfort measures started Case was discussed with Attending Dr. Oglesby, and Senior Resident Dr. Aarti Adan, PGY-1 Attending Provider Attestation/Addendum I have examined the patient, reviewed labs and imaging findings, discussed the case with the resident(s), and reviewed entered orders. I agree with the plan of care as outlined in this note. Dr. Reny MD
--- NOTE | 2025-03-16 09:42 | PC.SS ---
Update: Goals of care conducted. Patient has de compensated. Patient on high flow oxygen.
--- NOTE | 2025-03-16 10:25 | XR_ITS ---
EXAMINATION: AP chest single view TECHNIQUE: AP portable supine chest single view Date and time: March 16, 2025, 11:04 a.m., comparison March 12, 2025 INDICATIONS: Difficulty breathing today. FINDINGS: Total left lung collapse, consider mucous plug in the left mainstem bronchus Moderate right lung vascular congestion Orogastric tube coiled in the stomach IMPRESSION: Interval total left lung atelectasis, consider mucous plug in the left mainstem bronchus, consider bronchoscopy follow-up
[2025-03-16 11:30] LABS: Ammonia 93 uMol/L (11-32)
--- NOTE | 2025-03-16 12:57 | PC.PT ---
PT eval only. Patient is not a candidate for PT services at this time as he is semi-comatose and on high flow O2. Patient is unable to follow commands and is unarousable to verbal or noxious stimuli at this time. RN made aware.
[2025-03-16] MEDS: ACETAMINOPHEN 325 MG TABLET 650 MG NG (13:37)
[2025-03-16] MEDS: [UNRECOGNIZED DRUG - OTHER] SL (14:15)
[2025-03-16] MEDS: LORazepam 2 MG/ML VIAL 1 MG IVP (15:24)
[2025-03-16] MEDS: Morphine IV Drip 100mg/100ml 100 ML IV (15:25)
[2025-03-16 15:58] LABS: Band Neutrophils (Manual) 32 % (0-6); Lymphocytes (Manual) 6 % (20-44); Metamyelocytes (Manual) 1 % (0-0); Monocytes (Manual) 2 % (2-9); Myelocytes (Manual) 1 % (0-0); Neutrophils (Manual) 58 % (50-70)
[2025-03-16] MEDS: SCOPOLAMINE 1 MG TDSY TOP (16:11)
--- NOTE | 2025-03-16 16:21 | PC.SS ---
Goals of care meeting conducted. Present were patient's daughter, Scarlet Verdugo. Daughter is patient's surrogate medical decision maker. Attending and residents provided overview on the patient's medical condition. Attending informed patient's daughter that patient is experiencing multi-system failure. In addition, patient is currently on 40L high flow oxygen. Patient's daughter made decision to transition the patient to comfort care. Daughter requesting quality head services. CLASSROOM PARAPROFESSIONAL confirmed arrival of hospital ski guide.
[2025-03-16] MEDS: MORPHINE SULF INJ 4 MG/ML VIAL 2 MG IVP (16:41)
--- NOTE | 2025-03-16 17:35 | PD.DPN ---
Documentation for date of: 03/16/25 17:30 Pronouncement Note Date and Time of Date of : 03/16/25 Time of : 17:30 PCOD Preliminary cause of : Cardiopulmonary arrest Contributing Factors (1) Comfort measures only status: (2) End-stage liver disease: (3) Decompensated cirrhosis: (4) Hepatic encephalopathy: Summary Additional details: Our team was called to pronounce the of patient Zen Pruett. Upon examination, spontaneous movement were absent. No response to verbal or tactile stimuli. No active heart or breath sounds were noted after 2 continuous minutes of auscultation. Pupils were unresponsive to light, corneal reflexes absent, patient unresponsive to external stimuli. Patient was pronounced on 5:30PM at [facility]. Attending Dr. Oglesby was notified. The patient's family was present at bedside & consoled. Case was discussed with Attending Dr. Oglesby, and Senior Resident Dr. Aarti Adan DO PGY-1 Senior Resident Attestation: I have discussed the case with supervising physician and exercise science internship physician involved in the care of patient. I personally saw and examined patient and discussed the assessment and plan with the entire medical team, including attending. I agree with assessment and plan as documented above. Uzma Broussard MD PGY-2 Internal Medicine Additional Data Confirmation of : no pulse, no respirations, no heart sounds and pupils fixed and dilated Family: at bedside Additional persons at bedside: fortune cookie maker and social media community manager Attending/PCP notified?: Yes Attending physician: Jose Oglesby MD Was code activated?: No Autopsy requested?: No sock lining examiner notified?: No Organ bank notified?: No Advance directives: No
--- NOTE | 2025-03-16 17:36 | DES_ITS ---
Documentation for date of: 03/16/25 Summary Date and Time Date of admission: 03/12/25 20:30 Date of : 03/16/25 Time of : 17:30 Summary Details: 64 yo male PMHx of alcohol-related ESLD, grade 3 esophageal varices, recurrent ascites, Hx SBP on long-term prophylaxis antibiotics, chronic venous stasis, hypotension, chronic anemia, chronic thrombocytopenia, chronic elevated total bilirubin, current hepatic encephalopathy, and Hx of E. coli bacteremia who was admitted for acute metabolic encephlopathy likely hepatic encephlopathy and generalized weakness. Given overall prognosis, patient was started on comfort measures with daughter present in the room. ED course: Vitals T 94.5 (hypothermic) --> Bear hugger --> 97.3, HR 90-110s, RR 9-20s, BP 101/71 - 110/64, spO2 91% --> 2L 97%. Labs significant for Hbg 10.8, Hct 31.7, PLT 59, Ca 10.7, albumin 2.5, total bili 14, CK 288, PT >63, INR undetectable, aPTT 56.8. D dimer 2320, Lactic acid 8.3 --> 4.5. Ammonia 80. UA 1+ protein, 3+ blood, 125 RBC, 4+ Ca oxalalate crystals, 10 hyaline casts, [address] head negative for acute hemorrhage. CTA positive for M2 high grade occlusion. CXR moderate vascular congestion, G in place. Bcx pending. EKG NSR HR 76, QTc 419. Given PLT 59, will not be a thrombectomy candidate. Family does not want to transfer patient for LVO management. Family chose conservative treatment without comfort care at this time. Family changed code status from Full Code to DNR/DNI. Given Zofran, morphine 4 mg IV, Ceftriaxone 2 g IV, Lact ulose 90 mg total, lasix 40 mg IV, albumin 25 mg IV, 2.2L NS IV. Hospital Course: Patient admitted to IM Team for Hepatic Encephalopathy secondary to acute on chronic liver failure with transaminitis, thrombocytopenia, elevated d-dimer, anasarca and c/f for stroke. During hospital stay, patient was placed on stroke protocols and workup, treated for ESLD including rifaximin 550mg BID, lactulose 60mg TID, 1g rocephin daily, lasix 20mg daily, NPO, held paracentesis due to platelets 51 and treated chronic conditions. Patient's mentation, AOx0 did not change during hospital course, on physical exam patient remained the same with no changes in stigmata from liver cirrhosis: hepatomegaly, anasarca, jaundice, disconjugate eyes, scleral icterus, and pitting edema LE bi/l. MRI was negative for any acute ischemia or hemorrhage, stroke ruled-out. Patient treated symptomatically and continued to have [facility] conversation with daughter Scarlet about hospice and the possibility of comfort care. On the morning of 03/16 3:06 rapid response was called for labored breathing; BP 110/84, HR 122, Temp 96.5, saturating 86% on 15L O2. Patient was placed on BiPAP eventually transitioned to high flow O2. CXR showed total left lung atelectasis. Patient presentation fit multiorgan failure due to increased oxygen requirements, MARCUS, worsening transaminitis, no change in mentation and worsening lactic acidosis. At approximately 13:30 03/16 Zen O2% desaturated while on high flow O2. Scarlet was told of patient's change in clinical presentation now showing signs of multiorgan dysfunction and no changes in me ntation, AOx0. Daughter, Scarlet, was informed of patient's decline in clinical condition and daughter has made an informed decision for comfort care. Comfort measures started 14:00 with morphine drip. Family is agreeable. Family consoled at bedside and Veterinary Surgery Technologist services requested. Rest of patient's chronic all further medical management deferred at this time due to comfort care. Our team was called to pronounce the of patient Zen Pruett. Upon examination, spontaneous movement were absent. No response to verbal or tactile stimuli. No active heart or breath sounds were noted after 2 continuous minutes of auscultation. Pupils were unresponsive to light, corneal reflexes absent, patient unresponsive to external stimuli. Patient was pronounced on 5:30PM at [facility]. Attending Dr. Oglesby was notified. The patient's family was present at bedside & consoled. Patient on 03/16/25 at approximately 17:30 #Comfort Measures #Goals of Care #Multi-organ Failure #Hepatic encephalopathy #Acute on Chronic Liver Failure #Transaminitis, worsening #MARCUS #Lactic Acidosis, worsening #Left-sided facial droop, resolved #Coagulopathy #Thrombocytopenia #Elevated D-dimer #SIRS criteria #Suspected SBP #Macrocytic anemia Patient case discussed with attending, Dr. Oglesby and co-resident, Dr. Aarti Adan DO PGY-1 - The patient's plan was discussed with attending Dr. Reny Broussard MD PGY2 Internal Medicine Additional Data Confirmation of as documented by pronouncing clinician: no pulse, no respirations, no heart sounds and pupils fixed and dilated Family: at bedside Additional persons at bedside: farmworker egg producing farm and social work manager Attending/PCP notified?: Yes Attending physician: Jose Oglesby MD Was code activated?: No Autopsy requested?: No film examiner notified?: No Organ bank notified?: No Advance directives: No Hospice patient?: No Visit Providers Provider Primary care physician: Willian Verdugo MD Consults: 03/12/25 15:10 Referral Speech Therapy Stat Comment: 03/12/25 15:23 Referral Wound Care Stat Comment: 03/13/25 08:00 Consult to Neurology / Tele-Neurology Routine Comment: Consulting Provider: Levi Reynolds 03/13/25 08:15 Referral - DOOR OPERATOR Machine Sewer Routine Comment: swallow eval c Deysi 03/14/25 08:42 Referral Hospice Routine Comment: 03/15/25 15:52 PT [Referral Physical Therapy] Routine Comment: Physician Instructions: Instructions: Assess for passive range of movement for outpatient hospice please 03/16/25 14:23 Referral [place] Stat Comment: Discharge Plan Plan Patient Disposition: Prescriptions/Referrals Referrals: Willian Verdugo MD [Primary Care Provider, Family Practice] Patient/Caregiver Discharge Instructions Print Language: [place] Islander Discharge Order Discharge Orders: Discharge (Routine); Ordered 03/16/25 Ordered By: Jeff Verdugo
== END 2025-03-16 17:30 | disposition expired | DRG 279 ==
LOC: SERX 11:30 → SERHOLD 21:12 → S2NX 22:41
PROVIDERS: Student in an Organized Health Care Education/Training Program; Admitting Provider Internal Medicine; Emergency Provider Emergency Medicine; PCP Family Medicine; Visit Provider Student in an Organized Health Care Education/Training Program
DX: K72.10 Chronic hepatic failure without coma (principal); K76.82 Hepatic encephalopathy; D69.6 Thrombocytopenia, unspecified; R14.0 Abdominal distension (gaseous); E88.09 Other disorders of plasma-protein metabolism, not elsewhere classified; K70.31 Alcoholic cirrhosis of liver with ascites; R29.810 Facial weakness; D68.9 Coagulation defect, unspecified; D53.9 Nutritional anemia, unspecified; E51.9 Thiamine deficiency, unspecified; I46.8 Cardiac arrest due to other underlying condition; E87.20 Acidosis, unspecified; Z51.5 Encounter for palliative care; N17.9 Acute kidney failure, unspecified; Z66 Do not resuscitate; Z79.899 Other long term (current) drug therapy; W19.XXXA Unspecified fall, initial encounter
CPT/HCPCS: 36415; 36600; 70450; 70496; 70498; 70553; 71045; 74177; 76705; 80053; 80061; 81001; 82042; 82140; 82150; 82550; 82803; 82945; 83036; 83605; 83615; 83690; 83735; 83880; 84100; 84145; 84157; 84443; 84484; 85025; 85379; 85610; 85730; 87040; 87070; 87075; 87205; 89051; 92526; 92610; 93005; 93306; 93970; 94660; 95816; 96365; 96366; 96375; 97161; 99285; A4314; A4649; A9577; J0696; J1938; J2060; J2270; J2405; J2470; J3411; J3430; J3480; J7050; P9047; Q9967; A9270; P0947